=== PATIENT | male | born 1955 | race Caucasian/White ===

== ENCOUNTER 2021-07-04 10:45 | Observation (INO) | payer OTHER ==
--- OUTSIDE RECORDS SUMMARY | 2021-07-04 10:47 | XMS REPORT | Continuity of Care Document ---
:1955 Author Organization [facility] t Address [address] [place] [address] Care Team Providers Name Role Phone DION Attending Clinician Unavailable GARCIA Attending Clinician Unavailable Problems Condition Condition Condition Status Onset Resolution Last Treating Co mments Source Name Details Category Date Date Treatment Clinician Date History of History of Problem Resolve [facility] Heart Heart d ity of disease disease [place] [facility] History of History of Problem Resolve [facility] hypertensi hypertensi d it y of on on [place] [facility] Right Right Problem Active [facility] shoulder shoulder ity of pain pain [place] [facility] Tear of Tear of Problem Active [facility] right right ity of rotator rotator [place] cuff cuff [facility] Allergies, Adverse Reactions, Alerts This patient has no known allergies or adverse reactions. Medications Ordered Filled Start Stop Current Ordering Indication Dosage Frequency Signature Comments Components Source Medication Medication Date Date Medication? Clinician (SIG) Name Name Coreg CR 10 Coreg CR 10 Yes U nivers MG Oral MG Oral ity of Capsule Capsule [place] Extended Extended [facility]ici Release 24 Release 24 ans Hour Hour Amiodarone Amiodarone Yes Uni vers HCl - 200 HCl - 200 ity o f MG Oral MG Oral [place] Tablet Tablet [facility] ans Simvastatin Simvastatin Yes U nivers 20 MG Oral 20 MG Oral ity of Tablet Tablet [place] [facility] Ramipril 10 Ramipril 10 Yes U nivers MG Oral MG Oral ity of Capsule Capsule [place] [facility] Potassium Potassium Yes Unive rs Chloride 10 Chloride 10 i ty of MEQ TBCR MEQ TBCR [place] [facility] Allopurinol Allopurinol Yes U nivers 300 MG Oral 300 MG Oral i ty of Tablet Tablet [place] [facility] Warfarin Warfarin Yes Univers Sodium 10 Sodium 10 ity o f MG Oral MG Oral [place] Tablet Tablet [facility] ans Furosemide Furosemide Yes Uni vers 40 MG Oral 40 MG Oral ity of Tablet Tablet [place] [facility] Vital Signs Vital Name Observation Time Observation Value Comments Source BP Systolic 2019-08-04 11:46:00 135 mm[Hg] [facility] BP Diastolic 2019-08-04 11:46:00 91 mm[Hg] [facility] Height 2019-08-04 11:46:00 70 [in_us] [facility] Weight 2019-08-04 11:46:00 238 [lb_av] [facility] Body Mass Index 2019-08-04 11:46:00 34.15 kg/m2 [facility] Heart Rate 2019-08-04 11:46:00 87 /min [facility] Procedures Procedure Date / Time Performed Performing Clinician Sourc e MR Shoulder wo 2019-08-04 00:00:00 [facility] [place] contrast [id number] History of Shoulder [facility] [place] [facility] History of Heart [facility] Encounters Start End Encounter Admission Attending Care Care Encounter Source Date/Time Date/Time Type Type Clinicians Facility Department ID 2021-04-22 2021-04-22 [facility] [id number] 2021-03-16 2021-03-16 [facility] [id number] [facility] 2021-03-11 2021-03-11 [facility] [id number] [facility] 2021-02-25 2021-02-25 [facility]patient [facility] [id number] [facility] 2021-02-16 2021-02-16 [facility] [id number] [facility] 2021-02-01 2021-02-01 Outpatient [facility] [id number] [facility] 2019-08-04 2019-08-04 Appointmen AMANDA ASHLEY [facility] [id number] [facility] 11:00:00 11:00:00 t; JI VILLEDA - Che gonzalez o DION, [address] [facility] 2017-11-12 2017-11-12 Appointmen AMANDA GARCIA [facility] [id number] [facility] 08:00:00 08:00:00 t; FRANCES GARCIA [facility] [address] [facility] ans Results This patient has no known results.
[2021-07-04] MEDS ORDERED: NA CHLORIDE 0.9% 1,000 ML ONE (11:22)
[2021-07-04 11:40] LABS: Absolute Lymphocytes (CBC) 1.1 K/uL (0.7-4.9); Basophils % 0.7 % (0-1.3); Hematocrit 44.8 % (39.6-49.0); Lymphocytes % 11.2 % (15.3-44.8); MPV 7.7 fL (7.6-11.3); RBC Red Blood Cell Count 5.06 M/uL (4.33-5.43)
[2021-07-04 11:42] LABS: Protime INR 2.98
--- NOTE | 2021-07-04 11:52 | RAD REPORT ---
EXAM DESCRIPTION: RAD - Chest Single View - 07/04/2021 11:46 am CLINICAL HISTORY: ABDOMINAL DISTENTION COMPARISON: Chest Single View dated 08/15/2017; Chest Single View dated 08/29/2016; CHEST PA AND LAT 2 VIEW dated 12/24/2011; CHEST PA AND LAT 2 VIEW dated 11/30/2011 FINDINGS: Lines: None. Lungs: No evidence of edema or pneumonia. Pleural: No significant pleural effusions or pneumothorax. Cardiac: Cardiomegaly. Sternotomy. Bones: No acute fractures. Other: IMPRESSION: No acute cardiopulmonary disease.
[2021-07-04 12:00] LABS: AST/SGOT 19 U/L (15-37); BUN Blood Urea Nitrogen 27 mg/dL (7-18); Bicarbonate 24 mmol/L (21-32); Glucose Level 131 mg/dL (74-106); Potassium 4.1 mmol/L (3.5-5.1); Sodium Level 137 mmol/L (136-145)
[2021-07-04 12:01] LABS: ALT/SGPT 31 U/L (12-78); Albumin 3.8 g/dL (3.4-5.0); Alkaline Phosphatase 58 U/L (45-117); Bilirubin Direct < 0.1 mg/dL (0-0.2); Bilirubin Total 0.4 mg/dL (0.2-1.0); Lipase 96 U/L (73-393); Magnesium 2.2 mg/dL (1.8-2.4); NT PRO-BNP 490 pg/mL (<125); Protein, Total 7.6 g/dL (6.4-8.2); Troponin (Emerg Dept Use Only) < 0.02 ng/mL (0.0-0.045)
[2021-07-04 12:54] LABS: Urine Blood 1+ (Negative); Urine Glucose Negative (Negative); Urine Protein Negative (Negative); Urine Specific Gravity 1.015 (1.005-1.030)
--- NOTE | 2021-07-04 13:51 | RAD REPORT ---
EXAM DESCRIPTION: CT - Abdomen Pelvis W Contrast - 07/04/2021 1:01 pm CLINICAL HISTORY: ABD PAIN COMPARISON: No comparisons TECHNIQUE: Biphasic, helical CT imaging of the abdomen and pelvis was performed following 100 ml non -ionic IV contrast. No oral contrast administered. All CT scans are performed using dose optimization technique as appropriate and may include automated exposure control or mA/KV adjustment according to patient size. FINDINGS: Cardiomegaly is present without pericardial effusion. No pneumothorax or pleural effusion. A 2.6 centimeter sessile soft tissue masses present in the lateral gutter on the left. This appears to be abutting the diaphragmatic pleura on the chest side of the diaphragm. This measures larger than prior imaging. Patient has fibrotic stranding in the lung bases. Moderate-sized hiatal hernia is pre sent similar to comparison. The liver, spleen, and pancreas show no suspicious findings. Several small gallstones are present clu stered into the neck of the gallbladder similar to prior imaging. No acute gallbladder or biliary lai e finding. Patient has innumerable variably sized renal cysts. Both kidneys show lobulation in contour. In the a nterolateral upper pole left kidney there is a 3.6 centimeter cyst that contains a 2.2 centimeter enh ancing or hyperdense focus. This could be a solid mass complex within a cyst or hemorrhagic debris wi thin a cyst. The patient has a history of hemorrhage. A 16 millimeter exophytic hyperdense focus is p resent medial right kidney (image 20) this measures larger than the 2017 study. Another exophytic hyp erdense mass or lobulation projects from the posterior mid right kidney (image 33) 28 mm in dimension . This is slightly larger than the prior study. In the posterior lower pole (image 38) there is a 2.1 centimeter intermediate density mass. Lateral upper pole exophytic mass left kidney (image 27) measu ring 2.1 cm. This is larger than comparison. Also in the lateral upper pole left kidney (image 30) a 2.2 centimeter exophytic masses present. Lateral mid left kidney (image 40) shows a 3.5 cm TR x 3.2 c m AP exophytic mass measuring larger than 2017. Lateral lower pole 2.3 centimeter exophytic mass (alexandra ge 44) also measures larger. No pyelonephritis. No hydronephrosis or obstructing calculi. No bladder abnormalities. No adrenal abn ormalities. No dilated bowel loops or bowel wall thickening. Extensive sigmoid diverticulosis present without div erticulitis. No acute GI process seen. No free air, free fluid or inflammatory stranding. No bulky l ymphadenopathy or omental thickening. Patient has a very small incidental umbilical fat only hernia. In the left rectus abdominis musculature approximately 13 cm lateral to the umbilicus there is a 6 x 4 mm rectus hematoma. The oblique musculature on the left is thickened relative to the right and may contain hemorrhage or edema component as well. Prominent disc and bony degenerative changes are present. No acute findings seen. Arterial tree calci fications are present without acute vascular finding. IMPRESSION: Patient has a 6 x 4 centimeter left rectus hematoma lateral to the umbilicus. Thickening throughout the left lateral oblique musculature is probably additional hematoma and edema. Prominent sigmoid diverticulosis without diverticulitis. No acute GI process seen. Patient has numerous exophytic enhancing masses of both kidneys showing interval growth since 2017. T hese are suspicious for bilateral renal cell malignancies rather than hemorrhagic or complex cysts. P atient has a cyst in the anterior upper right kidney that may have a solid mass component that has de veloped or intra cyst hemorrhage. It is unknown if the patient's renal masses have been subjected to further evaluation since 2017. Alexei ateral renal cell carcinomas certainly are a primary consideration. If any intervention is contemplat ed, follow-up MR imaging would be suggested to confirm the renal masses as solid rather than complex cystic masses. Sessile mass abutting the left diaphragmatic pleura left lateral gutter enlarged from prior imaging p ossibly malignant as well.
--- NOTE | 2021-07-04 14:24 | EDPHYS ---
Physician Documentation [facility] Name: Chaim Michelle Age: 66 yrs Sex: Male : 1955 Arrival Date: 07/04/2021 Time: 10:53 Bed 16 Private MD: ED Physician Bharathi Orta HPI: 07/04 12:23 This 66 yrs old Male presents to ER via Ambulatory with complaints of melody Abdominal Pain. 12:23 The patient presents with abdominal distention in the upper abdomen, in the lower melody abdomen. Onset: The symptoms/episode began/occurred 7 day(s) ago. The symptoms do not radiate. Associated signs and symptoms: Pertinent positives:. The symptoms are described as crampy, steady. Modifying factors: The symptoms are alleviated by remaining still, the symptoms are aggravated by coughing, breathing deeply. Severity of pain: At its worst the pain was moderate in the emergency department the pain is unchanged. The patient has not experienced similar symptoms in the past. Historical: - Allergies: 11:07 NKDA; ww - PMHx: 11:07 Atrial Fib; CHF; Hypertension; AAA; ww - PSHx: 11:07 Stented artery; valve replacement; ww - Immunization history:: Client reports having NOT received the Covid vaccine. - Social history:: Smoking status: Patient/guardian denies using tobacco. - Family history:: not pertinent. ROS: 12:23 Constitutional: Negative for fever, chills, and weight loss, Eyes: Negative for injury, melody pain, redness, and discharge, ENT: Negative for injury, pain, and discharge, Neck: Negative for injury, pain, and swelling, Cardiovascular: Negative for chest pain, palpitations, and edema, Respiratory: Negative for shortness of breath, cough, wheezing, and pleuritic chest pain, Back: Negative for injury and pain, : Negative for injury, bleeding, discharge, and swelling, MS/Extremity: Negative for injury and deformity, Neuro: Negative for headache, weakness, numbness, tingling, and seizure, Psych: Negative for depression, anxiety, suicide ideation, homicidal ideation, and hallucinations, Allergy/Immunology: Negative for hives, rash, and allergies, Endocrine: Negative for neck swelling, polydipsia, polyuria, polyphagia, and marked weight changes, Hematologic/Lymphatic: Negative for swollen nodes, abnormal bleeding, and unusual bruising. 12:23 Abdomen/GI: Positive for abdominal pain, abdominal distension, of the anterior aspect of left lateral abdomen and left lower quadrant. 12:23 Skin: Positive for ecchymosis, swelling, of the left lower quadrant. Exam: 12:23 Constitutional: This is a well developed, well nourished patient who is awake, alert, melody and in no acute distress. Head/Face: Normocephalic, atraumatic. Eyes: Pupils equal round and reactive to light, extra-ocular motions intact. Lids and lashes normal. Conjunctiva and sclera are non-icteric and not injected. Cornea within normal limits. Periorbital areas with no swelling, redness, or edema. ENT: Nares patent. No nasal discharge, no septal abnormalities noted. Tympanic membranes are normal and external auditory canals are clear. Oropharynx with no redness, swelling, or masses, exudates, or evidence of obstruction, uvula midline. Mucous membranes moist. Neck: Trachea midline, no thyromegaly or masses palpated, and no cervical lymphadenopathy. Supple, full range of motion without nuchal rigidity, or vertebral point tenderness. No Meningismus. Chest/axilla: Normal chest wall appearance and motion. Nontender with no deformity. No lesions are appreciated. Cardiovascular: Regular rate and rhythm with a normal S1 and S2. No gallops, murmurs, or rubs. Normal PMI, no JVD. No pulse deficits. Respiratory: Lungs have equal breath sounds bilaterally, clear to auscultation and percussion. No rales, rhonchi or wheezes noted. No increased work of breathing, no retractions or nasal flaring. Back: No spinal tenderness. No costovertebral tenderness. Full range of motion. Male : Normal genitalia with no discharge or lesions. Skin: Warm, dry with normal turgor. Normal color with no rashes, no lesions, and no evidence of cellulitis. MS/ Extremity: Pulses equal, no cyanosis. Neurovascular intact. Full, normal range of motion. Neuro: Awake and alert, GCS 15, oriented to person, place, time, and situation. Cranial nerves II-XII grossly intact. Motor strength 5/5 in all extremities. Sensory grossly intact. Cerebellar exam normal. Normal gait. Psych: Awake, alert, with orientation to person, place and time. Behavior, mood, and affect are within normal limits. 12:23 ECG was reviewed by the Attending Physician. 12:23 Abdomen/GI: Inspection: distension, Bowel sounds: normal, Palpation: moderate abdominal tenderness, in the left lower quadrant, Liver: no appreciated palpable abnormalities, Hernia: not appreciated. Vital Signs: 11:05 BP 119 / 81; Pulse 75; Resp 18; Temp 98.1; Pulse Ox 94% on R/A; Weight 108.86 kg; ww Height 5 ft. 9 in. (175.26 cm); Pain 5/10; 11:46 BP 121 / 93; Pulse 80; Resp 17; ll1 18:50 BP 140 / 93; Pulse 75; Resp 18; Pulse Ox 95% on R/A; ll1 20:38 BP 125 / 90; Pulse 98; Resp 19; Pulse Ox 100% on R/A; kd3 11:05 Body Mass Index 35.44 (108.86 kg, 175.26 cm) ww MDM: 11:07 Patient medically screened. melody 12:28 Differential diagnosis: gastroesophageal reflux disease, Mesenteric ischemia or melody infarction, non-specific abd pain, Ureterolithiasis, urinary tract infection. Data reviewed: vital signs, nurses notes, lab test result(s), EKG, radiologic studies, CT scan, plain films. Data interpreted: project/production manager imaging: rate is 80 beats/min, rhythm is regular, Pulse oximetry: on room air is 94 %. Test interpretation: by ED physician or midlevel provider: ECG, plain radiologic studies. Counseling: I had a detailed discussion with the patient and/or guardian regarding: the historical points, exam findings, and any diagnostic results supporting the discharge/admit diagnosis, lab results, radiology results. 07/04 11:08 Order name: Basic Metabolic Panel; Complete Time: 12:18 melody 07/04 11:08 Order name: CBC with Diff; Complete Time: 12:18 melody 07/04 11:08 Order name: LFT's; Complete Time: 12:18 melody 07/04 11:08 Order name: Magnesium; Complete Time: 12:18 melody 07/04 11:08 Order name: NT PRO-BNP; Complete Time: 12:18 melody 07/04 11:08 Order name: PT-INR; Complete Time: 12:18 melody 07/04 11:08 Order name: Troponin (emerg Dept Use Only); Complete Time: 12:18 [facility] 07/04 11:08 Order name: XRAY Chest (1 view); Complete Time: 12:18 [facility] 07/04 11:08 Order name: Lipase; Complete Time: 12:18 [facility] 07/04 11:08 Order name: Urine Culture [facility] 07/04 12:54 Order name: Urine Dipstick-Ancillary; Complete Time: 13:58 [facility] 07/04 17:37 Order name: COVID-19 (Coronavirus) Document "Date of Onset" if Symptomatic [email or web address] 07/04 18:12 Order name: CORONAVIRUS [facility] 07/04 19:08 Order name: SARS-COV-2 RT PCR [facility] 07/04 11:08 Order name: EKG; Complete Time: 11:09 [facility] 07/04 11:08 Order name: Cardiac monitoring; Complete Time: 11:17 [facility] 07/04 11:08 Order name: EKG - Nurse/Tech; Complete Time: 11:17 [facility] 07/04 11:08 Order name: IV Saline Lock; Complete Time: 11:14 [facility] 07/04 11:08 Order name: Labs collected and sent; Complete Time: 11:13 [facility] 07/04 11:08 Order name: O2 Per Protocol; Complete Time: 11:13 [facility] 07/04 11:08 Order name: O2 Sat Monitoring; Complete Time: 11:13 [facility] 07/04 11:08 Order name: Urine Dipstick-Ancillary (obtain specimen); Complete Time: 14:50 [facility] 07/04 11:08 Order name: CT Abd/Pelvis - IV Contrast Only; Complete Time: 13:58 [facility] EC:23 Rate is 84 beats/min. Rhythm is regular. QRS [place] is Normal. VT interval is normal. QRS melody interval is normal. QT interval is normal. No Q waves. T waves are Normal. No ST changes noted. Clinical impression: NSR w/ Non-specific ST/T Changes and No evidence of ischemia. Interpreted by me. Reviewed by me. Administered Medications: 11:32 Drug: NS 0.9% 1000 ml Route: IV; Rate: 125 ml/hr; Site: left forearm; ll1 18:47 Drug: morphine 2 mg Route: IVP; Site: left antecubital; ll1 18:48 Drug: Zofran (Ondansetron) 4 mg Route: IVP; Site: left antecubital; ll1 Disposition Summary: 07/04/21 14:23 Hospitalization Ordered Hospitalization Status: Observation melody Provider: Satnam De La Cruz cha Location: Telemetry/MedSurg (observation) melody Condition: Fair melody Problem: new melody Symptoms: have improved melody Bed/Room Type: Standard melody Room Assignment: 222(07/04/21 20:08) mw Diagnosis - Nontraumatic hematoma of soft tissue - 6x4 cm rectus hematoma melody - Adverse effect of anticoagulants - Coumadin melody - Other mechanical complication of heart valve prosthesis, initial encounter melody - 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
--- NOTE | 2021-07-04 14:24 | ER ---
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 On Warfarin and has noticed brusing to the abdomen. Denies any recent falls or traumas. Coronavirus screen: Vaccine status: Patient reports being unvaccinated. Client denies travel out of the [place] in the last 14 days. Ebola Screen: Patient negative for fever greater than or equal to 101.5 degrees Fahrenheit, and additional compatible Ebola Virus Disease symptoms Patient denies exposure to infectious person. Patient denies travel to an Ebola-affected area in the 21 days before illness onset. No symptoms or risks identified at this time. Initial Sepsis Screen: Does the patient meet any 2 criteria? No. Patient's initial sepsis screen is negative. Does the patient have a suspected source of infection? No. Patient's initial sepsis screen is negative. Risk Assessment: Do you want to hurt yourself or someone else? Patient reports no desire to harm self or others. Onset of symptoms was July 03, 2021. 11:05 Method Of Arrival: Ambulatory ww 11:05 Acuity: ABBY 3 ww Triage Assessment: 11:07 General: Appears in no apparent distress. Behavior is calm, cooperative, appropriate ww for age. Pain: Complains of pain in anterior aspect of left lateral abdomen, left upper quadrant and left lower quadrant. EENT: No deficits noted. No signs and/or symptoms were reported regarding the EENT system. Neuro: No deficits noted. Level of Consciousness is awake, alert, obeys commands, Oriented to person, place, time, situation, Appropriate for age. Cardiovascular: Capillary refill < 3 seconds. Respiratory: Airway is patent Respiratory effort is even, labored, wears home oxygen. GI: Abdomen is round bruised on umbilical area, suprapubic area, left upper quadrant and left lower quadrant Abdomen is tender to palpation. : No deficits noted. No signs and/or symptoms were reported regarding the genitourinary system. Derm: Skin is intact, Skin is normal, Bruising that is dark purple, yellow, on umbilical area, suprapubic area and left lower quadrant. Musculoskeletal: No deficits noted. No signs and/or symptoms reported regarding the musculoskeletal system. Historical: - Allergies: 11:07 NKDA; ww - PMHx: 11:07 Atrial Fib; CHF; Hypertension; AAA; ww - PSHx: 11:07 Stented artery; valve replacement; ww - Immunization history:: Client reports having NOT received the Covid vaccine. - Social history:: Smoking status: Patient/guardian denies using tobacco. - Family history:: not pertinent. Screenin:48 Abuse screen: Denies threats or abuse. Nutritional screening: No deficits noted. ll1 Tuberculosis screening: No symptoms or risk factors identified. Fall Risk IV access (20 points). Total Perez Fall Scale indicates No Risk (0-24 pts). Assessment: 11:35 Reassessment: No changes from previously documented assessment. Patient and/or family ll1 updated on plan of care and expected duration. Pain level reassessed. Patient is alert, oriented x 3, equal unlabored respirations, skin warm/dry/pink. Neuro: No deficits noted. Cardiovascular: No deficits noted. Respiratory: No deficits noted. GI: Abdomen is round Bowel sounds present X 4 quads. Reports bruising LLQ abdominal area slowly getting bigger for 1 week. No specific trauma or falls. Pain to lower abdomen started yesterday. Denies N/V/D. 12:30 Reassessment: No changes from previously documented assessment. Patient and/or family ll1 updated on plan of care and expected duration. Pain level reassessed. Patient is alert, oriented x 3, equal unlabored respirations, skin warm/dry/pink. 13:30 Reassessment: No changes from previously documented assessment. Patient and/or family ll1 updated on plan of care and expected duration. Pain level reassessed. Patient is alert, oriented x 3, equal unlabored respirations, skin warm/dry/pink. 14:30 Reassessment: No changes from previously documented assessment. Patient and/or family ll1 updated on plan of care and expected duration. Pain level reassessed. Patient is alert, oriented x 3, equal unlabored respirations, skin warm/dry/pink. 15:30 Reassessment: No changes from previously documented assessment. Patient and/or family ll1 updated on plan of care and expected duration. Pain level reassessed. Patient is alert, oriented x 3, equal unlabored respirations, skin warm/dry/pink. 16:30 Reassessment: No changes from previously documented assessment. Patient and/or family ll1 updated on plan of care and expected duration. Pain level reassessed. Patient is alert, oriented x 3, equal unlabored respirations, skin warm/dry/pink. 17:30 Reassessment: No changes from previously documented assessment. Patient and/or family ll1 updated on plan of care and expected duration. Pain level reassessed. Patient is alert, oriented x 3, equal unlabored respirations, skin warm/dry/pink. 18:30 Reassessment: No changes from previously documented assessment. Patient and/or family ll1 updated on plan of care and expected duration. Pain level reassessed. Patient is alert, oriented x 3, equal unlabored respirations, skin warm/dry/pink. 19:40 Reassessment: Patient is alert, oriented x 3, equal unlabored respirations, skin kd3 warm/dry/pink. 20:39 Reassessment: No changes from previously documented assessment. kd3 Vital Signs: 11:05 BP 119 / 81; Pulse 75; Resp 18; Temp 98.1; Pulse Ox 94% on R/A; Weight 108.86 kg; ww Height 5 ft. 9 in. (175.26 cm); Pain 5/10; 11:46 BP 121 / 93; Pulse 80; Resp 17; ll1 18:50 BP 140 / 93; Pulse 75; Resp 18; Pulse Ox 95% on R/A; ll1 20:38 BP 125 / 90; Pulse 98; Resp 19; Pulse Ox 100% on R/A; kd3 11:05 Body Mass Index 35.44 (108.86 kg, 175.26 cm) ED Course: 10:53 Patient arrived in ED. rg4 11:07 Triage completed. ww 11:07 Bharathi Orta MD is Attending Physician. melody 11:07 Arm band placed on right wrist. ww 11:13 Nathan, Lynsay, RN is Primary Nurse. ll1 11:24 EKG done, by ED staff, reviewed by Bharathi Orta MD. mb7 11:33 Inserted saline lock: 22 gauge in left forearm, using aseptic technique. Blood ll1 collected. 11:46 XRAY Chest (1 view) In Process Unspecified. EDMS 11:48 Patient has correct armband on for positive identification. Bed in low position. Call ll1 light in reach. Side rails up X 1. Pulse ox on. NIBP on. 13:01 CT Abd/Pelvis - IV Contrast Only In Process Unspecified. EDMS 14:16 Satnam De La Cruz is Hospitalizing Provider. melody 18:51 No provider procedures requiring assistance completed. ll1 19:27 Primary Nurse role handed off by Sridhar Evans RN mw2 19:36 Lisa Toney, RN is Primary Nurse. kd3 Administered Medications: 11:32 Drug: NS 0.9% 1000 ml Route: IV; Rate: 125 ml/hr; Site: left forearm; ll1 18:47 Drug: morphine 2 mg Route: IVP; Site: left antecubital; ll1 18:48 Drug: Zofran (Ondansetron) 4 mg Route: IVP; Site: left antecubital; ll1 Outcome: 14:23 Decision to Hospitalize by Provider. melody 20:52 Patient left the ED. mw2 Signatures: Dispatcher [employer] EDDE Bharathi Orta MD MD cha Garcia, Rubi rg4 [place] mw2 Sridhar Evans RN RN ll1 Lisa Toney RN RN 3 Tia Rich mb7 Rachelle Ang RN RN ww Corrections: (The following items were deleted from the chart) 11:08 11:07 PMHx: Aneurysm; ww ww
--- NOTE | 2021-07-04 16:11 | P.HP ---
Certification for Inpatient Patient admitted to: Inpatient With expected LOS: >2 Midnights Practitioner: I am a practitioner with admitting privileges, knowledge of patient current condition, hospital course, and medical plan of care. Services: Services provided to patient in accordance with Admission requirements found in Title 42 Section 412.3 of the Code of Federal Regulations Patient History Date of Service: 07/04/21 Reason for admission: Abdominal pain History of Present Illness: 66-year-old gentleman with a history of mechanical valve replacement on Coumadin anticoagulation presented to the emergency department with a complaint of sudden onset abdominal pain and hematoma on the lower anterior abdominal wall. CT abdomen pelvis done in the ED demonstrate rectus sheath hematoma. It also demonstrated multiple kidney cyst and masses which are enlarged compared to previous scans. INR is 2.9. Dr. Madden patient outside event sales specialist was contacted who recommended hospitalization, holding Coumadin and starting Lovenox 8 hours after holding Coumadin. Patient is hospitalized for further management. Allergies No Known Drug Allergies Allergy (Unverified 08/29/16 23:32) Unknown No Known Drug Allergie Allergy (Uncoded 11/08/15 12:32) Unknown Home Medications: Amiodarone HCl [Cordarone*] 200 mg PO DAILY 05/23/16 Furosemide [Lasix*] 40 mg PO DAILY 05/23/16 Omeprazole [Prilosec] 40 mg PO DAILY 05/23/16 Potassium Chloride [K-Tab ER] 10 meq PO DAILY 05/23/16 Ramipril [Altace] 10 mg PO DAILY 05/23/16 Simvastatin [Zocor*] 20 mg PO DAILY 05/23/16 Warfarin Sodium [Coumadin*] 9 mg PO DAILY 05/23/16 - Past Medical/Surgical History Diabetic: No -: HTN -: CHF -: Aortic Aneurysm x2 -: Aortic Valve replacement -: Kidbey Stones -: R shoulder replacement -: R eye retina tear -: L Kideny stent - Family History Father -: Cancer, Blood disorders Notes: throat cx, anemia Sister -: Blood disorders Notes: anemia - Social History Alcohol use: No CD- Drugs: No Caffeine use: No Review of Systems Other: Patient denies any fever or chills or shortness of breath. He denies any diarrhea no nausea or vomiting. Except as documented, all other systems reviewed and negative. Physical Examination - Physical Exam General: Alert, In no apparent distress, Oriented x3, Obese HEENT: Atraumatic, PERRLA, Mucous membr. moist/pink, Sclerae nonicteric Neck: Supple, JVD not distended Respiratory: Clear to auscultation bilaterally, Normal air movement Cardiovascular: No edema, Regular rate/rhythm, Normal S1 S2 Gastrointestinal: Soft and benign, Non-distended, Other (Hematoma-lower portion of anterior abdominal wall.), Tenderness (Anterior abdominal wall) Musculoskeletal: No swelling, No erythema Integumentary: No rashes, No cyanosis Neurological: Normal speech, Normal strength at 5/5 x4 extr, Cranial nerves 3-12 intact Lymphatics: No axilla or inguinal lymphadenopathy - Studies Laboratory Data (last 24 hrs) 07/04/21 11:30: PT 34.6 H, INR 2.98 07/04/21 11:30: WBC 10.10, Hgb 14.7, Hct 44.8, Plt Count 215 07/04/21 11:30: Sodium 137, Potassium 4.1, BUN 27 H, Creatinine 1.34 H, Glucose 131 H, Magnesium 2.2, Total Bilirubin 0.4, AST 19, ALT 31, Alkaline Phosphatase 58, Lipase 96 Assessment and Plan - Problems (Diagnosis) (1) Rectus sheath hematoma Current Visit: Yes Status: Acute (2) HTN (hypertension) Onset Date: 05/24/16 Current Visit: No Status: Acute Qualifiers: Hypertension type: essential hypertension Qualified Code(s): I10 - Essential (primary) hypertension (3) Hx of mechanical aortic valve replacement Current Visit: No Status: Acute (4) Chronic anticoagulation Current Visit: Yes Status: Acute (5) Bilateral renal masses Current Visit: Yes Status: Acute - Plan Admit to the medical floor. Hold Coumadin. Start Lovenox 0.5 mg/kg Q12H 8 hours from now per Dr. Madden's recommendation. Monitor PT/INR daily. May restart Coumadin once INR is around 2. Further evaluation of renal masses as an outpatient. Patient will need his Coumadin reversed and bridged with Lovenox prior to any procedure for tissue biopsy. Reconcile and continue patient's other home medications. - Advance Directives Does patient have a Living Will: No Does patient have a Durable POA for Healthcare: No
[2021-07-04] MEDS ORDERED: MORPHINE 2 MG/ML SYR ONE (18:38)
[2021-07-04] MEDS ORDERED: ONDANSETRON 4 MG/2 ML VIAL ONE (18:38)
[2021-07-04 21:27] VITALS: O2SAT 100
[2021-07-04] MEDS ORDERED: ACETAMINOPHEN 500 MG TAB PO PRN (21:36)
[2021-07-04 23:36] VITALS: BMI 35.4
[2021-07-05 06:13] LABS: Absolute Lymphocytes (CBC) 0.8 K/uL (0.7-4.9); Basophils % 0.5 % (0-1.3); Hematocrit 41.2 % (39.6-49.0); Lymphocytes % 8.5 % (15.3-44.8); MPV 7.8 fL (7.6-11.3); RBC Red Blood Cell Count 4.62 M/uL (4.33-5.43)
--- NOTE | 2021-07-05 06:16 | P.PN ---
Date of Service: 07/05/21 Subjective: No acute events overnight. Patient reports continued left lower abdomen discomfort. Denies any worsening of the pain, denies spread of the area involved. No new symptoms ROS: 10 point ROS as noted above, otherwise negative Physical exam GEN: Alert, oriented, NAD HEENT: Normal conjunctiva, sclera anicteric CV: Regular rate and rhythm, trace b/l pedal edema Pulm: Nonlabored respirations on room air ABD: Soft, ecchymosis inferior to the umbilicus and laterally (left), tender to palpatio in area of ecchymosis Neuro: Normal speech, normal affect Problem List Rectus sheath hematoma Hypertension History of mechanical aortic valve replacement Chronic anticoagulation Bilateral renal masses Coumadin held Started Lovenox 0.5 mg/kg Q12H 8 hours after admission per Dr. Madden's recommendation. Monitor PT/INR daily. restart Coumadin once INR is around 2. possibly tomorrow Further evaluation of renal masses as an outpatient. Patient will need his Coumadin reversed and bridged with Lovenox prior to any procedure for tissue biopsy. Discussed renal masses with patient, states he was aware of them ~2 years ago, saw a surgeon to possibly biopsy, however didn't feel comfortable at the time and somewhat forgot about them / stopped worrying about them restart home beta darlyn, restart lasix tomorrow PRN pain medication patient reported coughing fits last week, and after coughing hard he felt increased pain in the lower left abdomen, shortly after he developed bruising Dispo: Anticipate DC home in 1-2 days Time Spent Managing Pts Care (In Minutes): 35
[2021-07-05 06:18] LABS: Protime INR 2.48
[2021-07-05] MEDS ORDERED: MORPHINE 2 MG/ML SYR IV PRN ×2 (06:33→09:41)
[2021-07-05 06:35] LABS: Magnesium 2.3 mg/dL (1.8-2.4); Phosphorus 3.5 mg/dL (2.5-4.9); Potassium 4.3 mmol/L (3.5-5.1)
--- NOTE | 2021-07-05 07:37 | EKG ---
Test Date: 2021-07-04 Test Time: 11:18:46 Binding Folder Machine: FRANKY MEASUREMENT RESULTS: Intervals: Rate: 84 ID: [id number] QRSD: 168 QT: 464 QTc: 548 [place]: P: 56 ID: [id number] QRS: -51 T: 46 INTERPRETIVE STATEMENTS: Normal sinus rhythm Right bundle branch block Left anterior fascicular block Bifascicular block Possible Inferior infarct, age undetermined Abnormal ECG Compared to ECG 08/29/2016 18:29:46 Left anterior fascicular block now present Bifascicular block now present Myocardial infarct finding now present Left-axis deviation no longer present Electronically Signed On 07-05-21 07:35:04 PATCHING MACHINE OPERATOR by Robert Madden
[2021-07-05] MEDS ORDERED: METOPROLOL TAR 25 MG TAB PO SCH (09:00)
[2021-07-05] MEDS ORDERED: TRAMADOL HCL 50 MG TAB PO PRN (09:34)
--- NOTE | 2021-07-05 12:18 | CON ---
Date of Consultation: 07/05/2021 Reason For Consultation: Rectus sheath hematoma, on Coumadin. History Of Present Illness: Mr. Michelle is 66. He has a history of chronic diastolic congestive heart failure, thoracic aortic aneurysm, status post aortic root and aneurysm repair, aortic valve replace ment, CABG. He is on Coumadin because he has mechanical aortic valve. He comes in with rectus sheat h hematoma and was found also to have some complex cysts in his kidneys bilaterally that needs follow up. No cardiac complaints. Hemoglobin was normal. His creatinine is 1.34. His INR was 2.48. BNP was 490. His EKG showed left anterior hemiblock and a right bundle-branch block which is chronic. H is chest x-ray is negative. He is asymptomatic. Past Medical History: As stated above. Allergies: NONE. Medications: Include Coumadin, he alternates 10 and 11 mg daily. He takes potassium, allopurinol, m etoprolol, Altace, and Lasix. Review of Systems: Negative. Social History: Negative. Family History: Negative. Physical Examination: Vital Signs: Stable. General: Pleasant. HEENT: Negative. Neck: Supple with no bruit. Chest: Clear. Cardiac: Revealed a mechanical valve. Regular rhythm and rate. No murmurs or rubs. Abdomen: He has had a bruise and a large rectus sheath hematoma. Extremities: Revealed no clubbing, cyanosis, or edema. Impression And Plan: Hematoma, on Coumadin and in the presence of rectus sheath hematoma. Hemoglobi n is stable. I will have him resume his Coumadin at 10 mg tomorrow. He can stop the Lovenox. I loy l keep a close eye on his INR and his hematoma and hemoglobin. I would refer him to Dr. Tavares for his kidney for followup in the very near future. Rest of his problems are stable at this point. I w ill see him in the office soon. NB/MODL Voice ID: [id number] Report ID: [id number]
[2021-07-05 12:29] VITALS: BP 149/64; TEMP 98.2
--- NOTE | 2021-07-05 14:11 | P.DS ---
Admission Date: 07/04/21 Discharge Date: 07/05/21 Disposition: ROUTINE DISCHARGE Reason for Admission: Abdominal pain -rectus sheath hematoma Consultations: Cardiology - Dr. Madden Procedures: CXR (07/04): IMPRESSION: No acute cardiopulmonary disease. CT Abd/pelvis (07/04): FINDINGS: Cardiomegaly is present without pericardial effusion. No pneumothorax or pleural effusion. A 2.6 centimeter sessile soft tissue masses present in the lateral gutter on the left. This appears to be abutting the diaphragmatic pleura on the chest side of the diaphragm. This measures larger than prior imaging. Patient has fibrotic stranding in the lung bases. Moderate-sized hiatal hernia is present similar to comparison. The liver, spleen, and pancreas show no suspicious findings. Several small gallstones are present clustered into the neck of the gallbladder similar to prior imaging. No acute gallbladder or biliary tree finding. Patient has innumerable variably sized renal cysts. Both kidneys show lobulation in contour. In the anterolateral upper pole left kidney there is a 3.6 centimeter cyst that contains a 2.2 centimeter enhancing or hyperdense focus. This could be a solid mass complex within a cyst or hemorrhagic debris within a cyst. The patient has a history of hemorrhage. A 16 millimeter exophytic hyperdense focus is present medial right kidney (image 20) this measures larger than the 2017 study. Another exophytic hyperdense mass or lobulation projects from the posterior mid right kidney (image 33) 28 mm in dimension. This is slightly larger than the prior study. In the posterior lower pole (image 38) there is a 2.1 centimeter intermediate density mass. Lateral upper pole exophytic mass left kidney (image 27) measuring 2.1 cm. This is larger than comparison. Also in the lateral upper pole left kidney (image 30) a 2.2 centimeter exophytic masses present. Lateral mid left kidney (image 40) shows a 3.5 cm TR x 3.2 cm AP exophytic mass measuring larger than 2017. Lateral lower pole 2.3 centimeter exophytic mass (image 44) also measures larger. No pyelonephritis. No hydronephrosis or obstructing calculi. No bladder abnormalities. No adrenal abnormalities. No dilated bowel loops or bowel wall thickening. Extensive sigmoid diverticulosis present without diverticulitis. No acute GI process seen. No free air, free fluid or inflammatory stranding. No bulky lymphadenopathy or omental thickening. Patient has a very small incidental umbilical fat only hernia. In the left rectus abdominis musculature approximately 13 cm lateral to the umbilicus there is a 6 x 4 mm rectus hematoma. The oblique musculature on the left is thickened relative to the right and may contain hemorrhage or edema component as well. Prominent disc and bony degenerative changes are present. No acute findings seen. Arterial tree calcifications are present without acute vascular finding. IMPRESSION: Patient has a 6 x 4 centimeter left rectus hematoma lateral to the umbilicus. Thickening throughout the left lateral oblique musculature is probably additional hematoma and edema. Prominent sigmoid diverticulosis without diverticulitis. No acute GI process seen. Patient has numerous exophytic enhancing masses of both kidneys showing interval growth since 2017. These are suspicious for bilateral renal cell malignancies rather than hemorrhagic or complex cysts. Patient has a cyst in the anterior upper right kidney that may have a solid mass component that has developed or intra cyst hemorrhage. It is unknown if the patient's renal masses have been subjected to further evaluation since 2017. Bilateral renal cell carcinomas certainly are a primary consideration. If any intervention is contemplated, follow-up MR imaging would be suggested to confirm the renal masses as solid rather than complex cystic masses. Sessile mass abutting the left diaphragmatic pleura left lateral gutter enlarged from prior imaging possibly malignant as well. Problem List Rectus sheath hematoma Hypertension History of mechanical aortic valve replacement Chronic anticoagulation Bilateral renal masses Brief History of Present Illness: 66-year-old gentleman with a history of mechanical valve replacement on Coumadin anticoagulation presented to the emergency department with a complaint of sudden onset abdominal pain and hematoma on the lower anterior abdominal wall. CT abdomen pelvis done in the ED demonstrate rectus sheath hematoma. It also demonstrated multiple kidney cyst and masses which are enlarged compared to previous scans. INR is 2.9. Dr. Madden patient veterinary virus serum inspector was contacted who recommended hospitalization, holding Coumadin and starting Lovenox 8 hours after holding Coumadin. Patient is hospitalized for further management. Hospital Course: Patient's veterinary virus serum inspector was consulted. Recommended holding the patient's Coumadin, covering with half dose Lovenox and monitored. Patient had no worsening of his symptoms, and INR improved. Patient was cleared by cardiology for discharge home, to be initiated Coumadin at 10 mg daily tomorrow. Patient was in agreement with plan. Suspect this hematoma was due to the multiple coughing episodes patient had last week combined with been on anticoagulation. The incidental CT findings involving his kidneys were discussed with the daksha ent. He reported seeing a surgeon 2 years ago to discuss biopsy, however he did not proceed with it at that time. He is currently planning on following up with Dr. Madden (Cardiology) and Dr. Tavares (Urology) Vital Signs/Physical Exam: Temp Pulse Resp BP Pulse Ox 98.2 F 76 18 149/64 H 93 07/05/21 12:00 07/05/21 12:00 07/05/21 12:00 07/05/21 12:00 07/05/21 12:00 General: Alert, In no apparent distress, Oriented x3 HEENT: Sclerae nonicteric Neck: No LAD Respiratory: Clear to auscultation bilaterally Cardiovascular: No edema, Regular rate/rhythm Gastrointestinal: Tenderness (LLQ, with ecchymosis in the area as well) Neurological: Normal speech, Normal affect Laboratory Data at Discharge: WBC 9.70 K/uL (4.3-10.9) 07/05/21 05:42 Hgb 13.5 g/dL (13.6-17.9) L 07/05/21 05:42 Hct 41.2 % (39.6-49.0) 07/05/21 05:42 Plt Count 180 K/uL (152-406) 07/05/21 05:42 PT 28.8 SECONDS (9.5-12.5) H 07/05/21 05:42 INR 2.48 07/05/21 05:42 Sodium 138 mmol/L (136-145) 07/05/21 05:42 Potassium 4.3 mmol/L (3.5-5.1) 07/05/21 05:42 BUN 23 mg/dL (7-18) H 07/05/21 05:42 Creatinine 1.10 mg/dL (0.55-1.3) 07/05/21 05:42 Glucose 113 mg/dL (74-106) H 07/05/21 05:42 Phosphorus 3.5 mg/dL (2.5-4.9) 07/05/21 05:42 Magnesium 2.3 mg/dL (1.8-2.4) 07/05/21 05:42 Total Bilirubin 0.4 mg/dL (0.2-1.0) 07/04/21 11:30 AST 19 U/L (15-37) 07/04/21 11:30 ALT 31 U/L (12-78) 07/04/21 11:30 Alkaline Phosphatase 58 U/L (45-117) 07/04/21 11:30 Lipase 96 U/L (73-393) 07/04/21 11:30 Home Medications: Furosemide [Lasix*] 40 mg PO DAILY 05/23/16 Potassium Chloride [K-Tab ER] 10 meq PO DAILY 05/23/16 Ramipril [Altace] 10 mg PO DAILY 05/23/16 Warfarin Sodium [Coumadin*] 10 mg PO DAILY 05/23/16 Allopurinol 100 mg PO DAILY 07/04/21 Metoprolol Tartrate [Lopressor*] 25 mg PO BID 07/04/21 traMADol HCL [Ultram*] 50 mg PO Q8H PRN 4 Days #10 tab 07/05/21 New Medications: traMADol HCL [Ultram*] 50 mg PO Q8H PRN 4 Days #10 tab PRN Reason: Pain Scale 5-7 (Moderate) Physician Discharge Instructions: You were found to have a rectus sheath hematoma. You were evaluated by Dr. Madden. Recommended restarting coumadin tomorrow at 10mg daily Ok to restart your other medications. Follow up with Dr. Madden. Recommend repeat INR in ~3 days You will need to further discuss with your PCP regarding the renal masses/po ssible cysts. These have gotten bigger since last checked. Dr. Madden mentioned having you follow up with Dr. Tavares, a urologist in the area. Diet: AHA Activity: Ad eusebia Followup: Robert Madden MD [ACTIVE - CAN ADMIT] - Shana Rodriguez NP [Primary Care Provider] - Jony Tavares [ACTIVE - CAN ADMIT] - Time spent managing pt's care (in minutes): 45
[2021-07-05] MEDS ORDERED: ENOXAPARIN 60 MG/0.6 ML SQ SCH (22:00)
== END 2021-07-05 13:33 | disposition home or self-care (01) ==
LOC: ER 10:45 → ERHOLD 15:55 → INTOOBSV 15:55 → 2ND 20:36
PROVIDERS: ADMIT Internal Medicine; ATTEND Internal Medicine
DX: S30.1XXA Contusion of abdominal wall, initial encounter (principal); I10 Essential (primary) hypertension; N28.89 Other specified disorders of kidney and ureter; Z79.01 Long term (current) use of anticoagulants; Z95.2 Presence of prosthetic heart valve; Z20.822 Contact with and (suspected) exposure to COVID-19
CPT/HCPCS: 93005; 87088; 85025 ×2; 87086; 80048 ×2; 36415; 83735 ×2; 84100; 85610 ×2; 80076; 81003; 84484; 83690; 83880; 74177; 71045; 96375; 96374; 99284; U0003; Q9967; J1650; J2270 ×3; J7030; J2405; G0378 ×3

== ENCOUNTER 2021-11-01 07:15 | Day surgery (SDC) | payer OTHER ==
[2021-10-28 13:28] LABS: Absolute Lymphocytes (CBC) 0.9 K/uL (0.7-4.9); Hematocrit 43.8 % (39.6-49.0); Lymphocytes % 14.9 % (15.3-44.8); MPV 8.6 fL (7.6-11.3); RBC Red Blood Cell Count 4.89 M/uL (4.33-5.43)
[2021-10-28 13:33] LABS: Protime INR 2.49
[2021-10-28 13:43] LABS: Potassium 4.4 mmol/L (3.5-5.1)
[2021-11-01] MEDS ORDERED: Ringers Lactate 1,000 ML IV ONE (07:22)
[2021-11-01] MEDS ORDERED: CEFAZOLIN/SWI 2gm 2 GM/20 ML SYR ONE (07:22)
[2021-11-01 07:54] LABS: Protime INR 1.09
[2021-11-01] MEDS ORDERED: MIDAZOLAM HCL 2 MG/2 ML INJ ONE (08:42)
[2021-11-01] MEDS ORDERED: propofoL 200 MG/20 ML VIAL IV ONE (08:42)
[2021-11-01] MEDS ORDERED: LIDOCAINE 1% MPF 5 ML VIAL ONE (08:42)
[2021-11-01] MEDS ORDERED: FENTANYL CITR 100 MCG/2 ML ONE (08:42)
[2021-11-01] MEDS ORDERED: CODEINE 30MG/APAP 300MG TAB PO PRN (09:01)
[2021-11-01] MEDS ORDERED: dexAMETHasone 10 MG/ML VIAL ONE (09:07)
[2021-11-01] MEDS ORDERED: KETOROLAC 30 MG/ML INJ ONE (09:07)
[2021-11-01] MEDS ORDERED: GLYCOPYRROLATE 0.2 MG/ML SYR ONE (09:11)
[2021-11-01] MEDS ORDERED: ONDANSETRON 4 MG/2 ML VIAL ONE (09:11)
[2021-11-01 10:27] VITALS: BP 114/72; TEMP 97.6; O2SAT 98
[2021-11-01] MEDS ORDERED: CODEINE 30MG/APAP 300MG TAB ONE (11:25)
--- NOTE | 2021-11-01 21:27 | OP ---
Surgeon: ASCENCION KHAN Preoperative Diagnoses: Benign prostatic hypertrophy with lower urinary tract obstruction. Postoperative Diagnoses: Benign prostatic hypertrophy with lower urinary tract obstruction. Principle Procedure: Prostatic urethral lift/Urolift 5 implants placed; 2 on the right and 3 on the left. Indication For Procedure: Mr. Michelle presented to Urology Clinic with obstructive urinary symptoms an d an AUA symptom score of 31/35. He had a 35 g gland and underwent cystoscopic evaluation, revealing anatomy amenable to prostatic urethral lift with lateral lobar hypertrophy predominating and a sligh t elevation of the median bar without intravesical projection. As a result, he was counseled danny mckeon and given the opportunity to review videos and pamphlets provided by the company and elected to proceed with the prostatic urethral lift. Procedure In Detail: The patient presented and was consented in the preoperative holding area, befor e being transferred to the operative suite, where general anesthesia using an LMA was induced. He wa s given Ancef 2 g IV antimicrobial prophylaxis and pneumo boots were provided for DVT prophylaxis. T he case was begun using a 20-Singaporean cystoscope inserted via the urethra into the bladder with ease. The prostatic urethra was surveyed as was the bladder, and there were no mucosal lesions, foreign bod ies, or stones noted throughout. The ureteral orifices were orthotopic in location. The cystoscope bridge was then replaced with the UroLift delivery device. The first treatment was placed on the pat ient's left side, approximately 2 to 2.5 cm distal to the bladder neck. The distal tip of the delive ry device was then angled approximately 20-30 degrees at this position to compress the lateral lobe. The trigger was pulled, thereby deploying a needle containing the implant through the prostate. The needle was then retracted allowing 1 end of the implant to be delivered to the capsular surface of t he prostate. The implant was then tensioned to assure capsular seeding and removal of slack monofila ment. The device was then angled back toward the midline and slowly advanced proximally until the cy stoscopic verification of the monofilament being centered in the delivery, where it was present. The urethral end piece was then affixed to the monofilament, thereby tailoring the size of the implant. Excess filament was then severed. The delivery device was then readvanced into the bladder. The de kimberlyy device was then replaced with a second Urolift delivery device and an additional implant was p laced on the contralateral side in a similar position in the right bladder neck region. This implant was slightly more anterior than the left side resulting in a slight degree of asymmetry. Certainly, procedure was completely repeated, as was described for the first, and then I replaced the cystoscope bridge an d re-surveyed the prostatic urethral channel. Additional implants were required at the apex of the p rostate near the verumontanum, and I determined that 1 additional implant would be beneficial more an teriorly at the left bladder neck. So this was completed at the left apical region at the level of t he verumontanum resulting in good anterior lateral compression, and an additional implant was utilize d at the right apex at the verumontanum and resulting in excellent anterior lateral compression. The n at the bladder neck more anteriorly, a fifth implant was placed approximately 1.5 to 2 cm from the bladder neck more anteriorly resulting in excellent lift of that region and a more symmetric opening with an anterior channel confirmed from the bladder neck through the verumontanum. Again, final cyst oscopy was conducted to inspect the location and state of each implant and to confirm the presence of a continuous anterior channel with the bladder empty. The bladder was then filled with a couple of 100 mL of irrigation fluid and a 20-Singaporean urethral Ewing catheter was placed, given the patient's ne ed for anticoagulation due to a mechanical valve. He was then taken out of the lithotomy position, a wakened from general anesthesia, transferred to a stretcher, and then transferred to [facility] in good condition. Complications: None. Discharge Disposition: He should follow up in the Urology Clinic in about 1 months' time, and he loy l be instructed and allowed to remove the catheter at home tomorrow morning. He will also be instruc narinder to resume his Lovenox depending on whether his urine is in any way significantly bloody. If it i s minimally light pink, he may resume the Lovenox tonight. However, if it is more bloody, I asked hi m to wait and resume it tomorrow morning. Should he develop any clots or sign of clot retention, he should notify us, but he will be discharged home with instructions for how to irrigate the catheter s hould that occur overnight. He will also be discharged with a prescription for ciprofloxacin for 3 d ays and Tylenol No.3 for pain control. WR/MARIAH Voice ID: [id number] Report ID: [id number]
== END 2021-11-01 12:20 | disposition home or self-care (01) ==
LOC: OR 07:15
PROVIDERS: ATTEND Urology
PROC: 3E0K7KZ Introduction of Other Diagnostic Substance into Genitourinary Tract, Via Natural or Artificial Opening (ICD-10-PCS; 2021-11-01)
PROC: 0T7D8DZ Dilation of Urethra with Intraluminal Device, Via Natural or Artificial Opening Endoscopic (ICD-10-PCS; principal; 2021-11-01 08:15)
DX: N40.1 Benign prostatic hyperplasia with lower urinary tract symptoms (principal); I50.9 Heart failure, unspecified; J44.9 Chronic obstructive pulmonary disease, unspecified; I48.91 Unspecified atrial fibrillation; Z95.1 Presence of aortocoronary bypass graft; Z20.822 Contact with and (suspected) exposure to COVID-19
CPT/HCPCS: 52441; 52442 ×4; 51700; 87088; 85025; 87086; 80048; 36415 ×2; 85610 ×2; U0003; J2704; J2250; J3010; J1100; J0690; J7120; J2405

== ENCOUNTER 2021-11-01 22:51 | Emergency (ER) | payer OTHER ==
--- OUTSIDE RECORDS SUMMARY | 2021-11-01 22:54 | XMS REPORT | Continuity of Care Document ---
:1955 Author Organization [facility] t Address [address] [place] [address] Care Team Providers Name Role Phone JASON COOPER Primary Care Physician Unavailable Michael Attending Clinician Unavailable ERIN Attending Clinician Unavailable Kayli Attending Clinician Unavailable DION Attending Clinician Unavailable JOSE Attending Clinician Unavailable Kayli Admitting Clinician Unavailable Payers Payer Name Policy Type Policy Number Effective Date Expiration Date Justin richezio AARP/MEDICARE [id number] 2021 COMPLETE 00:00:00 [facility] [id number] (MEDICARE REPLACEMENT/[place] - PPO) Problems Condition Condition Condition Status Onset Resolution [...] cuff Physici ans Allergies, Adverse Reactions, Alerts Allergy Allergy Status Severity Reaction(s) Onset Inactive Treating Comm ents Source Name Type Date Date Clinician NO KNOWN Allergy Active [facility] S Medications Ordered Filled Start Stop Current Ordering [...] ity o f MG Oral MG Oral [place] Tablet Tablet [facility] Furosemide Furosemide Yes [facility] 40 MG Oral 40 MG Oral ity of Tablet Tablet [place] [facility] Vital Signs Vital Name Observation Time Observation Value Comments Source BP Systolic 2019-08-04 11:46:00 135 mm[Hg] [facility] BP Diastolic 2019-08-04 11:46:00 91 mm[Hg] [facility] Height 2019-08-04 11:46:00 70 [in_us] [facility] Weight 2019-08-04 11:46:00 238 [lb_av] [facility] Body Mass Index 2019-08-04 11:46:00 34.15 kg/m2 [facility] Calculated [facility]icians Heart Rate 2019-08-04 11:46:00 87 /min [facility] Procedures Procedure Date / Time Performed Performing Clinician Sourc e MR Shoulder wo 2019-08-04 00:00:00 [place] [facility] contrast [id number] Physicians History of Shoulder [facility] [place] [facility] History of Heart [facility] Encounters Start End Encounter Admission Attending Care Care Encounter Source Date/Time Date/Time Type Type Clinicians Facility Department ID 2021-11-01 Outpatient [facility] [id number] [facility] 15:11:30 2021-08-10 Outpatient SARITA Cooper [facility] [id number] [facility] 14:35:37 [facility] 2021-08-10 Outpatient SARITA Cooper [facility] [id number] [facility] 14:29:30 Shana [id number] [facility] 2021-08-10 Outpatient Michael, [facility] [id number] [facility] 13:24:19 Shana [id number] [facility] 2021-11-08 2021-11-08 Outpatient ARELI KHAN, [facility] [id number] [facility] 00:00:00 00:00:00 ASCENCION 2021-10-31 2021-10-31 ambulatory [facility] [id number] [facility] 2021-10-13 2021-10-13 ambulatory [facility] [id number] [facility] 2021-10-06 2021-10-06 ambulatory [facility] [id number] [facility] 2021-09-20 2021-09-20 ambulatory [facility] [id number] [facility] 2021-09-07 2021-09-07 ambulatory [facility] [id number] [facility] 2021-09-02 2021-09-02 ambulatory [facility] [id number] [facility] 2021-09-02 2021-09-02 ambulatory [facility] [id number] [facility] 2021-08-29 2021-08-29 Outpatient Yan_W [facility] [id number] [place] 03:00:00 03:00:00 [id number] 2021-08-24 2021-08-24 ambulatory [facility] [id number] [facility] 2021-08-24 2021-08-24 ambulatory [facility] [id number] [facility] 2021-08-15 2021-08-15 ambulatory [facility] [id number] [facility] 2021-08-08 2021-08-08 ambulatory [facility] [id number] [facility] 2021-08-02 2021-08-02 ambulatory [facility] [id number] [facility] 2021-08-02 2021-08-02 ambulatory [facility] [id number] [facility] 2021-08-01 2021-08-01 ambulatory [facility] [id number] [facility] 2021-07-18 2021-07-18 ambulatory [facility] [id number] [facility] 2021-07-14 2021-07-14 ambulatory [facility] [id number] [facility] 2021-07-06 2021-07-06 ambulatory [facility] [id number] [facility] 2021-07-04 2021-07-04 ambulatory [facility] [id number] [facility] 2021-04-22 2021-04-22 Outpatient [facility] [id number] [facility] 2021-03-16 2021-03-16 Outpatient [facility] [id number] [facility] 2021-03-11 2021-03-11 Outpatient [facility] [id number] [facility] 2021-02-25 2021-02-25 Outpatient [facility] [id number] [facility] 2021-02-16 2021-02-16 Outpatient [facility] [id number] [facility] 2021-02-01 2021-02-01 Outpatient [facility] [id number] [facility] 2019-08-04 2019-08-04 [facility] [id number] [facility] 11:00:00 11:00:00 t; JI VILLEDA - [facility] [address] JI VILLEDA Physici ans 2017-11-12 2017-11-12 AMANDA Hoffman [facility] [id number] 08:00:00 08:00:00 t; FRANCES GARCIA [facility] Physici ans Results This patient has no known results.
[2021-11-02] MEDS ORDERED: MORPHINE 2 MG/ML SYR ONE (01:26)
[2021-11-02] MEDS ORDERED: ONDANSETRON 4 MG/2 ML VIAL ONE (01:26)
[2021-11-02 03:23] LABS: Absolute Lymphocytes (CBC) 0.6 K/uL (0.7-4.9); Hematocrit 39.8 % (39.6-49.0); Lymphocytes % 7.7 % (15.3-44.8); RBC Red Blood Cell Count 4.43 M/uL (4.33-5.43)
[2021-11-02 03:24] LABS: Protime INR 1.12
[2021-11-02 03:26] LABS: Albumin 3.8 g/dL (3.4-5.0); Bilirubin Total 0.4 mg/dL (0.2-1.0); Potassium 4.4 mmol/L (3.5-5.1); Protein, Total 6.9 g/dL (6.4-8.2)
[2021-11-02 03:28] LABS: Urine Bacteria <20 /HPF (NONE SEEN); Urine RBC TNTC /HPF (NONE SEEN)
--- NOTE | 2021-11-02 05:05 | ER ---
Nurse's Notes [facility] Name: Chaim Michelle Age: 66 yrs Sex: Male : 1955 Arrival Date: 11/01/2021 Time: 22:55 Bed 14 Private MD: Diagnosis: Hematuria, Post operative Presentation: 11/01 23:24 Chief complaint: Patient states: Urolift performed by Dr. Tavares this morning, reports lp1 blood in urine with Dr. Tavares aware; States now having large clots in rosen catheter, reports severe pain to penis, leaking around catheter tubing. Coronavirus screen: At this time, the client does not indicate any symptoms associated with coronavirus-19. Ebola Screen: No symptoms or risks identified at this time. Initial Sepsis Screen: Does the patient meet any 2 criteria? No. Patient's initial sepsis screen is negative. Does the patient have a suspected source of infection? No. Patient's initial sepsis screen is negative. Risk Assessment: Do you want to hurt yourself or someone else? Patient reports no desire to harm self or others. Onset of symptoms was November 01, 2021. 23:24 Method Of Arrival: Ambulatory lp1 23:24 Acuity: ABBY 3 lp1 Historical: - Allergies: 23:33 NKDA; lp1 - PMHx: 23:33 AAA; Atrial Fib; CHF; Hypertension; lp1 - PSHx: 23:33 Stented artery; Valve replacement; lp1 - Immunization history:: Adult Immunizations up to date, Client reports having NOT received the Covid vaccine. - Social history:: Smoking status: Patient denies any tobacco usage or history of. Screenin/20 04:39 Abuse screen: Denies threats or abuse. Denies injuries from another. Nutritional sm5 screening: No deficits noted. Tuberculosis screening: No symptoms or risk factors identified. Fall Risk None identified. Assessment: 01:30 General: Appears in no apparent distress. Behavior is cooperative. Pain: Complains of sm5 pain in pelvis. Neuro: No deficits noted. Level of Consciousness is awake, alert, obeys commands, Oriented to person, place, time, situation. Cardiovascular: No deficits noted. Capillary refill < 3 seconds Patient's skin is warm and dry. Respiratory: No deficits noted. Airway is patent Trachea midline Respiratory effort is even, unlabored. : Rosen in place Urine is blood tinged, Reports pain in suprapubic area. 02:34 Reassessment: No changes from previously documented assessment. Patient and/or family 5 updated on plan of care and expected duration. Pain level reassessed. 03:30 Reassessment: No changes from previously documented assessment. Patient is alert, 5 oriented x 3, equal unlabored respirations, skin warm/dry/pink. 05:06 Reassessment: No changes from previously documented assessment. 5 Vital Signs: 11/01 23:24 BP 124 / 86; Pulse 70; Resp 18; Temp 98.7(O); Pulse Ox 99% on R/A; Weight 95.25 kg (R); lp1 Height 5 ft. 10 in. (177.80 cm); Pain 0/10; 11/02 04:37 BP 108 / 63; Pulse 50; Resp 16; Pulse Ox 94% on R/A; sm5 05:06 BP 101 / 66; Pulse 52; Resp 18; Pulse Ox 96% on R/A; sm5 11/01 23:24 Body Mass Index 30.13 (95.25 kg, 177.80 cm) lp1 ED Course: 11/01 22:55 Patient arrived in ED. ja2 23:32 Triage completed. lp1 23:32 Arm band placed on right wrist. lp1 23:51 Lissa Murrieta, REGINA is Primary Nurse. 5 11/02 00:06 Pascual Foy MD is Attending Physician. 7 01:35 Inserted saline lock: 20 gauge in left antecubital area, using aseptic technique. Blood 5 collected. 04:25 CT Abd/Pelvis - Without Contrast In Process Unspecified. EDMS 04:35 Urine Culture Sent. sm5 04:35 CBC with Diff Sent. sm5 04:35 CMP Sent. sm5 04:35 Urine Microscopic Only Sent. sm5 04:35 Ptt, Activated Sent. sm5 04:35 Protime (+inr) Sent. sm5 04:40 Patient has correct armband on for positive identification. Bed in low position. Call 5 light in reach. Side rails up X2. 05:04 Jony Tavares MD is Referral Physician. [facility] 05:19 No provider procedures requiring assistance completed. IV discontinued, intact, 5 bleeding controlled, No redness/swelling at site. Pressure dressing applied. Administered Medications: 01:30 Drug: morphine 2 mg Route: IVP; Site: right antecubital; 5 04:35 Follow up: Response: Pain is decreased 5 01:30 Drug: Zofran (Ondansetron) 4 mg Route: IVP; Site: left antecubital; sm5 04:35 Follow up: Response: No adverse reaction 5 05:19 Drug: KeFLEX (cephalexin) 500 mg Route: PO; 5 05:20 Follow up: Response: No adverse reaction [facility] Outcome: 05:05 Discharge ordered by . Can 05:19 Discharged to home ambulatory. 5 05:19 Condition: stable 05:19 Discharge instructions given to patient, Instructed on discharge instructions, follow up and referral plans. medication usage, Demonstrated understanding of instructions, follow-up care, medications, Prescriptions given X 1. 05:20 Patient left the ED. 5 Signatures: Dispatcher [employer] EDMS Cecilia Valdez RN RN lp1 Pascual Foy MD MD 7 Griselda Santiago Sarah, REGINA RN sm5 Corrections: (The following items were deleted from the chart) 11/01 23:33 23:24 BP 124 / 86; Pulse 70bpm; Resp 18bpm; Pulse Ox 99% RA; Temp 98.7F Oral; lp1 lp1
--- NOTE | 2021-11-02 05:05 | EDPHYS ---
Physician Documentation [facility] Name: Chaim Michelle Age: 66 yrs Sex: Male : 1955 Arrival Date: 11/01/2021 Time: 22:55 Bed 14 Private MD: ED Physician Pascual Foy HPI: 11/02 01:15 This 66 yrs old Male presents to ER via Ambulatory with complaints of Post Surgical mh7 Pain. 01:15 The patient presents with a Rosen catheter problem, draining bloody urine. mh7 01:15 Onset: The symptoms/episode began/occurred yesterday. Modifying factors: The symptoms mh7 are alleviated by nothing, the symptoms are aggravated by nothing. Associated signs and symptoms: Pertinent positives: hematuria, Pertinent negatives: abdominal pain, constipation, diarrhea, dysuria, fever, nausea, vomiting. Severity of symptoms: At their worst the symptoms were moderate, yesterday, in the emergency department the symptoms have improved, moderately. States he had a urolift procedure yesterday and had a Rosen catheter placed with blood and clots in the urine since then.. Historical: - Allergies: 11/01 23:33 NKDA; lp1 - PMHx: 23:33 AAA; Atrial Fib; CHF; Hypertension; lp1 - PSHx: 23:33 Stented artery; Valve replacement; lp1 - Immunization history:: Adult Immunizations up to date, Client reports having NOT received the Covid vaccine. - Social history:: Smoking status: Patient denies any tobacco usage or history of. ROS: 11/02 01:15 Constitutional: Negative for fever, chills, and weight loss, Eyes: Negative for injury, mh7 pain, redness, and discharge, ENT: Negative for injury, pain, and discharge, Neck: Negative for injury, pain, and swelling, Cardiovascular: Negative for chest pain, palpitations, and edema, Respiratory: Negative for shortness of breath, cough, wheezing, and pleuritic chest pain, Abdomen/GI: Negative for abdominal pain, nausea, vomiting, diarrhea, and constipation, Back: Negative for injury and pain, MS/Extremity: Negative for injury and deformity, Skin: Negative for injury, rash, and discoloration, Neuro: Negative for headache, weakness, numbness, tingling, and seizure, Psych: Negative for depression, anxiety, suicide ideation, homicidal ideation, and hallucinations, Allergy/Immunology: Negative for hives, rash, and allergies, Endocrine: Negative for neck swelling, polydipsia, polyuria, polyphagia, and marked weight changes, Hematologic/Lymphatic: Negative for swollen nodes, abnormal bleeding, and unusual bruising. Exam: 01:15 Constitutional: This is a well developed, well nourished patient who is awake, alert, mh7 and in no acute distress. Head/Face: Normocephalic, atraumatic. Eyes: Pupils equal round and reactive to light, extra-ocular motions intact. Lids and lashes normal. Conjunctiva and sclera are non-icteric and not injected. Cornea within normal limits. Periorbital areas with no swelling, redness, or edema. ENT: Nares patent. No nasal discharge, no septal abnormalities noted. Tympanic membranes are normal and external auditory canals are clear. Oropharynx with no redness, swelling, or masses, exudates, or evidence of obstruction, uvula midline. Mucous membranes moist. Neck: Trachea midline, no thyromegaly or masses palpated, and no cervical lymphadenopathy. Supple, full range of motion without nuchal rigidity, or vertebral point tenderness. No Meningismus. Chest/axilla: Normal chest wall appearance and motion. Nontender with no deformity. No lesions are appreciated. Cardiovascular: Regular rate and rhythm with a normal S1 and S2. No gallops, murmurs, or rubs. Normal PMI, no JVD. No pulse deficits. Respiratory: Lungs have equal breath sounds bilaterally, clear to auscultation and percussion. No rales, rhonchi or wheezes noted. No increased work of breathing, no retractions or nasal flaring. Abdomen/GI: Soft, non-tender, with normal bowel sounds. No distension or tympany. No guarding or rebound. No evidence of tenderness throughout. Back: No spinal tenderness. No costovertebral tenderness. Full range of motion. Skin: Warm, dry with normal turgor. Normal color with no rashes, no lesions, and no evidence of cellulitis. MS/ Extremity: Pulses equal, no cyanosis. Neurovascular intact. Full, normal range of motion. Neuro: Awake and alert, GCS 15, oriented to person, place, time, and situation. Cranial nerves II-XII grossly intact. Motor strength 5/5 in all extremities. Sensory grossly intact. Cerebellar exam normal. Normal gait. Psych: Awake, alert, with orientation to person, place and time. Behavior, mood, and affect are within normal limits. 01:15 : CVA tenderness, is absent, Male external genitalia: normal, Bladder: Rectal exam: is refused by patient or guardian, a rosen is noted, urine is noted to have bertha blood, dark blood. Vital Signs: 11/01 23:24 BP 124 / 86; Pulse 70; Resp 18; Temp 98.7(O); Pulse Ox 99% on R/A; Weight 95.25 kg (R); lp1 Height 5 ft. 10 in. (177.80 cm); Pain 0/10; 11/02 04:37 BP 108 / 63; Pulse 50; Resp 16; Pulse Ox 94% on R/A; sm5 05:06 BP 101 / 66; Pulse 52; Resp 18; Pulse Ox 96% on R/A; sm5 11/01 23:24 Body Mass Index 30.13 (95.25 kg, 177.80 cm) lp1 MDM: 05:02 Differential diagnosis: UTI, urinary retention, Rosen catheter problem, urethritis, [facility] post operative hematuria. Data reviewed: vital signs, nurses notes, lab test result(s), CBC, electrolytes, urinalysis, radiologic studies, CT scan. Data interpreted: Pulse oximetry: on room air is 96 %. Interpretation: normal. Counseling: I had a detailed discussion with the patient and/or guardian regarding: the historical points, exam findings, and any diagnostic results supporting the discharge/admit diagnosis, lab results, radiology results, the need for outpatient follow up, a urologist, to return to the emergency department if symptoms worsen or persist or if there are any questions or concerns that arise at home. Response to treatment: the patient's symptoms have markedly improved after treatment. 05:05 Patient medically screened. [facility] 11/02 01:13 Order name: CBC with Diff [facility] 11/02 01:13 Order name: CMP [facility] 11/02 01:13 Order name: Urine Microscopic Only [facility] 11/02 01:13 Order name: Protime (+inr) [facility] 11/02 01:13 Order name: Ptt, Activated [facility] 11/02 03:27 Order name: CBC with Automated Diff; Complete Time: 03:45 EDMS 11/02 01:15 Order name: CT Abd/Pelvis - Without Contrast mh7 11/02 03:27 Order name: Protime (+INR); Complete Time: 03:45 EDMS 11/02 03:27 Order name: PTT, Activated Partial Thromb; Complete Time: 03:45 EDMS 11/02 03:27 Order name: Comprehensive Metabolic Panel; Complete Time: 03:45 EDMS 11/02 03:28 Order name: Urine Microscopic Only; Complete Time: 03:45 EDMS 11/02 03:35 Order name: Urine Culture EDMS 11/02 01:13 Order name: IV Saline Lock; Complete Time: 01:20 mh7 11/02 01:13 Order name: Labs collected and sent; Complete Time: 01:35 [facility] Administered Medications: 01:30 Drug: morphine 2 mg Route: IVP; Site: right antecubital; sm5 04:35 Follow up: Response: Pain is decreased 5 01:30 Drug: Zofran (Ondansetron) 4 mg Route: IVP; Site: left antecubital; sm5 04:35 Follow up: Response: No adverse reaction 5 05:19 Drug: KeFLEX (cephalexin) 500 mg Route: PO; sm5 05:20 Follow up: Response: No adverse reaction 5 Disposition Summary: 11/02/21 05:05 Discharge Ordered Location: Home [facility] Problem: new [facility] Symptoms: have improved [facility] Condition: Stable [facility] Diagnosis - Hematuria, Post operative [facility] Followup: [facility] - With: Private Physician - When: 1 - 2 days - Reason: Worsening of condition, Recheck today's complaints, Continuance of care, Re-evaluation by your physician Followup: [facility] - With: Jony Tavares MD - When: 1 - 2 days - Reason: Worsening of condition, Recheck today's complaints, Continuance of care, Re-evaluation by your physician Discharge Instructions: - Discharge Summary Sheet [facility] - Hematuria, Adult [facility] - Indwelling Urinary Catheter Care, Adult, [id number] [facility] Forms: - Medication Reconciliation Form [facility] - Thank You Letter [facility] - Antibiotic Education [facility] - Prescription Opioid Use [facility] Prescriptions: - Cephalexin 500 mg Oral Capsule - take 1 capsule by ORAL route every 12 hours for 7 days; 14 capsule; Refills: 0, 7 Product Selection Permitted Signatures: Dispatcher [employer] Cecilia Gutierrez RN RN lp1 Pascual Foy MD MD mh7 Lissa Murrieta RN RN sm5
[2021-11-02] MEDS ORDERED: CEPHALEXIN 250 MG CAP ONE (05:15)
[2021-11-02 11:19] VITALS: TEMP 98.7
[2021-11-02 11:22] VITALS: BP 101/66; O2SAT 96
--- NOTE | 2021-11-02 11:46 | RAD REPORT ---
EXAM DESCRIPTION: CT - Abdomen Pelvis Wo Contrast - 11/02/2021 6:44 am COMPARISON: None CLINICAL HISTORY: Blood in urine TECHNIQUE: Multiple helical axial images were obtained through the abdomen and pelvis without intrav enous contrast. Sagittal and coronal reformatted images are reviewed as well. All CT scans at this facility use dose modulation, iterative reconstruction, and/or weight-based dosi ng when appropriate to reduce radiation dose to as low as reasonably achievable. Findings: Lung bases: Heart is mildly enlarged. There is a small hiatal hernia. There is a 2.6 cm nodular densi ty in the left lower lobe along the left hemidiaphragm (series 201, image 10). Subpleural cystic jiang ges noted suggestive of fibrotic changes. Liver: There are several subcentimeter hypodensities too small to characterize. Liver appears mildly enlarged. Gallbladder/biliary: Gallbladder appears normal in size. A few small calcified stones in the gallblad christy are present. No evidence of biliary ductal dilatation. Pancreas: Unremarkable. Spleen: Appears mildly enlarged. Adrenals: Unremarkable. Kidneys and ureters: There is a 5 mm stone at the inferior pole of the left kidney. No obstructing ur eteral stone. No hydronephrosis. Multiple cysts in both kidneys are present appearing isodense and hy podense. There is a 3.5 cm lobulated isodense structure projecting from the midpole of the left kidne y (series 201, image 38) which may represent a cyst, however renal parenchymal lesion difficult to ex clude. Bladder: Ewing catheter is present. There is a trace amount of dense material in the dependent bladde r. Pelvic organs: Unremarkable. Bowel: Colonic diverticula are present. No evidence of bowel obstruction. No bowel wall thickening. A ppendix appears unremarkable. Peritoneum: No free air. No significant free fluid. Lymph nodes: Unremarkable. Vasculature: Aortoiliac atherosclerosis is present. Soft tissues: There is a tiny fluid containing umbilical hernia. Bones: Degenerative changes of the lumbar spine are present. There is mild anterior subluxation of L4 relative to L5. IMPRESSION: 1. No evidence for an acute process within the abdomen or pelvis. 2. Small nonobstructing left renal stone. 3. Multiple cysts in both kidneys appearing isodense and hypodense. Possible lobulated cyst versus left renal solid lesion, nonemergent follow-up renal protocol CT or MRI recommended for further evalu ation. 4. Trace amount of dense material in the dependent bladder which may represent blood products or no nspecific debris. 5. Cholelithiasis. 6. Colonic diverticulosis. 7. Nodular density in the left lower lobe measuring up to 2.6 cm. Follow-up dedicated CT of the [facility] recommended for further evaluation. 8. Mild hepatosplenomegaly. Electronically signed by: Joni Thibodeaux MD 11/02/2021 3:13 AM CDT Due to temporary technical issues with the PACS/Fluency reporting system, reports are being signed by the in house radiologist without review as a courtesy to ensure prompt reporting. The interpreting r adiologist is fully responsible for the content of the report.
== END 2021-11-02 05:20 | disposition home or self-care (01) ==
LOC: ER 22:51
DX: R31.9 Hematuria, unspecified (principal); Z98.890 Other specified postprocedural states; I10 Essential (primary) hypertension; I50.9 Heart failure, unspecified
CPT/HCPCS: 87088; 85025; 87086; 36415; 85610; 85730; 81015; 80053; 74176; 99284; J2270; J2405

== ENCOUNTER 2022-02-20 09:50 | Inpatient (IN) | payer OTHER ==
--- OUTSIDE RECORDS SUMMARY | 2022-02-20 09:53 | XMS REPORT | Continuity of Care Document ---
:1955 Author Organization [facility] t Address [address] [place] [place] [address] Care Team Providers Name Role Phone SHANA COOPER Primary Care Physician Unavailable Shana Cooper Attending Clinician Unavailable ESHA LANCE Attending Clinician Unavailable ASCENCION KHAN Attending Clinician Unavailable Rowdy Bennett Attending Clinician Unavailable Kayli Attending Clinician Unavailable RONAL ASHLEY NP Attending Clinician Unavailable FRANCES GARCIA Attending Clinician Unavailable ASCENCION KHAN Admitting Clinician Unavailable Kayli Admitting Clinician Unavailable Payers Payer Name Policy Type Policy Number Effective Date Expiration Date Justin curry AARP/MEDICARE [id number] 2021 COMPLETE 00:00:00 [facility] [id number] (MEDICARE REPLACEMENT/[place] GE - PPO) Problems Condition Condition Condition Status Onset Resolution Last Treating Co mments Source Name Details Category Date Date Treatment Clinician Date History of History of Problem Resolve [facility] disease disease ans History of History of Problem Resolve [facility] hypertensi hypertensi d Ph ysici on on ans Right Right Problem Active [facility] shoulder shoulder Physic i pain pain ans Tear of Tear of Problem Active [facility] right right Physici rotator rotator ans cuff cuff Allergies, Adverse Reactions, Alerts Allergy Allergy Status Severity Reaction(s) Onset Inactive Treating Comm ents Source Name Type Date Date Clinician NO KNOWN Allergy Active [facility] Medications Ordered Filled Start Stop Current Ordering Indication Dosage Frequency Signature Comments Components Source Medication Medication Date Date Medication? Clinician (SIG) Name Name Simvastatin Simvastatin Yes U T 20 MG Oral 20 MG Oral Phy sici Tablet Tablet ans Ramipril 10 Ramipril 10 Yes U T MG Oral MG Oral Physici Capsule Capsule ans Potassium Potassium Yes UT Chloride 10 Chloride 10 P hysici MEQ TBCR MEQ TBCR ans Allopurinol Allopurinol Yes U T 300 MG Oral 300 MG Oral P hysici Tablet Tablet ans Warfarin Warfarin Yes UT Sodium 10 Sodium 10 Physi ci MG Oral MG Oral ans Tablet Tablet Furosemide Furosemide Yes UT 40 MG Oral 40 MG Oral Phy sici Tablet Tablet ans Coreg CR 10 Coreg CR 10 Yes U T MG Oral MG Oral Physici Capsule Capsule ans Extended Extended Release 24 Release 24 Hour Hour Amiodarone Amiodarone Yes UT HCl - 200 HCl - 200 Physi ci MG Oral MG Oral ans Tablet Tablet Vital Signs Vital Name Observation Time Observation Value Comments Source HEIGHT 2021-11-08 09:55:00 177.8 cm WEIGHT 2021-11-08 09:55:00 96.5 kg HEIGHT 2021-11-07 15:35:00 177.8 cm WEIGHT 2021-11-07 15:35:00 94.348 kg HEIGHT 2021-11-08 09:55:00 177.8 cm WEIGHT 2021-11-08 09:55:00 96.5 kg HEIGHT 2021-11-07 15:35:00 177.8 cm WEIGHT 2021-11-07 15:35:00 94.348 kg BP Systolic 2019-08-04 11:46:00 135 mm[Hg] [facility] BP Diastolic 2019-08-04 11:46:00 91 mm[Hg] [facility] Height 2019-08-04 11:46:00 70 [in_us] [facility] Weight 2019-08-04 11:46:00 238 [lb_av] [facility] Body Mass Index 2019-08-04 11:46:00 34.15 kg/m2 [facility] Calculated Heart Rate 2019-08-04 11:46:00 87 /min [facility] Procedures Procedure Date / Time Performed Performing Clinician Kam e MR Shoulder wo contrast 2019-08-04 00:00:00 [facility] [id number] [facility]er [facility] Encounters Start End Encounter Admission Attending Care Care Encounter Source Date/Time Date/Time Type Type Clinicians Facility Department ID 2021-08-10 Outpatient Michael, STLMLC STLMLC [id number] Common 14:35:37 Shana [facility] 2021-08-10 Outpatient Michael, STLMLC STLMLC [id number] Common 14:29:30 Shana [facility] 2021-08-10 Outpatient Michael, STLMLC STLMLC [id number] Common 13:24:19 Shana [id number] [facility] 2022-01-12 2022-01-12 Outpatient CASI, MHBL PUL [id number] MHBL 06:42:00 23:59:00 ESHA 2021-12-02 2021-12-02 ambulatory STLMLC STLMLC [id number] Common 00:00:00 00:00:00 [facility] 2021-11-25 2021-11-25 ambulatory STLMLC STLMLC [id number] Common 00:00:00 00:00:00 [facility] 2021-11-08 2021-11-08 Outpatient VALERIE SAVAGE Surgery [id number] SLE 09:41:00 17:00:00 GRAY 2021-11-08 2021-11-08 Outpatient VALERIE SAVAGE [facility] [id number] SLE 12:05:00 12:05:00 GRAY 2021-11-07 2021-11-07 Outpatient EL SLEAmanda SLE [id number] SLE 12:54:53 12:54:53 2021-10-31 2021-10-31 ambulatory STLMLC STLMLC [id number] Common 00:00:00 00:00:00 [facility] 2021-10-13 2021-10-13 ambulatory STLMLC STLMLC [id number] Common 00:00:00 00:00:00 [facility] 2021-10-06 2021-10-06 ambulatory STLMLC STLMLC [id number] Common 00:00:00 00:00:00 [facility] 2021-09-20 2021-09-20 ambulatory STLMLC STLMLC [id number] Common 00:00:00 00:00:00 [facility] 2021-09-07 2021-09-07 ambulatory STLMLC STLMLC [id number] Common 00:00:00 00:00:00 [facility] 2021-09-02 2021-09-02 ambulatory STLMLC STLMLC [id number] Common 00:00:00 00:00:00 [facility] 2021-09-02 2021-09-02 ambulatory STLMLC STLMLC [id number] Common 00:00:00 00:00:00 [facility] 2021-08-29 2021-08-29 Outpatient Yan_W MMG MMG [id number] [place] 03:00:00 03:00:00 [id number] 2021-08-24 2021-08-24 ambulatory STLMLC STLMLC [id number] Common 00:00:00 00:00:00 [facility] 2021-08-24 2021-08-24 ambulatory STLMLC STLMLC [id number] Common 00:00:00 00:00:00 [facility] 2021-08-15 2021-08-15 ambulatory STLMLC STLMLC [id number] Common 00:00:00 00:00:00 [facility] 2021-08-08 2021-08-08 ambulatory STLMLC STLMLC [id number] Common 00:00:00 00:00:00 [facility] 2021-08-02 2021-08-02 ambulatory STLMLC STLMLC [id number] Common 00:00:00 00:00:00 [facility] 2021-08-02 2021-08-02 ambulatory STLMLC STLMLC [id number] Common 00:00:00 00:00:00 [facility] 2021-08-01 2021-08-01 ambulatory STLMLC STLMLC [id number] Common 00:00:00 00:00:00 [facility] 2021-07-18 2021-07-18 ambulatory STLMLC STLMLC [id number] Common 00:00:00 00:00:00 [facility] 2021-07-14 2021-07-14 ambulatory STLMLC STLMLC [id number] Common 00:00:00 00:00:00 [facility] 2021-07-06 2021-07-06 ambulatory STLMLC STLMLC [id number] Common 00:00:00 00:00:00 [facility] 2021-07-04 2021-07-04 ambulatory STLMLC STLMLC [id number] Common 00:00:00 00:00:00 [facility] 2021-04-22 2021-04-22 Outpatient STLMLC STLMLC [id number] Common 00:00:00 00:00:00 [facility] 2021-03-16 2021-03-16 Outpatient STLMLC STLMLC [id number] Common 00:00:00 00:00:00 [facility] 2021-03-11 2021-03-11 Outpatient STLMLC STLMLC [id number] Common 00:00:00 00:00:00 [facility] 2021-02-25 2021-02-25 Outpatient STLMLC STLMLC [id number] Common 00:00:00 00:00:00 [facility] 2021-02-16 2021-02-16 Outpatient STLMLC STLMLC [id number] Common 00:00:00 00:00:00 [facility] 2021-02-01 2021-02-01 Outpatient STLMLC STLMLC [id number] Common 00:00:00 00:00:00 [facility] 2019-08-04 2019-08-04 Mandy ASHLEY [facility] Orthopedics [id number] [place] 11:00:00 11:00:00 t; JI VILLEDA - [facility], [place] 1 ans JI VILLEDA 2017-11-12 2017-11-12 Appointmen JOSE [facility] [id number] [place] 08:00:00 08:00:00 t; FRANCES GARCIA Phys ici FRANCES ans Results Test Description Test Time Test Comments Results Result Sourc e Comments TISSUE EXAM 2021-11-10 Surgical Pathology Report 15:51:47 Case: [id number] Authorizing Provider: Ascencion Khan MD Collected: 11/08/2021 12:35 PM Ordering Location: [facility] PERIOPERATIVE Received: 11/08/2021 01:53 PM SERVICES Pathologist: Jordyn Smith MD Specimen: Kidney, Left KIDNEY, LEFT, ULTRASOUND-GUIDED BIOPSY: - ONCOCYTIC NEOPLASM, FAVOR ONCOCYTOMA - SEE COMMENT Signing Pathologist Direct Phone Line: [phone] y signed by Jordyn Smith MD on 11/10/2021 at 3:51 PMThe histologic features include an neoplasm with cell containing eosinophilic and granular cytoplasm arranged in nests with round nuclei, conspicuous nucleoli and scattered nuclear pseudoinclusions. Immunohistochemical stains were performed and show the lesion to be strongly positive for CD117 and scattered positivity for CK7. The findings favor an oncocytoma. Other eosinophilic renal tumors such as eosinophilic variant of chromophobe renal cell carcinoma an low grade oncocytic tumor were considered, but the histologic and immunohistochemical feature do not favor these entities. Correlation with clinical and radiologic findings is recommended.75806, 44389, 55541Cjoo renal mass midpoleLeft renal massA. Kidney, Left.Received in formalin labeled with the patient's name, medical record number and "kidney, left" are 2 wagner-yellow variegated soft tissue cores measuring 2.3 cm in length and 2.0 cm in length which are submitted in toto in A1.RONNI Sanders, PA (ASCP)cmPerformedThe interpretation of this case included the use of immunohistochemistry or special stains.Control Slides Examined: In-house known positive controls were evaluated along with the test tissue. These control slides run alongside of the patients sample show appropriate staining. Internal positive and negative controls when available are evaluated Immunohistochemistry technical testing was performed at [facility], Pathology Laboratory where it was developed and its performance characteristics were determined. It has not been cleared or approved by the U.S. Food and Drug Administration. The FDA has determined that such clearance or approval is not necessary. The test is used for clinical purposes. It should not be regarded as investigational or for research. This laboratory is certified under the Clinical Laboratory Improvement Amendments of 1988 (CLIA-88) as qualified to perform high complexity clinical laboratory testing.[facility], Department of Pathology, [address] [place] [address], [facility], [facility], [address] [place] [address], [facility], [facility] of [facility], [address] [place], [place] [id number], U/S, BIOPSY, 2021-11-08 Reason for RENAL (KIDNEY) 13:37:00 Exam:->[facility] 1955 Sex: M FINAL REPORT Ultrasound guided renal biopsy, 11/08/2021 Modality: Ultrasound Clinical History: Left renal mass. Sedation: 1 mg Versed and 50 mcg Fentanyl IV was used for moderate sedation monitored under my direction. The patient's vital signs were monitored throughout the procedure and recorded to the patient's medical record by the nurse. Total intra-service time of sedation was 20 minutes. Battery Repairer: Sophie. Demand Generator Manager: None. Estimated Blood Loss: Less than 1 cc. Specimen: 2 core biopsy specimens, placed in formalin and sent to pathology. Technique: Informed consent was obtained. The risks of pain, bleeding, infection, injury to kidney/adjacent structures, and adverse medication reactions were discussed with the patient. After informed consent, the patient's left kidney kidney was scanned, with the patient prone. The 3.7 cm exophytic left renal mass was selected for biopsy, via a superior to inferior approach from the flank/back. After the skin was prepped and draped in the usual sterile manner, the area was anesthetized with 2% lidocaine. After a small skin incision is made, an 18 gauge Biopince core biopsy needle was advanced into the left renal mass, under direct sonographic observation. 2 passes were made, with 2 core biopsy samples obtained. Postprocedure sonographic evaluation of the area reveals no perinephric hematoma. The patient's vital signs remained stable throughout the procedure. No immediate complications are noted. Patient disposition: The patient was sent to the observation area for vital sign monitoring and bed rest. The patient was discharged from the department in good condition. Impression:Successful and uncomplicated ultrasound guided left kidney mass biopsy with conscious sedation. Signed: Alex Barrios Verified Date/Time: 11/08/2021 13:37:07 Reading Location: [facility] B1 P048 Angio Body Reading Room -COV2/RT-PCR ([facility]) 2021-11-07 21:01:32 Test Item Value Reference Range Interpretation Comme nts SARS-COV2/RT-PCR (test code = [id number]) Negative Negative Negative result for this test determines that SARS-CoV-2 RNA was not present in the specimen above the Limit of Detection (LOD). However, Negative results do not preclude SARS-CoV-2 infection and should not be used as the sole basis for treatment or patient management decisions. Negative results must be combined with clinical observations, patient history, and epidemiological information. A false negative result may occur if a specimen is improperly collected, transported, or handled. A false negative result should be considered if patient's recent exposures or clinical presentation indicate that COVID-19 (SARS-CoV-2) is likely and diagnostic tests for other causes of illness are negative. Re-testing should be considered in cases of suspected false negatives.The limit of detection for this assay is 100 copies/mL.This SARS-CoV-2 test is a real-time RT_PCR test intended for the qualitative detection of nucleic acid from SARS-CoV-2 in a nasopharyngeal swab specimen collected from individuals suspected of COVID-19 by their healthcare provider.This test has not been Food and Drug Administration (FDA) cleared or approved. This is a modified version of an approved Emergency Use Authorization (EUA) and is in the process of review by the FDA. Once authorized by the FDA, the issued EUA will be effective until the declaration that circumstances exist justifying the authorization of the emergency use of in vitro diagnostic tests for detection and/or diagnosis of COVID-19 is terminated under Section 564(b)(2) of the Act or the EUA is revoked under Section 564(g) of the Act.Testing was performed using the Gill SARS-CoV-2 assay.Fact Sheet for Healthcare Providers:https://www.molecular.gill/keith/RT SARS-CoV-2 HCP Fact Sheet 51- 629063.pdfFact Sheet for Healthcare Patients:https://www.[place].gill/keith/RT SARS-CoV-2 Patient Fact Sheet EN 51-743933H9.pdfMRI ABDOMEN [id number] 08:48:52[facility] : 1955 Sex: MCLINICAL INDICATIO N: N28.89, Other specified disorders of kidney and ureter MODALITY: Pumodo 3T MRITECHNIQUE: Parallel imaging is accomplished using T2, diffusion, in-phase, [id number], and breath-holding sequences. IV contrast (Dotarem), 20.0 ml is administered. Dynamic post-contrast fat saturation breath-hold imaging is then performed.IMPRESSION:Very complex renal appearance with simple cysts, hemorrhagic cysts, at least one right and three left cortical solid enhancing nodules consistent with multiple renal cell neoplasms. No indication of extra renal malignancy. Renal veins are patent and no retroperitoneal lymphadenopathy is demonstrated.FINDINGS:COMPARISON: noneLung bases are clear. No pleural fluid is seen.The liver appears homogeneous. Vertical diameter measures 20.2 cm. Several tiny hepatic cysts are demonstrated. No masses or evidence of biliary dilatation. Gallbladder appears unremarkable. Spleenis normal in size and contour. The stomach appears unremarkable.Pancreas is morphologically normal. No mass, pancreatic duct dilatation or peripancreatic edema is visible.Adrenal glands and kidneys aremorphologically normal. There are numerous bilateral renal cysts demonstrated, largest right mid 5.3cm, right inferior 3.7 cm. 2.7 cm hemorrhagic cyst is noted at the right upper posterior kidney.4.3 x 3.0 cm left mid pole solid enhancing mass represents the most suspicious finding. 2.4 x 2.0 cm right mid posterior renal exophytic nodule also enhances with contrast administration. 2.0 x 1.9 cm left mid posterior exophytic nodule also enhances. Finally, 2.2 x 1.7 cm nodule at the left inferior lateral kidney exhibits contrast enhancement. No hydronephrosis. Neither retrocrural nor retroperitoneal lymph nodes are seen. No retroperitoneal mass is present. No vascular abnormalities are noted.Abdominal wall is intact. No evidence of ascites.No evidence of bowel mass, mural thickening or pericolic edema.Osseous structures are not remarkable.
[2022-02-20 11:05] LABS: Protime INR 3.55
[2022-02-20 11:06] LABS: Absolute Lymphocytes (CBC) 0.8 K/uL (0.7-4.9); Hematocrit 33.8 % (39.6-49.0); Lymphocytes % 7.5 % (15.3-44.8); MCV 87.3 fL (80-100); MPV 8.5 fL (7.6-11.3); RBC Red Blood Cell Count 3.87 M/uL (4.33-5.43)
--- NOTE | 2022-02-20 11:33 | RAD REPORT ---
EXAM DESCRIPTION: US - Extrem Venous W Compress Alexei - 02/20/2022 11:14 am CLINICAL HISTORY: Painbilateral lower extremities COMPARISON: None. TECHNIQUE: Real-time sonographic evaluation of the bilateral lower extremity common femoral, superfi cial femoral, popliteal and posterior tibial veins was performed. FINDINGS: Normal compressibility, flow augmentation, phasic flow and spontaneous flow are identified in the left and right lower extremity common femoral, superficial femoral, popliteal and posterior t ibial veins. No intraluminal filling defects seen. A 4 x 3.5 x 1 cm left popliteal fossa cyst is present. No cyst rupture or hemorrhage findings. IMPRESSION: No DVT in either lower extremity. A 4 centimeter left popliteal cyst fossa cyst without rupture or hemorrhage findings.
[2022-02-20] MEDS ORDERED: FENTANYL CITR 100 MCG/2 ML ONE (11:43)
[2022-02-20 11:45] LABS: Albumin 3.7 g/dL (3.4-5.0); Bilirubin Direct 0.1 mg/dL (0-0.2); Bilirubin Total 0.5 mg/dL (0.2-1.0); C-Reactive Protein 57.6 mg/L (<3.00); Protein, Total 6.8 g/dL (6.4-8.2); Troponin High Sensitivity 14.8 pg/mL (<58.9)
[2022-02-20 11:54] LABS: Magnesium 2.2 mg/dL (1.8-2.4); Potassium 4.4 mmol/L (3.5-5.1)
--- NOTE | 2022-02-20 11:58 | RAD REPORT ---
EXAM DESCRIPTION: RAD - Tib Fib Right - 02/20/2022 11:39 am CLINICAL HISTORY: Painafter blunt force trauma, history of anticoagulation therapy COMPARISON: No comparisons FINDINGS: No fracture is identified. There is no dislocation or periosteal reaction noted. Tri amos rtment degenerative changes are present at the knee joint more prominently in the medial compartment. Knee joint effusion is not suspected. Positioning for joint effusion is not optimal on this examinat ion. Prominent vascular calcifications are present. Tibiotalar degenerative joint changes are present . There is an approximately 15 x 6 mm oval density in the soft tissues of the proximal and mid lower le g posterior and medial in location. Given the trauma and anticoagulation therapy, a large soft tissue hematoma is most likely. Correlation is needed with any localized pain or exam findings in this lorna on. Overall soft tissues are congested or edematous. No foreign body in the soft tissues. IMPRESSION: Degenerative changes are present without acute bone or joint finding. Oval-shaped mass in the posteromedial soft tissues of the proximal left lower leg most likely a large hematoma.
[2022-02-20] MEDS ORDERED: NA CHLORIDE 0.9% 250 ML ONE (12:14)
[2022-02-20] MEDS ORDERED: VANCOMYCIN 1 GM/VIAL ONE (12:14)
--- NOTE | 2022-02-20 12:38 | ER ---
Nurse's Notes [facility] Name: Chaim Michelle Age: 66 yrs Sex: Male : 1955 Arrival Date: 02/20/2022 Time: 09:51 Bed 13 Private MD: Tang Mckenzie K Diagnosis: Cellulitis of right lower limb;Right Lower Leg Hematoma Presentation: 02/20 10:23 Chief complaint: Patient states: Pt from [facility] office with "needs admission to [facility] hospitalist" paperwork for right leg injury. On wednesdays this week; pt hit [place]ley on trailer hitch. Pt on warfarin, leg progressively gotten worse with discoloration and swelling up to the thigh. Pt states leg 10/10 painful, unable to bare weight on right leg. Minor skin tear noted to right farley. Coronavirus screen: Vaccine status: Patient reports being unvaccinated. Client denies travel out of the [place] in the last 14 days. Ebola Screen: Patient negative for fever greater than or equal to 101.5 degrees Fahrenheit, and additional compatible Ebola Virus Disease symptoms Patient denies exposure to infectious person. Patient denies travel to an Ebola-affected area in the 21 days before illness onset. Initial Sepsis Screen: Does the patient meet any 2 criteria? Temp <36.0*C (96.8*F)) or > 38.3*C (100.9*F). Does the patient have a suspected source of infection? Yes: Skin breakdown/wound. Risk Assessment: Do you want to hurt yourself or someone else? Patient reports no desire to harm self or others. Onset of symptoms was February 15, 2022. 10:23 Method Of Arrival: Wheelchair [facility] 10:23 Acuity: ABBY 2 [facility] Triage Assessment: 10:23 General: Appears uncomfortable, well groomed, well nourished, Behavior is calm, 5 cooperative, appropriate for age. Pain: Complains of pain in right leg. Historical: - Allergies: 09:59 NKDA; jl7 - Home Meds: 10:20 metoprolol tartrate 25 mg Oral tab [Active]; tramadol 50 mg Oral TbDi [Active]; [facility] ramipril 10 mg Oral cap 1 cap once daily [Active]; Lasix 40 mg Oral tab 1 tab once daily [Active]; Warfarin Oral [Active]; - PMHx: 09:59 AAA; Atrial Fib; CHF; Hypertension; jl7 10:20 Chronic obstructive lung disease; jh5 - PSHx: 09:59 Stented artery; Valve replacement; jl7 - Immunization history:: Client reports having NOT received the Covid vaccine. - Social history:: Smoking status: Patient denies any tobacco usage or history of. Screenin:30 Abuse screen: Denies threats or abuse. Denies injuries from another. Nutritional 6 screening: No deficits noted. Tuberculosis screening: No symptoms or risk factors identified. Fall Risk None identified. Assessment: 12:35 General: Appears in no apparent distress. Behavior is calm, cooperative. Pain: 6 Complains of pain in right leg Pain radiates to right leg Pain currently is 3 out of 10 on a pain scale. Quality of pain is described as sharp, shooting, stinging. 19:10 Reassessment: Patient appears in no apparent distress at this time. Patient and/or 4 family updated on plan of care and expected duration. Pain level reassessed. Patient is alert, oriented x 3, equal unlabored respirations, skin warm/dry/pink. Right leg continues to appear swollen, hematoma noted to the right calf. Bruising from the heel to the groin is noted. Pt reports the pain is a burning sensation. 20:00 Reassessment: Patient appears in no apparent distress at this time. No changes from 4 previously documented assessment. Patient and/or family updated on plan of care and expected duration. Pain level reassessed. Patient is alert, oriented x 3, equal unlabored respirations, skin warm/dry/pink. Vital Signs: 10:23 BP 103 / 74; Pulse 70; Resp 18; Temp 99.2; Pulse Ox 99% ; Weight 88.45 kg; Height 5 ft. jh5 4 in. (162.56 cm); Pain 10/10; 10:30 BP 112 / 77; Pulse 72; Resp 16; Pulse Ox 100% ; Pain 9/10; jh6 12:33 BP 109 / 73; Pulse 65; Resp 17; Pulse Ox 100% ; Pain 6/10; jh6 19:30 BP 113 / 80; Pulse 84; Resp 16; Pulse Ox 100% on R/A; jb4 10:23 Body Mass Index 33.47 (88.45 kg, 162.56 cm) 5 ED Course: 09:51 Patient arrived in ED. am2 09:51 Itz Smallwood MD is Attending Physician. rn 09:52 Tang Mckenzie MD is Private Physician. am2 09:57 Bharathi Nuñez PA is PHCP. cp 10:23 Arm band placed on right wrist. jh5 10:27 Triage completed. jh5 10:29 Michelle Francois, RN is Primary Nurse. jh6 11:05 Patient taken to ultrasound. jh6 11:08 Extrem Venous W Compress Alexei In Process Unspecified. EDMS 11:41 XRAY Tib Fib RIGHT In Process Unspecified. EDMS 12:34 Romina Briscoe MD is Hospitalizing Provider. cp 19:58 No provider procedures requiring assistance completed. Patient admitted, IV remains in jb4 place. Administered Medications: 11:43 Drug: fentaNYL (PF) 25 mcg Route: IVP; Site: left forearm; 6 12:05 Follow up: Response: No change in condition 6 12:10 Drug: fentaNYL (PF) 25 mcg Route: IVP; Site: left forearm; 6 12:33 Follow up: Response: Pain is decreased 6 12:11 Drug: vancoMYCIN 1 grams Route: IVPB; Infused Over: 2 hrs; Site: left forearm; 6 12:59 Drug: Dilaudid (HYDROmorphone) 0.5 mg Route: IVP; Site: left forearm; 6 13:56 Follow up: Response: Pain is unchanged, physician notified [facility] 13:56 Drug: Gabapentin 300 mg Route: PO; [facility] Outcome: 12:38 Decision to Hospitalize by Provider. cp 22:10 Patient left the ED. 4 Signatures: Dispatcher [employer] EDMS Itz Smallwood MD MD rn Page, Corey, PA PA cp Saul Wall RN RN jb4 Nataliia Hernandes RN RN jl7 Keira Diaz am2 Griselda Roche RN RN jh5 Michelle Francois, RN RN jh6 Corrections: (The following items were deleted from the chart) 10:03 09:58 EKG completed in triage. Results shown to MD. christi jl7 10:03 09:58 Arm band placed on right wrist. christi barraza 10:23 09:59 PMHx: Diabetes mellitus; jl7 jh5
--- NOTE | 2022-02-20 12:39 | EDPHYS ---
Physician Documentation [facility] Name: Chaim Michelle Age: 66 yrs Sex: Male : 1955 Arrival Date: 02/20/2022 Time: 09:51 Bed 13 Private MD: Tang Mckenzie K ED Physician Itz Smallwood HPI: 02/20 10:20 This 66 yrs old Male presents to ER via Unassigned with complaints of leg swelling/pain.cp 10:20 The patient presents with an injury, pain, that is acute, swelling, tenderness. cp 10:20 The complaints affect the right lower leg. Context: resulted from direct blow against trailer. Onset: The symptoms/episode began/occurred 5 day(s) ago. Associated signs and symptoms: Pertinent positives: warmth, redness of lower leg, Pertinent negatives numbness. Historical: - Allergies: 09:59 NKDA; jl7 - Home Meds: 10:20 metoprolol tartrate 25 mg Oral tab [Active]; tramadol 50 mg Oral TbDi [Active]; jh5 ramipril 10 mg Oral cap 1 cap once daily [Active]; Lasix 40 mg Oral tab 1 tab once daily [Active]; Warfarin Oral [Active]; - PMHx: 09:59 AAA; Atrial Fib; CHF; Hypertension; jl7 10:20 Chronic obstructive lung disease; jh5 - PSHx: 09:59 Stented artery; Valve replacement; jl7 - Immunization history:: Client reports having NOT received the Covid vaccine. - Social history:: Smoking status: Patient denies any tobacco usage or history of. ROS: 10:25 Constitutional: Negative for body aches, chills, fever, poor PO intake. cp 10:25 Eyes: Negative for injury, pain, redness, and discharge. cp Exam: 10:30 Constitutional: The patient appears in no acute distress, alert, awake, cp non-diaphoretic, non-toxic, well developed, well nourished, in obvious pain, uncomfortable. 10:30 Head/Face: Normocephalic, atraumatic. cp 10:30 Eyes: Periorbital structures: appear normal, Conjunctiva: normal, no exudate, no injection, Sclera: no appreciated abnormality, Lids and lashes: appear normal, bilaterally. 10:30 ENT: External ear(s): are unremarkable, Nose: is normal, Mouth: Lips: moist, Oral mucosa: pink and intact, moist, Posterior pharynx: Airway: no evidence of obstruction, patent. 10:30 Chest/axilla: Inspection: normal, Palpation: is normal, no crepitus, no tenderness. 10:30 Cardiovascular: Rate: normal, Rhythm: regular. 10:30 Respiratory: the patient does not display signs of respiratory distress, Respirations: normal, no use of accessory muscles, no retractions, labored breathing, is not present, Breath sounds: are clear throughout, no decreased breath sounds, no stridor, no wheezing. 10:30 Abdomen/GI: Inspection: abdomen appears normal, Palpation: abdomen is soft and non-tender, in all quadrants. 10:30 Back: pain, is absent, ROM is normal. 10:30 Musculoskeletal/extremity: Extremities: noted in the right leg: swelling, ecchymosis cp noted from medial upper leg to lower leg with medial side large and tender hematoma noted. moderate erythema, mild bloody drainage from superficial wound medial tibia, ROM: limited passive range of motion due to pain, in the right leg, Pulses: noted to be 2+ in the right dorsalis pedis artery. 10:30 Neuro: Orientation: is normal, Mentation: is normal. cp Vital Signs: 10:23 BP 103 / 74; Pulse 70; Resp 18; Temp 99.2; Pulse Ox 99% ; Weight 88.45 kg; Height 5 ft. jh5 4 in. (162.56 cm); Pain 10/10; 10:30 BP 112 / 77; Pulse 72; Resp 16; Pulse Ox 100% ; Pain 9/10; jh6 12:33 BP 109 / 73; Pulse 65; Resp 17; Pulse Ox 100% ; Pain 6/10; jh6 19:30 BP 113 / 80; Pulse 84; Resp 16; Pulse Ox 100% on R/A; jb4 10:23 Body Mass Index 33.47 (88.45 kg, 162.56 cm) jh5 MDM: 09:52 Patient medically screened. rn 12:25 Data reviewed: vital signs, nurses notes, lab test result(s), EKG, radiologic studies, cp plain films, ultrasound. 12:25 Test interpretation: by ED physician or midlevel provider: ECG, plain radiologic cp studies. 12:35 Physician consultation: Romina Briscoe MD was called at 12:35, was contacted at 12:35, cp regarding admission, to the medical/surgical unit. patient's condition. 12:35 Counseling: I had a detailed discussion with the patient and/or guardian regarding: the cp historical points, exam findings, and any diagnostic results supporting the discharge/admit diagnosis, lab results, radiology results, the need for further work-up and treatment in the hospital. 14:45 Physician consultation: Buck Simms MD was called at 14:45, regarding consult, cp patient's condition, left message on voicemail. 02/20 10:35 Order name: Basic Metabolic Panel; Complete Time: 11:56 cp 02/20 11:56 Interpretation: Normal except: NA 132; BUN 26; CRE 1.55; GFR 49; CA 8.2. cp 02/20 10:35 Order name: CBC with Diff; Complete Time: 11:56 cp 02/20 11:14 Interpretation: Normal except: RBC 3.87; HGB 11.9; HCT 33.8; RDW 15.3; DARIAN% 78.2; LYM% cp 7.5; MN% 12.9; NEUT A 8.2. 02/20 10:35 Order name: LFT's; Complete Time: 11:56 cp 02/20 10:35 Order name: Magnesium; Complete Time: 11:56 cp 02/20 10:35 Order name: NT PRO-BNP; Complete Time: 11:56 cp 02/20 10:35 Order name: PT-INR; Complete Time: 11:14 cp 02/20 11:14 Interpretation: Reviewed. cp 02/20 10:35 Order name: Troponin HS; Complete Time: 11:56 cp 02/20 10:35 Order name: ESR; Complete Time: 11:56 cp 02/20 10:35 Order name: CRP; Complete Time: 11:56 cp 02/20 10:35 Order name: Procalcitonin; Complete Time: 12:20 cp 02/20 14:54 Order name: Basic Metabolic Panel EDMS 02/20 14:54 Order name: Basic Metabolic Panel EDMS 02/20 14:54 Order name: CBC with Automated Diff EDMS 02/20 14:54 Order name: CBC with Automated Diff EDMS 02/20 10:35 Order name: EKG; Complete Time: 10:37 cp 02/20 11:04 Order name: XRAY Tib Fib RIGHT; Complete Time: 12:20 cp 02/20 12:20 Interpretation: Report reviewed. cp 02/20 11:08 Order name: Extrem Venous W Compress Alexei; Complete Time: 11:56 EDMS 02/20 14:54 Order name: Lower Extremity W/ Cont EDMS 02/20 14:54 Order name: Lower Extremity W/ Cont EDMS 02/20 14:54 Order name: CONS Physician Consult EDMS 02/20 14:54 Order name: Regular EDMS 02/20 15:31 Order name: SARS RAPID bd 02/20 16:34 Order name: SARS-COV-2 Antigen Rapid EDMS 02/20 10:34 Order name: IV; Complete Time: 11:02 cp 02/20 10:35 Order name: Cardiac monitoring; Complete Time: 11:02 cp 02/20 10:35 Order name: EKG - Nurse/Tech; Complete Time: 11:02 cp 02/20 10:35 Order name: Labs collected and sent; Complete Time: 11:02 cp 02/20 10:35 Order name: O2 Per Protocol; Complete Time: 11:01 cp 02/20 10:35 Order name: O2 Sat Monitoring; Complete Time: 11:01 cp Administered Medications: 11:43 Drug: fentaNYL (PF) 25 mcg Route: IVP; Site: left forearm; 6 12:05 Follow up: Response: No change in condition [facility] 12:10 Drug: fentaNYL (PF) 25 mcg Route: IVP; Site: left forearm; 6 12:33 Follow up: Response: Pain is decreased [facility] 12:11 Drug: vancoMYCIN 1 grams Route: IVPB; Infused Over: 2 hrs; Site: left forearm; 6 12:59 Drug: Dilaudid (HYDROmorphone) 0.5 mg Route: IVP; Site: left forearm; [facility] 13:56 Follow up: Response: Pain is unchanged, physician notified [facility] 13:56 Drug: Gabapentin 300 mg Route: PO; [facility] Disposition: 02/21 21:47 Co-signature as Attending Physician, Itz Smallwood MD. rn Disposition Summary: 02/20/22 12:38 Hospitalization Ordered Hospitalization Status: Inpatient Admission cp Provider: Romina Briscoe cp Condition: Stable cp Problem: new cp Symptoms: have improved cp Bed/Room Type: Standard cp Location: Telemetry/MedSurg (Inpatient)(02/20/22 19:53) cg Room Assignment: [facility](02/20/22 19:53) cg Diagnosis - Cellulitis of right lower limb cp - Right Lower Leg Hematoma cp Forms: - Medication Reconciliation Form cp - SBAR form cp Signatures: Dispatcher [employer] EDMS Itz Smallwood MD MD rn Page, Corey, PA PA cp Jessica Hammond RN RN Nataliia Miguel RN RN jl7 Griselda Roche RN RN jh5 Michelle Francois RN RN jh6 Corrections: (The following items were deleted from the chart) 02/20 10:23 09:59 PMHx: Diabetes mellitus; jl7 jh5 11:07 11:05 Extremity Venous Uni Ltd+US.RAD.BRZ ordered. EDMS EDMS 11:08 10:43 Extremity Venous Uni Ltd+US.RAD.BRZ ordered. EDMS EDMS 18:32 12:38 Telemetry/MedSurg (Inpatient) cp jl7 18:32 12:38 cp jl7 19:53 18:32 [facility] ER HOLD jl7 cg 19:53 18:32 ERHOLD- jl7 cg
[2022-02-20] MEDS ORDERED: HYDROMORPHONE HCL 0.5 MG/0.5 ML INJ ONE (13:04)
[2022-02-20] MEDS ORDERED: GABAPENTIN 300 MG CAP ONE (13:58)
--- NOTE | 2022-02-20 14:48 | P.HP ---
Certification for Inpatient Patient admitted to: Inpatient With expected LOS: >2 Midnights Patient will require the following post-hospital care: None Practitioner: I am a practitioner with admitting privileges, knowledge of patient current condition, hospital course, and medical plan of care. Services: Services provided to patient in accordance with Admission requirements found in Title 42 Section 412.3 of the Code of Federal Regulations Patient History Date of Service: 02/20/22 Reason for admission: Left lower extremity cellulitis History of Present Illness: Patient is a 66-year-old gentleman who came to the hospital with swelling of the right lower extremity. Patient apparently had hit his leg on the back of a truck hitch. It started swelling and has gotten worse over the last 5 days. This happened on Sunday of last week. The swelling has gotten progressively worse so he came into the emergency room this morning. He had actually gone to see his blacksmith hammer operator who advised him to go to the ER immediately. Patient has significant swelling in that right leg. He does have pulses that are intact. Normal sensation. He will be admitted to the hospital with general surgery consultation. Continue on antibiotics for the time being. His INR is supratherapeutic and will give him some FFP's and get him ready for surgery. Allergies No Known Drug Allergies Allergy (Verified 11/01/21 08:01) Unknown Home Medications: Furosemide [Lasix*] 120 mg PO DAILY 05/23/16 Potassium Chloride [K-Tab ER] 10 meq PO DAILY 05/23/16 Ramipril [Altace] 10 mg PO BEDTIME 05/23/16 Warfarin Sodium 13 mg PO BEDTIME 10/28/21 Metoprolol Succinate [Toprol Xl*] 25 mg PO BID 02/20/22 - Past Medical/Surgical History Diabetic: No -: HTN -: CHF -: Aortic Aneurysm x2 -: Aortic Valve replacement -: Kidbey Stones -: R shoulder replacement -: R eye retina tear -: L Kideny stent - Family History Father Medical History: Cancer, Blood disorders Notes: throat cx, anemia Sister Medical History: Blood disorders Notes: anemia - Social History Alcohol use: No CD- Drugs: No Caffeine use: No Review of Systems 10-point ROS is otherwise unremarkable Physical Examination - Vital Signs Temperature: 98 F Blood Pressure: 160/70 Pulse: 80 Respirations: 18 Pulse Ox (%): 95 - Physical Exam General: Alert, In no apparent distress, Oriented x3 HEENT: Atraumatic, PERRLA, Mucous membr. moist/pink, EOMI, Sclerae nonicteric Neck: Supple, 2+ carotid pulse no bruit, No LAD, Without JVD or thyroid abnormality Respiratory: Clear to auscultation bilaterally, Normal air movement Cardiovascular: Regular rate/rhythm, Normal S1 S2, Systolic murmur Gastrointestinal: Normal bowel sounds, Soft and benign, Non-distended, No tenderness Musculoskeletal: No clubbing, No swelling, No tenderness Integumentary: No rashes Neurological: Normal gait, Normal speech, Normal strength at 5/5 x4 extr, Normal tone, Normal affect Lymphatics: No axilla or inguinal lymphadenopathy - Studies Laboratory Data (last 24 hrs) 02/20/22 10:48: PT 40.1 H, INR 3.55 02/20/22 10:48: WBC 10.5, Hgb 11.9 L, Hct 33.8 L, Plt Count 177 02/20/22 10:48: Sodium 132 L, Potassium 4.4, BUN 26 H, Creatinine 1.55 H, Glucose 104, Magnesium 2.2, Total Bilirubin 0.5, AST 16, ALT 16, Alkaline Phosphatase 47 Assessment & Plan - Problems (Diagnosis) (1) Traumatic hematoma of left lower leg with infection Current Visit: Yes Status: Acute (2) Chronic anticoagulation Current Visit: No Status: Acute (3) HTN (hypertension) Onset Date: 05/24/16 Current Visit: No Status: Acute (4) Hx of mechanical aortic valve replacement Current Visit: No Status: Acute (5) Hyperlipidemia Onset Date: 05/24/16 Current Visit: No Status: Acute Qualifiers: - Plan PLAN: 1. Continue with IV antibiotic 2. Continue with local wound care 3. Wound care consultation/surgical consultation 4. Gentle IV hydration 5. Monitor CBC and INR; 6. Strict blood sugar monitoring 7. Pain control 8. Infectious disease consultation 9. GI and DVT prophylaxis Discharge Plan: Home Plan to discharge in: Greater than 2 days - Advance Directives Does patient have a Living Will: No Does patient have a Durable POA for Healthcare: No - Code Status/Comfort Care Code Status Assessed: Yes Code Status: Full Code Critical Care: No Time Spent Managing PTS Care (In Minutes): 45
[2022-02-20] MEDS ORDERED: ACETAMINOPHEN 500 MG TAB PO PRN (14:49)
[2022-02-20] MEDS ORDERED: ONDANSETRON 4 MG/2 ML VIAL IV PRN (14:49)
[2022-02-20] MEDS ORDERED: MORPHINE 4 MG/ML SYR IV PRN (14:59)
[2022-02-20] MEDS ORDERED: VANCOMYCIN 1.5 GM in NA CHLORIDE 0.9% 500 ML IVPB SCH (16:00)
[2022-02-20] MEDS ORDERED: Levofloxacin500mg IV 500 MG/100 ML BAG IV SCH (16:00)
[2022-02-20 16:33] LABS: SARS-CoV-2 Antigen Rapid Res Negative (Negative)
[2022-02-20] MEDS ORDERED: Levofloxacin500mg IV 500 MG/100 ML BAG IV ONE (16:46)
[2022-02-20] MEDS ORDERED: VANCOMYCIN 500 MG in NA CHLORIDE 0.9% 100 ML IVPB SCH (17:00)
[2022-02-20] MEDS ORDERED: MORPHINE 4 MG/ML SYR ONE (17:55)
[2022-02-20] MEDS ORDERED: HYDROMORPHONE HCL 1 MG/ML INJ ONE (19:48)
[2022-02-20] MEDS: HYDROMORPHONE HCL 1 MG/ML INJ IV PRN ×2 (19:53→22:52)
[2022-02-20] MEDS ORDERED: PNEUMOCOCCAL VACCINE 0.5 ML IMVAC ONE (20:00)
[2022-02-21] MEDS: HYDROMORPHONE HCL 1 MG/ML INJ IV PRN ×3 (01:54→22:25)
[2022-02-21 03:17] LABS: Protime INR 3.18
[2022-02-21 03:19] LABS: Absolute Lymphocytes (CBC) 0.9 K/uL (0.7-4.9); Hematocrit 31.5 % (39.6-49.0); MCV 87.3 fL (80-100); MPV 8.5 fL (7.6-11.3)
[2022-02-21] MEDS ORDERED: FENTANYL CITR 100 MCG/2 ML IV ONE (03:25)
[2022-02-21 03:27] LABS: Potassium 4.4 mmol/L (3.5-5.1)
[2022-02-21] MEDS ORDERED: NA CHLORIDE 0.9% 250 ML ONE (05:57)
[2022-02-21] MEDS ORDERED: Levofloxacin 250mg IV 250 MG/50 ML BAG IV SCH (09:00)
--- NOTE | 2022-02-21 09:11 | RAD REPORT ---
EXAM DESCRIPTION: CT - Lower Extremity W/ Cont - 02/21/2022 8:41 am CLINICAL HISTORY: infected hematoma COMPARISON: No comparisons FINDINGS: Large hematoma within the the medial soft tissues of the left lower extremity measuring at least 14.8 by 5.5 x 11.7 cm. This is in the subcutaneous tissues. The hematoma is reportedly acute a nd there is no evidence of significant liquification. No fracture is identified. Peripheral vascular calcifications. Subcutaneous edema is present within the soft tissues. Venous calcifications are not ed. IMPRESSION: Large subcutaneous hematoma which is presumably acute and has not undergone significant liquification. While it may be infected given the clinical history, the hematoma is of indeterminate sterility by CT.
[2022-02-21] MEDS: VANCOMYCIN 1.25 GM in NA CHLORIDE 0.9% 250 ML IVPB SCH (09:56)
[2022-02-21] MEDS ORDERED: Levofloxacin500mg IV 500 MG/100 ML BAG IV ONE (10:00)
--- NOTE | 2022-02-21 11:54 | P.PN ---
Subjective Date of Service: 02/21/22 Patient's lower extremity is more swollen. Increasing in pain as well. Significant lower extremity edema has worsened since yesterday. Pulses are still intact. Patient denies any paresthesias or numbness in the right foot. He does have pain that goes from the foot to the knee. Pain is worse from yesterday. INR is still elevated and he was given FFP's this morning. Repeating INR. Spoke with general surgery and plan is to do surgery in a.m. We will keep him n.p.o. after midnight. Physical Examination - Vital Signs Temperature: 98 F Blood Pressure: 117/68 Pulse: 81 Respirations: 18 Pulse Ox (%): 96 - Studies Laboratory Data (last 24 hrs) 02/20/22 10:48: Sodium 132 L, Potassium 4.4, BUN 26 H, Creatinine 1.55 H, Glucose 104, Magnesium 2.2, Total Bilirubin 0.5, AST 16, ALT 16, Alkaline Phosphatase 47 Assessment & Plan - Problems (Diagnosis) (1) Traumatic hematoma of left lower leg with infection Current Visit: Yes Status: Acute (2) Chronic anticoagulation Current Visit: No Status: Acute (3) HTN (hypertension) Onset Date: 05/24/16 Current Visit: No Status: Acute (4) Hx of mechanical aortic valve replacement Current Visit: No Status: Acute (5) Hyperlipidemia Onset Date: 05/24/16 Current Visit: No Status: Acute Qualifiers: - Plan PLAN: 1. Continue with IV antibiotic 2. Continue with local wound care 3. Wound care consultation/surgical consultation 4. Gentle IV hydration 5. Monitor CBC 6. Strict blood sugar monitoring 7. Pain control 8. GI and DVT prophylaxis - Advance Directives Does patient have a Living Will: No Does patient have a Durable POA for Healthcare: No
[2022-02-21] MEDS ORDERED: Oxycodone HCl/Acetaminophen 1 TAB TAB PO ONE (12:05)
[2022-02-21 12:49] LABS: Protime INR 2.3
--- NOTE | 2022-02-21 14:43 | CON ---
History Of Present Illness: This is a 66-year-old male. I was consulted for cellulitis of right low er extremity. The patient denies any headache, nausea, vomiting, chest pain, abdominal pain, constip ation, or diarrhea. The patient has been having pain in his right leg since he has bumped into side rail. The patient denies any other problems. He had this for few days and was being seen by home he alth nurse and doctor. The patient came to visit his learning designer who saw his leg and was sent to e mergency room for further evaluation and management. The patient is currently on IV antibiotic inclu ding vancomycin and Levaquin. Denies any other problems at this time. Past Medical History: Coronary artery disease, congestive heart failure, hypertension. Social History: Nonsmoker, nondrinker. Family History: Noncontributory. Medications: Vancomycin and Levaquin. See MAR for other medications. Allergies: NO KNOWN DRUG ALLERGIES. Review of Systems: A 10-point review was performed. Physical Examination: General: This is a 66-year-old male, lying in bed, not in any acute cardiopulmonary distress. Vital Signs: Temperature 98, pulse 88, respiration 18, blood pressure 160/70. HEENT: Unremarkable. Neck: Supple. Lungs: Basal crackles. Heart: S1, S2. Regular. Abdomen: Soft, nontender. Bowel sounds present. Extremity: 2+ edema right leg with 4+ edema with large hematoma formation and black discoloration of the top layer just below the right knee on medial aspect of the leg. Laboratory Data: Shows WBC 8.6, hemoglobin 10.8, platelets are 146. Chemistry shows sodium 134, pot assium 4.4, chloride 101, bicarb 28, BUN 23, creatinine 1.09, glucose is 110. Procalcitonin is 0.12. Lower extremity CT scan done shows large subcutaneous hematoma, which is presumably acute and has n ot undergone significant liquification. X-ray of the tib-fib done yesterday shows degenerative gerber es without acute bone or joint finding. Assessment And Plan: Right lower extremity hematoma and cellulitis, currently on IV antibiotic, vanc omycin and Levaquin, status post trauma and hematoma development. The patient with significant histo ry of congestive heart failure with lower extremity swelling. Continue IV antibiotic and wound care. Apply Betadine to the wound site. The patient also needs surgical evaluation and evacuation of the hematoma. Keep legs elevated when possible. Thank you Dr. Briscoe for consult. NF/MARIAH Voice ID: [id number] Report ID: [id number]
[2022-02-21 15:58] VITALS: BMI 33.5
[2022-02-21] MEDS: METOPROLOL XL 25 MG TAB PO SCH (20:08)
[2022-02-22] MEDS: VANCOMYCIN 1.25 GM in NA CHLORIDE 0.9% 250 ML IVPB SCH ×2 (03:21→20:58)
[2022-02-22] MEDS ORDERED: VANCOMYCIN 1.5 GM in NA CHLORIDE 0.9% 500 ML IVPB SCH (04:00)
[2022-02-22 07:15] LABS: Absolute Lymphocytes (CBC) 0.9 K/uL (0.7-4.9); Hematocrit 31.4 % (39.6-49.0); Lymphocytes % 9.1 % (15.3-44.8); MCV 86.8 fL (80-100); MPV 8.2 fL (7.6-11.3); RBC Red Blood Cell Count 3.61 M/uL (4.33-5.43)
[2022-02-22 07:25] LABS: Albumin 3.1 g/dL (3.4-5.0); Bilirubin Total 0.7 mg/dL (0.2-1.0); Magnesium 2.3 mg/dL (1.8-2.4); Potassium 4.5 mmol/L (3.5-5.1); Protein, Total 6.3 g/dL (6.4-8.2)
[2022-02-22] MEDS: METOPROLOL XL 25 MG TAB PO SCH ×2 (09:00→20:58)
[2022-02-22] MEDS ORDERED: Ringers Lactate 1,000 ML IV ONE (09:50)
[2022-02-22] MEDS ORDERED: FENTANYL CITR 100 MCG/2 ML ONE ×2 (09:55→11:55)
[2022-02-22] MEDS ORDERED: MIDAZOLAM HCL 2 MG/2 ML INJ ONE (09:56)
[2022-02-22] MEDS ORDERED: propofoL 200 MG/20 ML VIAL IV ONE (09:56)
[2022-02-22] MEDS ORDERED: LIDOCAINE 1% MPF 5 ML VIAL ONE (09:57)
[2022-02-22] MEDS ORDERED: ONDANSETRON 4 MG/2 ML VIAL ONE (09:57)
[2022-02-22 10:18] LABS: Protime INR 1.72
[2022-02-22] MEDS ORDERED: SODIUM HYPOCHLORITE 0.5% 473 ML ONE (10:37)
--- NOTE | 2022-02-22 12:14 | P.BOP ---
Preoperative diagnosis: S/p trauma contusion right leg with large necrotic wound and hematoma Postoperative diagnosis: same Primary procedure: Excisional debridement subQ and fascia Right leg 35 x 30 x 1.5 cm Estimated blood loss: <20cc Specimen: necrotic tissue ,hematoma, cultures Findings: see dicta Anesthesia: General Complications: None Drain(s): Other (Kerlex roll packing) Transferred to: Recovery Room Condition: Good
--- NOTE | 2022-02-22 16:10 | CON ---
Date of Consultation: 02/21/2022 This patient was seen in the ER. History Of Present Illness: This is the case of a 66-year-old patient, who comes to the ER complaini dee of swelling and discharge coming from a leg that hit with the truck hitch about a week before comi ng in. He is on anticoagulation for an aortic valve replacement with an INR elevated and that leadin g to a lot of more bruises that we were expecting to the point that one area of the skin became black and then started to put discharge out. He came to the ER. He was admitted and surgical service adv ised for a possible debridement. Allergies: NONE. Medications: Include warfarin, metoprolol, Lasix, potassium, Altace. Past Medical Problems: Include congestive heart failure, aortic aneurysm, aortic valve replacement, kidney stones, hypertension. Past Surgical History: Include aortic valve replacement, right eye surgery, right shoulder replaceme nt, and also left kidney stent. Family History: Include blood disorder of unknown origin and cancer he does not remember. Social History: He does not smoke. He does not drink alcohol. Review of Systems: No shortness of breath. No chest pain. He still has sensation in his foot. No dizziness. He says it is just basically an accident. 10 points otherwise unremarkable. Physical Examination: Chest: Clear. Abdomen: Soft and depressible. Extremities: Good capillary refill. On the right leg region, patient has an area of ecchymosis that extends from the knee all the way down to the ankle about 3/4 circumferentially associated with necr otic wound, which I assume is the area of the impact and subcutaneous hematoma since I assume anticoa gulation has to do something with it. On his thigh medially, he also has some ecchymosis, although i s not as severe as the lower leg. Dorsalis pedis pulses still present. No calf tenderness. No Meri ns signs. The patient is moving the extremity. Compartments feel soft. General: Patient is awake, alert. HEENT: Pupils are equal and reactive. Neck: Supple. Laboratory Data: Blood work shows WBC count of 8.6, hemoglobin of 10.8, hematocrit of 31.5, and plat elets of 146. Potassium is 4.4, creatinine is 1.09. INR is still elevated at 3.18. Tib-fib x-rays, no fracture seen per radiologist. Venous Doppler, no DVTs and a 4 cm popliteal cyst. He was advise d to discuss that with his Orthopedics. Assessment: This is a 66-year-old patient status post trauma, contusion, developing a large hematoma . He is on anticoagulation and that hematoma also became infected, extended to the skin, and now we have also necrotic tissue in the skin. So we have to take him to surgery. We are waiting, the [facility] doctors are trying to reverse the anticoagulation under control and do all the debridem ent. We have given him antibiotics, hydration. He understands he may require wound care. I discuss ed this case with the patient's daughter on the phone and the patient at bedside. We had a long conv ersation and all of his questions were answered to his satisfaction. Dr. Briscoe is working on the case . He believes by tomorrow morning, he should have his INR at least acceptable to proceed with debrid ement. He understands the chance of bleeding still. NGOZI/MARIAH Voice ID: [id number] Report ID: [id number]
[2022-02-22] MEDS: HYDROMORPHONE HCL 1 MG/ML INJ IV PRN (20:59)
--- NOTE | 2022-02-23 01:30 | P.PN ---
Date of Service: 02/22/22 Subjective patient's INR is under 1.5. Patient to go to the emergency room today. May need fasciotomy. Physical Examination - Vital Signs reviewed -Physical exam Gen: AAO x 3 and in NAD Cardiovascular: Within normal limits. Lungs: Within normal limits Abdomen: Within normal limits Neuro: Awake, alert, oriented to person place and time Assessment & Plan - Problems (Diagnosis) (1) Traumatic hematoma of left lower leg with infection Current Visit: Yes Status: Acute (2) Chronic anticoagulation Current Visit: No Status: Acute (3) HTN (hypertension) Onset Date: 05/24/16 Current Visit: No Status: Acute (4) Hx of mechanical aortic valve replacement Current Visit: No Status: Acute (5) Hyperlipidemia Onset Date: 05/24/16 Current Visit: No Status: Acute Qualifiers: - Plan Continue with plan of care as mentioned below: 1. Continue with IV antibiotic 2. Continue with local wound care 3. ID consultation/surgical consultation Appreciated; to the OR today. 4. Gentle IV hydration 5. Monitor CBC and INR; s/p FFPs 6. Strict blood sugar monitoring 7. Pain control 8. GI and DVT prophylax
[2022-02-23] MEDS: METOPROLOL XL 25 MG TAB PO SCH ×2 (08:56→21:57)
[2022-02-23] MEDS: Levofloxacin 750mg IV 750 MG/150 ML BAG IV SCH (08:57)
[2022-02-23] MEDS: VANCOMYCIN 1.25 GM in NA CHLORIDE 0.9% 250 ML IVPB SCH ×2 (08:58→21:56)
[2022-02-23] MEDS ORDERED: Levofloxacin 750mg IV 750 MG/150 ML BAG IV SCH (09:00)
[2022-02-24 03:06] VITALS: O2SAT 97
[2022-02-24 08:36] LABS: Potassium 4.3 mmol/L (3.5-5.1)
[2022-02-24 08:37] LABS: Absolute Lymphocytes (CBC) 0.7 K/uL (0.7-4.9); Hematocrit 30.9 % (39.6-49.0); Lymphocytes % 9.7 % (15.3-44.8); MPV 7.8 fL (7.6-11.3); RBC Red Blood Cell Count 3.55 M/uL (4.33-5.43)
[2022-02-24] MEDS: METOPROLOL XL 25 MG TAB PO SCH ×2 (08:58→20:24)
[2022-02-24] MEDS: HYDROMORPHONE HCL 1 MG/ML INJ IV PRN ×3 (08:59→20:24)
[2022-02-24] MEDS: VANCOMYCIN 1.25 GM in NA CHLORIDE 0.9% 250 ML IVPB SCH ×2 (08:59→20:24)
[2022-02-24] MEDS: Levofloxacin 750mg IV 750 MG/150 ML BAG IV SCH (08:59)
--- NOTE | 2022-02-24 16:09 | PN ---
Subjective: The patient is lying in bed. No new acute event. Chart reviewed. Denies any headache, nausea, vomiting, chest pain, abdominal pain, constipation, or diarrhea. Objective: Vital signs: Temperature 98, pulse 94, respirations 18, blood pressure 125/78. Lungs: Clear to auscultation. Heart: S1, S2. Regular. Abdomen: Soft, nontender. Bowel sounds present. Extremities: Right leg with 1+ edema. Laboratory Data: WBC 7.4, hemoglobin 10.8, platelets are 191. Chemistry shows BUN is 15, creatinine 1.8. Wound cultures from the right leg shows no growth to date. Assessment And Plan: Status post hematoma evacuation. The patient is currently on vancomycin and Le vaquin, doing better. Consider switching to oral doxycycline and Levaquin on discharge if no problem s at diarrhea. Also, consider starting the patient on probiotic. Keep leg elevated when possible. We will follow the patient as needed. NF/MODL Voice ID: [id number] Report ID: [id number]
--- NOTE | 2022-02-24 17:10 | P.PN ---
Date of Service: 02/23/22 Subjective Post op Day #1; doing well; no new complaints Physical Examination - Vital Signs reviewed -Physical exam Gen: AAO x 3 and in NAD Cardiovascular: Within normal limits. Lungs: Within normal limits Abdomen: Within normal limits Neuro: Awake, alert, oriented to person place and time Assessment & Plan - Problems (Diagnosis) (1) Traumatic hematoma of left lower leg with infection Current Visit: Yes Status: Acute (2) Chronic anticoagulation Current Visit: No Status: Acute (3) HTN (hypertension) Onset Date: 05/24/16 Current Visit: No Status: Acute (4) Hx of mechanical aortic valve replacement Current Visit: No Status: Acute (5) Hyperlipidemia Onset Date: 05/24/16 Current Visit: No Status: Acute Qualifiers: - Plan Continue with plan of care as mentioned below: 1. Continue with IV antibiotic 2. Continue with local wound care 3. ID consultation/surgical consultation appreciated; POD #1; awaiting placement to [place] [facility] 4. Heplock IV 5. Monitor CBC and INR; s/p FFPs 6. Strict blood sugar monitoring 7. Pain control 8. GI and DVT prophylax
--- NOTE | 2022-02-24 19:51 | PN ---
Date of Progress Note: 02/24/2022 Subjective: The patient is doing great. No complaint. No nausea. No vomiting. No shortness of br eath. No chest pain. Objective: Chest: Clear. Abdomen: Soft and depressible. Extremities: Good capillary refill. Dressings were changed by me and the nurse. The incision looks intact. No more bleeding. The swelling is coming down. No new hematoma seen. The area of the thi gh looks intact. Still all hematomas in that area that we expect that to resolve on its own. No blake dence of purulent discharge. Muscle looks soft with compartments are not tense. Laboratory Data: Blood work shows a hemoglobin of 10.8, hematocrit of 30.9. Plan: From the surgical standpoint, he can be discharged home when safe from a medical standpoint. Rehab is also working on him for safe ambulation. When he goes home, we would like to see him at the [facility] next Sunday or Sunday morning. If he goes to [place], will be Sunday after noon. He was asked to call for appointment at the [facility], preferably no my office [facility] e I am going to be at the [facility]. The phone number is [phone]. In the meantime, we a re going to do with wet-to-dry dressing until it is completely healed. He was advised once again to follow with his [facility]. He need chronic Jobst stockings. NGOZI/MARIAH Voice ID: [id number] Report ID: [id number]
--- NOTE | 2022-02-25 00:51 | OP ---
Date of Procedure: 02/22/2022 Surgeon: Buck Simms MD Preoperative Diagnosis: Status post trauma, contusion to the right leg with large necrotic wound and large hematoma. Postoperative Diagnosis: Status post trauma, contusion to the right leg with large necrotic wound an d large hematoma. Procedure: Excisional debridement down to fascia and subcutaneous tissue of the right leg. The enti re wound is about 35 cm x 30 cm x 1.5 cm. There is a large amount of clots present that displaced th e fat and necrotized the fat. Anesthesia: General plus local. Packing: Kerlix roll. Complications: None. History: This is a case of a 66-year-old patient who had a trauma more than a week ago. He is on Co umadin, developed this gigantic hematoma that extended from his foot all the way down into his thigh. The size of the right leg became almost double the left side, and then also has necrotic skin due t o the pressure from the blood inside, so developed an infected hematoma with contusion, necrotic ulce r. The patient has history of venous stasis disease which makes things worse. He normally uses comp ression, but he has not used them. The benefits, alternatives, and risks of debridement of all the n ecrotic tissue was fully explained which include, but not limited to infection, bleeding, damage to a djacent structures, anesthesia complication, nonhealing wound, VA, and even . He also understan ds this may not relieve the symptoms. He might need more than one surgical interventions. He unders tood, signed a consent. Procedure In Detail: The patient was brought to the operating room, placed in supine position. Anes thesia was done without complication. Right leg was prepped and draped in sterile fashion. We proce eded to start removing the necrotic skin. This allowed access to a large cavity which shows a large hematoma that extended all the way up to the knee and down to the ankle. The entire cavity is about 35 x 30 x 1.5 cm. We used the help of pulse lavage to trying to break all those clots. Some of the fat was already destroyed by the pressure itself. We cleaned all that area. We sent some of necroti c skin also for specimen and culture. Once we had that under control, we obtained hemostasis under l ocal anesthetic, and then proceeded to pack the area with a Kerlix roll and wet to dry. The patient tolerated the procedure well. No bleeding. The patient sent to Recovery in stable condition. NGOZI/MODKatherine Voice ID: [id number] Report ID: [id number]
[2022-02-25] MEDS: METOPROLOL XL 25 MG TAB PO SCH ×2 (08:28→21:33)
[2022-02-25] MEDS: Levofloxacin 750mg IV 750 MG/150 ML BAG IV SCH (08:29)
[2022-02-25] MEDS: HYDROMORPHONE HCL 1 MG/ML INJ IV PRN ×4 (08:37→21:40)
[2022-02-25] MEDS: VANCOMYCIN 1.25 GM in NA CHLORIDE 0.9% 250 ML IVPB SCH ×2 (10:31→21:32)
[2022-02-26] MEDS: HYDROMORPHONE HCL 1 MG/ML INJ IV PRN ×3 (05:14→16:32)
[2022-02-26] MEDS: METOPROLOL XL 25 MG TAB PO SCH ×2 (08:37→20:59)
[2022-02-26] MEDS: Levofloxacin 750mg IV 750 MG/150 ML BAG IV SCH (08:37)
[2022-02-26] MEDS: VANCOMYCIN 1.25 GM in NA CHLORIDE 0.9% 250 ML IVPB SCH ×2 (10:19→21:00)
[2022-02-26] MEDS: ENOXAPARIN 100 MG/ML SYR SQ SCH (20:59)
--- NOTE | 2022-02-26 23:28 | P.PN ---
Date of Service: 02/24/22 Subjective Patient has swelling of the right lower extremity has improved significantly. Continue with dressing changes per General surgery. At this time will continue with antibiotic therapy. Appreciate Infectious Disease consultation as well. Physical Examination - Vital Signs reviewed -Physical exam Gen: AAO x 3 and in NAD Cardiovascular: Within normal limits. Lungs: Within normal limits Abdomen: Within normal limits Neuro: Awake, alert, oriented to person place and time Assessment & Plan - Problems (Diagnosis) (1) Traumatic hematoma of left lower leg with infection Current Visit: Yes Status: Acute (2) Chronic anticoagulation Current Visit: No Status: Acute (3) HTN (hypertension) Onset Date: 05/24/16 Current Visit: No Status: Acute (4) Hx of mechanical aortic valve replacement Current Visit: No Status: Acute (5) Hyperlipidemia Onset Date: 05/24/16 Current Visit: No Status: Acute Qualifiers: - Plan Continue with plan of care as mentioned below: 1. Continue with IV antibiotic 2. Continue with local wound care 3. ID consultation/surgical consultation appreciated; POD #2; awaiting placement to [facility] swing bed 4. Heplock IV 5. Monitor CBC 6. Strict blood sugar monitoring 7. Pain control 8. GI and DVT prophylax
--- NOTE | 2022-02-26 23:31 | P.PN ---
Date of Service: 02/25/22 Subjective Patient's swelling continues to improve. Spoke with Cardiology regarding anticoagulation. Holding off on Coumadin and continue with Lovenox for now. Continue with antibiotic therapy. Awaiting for placement. Physical Examination - Vital Signs reviewed -Physical exam Gen: AAO x 3 and in NAD Cardiovascular: regular rate and rhythm with no murmurs Lungs: clear bilaterally Abdomen: soft; nontender; nondistended; bowel sounds positive Neuro: Awake, alert, oriented to person place and time; No focal deficits Ext: Dressing of right lower extremity intact Assessment & Plan - Problems (Diagnosis) (1) Traumatic hematoma of left lower leg with infection Current Visit: Yes Status: Acute (2) Chronic anticoagulation Current Visit: No Status: Acute (3) HTN (hypertension) Onset Date: 05/24/16 Current Visit: No Status: Acute (4) Hx of mechanical aortic valve replacement Current Visit: No Status: Acute (5) Hyperlipidemia Onset Date: 05/24/16 Current Visit: No Status: Acute Qualifiers: - Plan Continue with plan of care as mentioned below: 1. Continue with IV antibiotic 2. Continue with local wound care 3. ID consultation/surgical consultation appreciated; POD #3; awaiting placement to [place] swing bed 4. Heplock IV 5. Monitor CBC 6. Strict blood sugar monitoring 7. Pain control 8. GI and DVT prophylax
--- NOTE | 2022-02-26 23:32 | P.PN ---
Date of Service: 02/26/22 Subjective Patient's swelling continues to improve. Cardiology recommendaing lovenox for now. Continue with antibiotic therapy. Awaiting for placement. Physical Examination - Vital Signs reviewed -Physical exam Gen: AAO x 3 and in NAD Cardiovascular: regular rate and rhythm with no murmurs Lungs: clear bilaterally Abdomen: soft; nontender; nondistended; bowel sounds positive Neuro: Awake, alert, oriented to person place and time; No focal deficits Ext: Dressing of right lower extremity intact Assessment & Plan - Problems (Diagnosis) (1) Traumatic hematoma of left lower leg with infection Current Visit: Yes Status: Acute (2) Chronic anticoagulation Current Visit: No Status: Acute (3) HTN (hypertension) Onset Date: 05/24/16 Current Visit: No Status: Acute (4) Hx of mechanical aortic valve replacement Current Visit: No Status: Acute (5) Hyperlipidemia Onset Date: 05/24/16 Current Visit: No Status: Acute Qualifiers: - Plan Continue with plan of care as mentioned below: 1. Continue with IV antibiotic 2. Continue with local wound care 3. ID consultation/surgical consultation appreciated; POD #4; awaiting placement to [facility] bed 4. Heplock IV 5. Monitor CBC 6. Strict blood sugar monitoring 7. Pain control 8. Lovenox SQ BID
[2022-02-27] MEDS ORDERED: COLLAGENASE 30 GM OINTMENT TOP SCH (09:00)
[2022-02-27] MEDS: VANCOMYCIN 1.25 GM in NA CHLORIDE 0.9% 250 ML IVPB SCH (09:36)
[2022-02-27] MEDS: HYDROMORPHONE HCL 1 MG/ML INJ IV PRN ×2 (09:36→13:04)
[2022-02-27] MEDS: METOPROLOL XL 25 MG TAB PO SCH (09:37)
[2022-02-27] MEDS: ENOXAPARIN 100 MG/ML SYR SQ SCH (09:37)
[2022-02-27] MEDS: Levofloxacin 750mg IV 750 MG/150 ML BAG IV SCH (09:38)
--- NOTE | 2022-02-27 11:06 | P.DS ---
Admission Date: 02/20/22 Discharge Date: 02/27/22 Disposition: TRANSFER TO RETIREMENT Discharge Condition: GOOD Reason for Admission: Left lower extremity cellulitis Consultations: 1. Infectious Diseases 2. General Surgery 3. Cardiology Procedures: - 02/22/2022 - Excisional Debridement of Subcutaneous Fascia of the Left Leg Hospital Course: DIAGNOSES: # Sepsis secondary to Left Lower Extremity Cellulitis with possible Infected Left Lower Extremity Hematoma # Aortic Valvulopathy s/p Mechanical Aortic Valve Replacement # Hypertension # Hyperlipidemia # Left Popliteal Cyst (4 cm) HOSPITAL COURSE: Mr. Chaim Michelle is a pleasant 66 year old male with a past medical history significant for aortic valvulopathy s/p mechanical aortic valve replacement, hypertension, and hyperlipidemia who was admitted to the [facility] on 02/20/2022 for left lower extremity cellulitis. He was admitted to the Medicine service for further evaluation. A bilateral lower extremity Doppler ultrasound revealed, "no DVT in either lower extremity. A 4 centimeter left popliteal cyst fossa cyst without rupture or hemorrhage findings." A left lower extremity tib/fib x-ray revealed, "Degenerative changes are present without acute bone or joint finding. Oval-shaped mass in the posteromedial soft tissues of the proximal left lower leg most likely a large hematoma." CT of the left lower extremity revealed, "large subcutaneous hematoma which is presumably acute and has not undergone significant liquification. While it may be infected given the clinical history, the hematoma is of indeterminate sterility by CT." General Surgery was consulted and he underwent an excisional debridement of the subcutaneous fascia of the left leg. General Surgery has cleared him for discharge. Dr. Briscoe spoke with Dr. Madden regarding anticoagulation, who recommended that he remain on enoxaparin for his mechanical valve until he follows up in clinic. In regards to antibiotics, Infectious Diseases was consulted, and he was evaluated by Dr. Griffith. He recommended discharge with an additional 14 days of levofloxacin. He continued to have generalized weakness and it was thought that he would benefit from a short course of therapy at a facility. With the assistance of case management, it was arranged for him to be transferred to [facility]. A doc-to-doc was completed with Dr. Hernandes, who generously accepted him for transfer. On 02/27/2022, he was seen on morning rounds and deemed medically stable for discharge. He was discharged with instructions to schedule follow-up appointments with his PCP in 3-5 days, with Cardiology (Dr. Madden) in 5-7 days, and with General Surgery (Dr. Simms) in 1-2 weeks. He was provided prescriptions for levofloxacin. He was given the opportunity to ask questions and reported no further questions. Furthermore, all questions were answered to the best of my ability. Today, I personally spent 35 minutes on his case, of which greater than 50% of the time was spent in patient education, counseling, and coordination of care as described above. Vital Signs/Physical Exam: Temp Pulse Resp BP Pulse Ox 98.1 F 74 18 115/77 97 02/27/22 08:00 02/27/22 09:37 02/27/22 10:06 02/27/22 09:37 02/27/22 10:06 General: Alert, In no apparent distress, Oriented x3 HEENT: Atraumatic, PERRLA, Mucous membr. moist/pink, EOMI, Sclerae nonicteric Neck: Supple, JVD not distended Respiratory: Clear to auscultation bilaterally, Normal air movement Cardiovascular: No edema, Regular rate/rhythm, Normal S1 S2, No gallops, No rubs, No murmurs Capillary refill: <2 Seconds Gastrointestinal: Normal bowel sounds, Soft and benign, Non-distended, No tenderness, No rebound, No guarding Musculoskeletal: No clubbing, Other (Left lower extremity surgical wound is clean, dry, and intact) Neurological: Normal speech, Sensation intact, Cranial nerves 3-12 intact, Normal affect Laboratory Data at Discharge: WBC Cancelled 02/24/22 Unknown Hgb Cancelled 02/24/22 Unknown Hct Cancelled 02/24/22 Unknown Plt Count Cancelled 02/24/22 Unknown PT 19.1 SECONDS (9.5-12.5) H 02/22/22 09:28 INR 1.72 02/22/22 09:28 APTT 43.7 SECONDS (24.3-36.9) H 02/21/22 12:27 Sodium 137 mmol/L (136-145) 02/24/22 08:02 Potassium 4.3 mmol/L (3.5-5.1) 02/24/22 08:02 BUN 15 mg/dL (7-18) 02/24/22 08:02 Creatinine 0.87 mg/dL (0.55-1.3) 02/24/22 08:02 Glucose 108 mg/dL (74-106) H 02/24/22 08:02 Magnesium 2.3 mg/dL (1.8-2.4) 02/22/22 06:34 Total Bilirubin 0.7 mg/dL (0.2-1.0) 02/22/22 06:34 AST 12 U/L (15-37) L 02/22/22 06:34 ALT 13 U/L (12-78) 02/22/22 06:34 Alkaline Phosphatase 44 U/L (45-117) L 02/22/22 06:34 Home Medications: Furosemide [Lasix*] 120 mg PO DAILY 05/23/16 Ramipril [Altace] 10 mg PO BEDTIME 05/23/16 Metoprolol Succinate [Toprol Xl*] 25 mg PO BID 02/20/22 Enoxaparin Sodium [Lovenox 100 MG INJ*] 90 mg SQ Q12HR syr 02/27/22 levoFLOXacin [Levaquin*] 500 mg PO DAILY #14 tab 02/27/22 New Medications: levoFLOXacin [Levaquin*] 500 mg PO DAILY #14 tab Physician Discharge Instructions: You are being transferred to [facility] for continued care 1. Please schedule follow-up with Cardiology (Dr. Madden) in 5-7 days - Please hold warfarin and continue enoxaparin (Lovenox) until you see Dr. Madden 2. Please schedule follow-up with your PCP within 3-5 days of being discharged from [facility] 3. Please schedule follow-up with General Surgery (Dr. Simms) in 1-2 weeks When discharge f/u at wound healing center sunday or sunday. Wet to dry NS dressing changes daily Diet: AHA Activity: Ad eusebia Followup: Tang Mckenzie MD [Primary Care Provider] - 2-3 Days (after discharge of [facility]) Robert Madden MD [ACTIVE - CAN ADMIT] - 1 Week Buck Simms MD [ACTIVE - CAN ADMIT] - 1-2 Weeks Time spent managing pt's care (in minutes): 35
[2022-02-27 11:47] VITALS: BP 114/75; TEMP 97.9
--- NOTE | 2022-02-27 18:42 | PN ---
Date of Progress Note: 02/27/2022 Subjective: The patient is doing well. No complaint. Objective: Chest: Clear. Abdomen: Soft and depressible. Extremities: Excellent recovery. The wounds are starting to granulate. The rest of the skin that w as left which is 80% of that are still intact and healing. The cavities underneath the leg are start ing to close. The patient has a good capillary refill. Peripheral pulses still present. Plan: From the surgical standpoint, we advised the patient to follow up with the [facility]. Continue antibiotics per ID and ambulation. Wet-to-dry dressing or Santyl whatever is available for him daily. NGOZI/MODL Voice ID: [id number] Report ID: [id number]
--- NOTE | 2022-02-27 19:42 | PN ---
Subjective: Patient lying in bed. No new acute event. Chart reviewed. Objective: Vital Signs: Temperature 97, pulse 91, respirations 18, blood pressure 114/75. Lungs: Clear to auscultation. Heart: S1, S2. Regular. Abdomen: Soft, nontender. Bowel sounds present. Extremity: Right leg swelling 1+ wounds noted. Laboratory Data: WBC 7.4, hemoglobin 10.8, platelets 191. Chemistry shows sodium 137, potassium 4.3 , chloride 106, bicarb 26, BUN 15, creatinine 0.8, glucose is 108. Micro data cultures growing no ba cteria. Assessment And Plan: Continue Levaquin for the right leg infection, cellulitis and hematoma, status post hematoma evacuation. Patient is doing well from surgical point of few. We will recommend to co ntinue Santyl and Levaquin oral 500 mg daily for 2 weeks. Keep leg elevated when possible. NF/MODL Voice ID: [id number] Report ID: [id number]
== END 2022-02-27 14:56 | DRG 264 ==
LOC: ER 09:50 → ERHOLD 14:49 → 2ND 20:16
PROVIDERS: ADMIT Hospitalist; ATTEND Hospitalist
PROC: 30233K1 Transfusion of Nonautologous Frozen Plasma into Peripheral Vein, Percutaneous Approach (ICD-10-PCS; 2022-02-21)
PROC: 0JBN0ZZ Excision of Right Lower Leg Subcutaneous Tissue and Fascia, Open Approach (ICD-10-PCS; principal; 2022-02-22 11:15)
DX: I96 Gangrene, not elsewhere classified (principal); A41.9 Sepsis, unspecified organism; L03.115 Cellulitis of right lower limb; D68.8 Other specified coagulation defects; M71.22 Synovial cyst of popliteal space [Baker], left knee; I10 Essential (primary) hypertension; E78.5 Hyperlipidemia, unspecified; S80.11XA Contusion of right lower leg, initial encounter; I11.0 Hypertensive heart disease with heart failure; I50.9 Heart failure, unspecified; Z95.2 Presence of prosthetic heart valve; Z79.01 Long term (current) use of anticoagulants; Z20.822 Contact with and (suspected) exposure to COVID-19
CPT/HCPCS: 36415; 73701; 80048; 80053; 80076; 80202; 82550; 82947; 83735; 83880; 84145; 84484; 85025; 85610; 85652; 85730; 86140; 86850; 86900; 86901; 86927; 87070; 87075; 87205; 87811; 88304; 88305; 93970; 94010; 96374; 96375; 97110; 97112; 97116; 97161; 97530; 99284; J1170; J1650; J2001; J2250; J2405; J2704; J3010; J3370; J3590; J7040; J7050; J7120; P9017; Q9967

== ENCOUNTER 2022-05-10 06:37 | Day surgery (SDC) | payer OTHER ==
[2022-05-10] MEDS ORDERED: Ringers Lactate 1,000 ML IV ONE (06:57)
--- NOTE | 2022-05-10 08:58 | ENDO RPT ---
[address], [address] COLONOSCOPY PROCEDURE REPORT EXAM DATE: 05/10/2022 PATIENT NAME: Chaim Michelle MR #: [id number] BIRTHDATE: 1955 ATTENDING: Buck Simms MD STATUS: outpatient TELESALES ADVISOR: Magi Fernandez RN INDICATIONS: The patient is a 67 yr old Male here for a colonoscopy due to colon cancer screening PROCEDURE PERFORMED: Colonoscopy MEDICATIONS: Per Anesthesia. ESTIMATED BLOOD LOSS: None CONSENT: The patient understands the risks and benefits of the procedure and understands that these risks include, but are not limited to: sedation, allergic reaction, infection, perforation and/or bleeding. Alternative means of evaluation and treatment include, among others: physical exam, x-rays, and/or surgical intervention. The patient elects to proceed with this endoscopic procedure. DESCRIPTION OF PROCEDURE: During intra-op preparation period all mechanical medical equipment was checked for proper function. Hand hygiene and appropriate measures for infection prevention was taken. Procedure, possible complications, alternatives including, but not limited to possibility of bleeding, perforation, tear, infection, sepsis, need for surgery, need for blood transfusion, were explained to the patient. After the risks, benefits and alternatives of the procedure were thoroughly explained, Informed consent was verified, confirmed and timeout was successfully executed by the treatment team. The patient was placed in the left lateral position. A digital rectal exam was performed and revealed external hemorrhoids. After appropriate level of anesthesia, the scope was passed. The EC-[id number] ([id number]) endoscope was introduced through the anus and advanced to the cecum, which was identified by transillumination from the light source, the appendix, and the ileocecal valve. The quality of the prep was good. The instrument was then slowly withdrawn as the colon was fully examined. Scope withdrawal time was . COLON FINDINGS: Diverticula was found throughout the entire examined colon. The opening was medium sized. Internal and external hemorrhoids were found. Retroflexed views revealed no abnormalities. The scope was then completely withdrawn from the patient and the procedure terminated. ADVERSE EVENTS: There were no complications. IMPRESSIONS: 1. Diverticula throughout the entire examined colon 2. Internal and external hemorrhoids RECOMMENDATIONS: follow-up: office 1-2 week(s) RECALL: Return in 3 year(s) for Colonoscopy. Buck Simms MD eSigned: Buck Simms MD 05/10/2022 8:58 AM cc: Tami Rodriguez and Tang Mckenzie M.D. CPT CODES: ICD9 CODES: PATIENT NAME: Chiam Michelle MR#: [id number]
[2022-05-10 14:13] VITALS: BP 105/61; TEMP 98.1; O2SAT 96
== END 2022-05-10 09:30 | disposition home or self-care (01) ==
LOC: OR 06:37
PROVIDERS: ATTEND Surgery
PROC: 0DJD8ZZ Inspection of Lower Intestinal Tract, Via Natural or Artificial Opening Endoscopic (ICD-10-PCS; principal; 2022-05-10 08:15)
DX: Z12.11 Encounter for screening for malignant neoplasm of colon (principal); Z86.010 Personal history of colon polyps; Z85.118 Personal history of other malignant neoplasm of bronchus and lung; K64.4 Residual hemorrhoidal skin tags; K64.8 Other hemorrhoids; K57.30 Diverticulosis of large intestine without perforation or abscess without bleeding
CPT/HCPCS: J7120; G0105

== ENCOUNTER 2022-09-25 14:53 | Inpatient (IN) | payer OTHER ==
--- OUTSIDE RECORDS SUMMARY | 2022-09-25 14:59 | XMS REPORT | Continuity of Care Document ---
:1955 Author Organization [facility] t Address [address]. [place]. [address] [place] [address] Care Team Providers Name Role Phone SHANA COOPER Primary Care Physician Unavailable Shana Cooper Attending Clinician Unavailable ESHA LANCE Attending Clinician Unavailable ASCENCION KHAN Attending Clinician Unavailable Ascencion Khan MD Attending Clinician Virtual, Surgeon Attending Clinician Unavailable Elie Amaya RN Attending Clinician Unavailable Kayli Attending Clinician Unavailable RONAL ASHLEY NP Attending Clinician Unavailable FRANCES GARCIA Attending Clinician Unavailable ASCENCION KHAN Admitting Clinician Unavailable Kayli Admitting Clinician Unavailable Payers Payer Name Policy Type Policy Number Effective Date Expiration Date Justin curry [facility] Medicare 53 [id number] Common 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 ascending ascending thoracic thoracic aorta aorta Chronic Chronic Disease Active 2015-[address] [facility] anticoagul anticoagul 07-26 [facility] k[facility] ation ation 00:00: Medical 00 [place] History of History of Disease Active 2015-[address] [facility] 00 [place] Pulmonary Pulmonary Disease Active 2015-[address] [facility] nodule nodule 07-[facility] 00 [place] Cholelithi Cholelithi Disease Active 2015-[address] asis asis 07-26 [facility] 00:00: Medical 00 [place] Renal Renal Disease Active 2015-[address] [facility] calculus calculus 07-26 [facility] 00 [place] Retroperit Retroperit Disease Active 2015-[address] francis francis 07-25 [facility] bleed bleed 00:00: Medical 00 [place] History of History of Problem [facility]olve [facility] disease disease ans History of History of Problem Resolve [facility] hypertensi hypertensi d Ph ysici on on ans Right Right Problem Active [facility] shoulder shoulder Physic i pain pain ans Tear of Tear of Problem Active [facility] right right Physici rotator rotator ans cuff cuff [id number] Prostate Problem Com [place] [id number] nodule [facility] [id number] Complex Problem Commo n renal cyst [facility] [id number] Bilateral Problem Comm on hearing Spirit loss, - [facility] hearing [facility] loss type Medical Center [id number] Lung mass Problem Com mon [facility] [id number] Pain of Problem Commo n right Spirit lower - [facility] extremity [facility] Hypertensi Hypertensi Problem C ommon on on [facility] Fatty Fatty Problem Common liver liver [facility] Chronic Chronic Problem Common obstructiv obstructiv Sp aung e e - [facility] pulmonary pulmonary [facility] disease [facility] Hyperlipid Hyperlipid Problem C ommon emia emia [facility] Renal mass Bilateral Problem Co mmon renal Spirit masses 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 [id number] Gout, Problem Common unspecifie Spirit d cause, - [facility] unspecifie [facility] chronicity [facility] unspecifie d site [id number] BPH loc w Problem Com mon urin Spirit obs/LUTS [facility] [id number] Fatigue, Problem Commo n unspecifie Spirit d type [facility] [id number] RBBB Problem Common [facility] [id number] History of Problem Co mmon ruptured Spirit arterial - [facility] aneurysm [facility] [id number] Cardiovasc Problem Com mon ular Spirit disease [facility] Atrial Atrial Problem Common fibrillati fibrillati Sp aung on on [facility] Allergies, Adverse Reactions, Alerts Allergy Allergy Status Severity Reaction(s) Onset Inactive Treating Comm ents Source Name Type Date Date Clinician NO KNOWN Allergy Active [facility] Family History Family Member Diagnosis Comments Start Date Stop Date Source Natural brother Cancer [facility] Natural father Throat cancer [facility] Natural sister Breast cancer [facility] Social History Social Habit Start Date Stop Date Quantity Comments Source History of Chews Tobacco [facility] hospital tobacco use [facility] Alcohol intake 2021-11-08 2021-11-08 Ex-drinker [facility] 00:00:00 00:00:00 (finding) [facility] Sex Ass[birth year] At [birth year] [facility] 00:00:00 00:00:00 Medical Center Smoking Status Start Date Stop Date Source Former Smoker 2022-08-01 00:00:00 2022-08-01 00:00:00 Common S pirit [facility] Medications Ordered Filled Start Stop Current Ordering Indication Dosage Frequency Signature Comments Components Source Medication Medication Date Date Medication? Clinician (SIG) Name Name amiodarone Yes 200mg QD Take [address] (PACERONE) 4-26 mg by [facility] 200 MG 17:31: mouth Medical tablet 11 daily. Center furosemide Yes 40mg QD Take [address] (LASIX) 40 4-26 by mouth [facility] MG tablet 17:31: daily. Medica l 11 [place] omeprazole Yes 40mg QD Take [address] (PRILOSEC) 4-26 [facility] 40 MG 17:31: daily. Medical capsule 11 [place] potassium Yes 10meq QD Take [address] chloride 4-26 mEq by [facility] (KLOR-CON) 17:31: mouth Medica l 10 MEQ CR 11 daily. [place] tablet ramipril Yes 10mg QD Take [address] (ALTACE) 10 4-26 by mouth [facility] MG capsule 17:31: daily. Medic al 11 [place] simvastatin Yes 10mg QD Take [address] (ZOCOR) 20 4-26 by mouth [facility] MG tablet 17:31: daily. Medica l 11 [place] metoprolol Yes 25mg Q.5D Take [address] tartrate 4-26 by mouth 2 [facility] (LOPRESSOR) 17:31: (two) Medic al 25 MG 11 times Center tablet daily. enoxaparin Yes Inject [facility] (LOVENOX) 4-26 subcutaneo [facility] 100 mg/mL 17:31: usly. Medical Syrg 11 [place] warfarin Yes 10mg QD Take [address] (COUMADIN, -26 by mouth [facility] JANTOVEN) 17:31: daily 13 Medi sarah 10 MG 11 mg . [place] tablet Flomax 0.4 Flomax 0.4 2020-07- No 1{capsu QD MG MG 02-09 le} 00:00: 00:00 00 :00 Flomax 0.4 Flomax 0.4 2020-07- No 1{capsu QD Flomax 0.4 MG MG 02-09 le} MG 00:00: 00:00 00 :00 Flomax 0.4 Flomax 0.4 2020-07- No 1{capsu QD Flomax 0.4 MG MG 02-09 le} MG 00:00: 00:00 00 :00 Flomax 0.4 Flomax 0.4 2020-07- No 1{capsu QD Flomax 0.4 MG MG 02-09 le} MG 00:00: 00:00 00 :00 Flomax 0.4 Flomax 0.4 2020-2- No 1{capsu QD Flomax 0.4 MG MG 02-09 le} MG 00:00: 00:00 00 :00 Flomax 0.4 Flomax 0.4 2020-2- No 1{capsu QD Flomax 0.4 MG MG 02-09 le} MG 00:00: 00:00 00 :00 Flomax 0.4 Flomax 0.4 2020-2- No 1{capsu QD Flomax 0.4 MG MG 02-09 le} MG 00:00: 00:00 00 :00 Flomax 0.4 Flomax 0.4 2020-2- No 1{capsu QD MG MG 02-09 le} 00:00: 00:00 00 :00 Flomax 0.4 Flomax 0.4 2020-2- No 1{capsu QD Flomax 0.4 MG MG 02-09 le} MG 00:00: 00:00 00 :00 Flomax 0.4 Flomax 0.4 2020-2- No 1{capsu QD Flomax 0.4 MG MG 02-09 le} MG 00:00: 00:00 00 :00 Flomax 0.4 Flomax 0.4 2020-2- No 1{capsu QD Flomax 0.4 MG MG 02-09 le} MG 00:00: 00:00 00 :00 Flomax 0.4 Flomax 0.4 2020-2- No 1{capsu QD Flomax 0.4 MG MG 02-09 le} MG 00:00: 00:00 00 :00 Flomax 0.4 Flomax 0.4 2020-2- No 1{capsu QD Flomax 0.4 MG MG 202-09 le} MG 00:00: 00:00 00 :00 Flomax 0.4 Flomax 0.4 2020-2- No 1{capsu QD Flomax 0.4 MG MG 02-09 le} MG 00:00: 00:00 00 :00 Flomax 0.4 Flomax 0.4 2020-07- No 1{capsu QD Flomax 0.4 MG MG 02-09 le} MG 00:00: 00:00 00 :00 Flomax 0.4 Flomax 0.4 2020-07- No 1{capsu QD Flomax 0.4 MG MG 02-09 le} MG 00:00: 00:00 00 :00 Flomax 0.4 Flomax 0.4 2020-07- No 1{capsu QD Flomax 0.4 MG MG 02-09 le} MG 00:00: 00:00 00 :00 Flomax 0.4 Flomax 0.4 2020-07- No 1{capsu QD Flomax 0.4 MG MG 02-09 le} MG 00:00: 00:00 00 :00 Simvastatin Simvastatin No 1{table QD Simvastati 20 MG 20 MG t_in_th n 20 MG e_eveni ng} Vitamin C Vitamin C No 2{table QD Vitamin C 1000 MG 1000 MG t} 1000 MG Furosemide Furosemide No 1{table QD Furosemide 40 MG 40 MG t} 40 MG Ramipril 10 Ramipril 10 No 1{capsu QD Ramipril MG MG le} 10 MG Vitamin D Vitamin D No 1{capsu QD Vitamin D 50 MCG 50 MCG le} 50 MCG (1999 [facility]) (1999) (1999) Quercetin Quercetin No 2{table QD Quercetin 250 MG 250 MG t} 250 MG Klor-Con 10 Klor-Con 10 No 1{table BID Klor-Con 10 MEQ 10 MEQ t_with_ 10 10 MEQ food} Zinc 50 MG Zinc 50 MG No 1{table QD Zinc 50 MG t} Coumadin 4 Coumadin 4 No 3{table QD Coumadin 4 MG MG t} MG Metoprolol Metoprolol No 1{table BID Metoprolol Succinate Succinate t} Succinate ER 25 MG ER 25 MG ER 25 MG Allopurinol Allopurinol No Allopurino 100 MG 100 MG l 100 MG Omeprazole Omeprazole No 1{capsu QD Omeprazole 40 MG 40 MG le} 40 MG Vitamin B Vitamin B No 2{table QD Vitamin B 12 500 MCG 12 500 MCG t} 12 500 MCG Simvastatin Simvastatin No 1{table QD Simvastati 20 MG 20 MG t_in_th n 20 MG e_eveni ng} Vitamin C Vitamin C No 2{table QD Vitamin C 1000 MG 1000 MG t} 1000 MG Furosemide Furosemide No 1{table QD Furosemide 40 MG 40 MG t} 40 MG Ramipril 10 Ramipril 10 No 1{capsu QD Ramipril MG MG le} 10 MG Vitamin D Vitamin D No 1{capsu QD Vitamin D 50 MCG 50 MCG le} 50 MCG (1999) (1999) (1999) Quercetin Quercetin No 2{table QD Quercetin 250 MG 250 MG t} 250 MG Klor-Con 10 Klor-Con 10 No 1{table BID Klor-Con 10 MEQ 10 MEQ t_with_ 10 10 MEQ food} Zinc 50 MG Zinc 50 MG No 1{table QD Zinc 50 MG t} Coumadin 4 Coumadin 4 No 3{table QD Coumadin 4 MG MG t} MG Metoprolol Metoprolol No 1{table BID Metoprolol Succinate Succinate t} Succinate ER 25 MG ER 25 MG ER 25 MG Allopurinol Allopurinol No Allopurino 100 MG 100 MG l 100 MG Omeprazole Omeprazole No 1{capsu QD Omeprazole 40 MG 40 MG le} 40 MG Vitamin B Vitamin B No 2{table QD Vitamin B 12 500 MCG 12 500 MCG t} 12 500 MCG Simvastatin Simvastatin No 1{table QD Simvastati 20 MG 20 MG t_in_th n 20 MG e_eveni ng} Vitamin C Vitamin C No 2{table QD Vitamin C 1000 MG 1000 MG t} 1000 MG Furosemide Furosemide No 1{table QD Furosemide 40 MG 40 MG t} 40 MG Ramipril 10 Ramipril 10 No 1{capsu QD Ramipril MG MG le} 10 MG Vitamin D Vitamin D No 1{capsu QD Vitamin D 50 MCG 50 MCG le} 50 MCG (1999) (1999) (1999) Quercetin Quercetin No 2{table QD Quercetin 250 MG 250 MG t} 250 MG Klor-Con 10 Klor-Con 10 No 1{table BID Klor-Con 10 MEQ 10 MEQ t_with_ 10 10 MEQ food} Zinc 50 MG Zinc 50 MG No 1{table QD Zinc 50 MG t} Coumadin 4 Coumadin 4 No 3{table QD Coumadin 4 MG MG t} MG Metoprolol Metoprolol No 1{table BID Metoprolol Succinate Succinate t} Succinate ER 25 MG ER 25 MG ER 25 MG Allopurinol Allopurinol No Allopurino 100 MG 100 MG l 100 MG Omeprazole Omeprazole No 1{capsu QD Omeprazole 40 MG 40 MG le} 40 MG Vitamin B Vitamin B No 2{table QD Vitamin B 12 500 MCG 12 500 MCG t} 12 500 MCG Klor-Con 10 Klor-Con 10 No 1{table BID 10 MEQ 10 MEQ t_with_ food} Vitamin B Vitamin B No 2{table QD 12 500 MCG 12 500 MCG t} Zinc 50 MG Zinc 50 MG No 1{table QD t} Allopurinol Allopurinol No 100 MG 100 MG Metoprolol Metoprolol No 1{table BID Succinate Succinate t} ER 25 MG ER 25 MG Ramipril 10 Ramipril 10 No 1{capsu QD MG MG le} Furosemide Furosemide No 1{table QD 40 MG 40 MG t} Quercetin Quercetin No 2{table QD 250 MG 250 MG t} Omeprazole Omeprazole No 1{capsu QD 40 MG 40 MG le} Simvastatin Simvastatin No 1{table QD 20 MG 20 MG t_in_th e_eveni ng} Vitamin C Vitamin C No 2{table QD 1000 MG 1000 MG t} Coumadin 4 Coumadin 4 No 3{table QD MG MG t} Vitamin D Vitamin D No 1{capsu QD 50 MCG 50 MCG le} (1999) (1999) Klor-Con 10 Klor-Con 10 No 1{table BID Klor-Con 10 MEQ 10 MEQ t_with_ 10 10 MEQ food} Vitamin B Vitamin B No 2{table QD Vitamin B 12 500 MCG 12 500 MCG t} 12 500 MCG Zinc 50 MG Zinc 50 MG No 1{table QD Zinc 50 MG t} Allopurinol Allopurinol No Allopurino 100 MG 100 MG l 100 MG Metoprolol Metoprolol No 1{table BID Metoprolol Succinate Succinate t} Succinate ER 25 MG ER 25 MG ER 25 MG Ramipril 10 Ramipril 10 No 1{capsu QD Ramipril MG MG le} 10 MG Furosemide Furosemide No 1{table QD Furosemide 40 MG 40 MG t} 40 MG Quercetin Quercetin No 2{table QD Quercetin 250 MG 250 MG t} 250 MG Omeprazole Omeprazole No 1{capsu QD Omeprazole 40 MG 40 MG le} 40 MG Simvastatin Simvastatin No 1{table QD Simvastati 20 MG 20 MG t_in_th n 20 MG e_eveni ng} Vitamin C Vitamin C No 2{table QD Vitamin C 1000 MG 1000 MG t} 1000 MG Coumadin 4 Coumadin 4 No 3{table QD Coumadin 4 MG MG t} MG Vitamin D Vitamin D No 1{capsu QD Vitamin D 50 MCG 50 MCG le} 50 MCG (1999) (1999) (1999) Vitamin C Vitamin C No 2{table QD Vitamin C 1000 MG 1000 MG t} 1000 MG Simvastatin Simvastatin No 1{table QD Simvastati 20 MG 20 MG t_in_th n 20 MG e_eveni ng} Allopurinol Allopurinol No Allopurino 100 MG 100 MG l 100 MG Klor-Con 10 Klor-Con 10 No 1{table BID Klor-Con 10 MEQ 10 MEQ t_with_ 10 10 MEQ food} Quercetin Quercetin No 2{table QD Quercetin 250 MG 250 MG t} 250 MG Ramipril 10 Ramipril 10 No 1{capsu QD Ramipril MG MG le} 10 MG Vitamin B Vitamin B No 2{table QD Vitamin B 12 500 MCG 12 500 MCG t} 12 500 MCG Vitamin D Vitamin D No 1{capsu QD Vitamin D 50 MCG 50 MCG le} 50 MCG (1999) (1999) (1999) Zinc 50 MG Zinc 50 MG No 1{table QD Zinc 50 MG t} Furosemide Furosemide No 1{table QD Furosemide 40 MG 40 MG t} 40 MG Coumadin 4 Coumadin 4 No 3{table QD Coumadin 4 MG MG t} MG Metoprolol Metoprolol No 1{table BID Metoprolol Succinate Succinate t} Succinate ER 25 MG ER 25 MG ER 25 MG Omeprazole Omeprazole No 1{capsu QD Omeprazole 40 MG 40 MG le} 40 MG Vitamin C Vitamin C No 2{table QD Vitamin C 1000 MG 1000 MG t} 1000 MG Simvastatin Simvastatin No 1{table QD Simvastati 20 MG 20 MG t_in_th n 20 MG e_eveni ng} Allopurinol Allopurinol No Allopurino 100 MG 100 MG l 100 MG Klor-Con 10 Klor-Con 10 No 1{table BID Klor-Con 10 MEQ 10 MEQ t_with_ 10 10 MEQ food} Quercetin Quercetin No 2{table QD Quercetin 250 MG 250 MG t} 250 MG Ramipril 10 Ramipril 10 No 1{capsu QD Ramipril MG MG le} 10 MG Vitamin B Vitamin B No 2{table QD Vitamin B 12 500 MCG 12 500 MCG t} 12 500 MCG Vitamin D Vitamin D No 1{capsu QD Vitamin D 50 MCG 50 MCG le} 50 MCG (1999) (1999) (1999) Zinc 50 MG Zinc 50 MG No 1{table QD Zinc 50 MG t} Furosemide Furosemide No 1{table QD Furosemide 40 MG 40 MG t} 40 MG Coumadin 4 Coumadin 4 No 3{table QD Coumadin 4 MG MG t} MG Metoprolol Metoprolol No 1{table BID Metoprolol Succinate Succinate t} Succinate ER 25 MG ER 25 MG ER 25 MG Omeprazole Omeprazole No 1{capsu QD Omeprazole 40 MG 40 MG le} 40 MG Vitamin C Vitamin C No 2{table QD Vitamin C 1000 MG 1000 MG t} 1000 MG Simvastatin Simvastatin No 1{table QD Simvastati 20 MG 20 MG t_in_ n 20 MG e_eveni ng} Allopurinol Allopurinol No Allopurino 100 MG 100 MG l 100 MG Klor-Con 10 Klor-Con 10 No 1{table BID Klor-Con 10 MEQ 10 MEQ t_with_ 10 10 MEQ food} Quercetin Quercetin No 2{table QD Quercetin 250 MG 250 MG t} 250 MG Ramipril 10 Ramipril 10 No 1{capsu QD Ramipril MG MG le} 10 MG Vitamin B Vitamin B No 2{table QD Vitamin B 12 500 MCG 12 500 MCG t} 12 500 MCG Vitamin D Vitamin D No 1{capsu QD Vitamin D 50 MCG 50 MCG le} 50 MCG (1999) (1999) (1999) Zinc 50 MG Zinc 50 MG No 1{table QD Zinc 50 MG t} Furosemide Furosemide No 1{table QD Furosemide 40 MG 40 MG t} 40 MG Coumadin 4 Coumadin 4 No 3{table QD Coumadin 4 MG MG t} MG Metoprolol Metoprolol No 1{table BID Metoprolol Succinate Succinate t} Succinate ER 25 MG ER 25 MG ER 25 MG Omeprazole Omeprazole No 1{capsu QD Omeprazole 40 MG 40 MG le} 40 MG Vitamin D Vitamin D No 1{capsu QD Vitamin D 50 MCG 50 MCG le} 50 MCG (1999) (1999) (1999) Vitamin C Vitamin C No 2{table QD Vitamin C 1000 MG 1000 MG t} 1000 MG Allopurinol Allopurinol No Allopurino 100 MG 100 MG l 100 MG Quercetin Quercetin No 2{table QD Quercetin 250 MG 250 MG t} 250 MG Klor-Con 10 Klor-Con 10 No 1{table BID Klor-Con 10 MEQ 10 MEQ t_with_ 10 10 MEQ food} Ramipril 10 Ramipril 10 No 1{capsu QD Ramipril MG MG le} 10 MG Zinc 50 MG Zinc 50 MG No 1{table QD Zinc 50 MG t} Coumadin 4 Coumadin 4 No 3{table QD Coumadin 4 MG MG t} MG Omeprazole Omeprazole No 1{capsu QD Omeprazole 40 MG 40 MG le} 40 MG Furosemide Furosemide No 1{table QD Furosemide 40 MG 40 MG t} 40 MG Vitamin B Vitamin B No 2{table QD Vitamin B 12 500 MCG 12 500 MCG t} 12 500 MCG Metoprolol Metoprolol No 1{table BID Metoprolol Succinate Succinate t} Succinate ER 25 MG ER 25 MG ER 25 MG Simvastatin Simvastatin No 1{table QD Simvastati 20 MG 20 MG t_in_th n 20 MG e_eveni ng} Vitamin B Vitamin B No 2{table QD Vitamin B 12 500 MCG 12 500 MCG t} 12 500 MCG Simvastatin Simvastatin No 1{table QD Simvastati 20 MG 20 MG t_in_th n 20 MG e_eveni ng} Furosemide Furosemide No 1{table QD Furosemide 40 MG 40 MG t} 40 MG Klor-Con 10 Klor-Con 10 No 1{table BID Klor-Con 10 MEQ 10 MEQ t_with_ 10 10 MEQ food} Ramipril 10 Ramipril 10 No 1{capsu QD Ramipril MG MG le} 10 MG Metoprolol Metoprolol No 1{table BID Metoprolol Succinate Succinate t} Succinate ER 25 MG ER 25 MG ER 25 MG Coumadin 4 Coumadin 4 No 3{table QD Coumadin 4 MG MG t} MG Vitamin C Vitamin C No 2{table QD Vitamin C 1000 MG 1000 MG t} 1000 MG Allopurinol Allopurinol No Allopurino 100 MG 100 MG l 100 MG Zinc 50 MG Zinc 50 MG No 1{table QD Zinc 50 MG t} Omeprazole Omeprazole No 1{capsu QD Omeprazole 40 MG 40 MG le} 40 MG Quercetin Quercetin No 2{table QD Quercetin 250 MG 250 MG t} 250 MG Vitamin D Vitamin D No 1{capsu QD Vitamin D 50 MCG 50 MCG le} 50 MCG (1999) (1999) (1999) Quercetin Quercetin No 2{table QD 250 MG 250 MG t} Vitamin C Vitamin C No 2{table QD 1000 MG 1000 MG t} Zinc 50 MG Zinc 50 MG No 1{table QD t} Omeprazole Omeprazole No 1{capsu QD 40 MG 40 MG le} Vitamin B Vitamin B No 2{table QD 12 500 MCG 12 500 MCG t} Allopurinol Allopurinol No 100 MG 100 MG Klor-Con 10 Klor-Con 10 No 1{table BID 10 MEQ 10 MEQ t_with_ food} Simvastatin Simvastatin No 1{table QD 20 MG 20 MG t_in_th e_eveni ng} Furosemide Furosemide No 1{table QD 40 MG 40 MG t} Metoprolol Metoprolol No 1{table BID Succinate Succinate t} ER 25 MG ER 25 MG Vitamin D Vitamin D No 1{capsu QD 50 MCG 50 MCG le} (1999) (1999) Ramipril 10 Ramipril 10 No 1{capsu QD MG MG le} Coumadin 4 Coumadin 4 No 3{table QD MG MG t} Quercetin Quercetin No 2{table QD Quercetin 250 MG 250 MG t} 250 MG Vitamin C Vitamin C No 2{table QD Vitamin C 1000 MG 1000 MG t} 1000 MG Zinc 50 MG Zinc 50 MG No 1{table QD Zinc 50 MG t} Omeprazole Omeprazole No 1{capsu QD Omeprazole 40 MG 40 MG le} 40 MG Vitamin B Vitamin B No 2{table QD Vitamin B 12 500 MCG 12 500 MCG t} 12 500 MCG Allopurinol Allopurinol No Allopurino 100 MG 100 MG l 100 MG Klor-Con 10 Klor-Con 10 No 1{table BID Klor-Con 10 MEQ 10 MEQ t_with_ 10 10 MEQ food} Simvastatin Simvastatin No 1{table QD Simvastati 20 MG 20 MG t_in_th n 20 MG e_eveni ng} Furosemide Furosemide No 1{table QD Furosemide 40 MG 40 MG t} 40 MG Metoprolol Metoprolol No 1{table BID Metoprolol Succinate Succinate t} Succinate ER 25 MG ER 25 MG ER 25 MG Vitamin D Vitamin D No 1{capsu QD Vitamin D 50 MCG 50 MCG le} 50 MCG (1999) (1999) (1999) Ramipril 10 Ramipril 10 No 1{capsu QD Ramipril MG MG le} 10 MG Coumadin 4 Coumadin 4 No 3{table QD Coumadin 4 MG MG t} MG Quercetin Quercetin No 2{table QD Quercetin 250 MG 250 MG t} 250 MG Vitamin C Vitamin C No 2{table QD Vitamin C 1000 MG 1000 MG t} 1000 MG Zinc 50 MG Zinc 50 MG No 1{table QD Zinc 50 MG t} Omeprazole Omeprazole No 1{capsu QD Omeprazole 40 MG 40 MG le} 40 MG Vitamin B Vitamin B No 2{table QD Vitamin B 12 500 MCG 12 500 MCG t} 12 500 MCG Allopurinol Allopurinol No Allopurino 100 MG 100 MG l 100 MG Klor-Con 10 Klor-Con 10 No 1{table BID Klor-Con 10 MEQ 10 MEQ t_with_ 10 10 MEQ food} Simvastatin Simvastatin No 1{table QD Simvastati 20 MG 20 MG t_in_th n 20 MG e_eveni ng} Furosemide Furosemide No 1{table QD Furosemide 40 MG 40 MG t} 40 MG Metoprolol Metoprolol No 1{table BID Metoprolol Succinate Succinate t} Succinate ER 25 MG ER 25 MG ER 25 MG Vitamin D Vitamin D No 1{capsu QD Vitamin D 50 MCG 50 MCG le} 50 MCG (1999 UT) (1999 UT) (1999) Ramipril 10 Ramipril 10 No 1{capsu QD Ramipril MG MG le} 10 MG Coumadin 4 Coumadin 4 No 3{table QD Coumadin 4 MG MG t} MG Quercetin Quercetin No 2{table QD Quercetin 250 MG 250 MG t} 250 MG Vitamin C Vitamin C No 2{table QD Vitamin C 1000 MG 1000 MG t} 1000 MG Zinc 50 MG Zinc 50 MG No 1{table QD Zinc 50 MG t} Omeprazole Omeprazole No 1{capsu QD Omeprazole 40 MG 40 MG le} 40 MG Vitamin B Vitamin B No 2{table QD Vitamin B 12 500 MCG 12 500 MCG t} 12 500 MCG Allopurinol Allopurinol No Allopurino 100 MG 100 MG l 100 MG Klor-Con 10 Klor-Con 10 No 1{table BID Klor-Con 10 MEQ 10 MEQ t_with_ 10 10 MEQ food} Coreg CR 10 Coreg CR 10 Yes U T MG Oral MG Oral Physici Capsule Capsule ans Extended Extended Release 24 Release 24 Hour Hour Simvastatin Simvastatin No 1{table QD Simvastati 20 MG 20 MG t_in_th n 20 MG e_eveni ng} Furosemide Furosemide No 1{table QD Furosemide 40 MG 40 MG t} 40 MG Metoprolol Metoprolol No 1{table BID Metoprolol Succinate Succinate t} Succinate ER 25 MG ER 25 MG ER 25 MG Vitamin D Vitamin D No 1{capsu QD Vitamin D 50 MCG 50 MCG le} 50 MCG (1999) (1999) (1999) Ramipril 10 Ramipril 10 No 1{capsu QD Ramipril MG MG le} 10 MG Coumadin 4 Coumadin 4 No 3{table QD Coumadin 4 MG MG t} MG Quercetin Quercetin No 2{table QD Quercetin 250 MG 250 MG t} 250 MG Vitamin C Vitamin C No 2{table QD Vitamin C 1000 MG 1000 MG t} 1000 MG Zinc 50 MG Zinc 50 MG No 1{table QD Zinc 50 MG t} Omeprazole Omeprazole No 1{capsu QD Omeprazole 40 MG 40 MG le} 40 MG Amiodarone Amiodarone Yes UT HCl - 200 HCl - 200 Physi ci MG Oral MG Oral ans Tablet Tablet Vitamin B Vitamin B No 2{table QD Vitamin B 12 500 MCG 12 500 MCG t} 12 500 MCG Allopurinol Allopurinol No Allopurino 100 MG 100 MG l 100 MG Klor-Con 10 Klor-Con 10 No 1{table BID Klor-Con 10 MEQ 10 MEQ t_with_ 10 10 MEQ food} Simvastatin Simvastatin No 1{table QD Simvastati 20 MG 20 MG t_in_th n 20 MG e_eveni ng} Furosemide Furosemide No 1{table QD Furosemide 40 MG 40 MG t} 40 MG Metoprolol Metoprolol No 1{table BID Metoprolol Succinate Succinate t} Succinate ER 25 MG ER 25 MG ER 25 MG Vitamin D Vitamin D No 1{capsu QD Vitamin D 50 MCG 50 MCG le} 50 MCG (1999) (1999) (1999) Ramipril 10 Ramipril 10 No 1{capsu QD Ramipril MG MG le} 10 MG Coumadin 4 Coumadin 4 No 3{table QD Coumadin 4 MG MG t} MG Quercetin Quercetin No 2{table QD Quercetin 250 MG 250 MG t} 250 MG Simvastatin Simvastatin Yes U T 20 MG Oral 20 MG Oral Phy sici Tablet Tablet ans Vitamin C Vitamin C No 2{table QD Vitamin C 1000 MG 1000 MG t} 1000 MG Zinc 50 MG Zinc 50 MG No 1{table QD Zinc 50 MG t} Omeprazole Omeprazole No 1{capsu QD Omeprazole 40 MG 40 MG le} 40 MG Vitamin B Vitamin B No 2{table QD Vitamin B 12 500 MCG 12 500 MCG t} 12 500 MCG Allopurinol Allopurinol No Allopurino 100 MG 100 MG l 100 MG Klor-Con 10 Klor-Con 10 No 1{table BID Klor-Con 10 MEQ 10 MEQ t_with_ 10 10 MEQ food} Simvastatin Simvastatin No 1{table QD Simvastati 20 MG 20 MG t_in_th n 20 MG e_eveni ng} Furosemide Furosemide No 1{table QD Furosemide 40 MG 40 MG t} 40 MG Metoprolol Metoprolol No 1{table BID Metoprolol Succinate Succinate t} Succinate ER 25 MG ER 25 MG ER 25 MG Vitamin D Vitamin D No 1{capsu QD Vitamin D 50 MCG 50 MCG le} 50 MCG (1999) (1999) (1999) Ramipril 10 Ramipril 10 Yes U T MG Oral MG Oral Physici Capsule Capsule ans Ramipril 10 Ramipril 10 No 1{capsu QD Ramipril MG MG le} 10 MG Coumadin 4 Coumadin 4 No 3{table QD Coumadin 4 MG MG t} MG Metoprolol Metoprolol No 1{table BID Metoprolol Succinate Succinate t} Succinate ER 25 MG ER 25 MG ER 25 MG Simvastatin Simvastatin No 1{table QD Simvastati 20 MG 20 MG t_in_th n 20 MG e_eveni ng} Vitamin C Vitamin C No 2{table QD Vitamin C 1000 MG 1000 MG t} 1000 MG Klor-Con 10 Klor-Con 10 No 1{table BID Klor-Con 10 MEQ 10 MEQ t_with_ 10 10 MEQ food} Omeprazole Omeprazole No 1{capsu QD Omeprazole 40 MG 40 MG le} 40 MG Zinc 50 MG Zinc 50 MG No 1{table QD Zinc 50 MG t} Ramipril 10 Ramipril 10 No 1{capsu QD Ramipril MG MG le} 10 MG Quercetin Quercetin No 2{table QD Quercetin 250 MG 250 MG t} 250 MG Potassium Potassium Yes UT Chloride 10 Chloride 10 P hysici MEQ TBCR MEQ TBCR ans Vitamin B Vitamin B No 2{table QD Vitamin B 12 500 MCG 12 500 MCG t} 12 500 MCG Coumadin 4 Coumadin 4 No 3{table QD Coumadin 4 MG MG t} MG Vitamin D Vitamin D No 1{capsu QD Vitamin D 50 MCG 50 MCG le} 50 MCG (1999) (1999) (1999) Furosemide Furosemide No 1{table QD Furosemide 40 MG 40 MG t} 40 MG Allopurinol Allopurinol No Allopurino 100 MG 100 MG l 100 MG Metoprolol Metoprolol No 1{table BID Metoprolol Succinate Succinate t} Succinate ER 25 MG ER 25 MG ER 25 MG Simvastatin Simvastatin No 1{table QD Simvastati 20 MG 20 MG t_in_ n 20 MG e_eveni ng} Vitamin C Vitamin C No 2{table QD Vitamin C 1000 MG 1000 MG t} 1000 MG Klor-Con 10 Klor-Con 10 No 1{table BID Klor-Con 10 MEQ 10 MEQ t_with_ 10 10 MEQ food} Omeprazole Omeprazole No 1{capsu QD Omeprazole 40 MG 40 MG le} 40 MG Allopurinol Allopurinol Yes U T 300 MG Oral 300 MG Oral P hysici Tablet Tablet ans Zinc 50 MG Zinc 50 MG No 1{table QD Zinc 50 MG t} Ramipril 10 Ramipril 10 No 1{capsu QD Ramipril MG MG le} 10 MG Quercetin Quercetin No 2{table QD Quercetin 250 MG 250 MG t} 250 MG Vitamin B Vitamin B No 2{table QD Vitamin B 12 500 MCG 12 500 MCG t} 12 500 MCG Coumadin 4 Coumadin 4 No 3{table QD Coumadin 4 MG MG t} MG Vitamin D Vitamin D No 1{capsu QD Vitamin D 50 MCG 50 MCG le} 50 MCG (1999) (1999) (1999) Furosemide Furosemide No 1{table QD Furosemide 40 MG 40 MG t} 40 MG Allopurinol Allopurinol No Allopurino 100 MG 100 MG l 100 MG Quercetin Quercetin No 2{table QD Quercetin 250 MG 250 MG t} 250 MG Omeprazole Omeprazole No 1{capsu QD Omeprazole 40 MG 40 MG le} 40 MG Warfarin Warfarin Yes UT Sodium 10 Sodium 10 Physi ci MG Oral MG Oral ans Tablet Tablet Ramipril 10 Ramipril 10 No 1{capsu QD Ramipril MG MG le} 10 MG Vitamin D Vitamin D No 1{capsu QD Vitamin D 50 MCG 50 MCG le} 50 MCG (1999) (1999) (1999) Klor-Con 10 Klor-Con 10 No 1{table BID Klor-Con 10 MEQ 10 MEQ t_with_ 10 10 MEQ food} Vitamin B Vitamin B No 2{table QD Vitamin B 12 500 MCG 12 500 MCG t} 12 500 MCG Allopurinol Allopurinol No Allopurino 100 MG 100 MG l 100 MG Simvastatin Simvastatin No 1{table QD Simvastati 20 MG 20 MG t_in_th n 20 MG e_eveni ng} Vitamin C Vitamin C No 2{table QD Vitamin C 1000 MG 1000 MG t} 1000 MG Metoprolol Metoprolol No 1{table BID Metoprolol Succinate Succinate t} Succinate ER 25 MG ER 25 MG ER 25 MG Furosemide Furosemide No 1{table QD Furosemide 40 MG 40 MG t} 40 MG Zinc 50 MG Zinc 50 MG No 1{table QD Zinc 50 MG t} Furosemide Furosemide Yes UT 40 MG Oral 40 MG Oral Phy sici Tablet Tablet ans Coumadin 4 Coumadin 4 No 3{table QD Coumadin 4 MG MG t} MG Vitamin C Vitamin C No 2{table QD Vitamin C 1000 MG 1000 MG t} 1000 MG Vitamin B Vitamin B No 2{table QD Vitamin B 12 500 MCG 12 500 MCG t} 12 500 MCG Quercetin Quercetin No 2{table QD Quercetin 250 MG 250 MG t} 250 MG Allopurinol Allopurinol No Allopurino 100 MG 100 MG l 100 MG Coumadin 4 Coumadin 4 No 3{table QD Coumadin 4 MG MG t} MG Omeprazole Omeprazole No 1{capsu QD Omeprazole 40 MG 40 MG le} 40 MG Vitamin D Vitamin D No 1{capsu QD Vitamin D 50 MCG 50 MCG le} 50 MCG (1999) (1999 UT) (1999) Metoprolol Metoprolol No 1{table BID Metoprolol Succinate Succinate t} Succinate ER 25 MG ER 25 MG ER 25 MG Furosemide Furosemide No 1{table QD Furosemide 40 MG 40 MG t} 40 MG Zinc 50 MG Zinc 50 MG No 1{table QD Zinc 50 MG t} Ramipril 10 Ramipril 10 No 1{capsu QD Ramipril MG MG le} 10 MG Simvastatin Simvastatin No 1{table QD Simvastati 20 MG 20 MG t_in_th n 20 MG e_eveni ng} Klor-Con 10 Klor-Con 10 No 1{table BID Klor-Con 10 MEQ 10 MEQ t_with_ 10 10 MEQ food} Vitamin C Vitamin C No 2{table QD Vitamin C 1000 MG 1000 MG t} 1000 MG Vitamin B Vitamin B No 2{table QD Vitamin B 12 500 MCG 12 500 MCG t} 12 500 MCG Quercetin Quercetin No 2{table QD Quercetin 250 MG 250 MG t} 250 MG Allopurinol Allopurinol No Allopurino 100 MG 100 MG l 100 MG Coumadin 4 Coumadin 4 No 3{table QD Coumadin 4 MG MG t} MG Omeprazole Omeprazole No 1{capsu QD Omeprazole 40 MG 40 MG le} 40 MG Vitamin D Vitamin D No 1{capsu QD Vitamin D 50 MCG 50 MCG le} 50 MCG (1999) (1999) (1999) Metoprolol Metoprolol No 1{table BID Metoprolol Succinate Succinate t} Succinate ER 25 MG ER 25 MG ER 25 MG Furosemide Furosemide No 1{table QD Furosemide 40 MG 40 MG t} 40 MG Zinc 50 MG Zinc 50 MG No 1{table QD Zinc 50 MG t} Ramipril 10 Ramipril 10 No 1{capsu QD Ramipril MG MG le} 10 MG Simvastatin Simvastatin No 1{table QD Simvastati 20 MG 20 MG t_in_ n 20 MG e_eveni ng} Klor-Con 10 Klor-Con 10 No 1{table BID Klor-Con 10 MEQ 10 MEQ t_with_ 10 10 MEQ food} Vitamin D Vitamin D No 1{capsu QD Vitamin D 50 MCG 50 MCG le} 50 MCG (1999) (1999) (1999) Vitamin B Vitamin B No 2{table QD Vitamin B 12 500 MCG 12 500 MCG t} 12 500 MCG Quercetin Quercetin No 2{table QD Quercetin 250 MG 250 MG t} 250 MG Allopurinol Allopurinol No Allopurino 100 MG 100 MG l 100 MG Coumadin 4 Coumadin 4 No 3{table QD Coumadin 4 MG MG t} MG Ramipril 10 Ramipril 10 No 1{capsu QD Ramipril MG MG le} 10 MG Omeprazole Omeprazole No 1{capsu QD Omeprazole 40 MG 40 MG le} 40 MG Metoprolol Metoprolol No 1{table BID Metoprolol Succinate Succinate t} Succinate ER 25 MG ER 25 MG ER 25 MG Klor-Con 10 Klor-Con 10 No 1{table BID Klor-Con 10 MEQ 10 MEQ t_with_ 10 10 MEQ food} Vitamin C Vitamin C No 2{table QD Vitamin C 1000 MG 1000 MG t} 1000 MG Furosemide Furosemide No 1{table QD Furosemide 40 MG 40 MG t} 40 MG Simvastatin Simvastatin No 1{table QD Simvastati 20 MG 20 MG t_in_th n 20 MG e_eveni ng} Zinc 50 MG Zinc 50 MG No 1{table QD Zinc 50 MG t} Vitamin D Vitamin D No 1{capsu QD Vitamin D 50 MCG 50 MCG le} 50 MCG (1999) (1999) (1999) Vitamin B Vitamin B No 2{table QD Vitamin B 12 500 MCG 12 500 MCG t} 12 500 MCG Quercetin Quercetin No 2{table QD Quercetin 250 MG 250 MG t} 250 MG Allopurinol Allopurinol No Allopurino 100 MG 100 MG l 100 MG Coumadin 4 Coumadin 4 No 3{table QD Coumadin 4 MG MG t} MG Ramipril 10 Ramipril 10 No 1{capsu QD Ramipril MG MG le} 10 MG Omeprazole Omeprazole No 1{capsu QD Omeprazole 40 MG 40 MG le} 40 MG Metoprolol Metoprolol No 1{table BID Metoprolol Succinate Succinate t} Succinate ER 25 MG ER 25 MG ER 25 MG Klor-Con 10 Klor-Con 10 No 1{table BID Klor-Con 10 MEQ 10 MEQ t_with_ 10 10 MEQ food} Vitamin C Vitamin C No 2{table QD Vitamin C 1000 MG 1000 MG t} 1000 MG Furosemide Furosemide No 1{table QD Furosemide 40 MG 40 MG t} 40 MG Simvastatin Simvastatin No 1{table QD Simvastati 20 MG 20 MG t_in_th n 20 MG e_eveni ng} Zinc 50 MG Zinc 50 MG No 1{table QD Zinc 50 MG t} Ivermectin Ivermectin No Ivermectin 3 MG 3 MG 3 MG Vitamin D Vitamin D No 1{capsu QD Vitamin D 50 MCG 50 MCG le} 50 MCG (1999) (1999) (1999) Vitamin C Vitamin C No 2{table QD Vitamin C 1000 MG 1000 MG t} 1000 MG Klor-Con 10 Klor-Con 10 No 1{table BID Klor-Con 10 MEQ 10 MEQ t_with_ 10 10 MEQ food} Coumadin 4 Coumadin 4 No 3{table QD Coumadin 4 MG MG t} MG Vitamin B Vitamin B No 2{table QD Vitamin B 12 500 MCG 12 500 MCG t} 12 500 MCG Furosemide Furosemide No 1{table QD Furosemide 40 MG 40 MG t} 40 MG Metoprolol Metoprolol No 1{table BID Metoprolol Succinate Succinate t} Succinate ER 25 MG ER 25 MG ER 25 MG Ramipril 10 Ramipril 10 No 1{capsu QD Ramipril MG MG le} 10 MG Zinc 50 MG Zinc 50 MG No 1{table QD Zinc 50 MG t} Ivermectin Ivermectin No Ivermectin 3 MG 3 MG 3 MG Klor-Con 10 Klor-Con 10 No 1{table BID Klor-Con 10 MEQ 10 MEQ t_with_ 10 10 MEQ food} Furosemide Furosemide No 1{table QD Furosemide 40 MG 40 MG t} 40 MG Zinc 50 MG Zinc 50 MG No 1{table QD Zinc 50 MG t} Vitamin C Vitamin C No 2{table QD Vitamin C 1000 MG 1000 MG t} 1000 MG Coumadin 4 Coumadin 4 No 3{table QD Coumadin 4 MG MG t} MG Ramipril 10 Ramipril 10 No 1{capsu QD Ramipril MG MG le} 10 MG Vitamin B Vitamin B No 2{table QD Vitamin B 12 500 MCG 12 500 MCG t} 12 500 MCG Vitamin D Vitamin D No 1{capsu QD Vitamin D 50 MCG 50 MCG le} 50 MCG (1999) (1999) (1999) Metoprolol Metoprolol No 1{table BID Metoprolol Succinate Succinate t} Succinate ER 25 MG ER 25 MG ER 25 MG Furosemide Furosemide No 1{table QD Furosemide 40 MG 40 MG t} 40 MG Vitamin C Vitamin C No 2{table QD Vitamin C 1000 MG 1000 MG t} 1000 MG Ramipril 10 Ramipril 10 No 1{capsu QD Ramipril MG MG le} 10 MG Zinc 50 MG Zinc 50 MG No 1{table QD Zinc 50 MG t} Ivermectin Ivermectin No Ivermectin 3 MG 3 MG 3 MG Coumadin 4 Coumadin 4 No 3{table QD Coumadin 4 MG MG t} MG Vitamin B Vitamin B No 2{table QD Vitamin B 12 500 MCG 12 500 MCG t} 12 500 MCG Hydrochlori Hydrochlori No Hydrochlor c Acid 10 % c Acid 10 % ic Acid 10 % Vitamin D Vitamin D No 1{capsu QD Vitamin D 50 MCG 50 MCG le} 50 MCG (1999) (1999) (1999) Klor-Con 10 Klor-Con 10 No 1{table BID Klor-Con 10 MEQ 10 MEQ t_with_ 10 10 MEQ food} Metoprolol Metoprolol No 1{table BID Metoprolol Succinate Succinate t} Succinate ER 25 MG ER 25 MG ER 25 MG Sodium Sodium No Sodium Chloride 4 Chloride 4 Chloride 4 MEQ/ML MEQ/ML MEQ/ML Furosemide Furosemide No 1{table QD Furosemide 40 MG 40 MG t} 40 MG Vitamin C Vitamin C No 2{table QD Vitamin C 1000 MG 1000 MG t} 1000 MG Ramipril 10 Ramipril 10 No 1{capsu QD Ramipril MG MG le} 10 MG Zinc 50 MG Zinc 50 MG No 1{table QD Zinc 50 MG t} Ivermectin Ivermectin No Ivermectin 3 MG 3 MG 3 MG Coumadin 4 Coumadin 4 No 3{table QD Coumadin 4 MG MG t} MG Vitamin B Vitamin B No 2{table QD Vitamin B 12 500 MCG 12 500 MCG t} 12 500 MCG Hydrochlori Hydrochlori No Hydrochlor c Acid 10 % c Acid 10 % ic Acid 10 % Vitamin D Vitamin D No 1{capsu QD Vitamin D 50 MCG 50 MCG le} 50 MCG (1999) (1999) (1999) Klor-Con 10 Klor-Con 10 No 1{table BID Klor-Con 10 MEQ 10 MEQ t_with_ 10 10 MEQ food} Metoprolol Metoprolol No 1{table BID Metoprolol Succinate Succinate t} Succinate ER 25 MG ER 25 MG ER 25 MG Sodium Sodium No Sodium Chloride 4 Chloride 4 Chloride 4 MEQ/ML MEQ/ML MEQ/ML Furosemide Furosemide No 1{table QD Furosemide 40 MG 40 MG t} 40 MG Vitamin C Vitamin C No 2{table QD Vitamin C 1000 MG 1000 MG t} 1000 MG Ramipril 10 Ramipril 10 No 1{capsu QD Ramipril MG MG le} 10 MG Zinc 50 MG Zinc 50 MG No 1{table QD Zinc 50 MG t} Ivermectin Ivermectin No Ivermectin 3 MG 3 MG 3 MG Coumadin 4 Coumadin 4 No 3{table QD Coumadin 4 MG MG t} MG Vitamin B Vitamin B No 2{table QD Vitamin B 12 500 MCG 12 500 MCG t} 12 500 MCG Hydrochlori Hydrochlori No Hydrochlor c Acid 10 % c Acid 10 % ic Acid 10 % Vitamin D Vitamin D No 1{capsu QD Vitamin D 50 MCG 50 MCG le} 50 MCG (1999) (1999) (1999) Klor-Con 10 Klor-Con 10 No 1{table BID Klor-Con 10 MEQ 10 MEQ t_with_ 10 10 MEQ food} Metoprolol Metoprolol No 1{table BID Metoprolol Succinate Succinate t} Succinate ER 25 MG ER 25 MG ER 25 MG Sodium Sodium No Sodium Chloride 4 Chloride 4 Chloride 4 MEQ/ML MEQ/ML MEQ/ML Ivermectin Ivermectin No Ivermectin 3 MG 3 MG 3 MG Vitamin D Vitamin D No 1{capsu QD Vitamin D 50 MCG 50 MCG le} 50 MCG (1999) (1999) (1999) Vitamin C Vitamin C No 2{table QD Vitamin C 1000 MG 1000 MG t} 1000 MG Klor-Con 10 Klor-Con 10 No 1{table BID Klor-Con 10 MEQ 10 MEQ t_with_ 10 10 MEQ food} Coumadin 4 Coumadin 4 No 3{table QD Coumadin 4 MG MG t} MG Vitamin B Vitamin B No 2{table QD Vitamin B 12 500 MCG 12 500 MCG t} 12 500 MCG Furosemide Furosemide No 1{table QD Furosemide 40 MG 40 MG t} 40 MG Metoprolol Metoprolol No 1{table BID Metoprolol Succinate Succinate t} Succinate ER 25 MG ER 25 MG ER 25 MG Ramipril 10 Ramipril 10 No 1{capsu QD Ramipril MG MG le} 10 MG Zinc 50 MG Zinc 50 MG No 1{table QD Zinc 50 MG t} Vital Signs Vital Name Observation Time Observation Value Comments Source height 2022-08-02 13:00:00 68 [in_i] [facility] weight 2022-08-02 13:00:00 212.6 [lb_av] Common [facility] temperature 2022-08-02 13:00:00 98.2 [degF] [facility] bmi 2022-08-02 13:00:00 32.32 kg/m2 [facility] oximetry 2022-08-02 13:00:00 96 % [facility] respiratory rate 2022-08-02 13:00:00 16 /min Comm on [facility] blood pressure 2022-08-02 13:00:00 103 mm[Hg] [facility] blood pressure 2022-08-02 13:00:00 77 mm[Hg] [facility] height 2022 11:40:00 68 [in_i] [facility] weight 2022 11:40:00 215.8 [lb_av] [facility] temperature 2022 11:40:00 98.2 [degF] [facility] bmi 2022 11:40:00 32.81 kg/m2 [facility] oximetry 2022 11:40:00 96 % [facility] respiratory rate 2022 11:40:00 18 /min Comm on [facility] blood pressure 2022 11:40:00 95 mm[Hg] [facility] blood pressure 2022 11:40:00 68 mm[Hg] [facility] height 2021-11-25 09:00:00 68 [in_i] [facility] weight 2021-11-25 09:00:00 213 [lb_av] [facility] temperature 2021-11-25 09:00:00 97.6 [degF] [facility] bmi 2021-11-25 09:00:00 32.38 kg/m2 [facility] oximetry 2021-11-25 09:00:00 99 % [facility] respiratory rate 2021-11-25 09:00:00 16 /min Comm on [facility] blood pressure 2021-11-25 09:00:00 138 mm[Hg] [facility] blood pressure 2021-11-25 09:00:00 85 mm[Hg] [facility] HEIGHT 2021-11-08 09:55:00 177.8 cm WEIGHT 2021-11-08 09:55:00 96.5 kg HEIGHT 2021-11-07 15:35:00 177.8 cm WEIGHT 2021-11-07 15:35:00 94.348 kg HEIGHT 2021-11-08 09:55:00 177.8 cm WEIGHT 2021-11-08 09:55:00 96.5 kg HEIGHT 2021-11-07 15:35:00 177.8 cm WEIGHT 2021-11-07 15:35:00 94.348 kg HEIGHT 2021-11-08 09:55:00 177.8 cm WEIGHT 2021-11-08 09:55:00 96.5 kg HEIGHT 2021-11-07 15:35:00 177.8 cm WEIGHT 2021-11-07 15:35:00 94.348 kg height 2021-08-24 09:15:00 68 [in_i] [facility] weight 2021-08-24 09:15:00 217 [lb_av] [facility] temperature 2021-08-24 09:15:00 97.3 [degF] [facility] bmi 2021-08-24 09:15:00 32.99 kg/m2 [facility] oximetry 2021-08-24 09:15:00 96 % [facility] respiratory rate 2021-08-24 09:15:00 16 /min [facility] blood pressure 2021-08-24 09:15:00 110 mm[Hg] Common [facility] - systolic [facility] blood pressure 2021-08-24 09:15:00 72 mm[Hg] [facility] height 2021-08-02 08:40:00 68 [in_i] Common [facility] weight 2021-08-02 08:40:00 228 [lb_av] [facility] temperature 2021-08-02 08:40:00 98.1 [degF] [facility] bmi 2021-08-02 08:40:00 34.66 kg/m2 Common [facility] oximetry 2021-08-02 08:40:00 99 % [facility] respiratory rate 2021-08-02 08:40:00 16 /min [facility] on [facility] blood pressure 2021-08-02 08:40:00 102 mm[Hg] [facility] blood pressure 2021-08-02 08:40:00 63 mm[Hg] [facility] height 2021-08-02 08:40:00 68 [in_i] Common [facility] weight 2021-08-02 08:40:00 228 [lb_av] [facility] temperature 2021-08-02 08:40:00 98.1 [degF] [facility] bmi 2021-08-02 08:40:00 34.66 kg/m2 [facility] oximetry 2021-08-02 08:40:00 99 % Common [facility] blood pressure 2021-08-02 08:40:00 102 mm[Hg] Common [facility] - systolic [facility] blood pressure 2021-08-02 08:40:00 63 mm[Hg] [facility] height 2021-07-14 08:00:00 68 [in_i] [facility] weight 2021-07-14 08:00:00 240 [lb_av] Common [facility] temperature 2021-07-14 08:00:00 98.6 [degF] Common [facility] bmi 2021-07-14 08:00:00 36.49 kg/m2 [facility] oximetry 2021-07-14 08:00:00 94 % [facility] respiratory rate 2021-07-14 08:00:00 16 /min Comm on [facility] blood pressure 2021-07-14 08:00:00 120 mm[Hg] Common [facility] - systolic [facility] blood pressure 2021-07-14 08:00:00 74 mm[Hg] Common [facility] - diastolic [facility] height 2021-04-22 10:20:00 68 [in_i] [facility] weight 2021-04-22 10:20:00 250 [lb_av] [facility] temperature 2021-04-22 10:20:00 98.3 [degF] [facility] bmi 2021-04-22 10:20:00 38.01 kg/m2 [facility] oximetry 2021-04-22 10:20:00 95 % [facility] respiratory rate 2021-04-22 10:20:00 16 /min Comm on [facility] blood pressure 2021-04-22 10:20:00 114 mm[Hg] Common [facility] - systolic [facility] blood pressure 2021-04-22 10:20:00 66 mm[Hg] [facility] - diastolic [facility] Systolic blood 2021-11-08 16:00:00 120 mm[Hg] [facility] Diastolic blood 2021-11-08 16:00:00 63 mm[Hg] [facility] Heart rate 2021-11-08 16:00:00 62 /min [facility] Body temperature 2021-11-08 16:00:00 36.39 Nimisha [facility] Respiratory rate 2021-11-08 16:00:00 18 /min [facility] Oxygen saturation in 2021-11-08 16:00:00 95 /min [facility] Arterial blood by Medical Ce nter Pulse oximetry Body height 2021-11-08 09:55:00 177.8 cm [facility] Body weight 2021-11-08 09:55:00 96.5 kg [facility] BMI 2021-11-08 09:55:00 30.53 kg/m2 [facility] BP Systolic 2019-08-04 11:46:00 135 mm[Hg] [facility] Diastolic 2019-08-04 11:46:00 91 mm[Hg] [facility] Height 2019-08-04 11:46:00 70 [in_us] [facility] Weight 2019-08-04 11:46:00 238 [lb_av] [facility] Index 2019-08-04 11:46:00 34.15 kg/m2 [facility] Calculated Heart Rate 2019-08-04 11:46:00 87 /min IN [facility] Procedures Procedure Date / Time Performed Performing Clinician [facility] e PROCEDURE, IN 2021-11-08 20:00:00 Gonsalo, Surgeon [facility] NON-OPERATING ROOM Center SETTING TISSUE EXAM 2021-11-08 12:35:00 Ascencion Khan [facility] US RENAL BIOPSY 2021-11-08 12:29:00 Chaitanya [facility] SARS-COV2/RT-PCR 2021-11-07 13:10:00 Chaitanya [facility]) Center MR Shoulder wo 2019-08-04 00:00:00 IN Physician s contrast [id number] History of Shoulder IN Physician s Surgery History of Heart IN Physicians surgery Plan of Care Planned Activity Planned Date Details Comments Source Future Scheduled 2022-07-[address] [facility] 00:00:00 WELLNESS (YEAR 2 or Medical Center FIRST YEAR if no IPPE) [code = MEDICARE ANNUAL WELLNESS (YEAR 2 or FIRST YEAR if no IPPE)] Future Scheduled 2022-07-[address] [facility] Test 00:00:00 (12+) [code = Medical Center DEPRESSION SCREENING (12+)] Future Scheduled 2022-07-16 FALLS RISK SCREENING [facility] Test 00:00:00 [code = FALLS RISK Medical C enter SCREENING] Future Scheduled 2022-03-16 INFLUENZA VACCINE (#1) [facility] 00:00:00 [code = INFLUENZA Medical Ce nter VACCINE (#1)] Future Scheduled [address] [facility] Test 00:00:00 aneurysm screening Medical C enter (procedure) [code = 339540718] Future Scheduled 2021 PNEUMOCOCCAL 65+ YRS ([address] [facility] Test 00:00:00 - PCV) [code = Medical Cente r PNEUMOCOCCAL 65+ YRS (1 - PCV)] Future Scheduled 2006 SHINGLES VACCINES ([address] [facility] 00:00:00 2) [code = SHINGLES Medical Center VACCINES (1 of 2)] Future Scheduled 1975 DTAP/TDAP/TD VACCINES [facility] 00:00:00 (1 - Tdap) [code = Medical C enter DTAP/TDAP/TD VACCINES (1 - Tdap)] Future Scheduled 1974 HEPATITIS C SCREENING [facility] 00:00:00 [code = HEPATITIS C Medical Center SCREENING] Future Scheduled [address] [facility] Test 00:00:00 Counseling and Medical Cente r Screening (12+) [code = Tobacco Cessation Counseling and Screening (12+)] Future Scheduled 1956 COVID-19 VACCINE (#1) [facility] 00:00:00 [code = COVID-[address] VACCINE (#1)] Future Scheduled 1956 CT Colonography (combo) [facility] Test 00:00:00 [code = CT Colonography [facility] (combo)] Future Scheduled 1956 Screening for malignant [facility] Test 00:00:00 neoplasm of colon Medical Ce nter (procedure) [code = 082701847] Future Scheduled 1956 Screening for malignant [facility] Test 00:00:00 neoplasm of colon Medical Ce nter (procedure) [code = 373712567] Future Scheduled 1956 Screening for malignant [facility] Test 00:00:00 neoplasm of colon Medical Ce nter (procedure) [code = 708659106] Future Scheduled 1956 Screening for malignant [facility] Test 00:00:00 neoplasm of colon Medical Ce nter (procedure) [code = 611084519] Future Scheduled 1956 Sigmoidoscopy [code = [facility] 00:[facility]00 Sigmoidoscopy] Medical Cente r Encounters Start End Encounter Admission Attending Care Care Encounter Source Date/Time Date/Time Type Type Clinicians Facility Department ID 2022-07-31 Outpatient Caroline, STLMLC STLMLC [id number] Common 08:09:00 Shana [id number] [facility] 2022-06-22 Outpatient Caroline, STLMLC STLMLC [id number] Common 07:16:00 Shana [id number] [facility] 2021-08-10 Outpatient Caroline, STLMLC STLMLC [id number] Common 14:35:37 Shana [id number] [facility] 2021-08-10 Outpatient Caroline, STLMLC STLMLC [id number] Common 14:29:30 Shana [id number] [facility] 2021-08-10 Outpatient Caroline, STLMLC STLMLC [id number] Common 13:24:19 Shana [id number] [facility] 2022-08-08 2022-08-08 (TEL) STLMLC STLMLC [id number] Co mmon 00:00:00 00:00:00 [facility] 2022-08-07 2022-08-07 (TEL) STLMLC STLMLC [id number] Co mmon 00:00:00 00:00:00 [facility] 2022-08-02 2022-08-02 SUB ANNUAL STLMLC STLMLC [id number] Common 00:00:00 00:00:00 MCR [facility] VISIT [facility] 2022-06-29 2022-06-29 (TEL) STLMLC STLMLC [id number] Co mmon 00:00:00 00:00:00 [facility] 2022 2022 OFFICE STLMLC STLMLC [id number] Co mmon 00:00:00 00:00:00 VISIT [facility] ESTAB PT - [facility] LEVEL 4 [facility] 2022-03-01 2022-03-01 (TEL) STLMLC STLMLC [id number] Co mmon 00:00:00 00:00:00 [facility] 2022-02-20 2022-02-20 (TEL) STLMLC STLMLC [id number] Co mmon 00:00:00 00:00:00 [facility] 2022-01-12 2022-01-12 Outpatient RHYS LANCE PUL [id number] [facility]BL 06:42:00 23:59:00 ESHA 2021-12-02 2021-12-02 [id number] Co mmon 00:00:00 00:00:00 [facility] 2021-11-25 2021-11-25 [id number]:00 00:00:00 [facility] LEVEL 5 [facility] 2021-11-08 2021-11-08 Outpatient AIDA SAVAGE Surgery [id number] [facility] 09:41:00 17:00:00 [place] 2021-11-08 2021-11-08 [facility] [id number] 09:41:00 17:00:00 Encounter [facility] 2021-11-08 2021-11-08 Surgery [facility], [facility] [id number] 12:00:00 13:00:00 Surgeon [facility] 2021-11-08 2021-11-08 Outpatient ARELI KHAN [facility] [id number] [facility] 12:05:00 12:05:00 [place] 2021-11-08 2021-11-08 Travel [facility] [id number] [facility] 00:[facility] 00:00:00 [facility] 2021-11-07 2021-11-07 Office Chaitanya [facility] [id number] [facility] 13:15:00 13:30:00 Visit Elie Amaya [facility] 2021-11-07 2021-11-07 Outpatient ARELI SLEAmanda [facility] [id number] [facility] 12:54:53 12:54:53 2021-11-07 2021-11-07 Travel [facility] [id number] [facility] 00:[facility]:00 00:00:00 [facility] 2021-10-31 2021-10-31 (TEL) STLMLC STLMLC [id number] Co mmon 00:00:00 00:00:00 [facility] 2021-10-28 2021-10-28 Outside Khan, [facility] [id number] 00:00:00 00:00:00 Orders [facility] 2021-10-13 2021-10-13 (TEL) STLMLC STLMLC [id number] Co mmon 00:00:00 00:00:00 [facility] 2021-10-06 2021-10-06 OL DIG E/M STLMLC STLMLC [id number] Common 00:00:00 00:00:00 SVC 21+ [facility] 2021-09-20 2021-09-20 (TEL) STLMLC STLMLC [id number] Co mmon 00:00:00 00:00:00 [facility] 2021-09-07 2021-09-07 (TEL) STLMLC STLMLC [id number] Co mmon 00:00:00 00:00:00 [facility] 2021-09-02 2021-09-02 (TEL) STLMLC STLMLC [id number] Co mmon 00:00:00 00:00:00 [facility] 2021-09-02 2021-09-02 (TEL) STLMLC STLMLC [id number] Co mmon 00:00:00 00:00:00 [facility] 2021-08-29 2021-08-29 Outpatient Yan_W MMG MMG [id number] [place] 03:00:00 03:00:00 [facility] 2021-08-24 2021-08-24 OFFICE STLMLC STLMLC [id number] Co mmon 00:00:00 00:00:00 VISIT [facility] 4 [facility] 2021-08-24 2021-08-24 (TEL) STLMLC STLMLC [id number] Co mmon 00:00:00 00:00:00 [facility] 2021-08-15 2021-08-15 (TEL) STLMLC STLMLC [id number] Co mmon 00:00:00 00:00:00 [facility] 2021-08-08 2021-08-08 (TEL) STLMLC STLMLC [id number] Co mmon 00:00:00 00:00:00 [facility] 2021-08-02 2021-08-02 OFFICE STLMLC STLMLC [id number] Co mmon 00:00:00 00:00:00 VISIT [facility] PT - CHI LEVEL 4 [facility] 2021-08-02 2021-08-02 SUB ANNUAL STLMLC STLMLC [id number] Common 00:00:00 00:00:00 MCR [facility] VISIT [facility] 2021-08-01 2021-08-01 (TEL) STLMLC STLMLC [id number] Co mmon 00:00:00 00:00:00 [facility] 2021-07-18 2021-07-18 (TEL) STLMLC STLMLC [id number] Co mmon 00:00:00 00:00:00 [facility] 2021-07-14 2021-07-14 OFFICE STLMLC STLMLC [id number] Co mmon 00:00:00 00:00:00 VISIT NEW [facility] PT LEVEL [address] [place] [address] 2021-07-06 2021-07-06 (TEL) STLMLC STLMLC [id number] Co mmon 00:00:00 00:00:00 [facility] 2021-07-04 2021-07-04 (TEL) STLMLC STLMLC [id number] Co mmon 00:00:00 00:00:00 [facility] 2021-04-22 2021-04-22 OFFICE STLMLC STLMLC [id number] Co mmon 00:00:00 00:00:00 VISIT [facility] PT - CHI LEVEL 4 [facility] 2021-03-16 2021-03-16 Outpatient STLMLC STLMLC [id number] Common 00:00:00 00:00:00 [facility] 2021-03-11 2021-03-11 Outpatient STLMLC STLMLC [id number] Common 00:00:00 00:00:00 [facility] 2021-02-25 2021-02-25 Outpatient STLMLC STLMLC [id number] Common 00:00:00 00:00:00 [facility] 2021-02-16 2021-02-16 Outpatient STLMLC STLMLC [id number] Common 00:00:00 00:00:00 [facility] 2021-02-01 2021-02-01 Outpatient STLMLC STLMLC [id number] Common 00:00:00 00:00:00 [facility] 2019-08-04 2019-08-04 [facility] [id number] [place] 11:00:00 11:00:00 t; JI VILLEDA [facility], [place] 1 ans JI VILLEDA 2017-11-12 2017-11-12 AppointAMANDA Colon [facility] [id number] [place] 08:00:00 08:00:00 t; FRANCES GARCIA Phys ici FRANCES ans Results Test Description Test Time Test Comments Results Result Comments Source Tissue Exam 2021-11-10 15:51:47 Test Item Value Reference Range Interpretation Comme nts Case Report (test code = 104) Surgical Pathology Report Case: [id number] Authorizing Provider: Ascencion Khan MD Collected: 11/08/2021 12:35 PM Ordering Location: [facility] Received: 11/08/2021 01:53 PM SERVICES Pathologist: Jordyn Smith MD Specimen: Kidney, Left DIAGNOSIS (test code = 3220) x1kpwNNmXYBqm0enANGuyVNhFeBeEtIqIcRyLz pc dWMxIHtccnRmMVxlcGljOTYwMlxhbnNpXHNwbHRw B8UxnhdqWHcxLD7zSS1oxBbpsRRolFXgCMWfOsIl o5vod241jCLri1xjMXKQjnfbuQn0sDgfI78iu0Y3 MwxzH50trCSxLBC5MUZuGLDzhILiXMBeDFV5LKXp dCCvV3bdIJIwQE8slojuKMwkWFhaKMIxgJS7VXGn eYBxZ4QqSUZoALpwEDZhgxx1CaFcXy8uyMBedPlk TQuxXSUgSBWeXEqvNQJiXkViZ3fEWkFOOGFFPQIJ XRZZKCGVIBTDEB4QTLcKUEHPIYXHYP6QB7f0VZKi yiUyUYONSpVWR8iFMNDkSwCWECmHE16wCVLIGb0P ZR1SS86NKJBPRQRcaSQjBSLqCPZMOSQYY44IHR3N DSJibu63IPG3IsCwo3M3YFP8HEOfLKCex9anJVEq jENcGtUbYlEpBnBpByhgmTKiKQCoJiIdy0iii269 yOAac5hvFYXmQeK5uLVdVZHnkGYjL225EIOhDNfw u4rjf0JuYXFdyEWjx8K5TTKCsbspvCo7tJewD36t z7G1TixaR4vlUNFzXSCeO3HfSL8wFSPpYqj6OZB5 AEJ9IZOvXGKkM3XsDZ9oWSJfjSOiSUq0x9gjnJap DCYrYWI4e2krXSmwibAtEP1ckk3upBr3w5qqudSk ORSrTNJztYDIOJKqY3GqhJatPw5ozHa0bUxsXdhy KFZ1Hzp7ON6hmv94cba9uOibTSSkrgisYwX6MUbz VANifusmOZq2YWdkMDLcgZO0GQGtzRGnF1UxQXLl RW1sjxw2MVR3QYgyJTFkClQ5CYDsjFUzYKMbiMkn ARvuz787FLN2KxCmAJ2zH9Bwg7I7eY5enIXhNBPp eTCpXiQfZYWnki1otOReWKzxq4WcTEN8wjY9sEVg fHEiKLHfAnP8XCogEO8rdi37NZPgWAT2rf9inPCq pHoxicDseEKtRWwsD2DgCHPzw127TCJoC9YsCTDz e0G4hkOlAhMhNYJwsKP4ubI6ZGYcJC8ivqyaw9bd UHbfIKacQJSjbjF8frW5ASSjtGTnD1GvhP5jWKVd GD0kavcqf2lpMKN5GTexBIZePQC9HwRdGTCer7Cd txu8NpMvb1DvmTChZJpaG60ki446TZJfxfBeZ2bi zURpdwvdyNGdzkjgXUximlE9SHNsAIrnkeshEKPz WPipP8ugIfUhHAXphYwrEVthm8OkGJRnGKFpUcFm mCNnYHUhNnd8FKHtxVHbHQGsKjFvC1oadgpwHqRO MPGls1wvL3ntiDEXfFUlZ6EpNHargcHbQIzpDHlj LeDbFHp8YW05JjJdYKMqwl17 COMMENT (test code = 3359) [file] hP0awlSwID9yuBUvnA== CPT Code(s) (test code = 3357) d9katLHbNIAugVE1JlMoHCUcg4mdt3YniDHw cGFy UVmjrYUnwyRznp70lYE5aZ81ND3oLARsEpL8IRBn ekG6Maz4UZMvEZIyqJKoG766w0yet9gmbaFvqMH0 sSlnYYYqryocMhJ7QKppFHClausbXIr6XXzrVFIe hXN9PSBorJCaP3NbWFKjXO7ihjz0WKM1CKxnGBXd JdM9XSYibNBrMHThnDijABumh653QXI6QzQnYSQd znVpjZezrT2bGzPtNWJ1DCPgUOrhSOaqTWToLJq4 MzQxXHBhcn0= CLINICAL HISTORY (test code = 3356) f8rjxFVjQGQcyVR2YvJxGFUgn7lwj8R sdHBncGFy DFhcgWFmjgImux69aUA7tL17DB0xTIAjGfA9GCXg nnY4Crx6DIItAQBvvRAgU943c9bmd1njziBtuFM6 lSltGTNmwkebPrG6NNtxJPTmezalSGh5NEgvLQJu qIY8TWRkxYDzM3NbWWEpTJ6kvxg8YKO5JDazYLTr MtC9NTJrbPWeNEPciRpvVPzhb652FII8QuRlDCAp owVrzCqkyR3xMjFtSJXHBLI0NFCpxkAgHD7bt6Mj jZifxQ1bBRghRQJ9 SPECIMEN SOURCE (test code = 3377) x2elcGUfXEWreDB5NrPzLAYkm1uom6Hy dHBncGFy EYhcdYUvkvZwya76kZV3rW23VA8mQPZoZlD6KFFs asY4Mdy4TTDcWFLweLNpX776d2stl3saohSbrSM4 zQvfYMLtigibLvR4FUrtZZUeecmdSBd3PKgyQWVa xSS4XSMorMVhS3BtWAMyLD6rofv3PIY1FDzkKPCe SmO7FFMydVJxLSExhUsoBJzvg553ETD7KkGeFPTk puUjxUfmaL5aPuYrWTQJXXN6BDZuygZlFR2pq7Ic cGFyfQ== GROSS DESCRIPTION (test code = f5qapZIiIGTfmGRDXQIfO0jtcdCrVQOybMMd [facility] [id number]) haneJOmcQF2hGU3yuNpsqMPjwQBcPD7DENYtYcFz QXJdwUEsuyKcPmFjCWInnLBnqYW3ASEvDM0hkbef QVelUCxnKXEuujL2FKZycARfC6AxIEUrEI2vyjxc QSZ9SDvkrS0fydXWZfeuIh0ltYCbgGovMkXbAiHw BWFuMNVhCOWmjZdhBXVsGNr3nF5RDejtH62tk8Z6 Mgj6AAQtWWOsI6FbDG1oJCZlgBAqC61CGkicSNR3 IUZMXynwJADgWK0Hx7mkOMBmeZHsMWW9NJlqpWJe NNDyPFBhKHb5KWZdMTebiOPxMN2caYysFvwpmUtp c9PbtUXtMRdiCVBeVZKoVNhlBZBhQW1VSuVeALMo XVTdPDUvAPk9XXk9MM5HJvKgQIOrFIYaBaN8OgZz RAt5JAczQU5KFVK7TMIrLYShECR4HUNvCaQsNMJv DzSsBELvCZCcPRkkWJbclYVjDN2cyJyrhSApfdUA LiBLaWRuZXksIExlZnQuXHBhciANClxlcGljTmVz dERvYzEgDQpcbHRycGFyXGxpbjBccmluMCANClxs hGGwhYfxUkKhBzFkIYIPVNEfiELpHYRpitGxi1Pu YWxpbiBsYWJlbGVkIHdpdGggdGhlIHBhdGllbnRc C1D3chOeIY8uBAOzZHErV7JoSISpS09zZWKcgG7n HJGtDQ3sDMKzxKCrEOfaXJwsKgQwrLtjRuFjXJt4 SfUvbqCyNyY7KT6cwFLabJ51KWGsscwiG2J1OOJk o63qcDK4kWWptVPvJ21eKEZluAZey1UwpB8cGKPp ObLhkBMbwdKvXO9baMzmXG9fWXRhLGGvxECtxyAt YQ7zrPsnh3pzL6xaFFUnSLI7Qy8ffGNdAXErpaX0 t8OzSYqjYWMeZiqmSXQcFYmhxYDaXC6SW7opoLEr YGEYagR2ungvMZdTNMJRFTGfCDCYKBqhjDvxIENf BUzmzIOvEB1JBHPwHVzhbsHsBN0HGXKoSZneETAn jQNWZUB8QO5gEBicvSEfxldzEEKhA2BjN9IzpeAb oOJaOHCsbwQue3fmLHN2PGVbuZSneZTjWeXjMmpn ZRL5WPngw8foECS7TLVadJUycDVdBSwxZfAsEide BDJtF6AgH6DuejL3OGc2 MICROSCOPIC DESCRIPTION (test code = s2aaqNIaCTOktQI3EpJlAHEof5cfv3 BsdHBncGFy 3371) BIapqFGbcmGmaf81sKE5eI83NL1jMZSoJzK9KXSp mcS3Exf7GWHpXZQqjPRaY204p9srk3jeywQhtOX8 nXzvJOPjfikmAmT8MWbySOXevindUNl1QVfxVWFn tIQ1JYMleOQvN3JuAZOnLM4vugl1ZLN8HDmpMUPr BjH3ZFSdzYRgNGAykCmbGJava243GDD3RpVqNIJh omWstHgoxU5cTvJeMYFHUVOxy3YkYTDbkXApyX== SPECIAL STUDIES (test code = 3376) a5nypNOcYCSpq4jvBQOopQLvEzZwPzHw ZnRuYmpc mHVcHGxilwZaWLdxi0BrM7AoBuKjILdsiaXbHDCj RgkackveNIYvIDT0emVuHOPsEEwrWFFdRZyjPu9k sIItkBxaVdLkHIUup9stznWZmrhbgKt6u8ypBCHu FgC9aQEaMLnhK7xedzUtgTNhP3FqeQYrbOy7n9pq RmMbYgO2yTVhOQhwN3tzueJzdLJbAZZaOGd0iQ00 CXGyrE6ivBRmQHicooVtSkB4QAbuPWZoJiL5MYEp hZKvXRKzE3snLJMiUEikCOIkQPvqhTTeZUY9mNxb b7R3bZWknSWocDzxUkAvQfZjLeSXb6UyDQf3sSdd F7IcOHEeDzE4ySOwBSXiILeoXYKuWMBvwxV3dFse khUim57vtZCmCQTqAFZnXbCusGgoOUVcSQWSh0Tr eTvcUUI8jTw9lErnZfxrEEN0Qdv4LY1oqa10joc9 uFngWGAbntwxBfM7ADslLBMabnzqWPs3IFiyXQZn rWO0GFTofGIuP6ZzQKEsXB0qikt0YSP2LAbjNHEa AnQ7HRMgrLOwCJBhsXtfNKmoy241KJH7HbPvQA8f J0Nsw1S4hS3ncGAhCUJsxGDaJdIcPUCqgp6roWMb WTfuc6YyQSF4jjB2qRIaeFFzEGFwZE13Rctiq1Tw Zbsjk3NiV40auRT7EDrqh9oxCW9vFwE5cyXhUOad r5pwyM5yIuZ0SJurRT1kJE5sRRXxrJ8xykwdECEc ZzMadbsnYCDplTnjdmZrIl8eqAoqVNO6ZGuzU5jm dK1fRiC4LLewU8jxzN7gTXy0JRgrlCZ2KYNidX0z YN7sqezjt1iyOMgxFGwwPTEqmzZ5fzT0GDOnqKBt K5JbnM7tUDEqZO4ejyhot9klWRN7GYtzWTQkUDA0 ZpTkSDRpf6Bfxtn9VvApp4MphHGzHVukM46cp404 AYXfulLdY9whwPNumsugwSCfaazuMUrlvrI5AGGk XHBsYWluXGYxXGZzMjJcbGFuZzEwMzNcaGljaFxm MMovRkZqPAMiUFjuH8drRjQlQ1YwOQHvTaIsVKwj QMeeyYHseKRctDS4pD7bAD5sQGTeoENjL8CoYCTe wrFgqHYgZAX4zVYupQYuBF3fXTfkoSOvm9dpc7Tu H1hihHrjzWX2II7sMMWfJQVqFOudm0PvaQ5nNagz sCAeqbzvQQlakhIfOAmkdfaxRMNaOJvxJ3xqQjZo OTXtcHsqZIcpv8XoGPMdQPPdNvtzixSdWMx3tfCk BFAbjjraTLOjxDmmfA4lVwIkRaZsEiqoBL3eWZYs J5uzjEEzLSGuCOYsY7orJuPtvG6qfZwqCCapRxJm UjUtOaLHm571gk3cUVDnkGPlerUHwJMylE7lDLtx XZjmFGfuhYTzKQxlu1kfIHJts1e0zUPfLCDxdgBc w4tgDLmhbnJrEIQgbCFnhNDcXMIow95dJHsssKss zNfmWZQuz6GpeHwhy3WvIgNjGDvel3BbT51bcDJx dVXfhPfjISSubbKbUOYdf45mx0jcJADbLfH6aPVk rKI9dJZwnNKnv8AfdEnjTNIso1prNOCuzc5rgysl iNIuf4UlkK6gzoktIJvohYPddcRbALJiz3m2aWZv PDGvPVQeVAppmBh7QRXqm462ig7vgyE1lHAwUWG3 YWlsYWJsZSBhcmUgZXZhbHVhdGVkXHBsYWluXGYx XGZzMjJcbGFuZzEwMzNcaGljaFxmMVxkYmNoXGYx LVnwH1ifUkSoT3CqKTJnTcJjuTCrQ3fvuWXlOTDi YWluXGYxXGZzMjJcbGFuZzEwMzNcaGljaFxmMVxk UyFcQRDbEAxeC9uhRoUfT8DeHCIiDzYyUYearFSz aanoMTmdvbVsSSmzsveyMZMyHKvvW7oiPjFrVRGi vNrpVMzwx8ArWBNpRRAeQcmtfgKvDBo8csFwDWSl uysgsUHbhbckVPwmxjGeXOtarwnqJGZsWSdqR2wm [file] VkokROS2mU== Gross assessment was performed at (test [facility] enter, code = 2777) Department of Pathology, [address] [place] [address], Technical component was performed at [facility] er, (test code = 2778) Department of Pathology, [address] [place] [id number], Professional component was performed at [facility] enter, (test code = 2779) Department of Pathology, [address] [place] [address], [id number] 15:51:47Surgical Pathology Report Case: [id number] Authorizing Provider: Ascencion Khan MD Collected: 11/08/2021 12:35 PM Ordering Location: [facility] Received: 11/08/2021 01:53 PM SERVICES Pathologist: Jordyn Smith MD Specimen: Kidney, Left KIDNEY, LEFT, ULTRASOUND-GUIDED BIOPSY: - ONCOCYTICNEOPLASM, FAVOR ONCOCYTOMA - SEE COMMENT Signing Pathologist Direct Phone Line: [phone] signed by Jordyn Smith MD on 11/10/2021 [...] Correlation with clinical and radiologic findings is recomme nded.[id number], [id number], 80540Wtyi renal mass midpoleLeft renal massA. Kidney, Left.Received in formalin labeled with the patient's name, medical record number and "kidney, left" are 2 wagner-yellow variegated soft tissue cores measuring 2.3 cm in length and 2.0 cm in length which are submitted in toto in A1.RONNI Sanders, BHAVESH ([facility])cmPerformedThe interpretation of this case included the use of immunohistochemistry or special stains.Control Slides Examined: In-house known positive controls were evaluatedalong with the test tissue. These control slides run alongside of the patients sample show appropriate staining. Internal positive and negative controls when available are evaluated Immunohistochemistry technical testing was performed at [facility], Pathology Laboratory where it was developed and its performance characteristics were determined. It has not been cleared or approved by the U.S. Food and Drug Administration. The FDA has determined that such clearance or approval isnot necessary. The test is used for clinical purposes. It should not be regarded as investigational or for research. This laboratory is certified under the Clinical Laboratory Improvement Amendments uz2599 (CLIA-88) as qualified to perform high complexity clinical laboratory testing.[facility], Department of Pathology, [address] [place] [address], [facility], Department of [facility]ology, [address] [place], [place] [id number], [facility], Department of Pathology, [address] [place], [place] [id number], S/S, BIOPSY, RENAL (KIDNEY)2021-11-08 13:37:00Reason for Exam:- >renal massWEST [facility]Name: F[facility] MICHELLE : 1955 Sex: MFINALREPORT Ultrasound guided renal biopsy, 11/08/2021 Modality: Ultrasound Clinical History: Left renal mass. Sedation: 1 mg Versed and 50 mcg Fentanyl IV was used for moderate sedationmonitored under my direction. The patient's vital signs were monitored throughout the procedure and recorded to the patient's medical record by the nurse. Total intra-service time of sedation was 20 min utes. Garment Liner: Sophie. Corporate Administrator: None. Estimated Blood Loss: Less than 1 cc. Specimen: 2 core biopsy specimens, placed in formalin and sent to pathology. Technique: Informed consent was obtained. The risks of pain, bleeding, infection, injury to kidney/adjacent structures, and adverse medicat ion reactions were discussed with the patient. After [...] complications are noted. Patient disposition: The patient wassent to the observation area for vital sign monitoring and bed rest. The patient was discharged fromthe department in good condition. Impression:Successful and uncomplicated ultrasound guided left kidney mass biopsy with conscious sedation. Signed: Alex Barrios Verified Date/Time: 11/08/2021 13:37:07 Reading Location: [facility] P[address] [facility] Body Reading Room -COV2/RT-PCR ([facility])2021-11-07 21:01:32 Test Item Value Reference Range Interpretation Comments SARS-COV2/RT-PCR (test code = Negative Negative [id number]) Negative result for this test determines that [...] 564(g) of the Act.Testing was performed using [employer] SARS-CoV-2 assay.Fact Sheet for Healthcare Providers:https://[email or web address].jenkins/keith/RT SARS-CoV-2 HCP Fact Sheet 51- 054006.pdfFact Sheet for Healthcare Patients:https://[email or web address].jenkins/keith/RT SARS-CoV-2 Patient Fact Sheet EN 51-038011Q8.pdf
[2022-09-25] MEDS ORDERED: CODEINE 30MG/APAP 300MG TAB ONE (16:09)
[2022-09-25] MEDS ORDERED: Meropenem 1000 MG/VIAL IV ONE (16:10)
[2022-09-25] MEDS ORDERED: NA CHLORIDE 0.9% 100 ML ONE (16:10)
[2022-09-25 16:24] LABS: Absolute Lymphocytes (CBC) 1.4 K/uL (0.7-4.9); Hematocrit 39.2 % (39.6-49.0); Lymphocytes % 15.1 % (15.3-44.8); MCV 82.7 fL (80-100); MPV 8.4 fL (7.6-11.3); RBC Red Blood Cell Count 4.74 M/uL (4.33-5.43)
[2022-09-25 16:41] LABS: Potassium 3.4 mmol/L (3.5-5.1)
--- NOTE | 2022-09-25 17:00 | RAD REPORT ---
EXAM DESCRIPTION: RADChest Single View09/25/2022 4:02 pm CLINICAL HISTORY: CONGESTION COMPARISON: Chest Pa And Lat (2 Views) dated 04/18/2022; Chest Single View dated 07/04/2021; Chest Si ngle View dated 08/15/2017; Chest Single View dated 08/29/2016 TECHNIQUE: Portable AP view of the chest. FINDINGS: Patchy left basilar airspace opacities, appear to be new or progressive since the prior ex am. No pneumothorax or effusion. Stable cardiomegaly. Sequelae of prior median sternotomy and aortic valve replacement. Right shoulder anchors in place. IMPRESSION: Patchy left basilar airspace opacities, could reflect atelectasis or early pneumonia.
[2022-09-25 17:09] LABS: Protime INR 3.5
[2022-09-25] MEDS ORDERED: FUROSEMIDE 40 MG/4 ML VIAL ONE (17:20)
[2022-09-25] MEDS ORDERED: ACETAMINOPHEN 325 MG TABLET PO PRN (17:30)
[2022-09-25] MEDS ORDERED: POTASSIUM CL SA 10 MEQ TAB PO ONE (17:33)
[2022-09-25] MEDS ORDERED: ALBUTEROL 2.5 MG/3 ML NEB SOL NEB PRN (17:37)
[2022-09-25] MEDS ORDERED: ONDANSETRON 4 MG/2 ML VIAL IV PRN (17:37)
[2022-09-25] MEDS ORDERED: HYDRALAZINE HCL 20 MG/ML VIAL IV PRN (17:42)
--- NOTE | 2022-09-25 17:43 | P.HP ---
Certification for Inpatient Patient admitted to: Inpatient With expected LOS: >2 Midnights Patient will require the following post-hospital care: None Practitioner: I am a practitioner with admitting privileges, knowledge of patient current condition, hospital course, and medical plan of care. Services: Services provided to patient in accordance with Admission requirements found in Title 42 Section 412.3 of the Code of Federal Regulations Patient History Date of Service: 09/25/22 Reason for admission: SOB and generalized edema History of Present Illness: Patient is a 67-year-old male with a past medical history significant for A-fib, hypertension, CHF, COPD, COPD, aortic valve replacement, AAA who presents with complaint of generalized edema and shortness of breath. Patient reported that he had broken ribs on the left side 2 weeks ago and patient was seen at an ER facility. Patient reported that his blood pressure was low and at time of dis charge patient was taken off his list of medications including Lasix by the ER doctor. On getting home patient started experiencing worsening shortness of breath and generalized edema. Patient reported associated signs and symptoms of orthopnea. Patient denies any other signs or symptoms. Symptoms are aggravated or relieved by nothing. Patient followed up with an outpatient signal worker and patient was referred to come to the hospital for further management. Allergies No Known Drug Allergies Allergy (Verified 05/10/22 08:14) Unknown Home Medications: Furosemide [Lasix*] 120 mg PO DAILY 05/23/16 Ramipril [Altace] 10 mg PO BEDTIME 05/23/16 Metoprolol Succinate [Toprol Xl*] 25 mg PO BID 02/20/22 Potassium Chloride 10 meq PO BEDTIME 03/15/22 Warfarin Sodium [Coumadin] 13 mg PO BEDTIME 03/15/22 Enoxaparin Sodium [Lovenox 80 MG INJ] 80 mg SQ BID 04/18/22 - Past Medical/Surgical History Diabetic: No -: HTN -: CHF -: Aortic Aneurysm x2 -: Hx kidney stones -: Cataracts -: Osteoarthritis -: A fib -: Lymphedema -: R shoulder replacement -: R eye retina tear -: L kidney stent -: Aortic valve replacement - Family History Father -: Cancer, Blood disorders Notes: throat cx, anemia Sister -: Blood disorders Notes: anemia - Social History Smoking Status: Former smoker Alcohol use: No CD- Drugs: No Caffeine use: No Place of Residence: Home Review of Systems General: Unremarkable Eyes: Unremarkable ENT: Unremarkable Respiratory: Shortness of Breath Cardiovascular: Orthopnea Gastrointestinal: Unremarkable Genitourinary: Unremarkable Musculoskeletal: Other (Generalized edema ) Integumentary: Unremarkable Neurological: Unremarkable Lymphatics: Unremarkable Physical Examination - Physical Exam General: Alert, In no apparent distress, Oriented x3, Cooperative HEENT: Atraumatic, PERRLA, Mucous membr. moist/pink, EOMI, Sclerae nonicteric Neck: Supple, 2+ carotid pulse no bruit, No LAD, Without JVD or thyroid abnormality Respiratory: Diminished Cardiovascular: Irregular heart rate/rhythm Capillary refill: <2 Seconds Gastrointestinal: Normal bowel sounds, No tenderness, Distended Musculoskeletal: Swelling Integumentary: No rashes, No breakdown, No significant lesion Neurological: Normal speech, Normal tone, Normal affect Lymphatics: No axilla or inguinal lymphadenopathy - Studies Laboratory Data (last 24 hrs) 09/25/22 16:43: PT 38.5 H, INR 3.50 09/25/22 15:55: WBC 9.20, Hgb 12.8 L, Hct 39.2 L, Plt Count 175 09/25/22 15:55: Sodium 135 L, Potassium 3.4 L, BUN 45 H, Creatinine 1.58 H, Glucose 124 H Assessment and Plan - Plan --Acute on chronic diastolic CHF exacerbation. Airplane Tester consulted. Patient placed on Lasix. Echocardiogram pending to assess cardiac structures and functions. Daily weight and strict I\O. We will await further recommendation from signal worker. --Pneumonia. Noted on imaging. Patient placed on antibiotics and albuterol as needed. --Atrial fibrillation. Continue warfarin. --History of aortic valve replacement. Continue warfarin. --Hypertension. Stable. Continue home medications -- Acute on chronic COPD exacerbation. Continue current treatment regimen. --History of AAA. We will keep blood pressure controlled. Continue aspirin. --Anemia of chronic disease. H&H stable. We will continue to monitor hemoglobin and transfuse if less than 7.0. --Hypokalemia. Replete as needed. --CKD 3A. Stable. We will continue to monitor renal functions. -- DVT prophylaxis with Warfarin Discharge Plan: Home - Advance Directives Does patient have a Living Will: Yes Does patient have a Durable POA for Healthcare: No - Code Status/Comfort Care Code Status Assessed: Yes Physician Review: Patient Assessed, Agree with Above Assessment and Plan Critical Care: No
[2022-09-25 18:26] LABS: Magnesium 2.5 mg/dL (1.6-2.4); Phosphorus 3.7 mg/dL (2.5-4.9)
[2022-09-25] MEDS: WARFARIN SODIUM 4 MG TAB PO SCH (18:50)
[2022-09-25] MEDS: CEFTRIAXONE 1,000 MG in NA CHLORIDE 0.9% 50 ML IVPB SCH (19:00)
[2022-09-25] MEDS: AZITHROMYCIN IV 500 MG in NA CHLORIDE 0.9% 250 ML IVPB SCH (20:00)
[2022-09-25] MEDS: HYDROCODONE/APAP 5/325 MG TAB PO PRN (23:04)
[2022-09-25 23:10] VITALS: BMI 29.4
[2022-09-26 05:01] LABS: Absolute Lymphocytes (CBC) 0.9 K/uL (0.7-4.9); Hematocrit 37.8 % (39.6-49.0); Lymphocytes % 12.6 % (15.3-44.8); MCV 82.1 fL (80-100); MPV 8.2 fL (7.6-11.3)
[2022-09-26 05:10] LABS: Potassium 3.1 mmol/L (3.5-5.1)
[2022-09-26] MEDS ORDERED: POTASSIUM CL SA 10 MEQ TAB PO ONE (06:30)
[2022-09-26] MEDS: HYDROCODONE/APAP 5/325 MG TAB PO PRN (06:38)
[2022-09-26] MEDS: ASPIRIN 81 MG CHEWABLE TABLET PO SCH (09:00)
[2022-09-26] MEDS: FUROSEMIDE 40 MG/4 ML VIAL IV SCH ×3 (09:00→18:10)
[2022-09-26] MEDS: CEFTRIAXONE 1,000 MG in NA CHLORIDE 0.9% 50 ML IVPB SCH (09:00)
[2022-09-26] MEDS: AZITHROMYCIN IV 500 MG in NA CHLORIDE 0.9% 250 ML IVPB SCH (09:00)
[2022-09-26 09:41] LABS: Specific Gravity 1.014 (1.005-1.030); Urine Bacteria None Seen /HPF (<20); Urine Bilirubin NEGATIVE (Negative); Urine Blood Trace (Negative); Urine Clarity Clear (Clear); Urine Color Light-Yellow (Yellow); Urine Glucose NEGATIVE (Negative); Urine Protein TRACE (Negative); Urine RBC <5 /HPF (None Seen); Urine Urobilinogen Normal (Normal); Urine pH 6.5 (5.0-7.0)
--- NOTE | 2022-09-26 10:00 | RAD REPORT ---
EXAM DESCRIPTION: CT - Thorax Wo Con CLINICAL HISTORY: Chest pain infiltrate on CXR? COMPARISON: Thorax Wo Con dated 12/05/2021; Chest Single View dated 09/25/2022 FINDINGS: Mild diffuse COPD with linear atelectasis in both lung bases posteriorly. No pleural thick ening or pleural effusion. No pneumothorax. No axillary, mediastinal or hilar adenopathy. Significant cardiomegaly noted. No concerning bony finding. Rounded opacity in the left base laterally is unchanged since prior study . This is closely related to the diaphragm. Bilateral renal cysts. All CT scans are performed using dose optimization technique as appropriate and may include automated exposure control or mA/KV adjustment according to patient size. IMPRESSION: COPD is present with mild atelectasis in both lung bases.Significant cardiomegaly.
--- NOTE | 2022-09-26 12:41 | EKG ---
Test Date: 2022-09-25 Test Time: 15:44:49 Transportation Technician: RUTH MEASUREMENT RESULTS: Intervals: Rate: 90 [place]: 172 QRSD: 178 QT: 480 QTc: 587 [place]: P: 48 [place]: 172 QRS: -39 T: 106 INTERPRETIVE STATEMENTS: Sinus rhythm with premature atrial complexes with aberrant conduction Left axis deviation Right bundle branch block T wave abnormality, consider lateral ischemia Abnormal ECG Compared to ECG 04/18/2022 15:45:05 Atrial premature complex(es) now present Aberrant conduction of supraventricular beat(s) now present T-wave abnormality now present Possible ischemia now present Myocardial infarct finding no longer present Electronically Signed On 09-26-22 12:39:01 CDT by Luis Alberto Quintanilla
[2022-09-26 13:34] LABS: Potassium 3.7 mmol/L (3.5-5.1)
[2022-09-26] MEDS: HYDROCODONE/APAP 10/325 TAB PO PRN ×2 (15:08→20:24)
[2022-09-26] MEDS: WARFARIN SODIUM 4 MG TAB PO SCH (16:32)
--- NOTE | 2022-09-26 17:47 | P.PN ---
Subjective Date of Service: 09/26/22 Chief Complaint: SOB and generalized edema No acute events overnight. He reports good urine output with IV furosemide. He denies any chest pain or shortness of breath. He reports significant lower extremity edema as well as orthopnea. Review of Systems 10-point ROS is otherwise unremarkable Cardiovascular: Orthopnea, Edema Physical Examination - Vital Signs Temperature: 97.3 F Blood Pressure: 109/77 Pulse: 76 Respirations: 18 Pulse Ox (%): 96 - Physical Exam General: Alert, In no apparent distress, Oriented x3 HEENT: Atraumatic, EOMI, Sclerae nonicteric Neck: JVD distended Respiratory: Diminished, Crackles/rales (bibasilar) Cardiovascular: Regular rate/rhythm, Other (mechanical heart valve click), Edema (3-4+ BLE pitting edema) Gastrointestinal: Normal bowel sounds, Soft and benign, Non-distended, No tenderness, No rebound, No guarding Musculoskeletal: No clubbing Integumentary: No rashes Neurological: Normal speech, Normal affect - Studies Laboratory Data (last 24 hrs) 09/25/22 15:55: Phosphorus 3.7, Magnesium 2.5 H 09/25/22 15:55: Triglycerides 86, Cholesterol 114, HDL Cholesterol 26 L, Cholesterol/HDL Ratio 4.38 Assessment And Plan - Plan # Acute on Chronic Decompensated Diastolic Congestive Heart Failure with Preserved Ejection Fraction - Consult Cardiology - recommendations appreciated - He was referred to the Emergency Department by Dr. Quintanilla - Ordered transthoracic echocardiogram - Last echocardiogram (2015) = "normal left ventricular ejection fraction. left ventricular hypertrophy. mechanical aortic valve prosthesis with no significant aortic stenosis, no aortic regurgitation. mild mitral and tricuspid regurgitation." - NT-Pro BNP = 5286 - Diuresis with IV furosemide - Continue home metolazone, metoprolol - Hold ramipril given KIMANI - Daily weights - Strict I/O - Cardiac diet, 1.5 L fluid restriction, 2 g Na restriction # KDIGO Stage I Acute Kidney Injury - suspect Cardiorenal Syndrome - Consulted Nephrology - recommendations appreciated - Creatinine = 1.58 -> 1.41 -> 1.46 (creatinine ~0.8 in February 2022) - Urinalysis = 1+ blood, <5 RBCs, 1+ glucose - IV diuretics as mentioned above - Monitor creatinine and urine output - If worsening, obtain renal ultrasound - Renally dose medications # Suspect Left Basilar Atelectasis - Chest x-ray = "patchy left basilar airspace opacities, could reflect atelectasis or early pneumonia" - He has no clinical signs to suggest pneumonia, ordered CT chest to further evaluate - CT chest = "COPD is present with mild atelectasis in both lung bases.Significant cardiomegaly." - Discontinued antibiotics at this time # Chronic Atrial Fibrillation # Aortic Valvulopathy s/p Mechanical Aortic Valve Replacement on Warfarin # History of Aortic Aneurysm # Hypertension - Continue home metoprolol, warfarin - Goal INR: 2.5-3.5 - Monitor INR levels Adam Villafana M.D.
[2022-09-26] MEDS: METOPROLOL XL 25 MG TAB PO SCH (20:24)
--- NOTE | 2022-09-26 20:28 | CON ---
Date of Consultation: 09/26/2022 Reason For Consultation: Congestive heart failure exacerbation. History Of Present Illness: This 67-year-old male with history of atrial fibrillation, hypertension, COPD, CHF, status post aortic valve replacement, and AAA presented with significant lower extremity edema, shortness of breath even to talk along with significant orthopnea. I saw him in the office mu ltiple times and tried outpatient diuretics, used torsemide, but did not work, so I decided to admit the patient. Past Medical History: As outlined above in HPI. Medications: Refer to reconciliation sheet for detailed list. Allergies: NO KNOWN DRUG ALLERGIES. Family History: No premature coronary artery disease or cancer. Social History: Does not smoke or drink. Does not use any drugs. Review of Systems: All systems reviewed and they were negative except as mentioned in HPI. Physical Examination: Vital Signs: Reviewed. Head And Neck: Pupils are equal and reactive to light. Intact eye movements. No cervical lymphaden opathy. No JVD. Lungs: Positive crackles in both bases. No accessory muscle use or muscle retraction. Heart: Irregular. No extra sounds. Abdomen: Soft, nontender. Bowel sounds positive. No organomegaly. No masses or hernia. No rigidi ty or rebound. Extremities: No clubbing or cyanosis. 4+ pitting edema. Neurologic: Alert, awake, and oriented x3. No acute focal deficits appreciated. Lymph Nodes: No cervical or axillary lymphadenopathy. Investigations: Labs were reviewed. Assessment/recommendation: 1.Ffpaw-bg-urhnhse congestive heart failure exacerbation, on Lasix 40 mg twice a day. No significan t improvement yet. Blood pressure has been running on the low side, so Lasix was held. We will re-d ose Lasix and recommend to use metolazone 2.5 mg daily for effective diuresis and consult Nephrology. 2.Chronic kidney failure, in part due to cardiorenal syndrome. Consult Nephrology for further recom mendations. 3.Atrial fibrillation, rate controlled on Coumadin. Continue current management. SR/MODL Voice ID: [id number] Report ID: [id number]
[2022-09-26] MEDS: AMILORIDE HCL 5 MG TABLET PO SCH (23:00)
[2022-09-27] MEDS: HYDROCODONE/APAP 10/325 TAB PO PRN ×3 (02:34→18:08)
[2022-09-27] MEDS: FUROSEMIDE 40 MG/4 ML VIAL IV SCH ×3 (02:35→17:58)
[2022-09-27 03:25] LABS: Magnesium 2.5 mg/dL (1.6-2.4); Potassium 3.6 mmol/L (3.5-5.1)
[2022-09-27 03:30] LABS: Protime INR 2.65
[2022-09-27] MEDS: ASPIRIN 81 MG CHEWABLE TABLET PO SCH (08:28)
[2022-09-27] MEDS: AMILORIDE HCL 5 MG TABLET PO SCH ×2 (08:30→20:49)
[2022-09-27] MEDS: METOLAZONE 5 MG TABLET PO SCH (08:30)
[2022-09-27] MEDS ORDERED: POTASSIUM CL SA 10 MEQ TAB PO ONE (09:00)
--- NOTE | 2022-09-27 09:34 | P.CNS ---
Date of Consult: 09/27/22 Reason for Consult: KIMANI Requesting Physician: Adam Villafana Chief Complaint: SOB and generalized edema History of Present Illness: Patient is a 67-year-old male with a past medical history significant for A-fib, hypertension, CHF, COPD, COPD, aortic valve replacement, AAA who presents with complaint of generalized edema and shortness of breath. Patient reported that he had broken ribs on the left side 2 weeks ago and patient was seen at an ER facility. Patient reported that his blood pressure was low and at time of discharge patient was taken off his list of medications including Lasix by the ER doctor. On getting home patient started experiencing worsening shortness of breath and generalized edema. Patient reported associated signs and symptoms of orthopnea. Patient denies any other signs or symptoms. Symptoms are aggravated or relieved by nothing. Patient followed up with an outpatient communications tower technician and patient was referred to come to the hospital for further management. No NSAIDs. Reports complete emptying of the urinary bladder but with dribbling since his urolift procedure. Allergies No Known Drug Allergies Allergy (Verified 05/10/22 08:14) Unknown Home medications list reviewed: Yes Home Medications: Furosemide [Lasix*] 120 mg PO DAILY 05/23/16 Ramipril [Altace] 5 mg PO BEDTIME 05/23/16 Potassium Chloride 10 meq PO BEDTIME 03/15/22 Warfarin Sodium [Coumadin] 13 mg PO BEDTIME 03/15/22 Metoprolol Succinate 1 tab PO BEDTIME 09/26/22 metOLazone [Metolazone] 1 tab PO DAILY 09/26/22 - Past Medical/Surgical History Diabetic: No -: HTN -: CHF -: Aortic Aneurysm x2 -: Mechanical Aortic Valve -: Hx kidney stones -: Hx KIMANI (Dr. Mata) -: Afib -: Lymphedema -: Cataracts -: Osteoarthritis -: R shoulder replacement -: R eye retina tear -: L kidney stent -: Aortic valve replacement - Family History Father Medical History: Cancer, Blood disorders Notes: throat cx, anemia Sister Medical History: Blood disorders Notes: anemia - Social History Smoking Status: Never smoker Alcohol use: No CD- Drugs: No Caffeine use: Yes Place of Residence: Home Review of Systems 10-point ROS is otherwise unremarkable Respiratory: SOB with Excertion Cardiovascular: Edema Physical Examination Temp Pulse Resp BP Pulse Ox 97.4 F 99 H 16 123/87 99 09/27/22 08:00 09/27/22 08:30 09/27/22 08:00 09/27/22 08:30 09/27/22 08:00 General: Oriented x3, Cooperative HEENT: Atraumatic Neck: Supple Respiratory: Diminished Cardiovascular: Regular rate/rhythm, Edema Gastrointestinal: Soft and benign, Non-distended Musculoskeletal: No clubbing, No contractures, Other (Finger deformity) Integumentary: No rashes, No cyanosis Neurological: Normal speech Blood work reviewed in the chart Imagings Data: EXAM DESCRIPTION: CT - Thorax Wo Con CLINICAL HISTORY: Chest pain infiltrate on CXR? COMPARISON: Thorax Wo Con dated 12/05/2021; Chest Single View dated 09/25/2022 FINDINGS: Mild diffuse COPD with linear atelectasis in both lung bases posteriorly. No pleural thickening or pleural effusion. No pneumothorax. No axillary, mediastinal or hilar adenopathy. Significant cardiomegaly noted. No concerning bony finding. Rounded opacity in the left base laterally is unchanged since prior study. This is closely related to the diaphragm. Bilateral renal cysts. All CT scans are performed using dose optimization technique as appropriate and may include automated exposure control or mA/KV adjustment according to patient size. IMPRESSION: COPD is present with mild atelectasis in both lung bases.Significant cardiomegaly. EXAM DESCRIPTION: RADChest Single View09/25/2022 4:02 pm CLINICAL HISTORY: CONGESTION COMPARISON: Chest Pa And Lat (2 Views) dated 04/18/2022; Chest Single View dated 07/04/2021; Chest Single View dated 08/15/2017; Chest Single View dated 08/29/2016 TECHNIQUE: Portable AP view of the chest. FINDINGS: Patchy left basilar airspace opacities, appear to be new or progressive since the prior exam. No pneumothorax or effusion. Stable cardiomegaly. Sequelae of prior median sternotomy and aortic valve replacement. Right shoulder anchors in place. IMPRESSION: Patchy left basilar airspace opacities, could reflect atelectasis or early pneumonia. EXAM DESCRIPTION: CT - Abdomen Pelvis Wo Contrast - 11/02/2021 6:44 am COMPARISON: None CLINICAL HISTORY: Blood in urine TECHNIQUE: Multiple helical axial images were obtained through the abdomen and pelvis without intravenous contrast. Sagittal and coronal reformatted images are reviewed as well. All CT scans at this facility use dose modulation, iterative reconstruction, and/or weight-based dosing when appropriate to reduce radiation dose to as low as reasonably achievable. Findings: Lung bases: Heart is mildly enlarged. There is a small hiatal hernia. There is a 2.6 cm nodular density in the left lower lobe along the left hemidiaphragm (series 201, image 10). Subpleural cystic changes noted suggestive of fibrotic changes. Liver: There are several subcentimeter hypodensities too small to characterize. Liver appears mildly enlarged. Gallbladder/biliary: Gallbladder appears normal in size. A few small calcified stones in the gallbladder are present. No evidence of biliary ductal dilatation. Pancreas: Unremarkable. Spleen: Appears mildly enlarged. Adrenals: Unremarkable. Kidneys and ureters: There is a 5 mm stone at the inferior pole of the left ki dney. No obstructing ureteral stone. No hydronephrosis. Multiple cysts in both kidneys are present appearing isodense and hypodense. There is a 3.5 cm lobulated isodense structure projecting from the midpole of the left kidney (series 201, image 38) which may represent a cyst, however renal parenchymal lesion difficult to exclude. Bladder: Ewing catheter is present. There is a trace amount of dense material in the dependent bladder. Pelvic organs: Unremarkable. Bowel: Colonic diverticula are present. No evidence of bowel obstruction. No bowel wall thickening. Appendix appears unremarkable. Peritoneum: No free air. No significant free fluid. Lymph nodes: Unremarkable. Vasculature: Aortoiliac atherosclerosis is present. Soft tissues: There is a tiny fluid containing umbilical hernia. Bones: Degenerative changes of the lumbar spine are present. There is mild anterior subluxation of L4 relative to L5. IMPRESSION: 1. No evidence for an acute process within the abdomen or pelvis. 2. Small nonobstructing left renal stone. 3. Multiple cysts in both kidneys appearing isodense and hypodense. Possible lobulated cyst versus left renal solid lesion, nonemergent follow-up renal protocol CT or MRI recommended for further evaluation. 4. Trace amount of dense material in the dependent bladder which may represent blood products or nonspecific debris. 5. Cholelithiasis. 6. Colonic diverticulosis. 7. Nodular density in the left lower lobe measuring up to 2.6 cm. Follow-up dedicated CT of the chest recommended for further evaluation. 8. Mild hepatosplenomegaly. Conclusions/Impression: Stage III KIMANI may be CRS CKD II Hx BL renal cysts -No NSAIDs -Renal US ordered -Continue diuresis Hyponatremia in the setting of metolazone -Monitor level Hypokalemia due to diuresis -Replete potassium -Start Amiloride Hx Nephrolithiasis -Renal US ordered HTN with CKD/ CHF -Continue Metoprolol Diastolic CHF, A/C Hx Mechanical Aortic Valve -Continue diuresis Hyperglycemia -Check A1C Microcytic Anemia -Check iron status Case reviewed with Dr. Villafana Thank you kindly for the consultation
[2022-09-27] MEDS: DOCUSATE NA 100 MG CAP PO SCH ×2 (15:08→20:49)
--- NOTE | 2022-09-27 17:48 | P.PN ---
Subjective Date of Service: 09/27/22 Chief Complaint: SOB and generalized edema No acute events overnight. He reports good urine output with IV furosemide. He denies any chest pain or shortness of breath. He reports mild improvement in his orthopnea and lower extremity edema. He states that his left axillary ribs are uncomfortable due to a fall several weeks ago. His net I/O is -1.1 L since admission. Review of Systems 10-point ROS is otherwise unremarkable Cardiovascular: Orthopnea, Edema Musculoskeletal: Other (left axillary rib pain) Physical Examination - Vital Signs Temperature: 97.6 F Blood Pressure: 145/75 Pulse: 84 Respirations: 14 Pulse Ox (%): 97 Assessment And Plan - Plan - Physical Exam General: Alert, In no apparent distress, Oriented x3 HEENT: Atraumatic, EOMI, Sclerae nonicteric Neck: JVD distended Respiratory: Diminished, Crackles/rales (bibasilar) Cardiovascular: Regular rate/rhythm, Other (mechanical heart valve click), Edema (3+ BLE pitting edema) Gastrointestinal: Normal bowel sounds, Soft and benign, Non-distended, No tenderness Musculoskeletal: No clubbing Integumentary: No rashes Neurological: Normal speech, Normal affect # Acute on Chronic Decompensated Diastolic Congestive Heart Failure with Preserved Ejection Fraction - Consult Cardiology - recommendations appreciated - He was referred to the Emergency Department by Dr. Quintanilla - Ordered transthoracic echocardiogram - Last echocardiogram (2015) = "normal left ventricular ejection fraction. left ventricular hypertrophy. mechanical aortic valve prosthesis with no significant aortic stenosis, no aortic regurgitation. mild mitral and tricuspid regurgitation." - NT-Pro BNP = 5286 - Diuresis with IV furosemide - Continue home metolazone, metoprolol - Hold ramipril given KIMANI - Daily weights - Strict I/O - net -1.1 L since admission - Cardiac diet, 1.5 L fluid restriction, 2 g Na restriction # KDIGO Stage I Acute Kidney Injury - suspect Cardiorenal Syndrome - Consulted Nephrology and spoke with Dr. Mata - recommendations appreciated - Creatinine = 1.58 -> 1.41 -> 1.46 -> 1.65 (creatinine ~0.8 in February 2022) - Urinalysis = 1+ blood, <5 RBCs, 1+ glucose - IV diuretics as mentioned above - Monitor creatinine and urine output - If worsening, obtain renal ultrasound - Renally dose medications # Left Axillary Pain secondary to a Fall - He reports falling on his left ribcage several weeks ago - Ordered rib x-rays - Continue home hydrocodone-acetaminophen # Suspect Left Basilar Atelectasis - Chest x-ray = "patchy left basilar airspace opacities, could reflect atelectasis or early pneumonia" - He has no clinical signs to suggest pneumonia, ordered CT chest to further evaluate - CT chest = "COPD is present with mild atelectasis in both lung bases.Significant cardiomegaly." - Discontinued antibiotics at this time # Chronic Atrial Fibrillation # Aortic Valvulopathy s/p Mechanical Aortic Valve Replacement on Warfarin # History of Aortic Aneurysm # Hypertension - Continue home metoprolol, warfarin - Goal INR: 2.5-3.5 - Monitor INR levels Adam Villafana M.D.
[2022-09-27] MEDS: WARFARIN SODIUM 4 MG TAB PO SCH (17:58)
--- NOTE | 2022-09-27 18:55 | RAD REPORT ---
EXAM DESCRIPTION: RAD - Ribs Left - 09/27/2022 6:49 pm CLINICAL HISTORY: rib pain Left-sided chest pain COMPARISON: Chest Single View dated 09/25/2022 FINDINGS: Mildly displaced posterior left fifth and sixth rib fractures. Oblique fracture also prese nt lateral left seventh and eighth rib ribs. No pneumothorax seen.
--- NOTE | 2022-09-27 19:49 | PN ---
Date of Progress Note: 09/27/2022 Subjective: Seen by bedside, clinically doing better. Review of Systems: Also shortness of breath and orthopnea and lower extremity edema. No nausea, vomiting, or diarrhea. All other systems reviewed and they were negative. Physical Examination: Vital Signs: Reviewed. Head And Neck: Pupils are equal and reactive to light. Intact eye movements. Positive JVD elevatio n. Neck is supple. Thyroid is not enlarged. Lungs: Crackles in both bases. No accessory muscle use or muscle retraction. Heart: Irregular. No extra sounds. Abdomen: Soft, nontender. Bowel sounds positive. No organomegaly. No masses or hernia. No rigidi ty or rebound. Extremities: No clubbing or cyanosis. Intact pulses. Skin: No rash. Neurologic: Alert, awake. No acute focal deficits appreciated. Investigation: Labs reviewed. Assessment/recommendation: 1.Wyyth-ch-hvurocg congestive heart failure exacerbation. Continue Lasix with metolazone. Monitor BUN, creatinine, and electrolytes. 2.Chronic kidney failure. Nephrology is on board. This is likely cardiorenal and the patient might require dialysis down the road. 3.Atrial fibrillation, rate is controlled and on Coumadin. To follow up INR periodically. SR/MODL Voice ID: [id number] Report ID: [id number]
[2022-09-27] MEDS: METOPROLOL XL 25 MG TAB PO SCH (20:51)
[2022-09-28 01:13] LABS: UR CREAT < 18.0 mg/dL (20-370); UR PROTEIN < 5.0 mg/dL (<11.9); Urine Protein/Creatinine Ratio ND ratio (<0.15)
[2022-09-28 01:23] LABS: Specific Gravity 1.008 (1.005-1.030); Urine Bacteria None Seen /HPF (<20); Urine Bilirubin NEGATIVE (Negative); Urine Blood Negative (Negative); Urine Clarity Clear (Clear); Urine Color Colorless (Yellow); Urine Glucose NEGATIVE (Negative); Urine Mucus Slight /HPF (None Seen); Urine Protein NEGATIVE (Negative); Urine RBC <5 /HPF (None Seen); Urine Urobilinogen Normal (Normal); Urine pH 6.5 (5.0-7.0)
[2022-09-28] MEDS: FUROSEMIDE 40 MG/4 ML VIAL IV SCH ×2 (01:33→10:00)
[2022-09-28] MEDS: HYDROCODONE/APAP 10/325 TAB PO PRN ×3 (02:10→21:33)
[2022-09-28 04:17] LABS: Magnesium 2.7 mg/dL (1.6-2.4); Potassium 3.8 mmol/L (3.5-5.1); Uric Acid 14.7 mg/dL (3.5-7.2)
[2022-09-28 04:25] LABS: Protime INR 2.2
[2022-09-28] MEDS ORDERED: POTASSIUM CL SA 10 MEQ TAB PO ONE ×2 (09:00→10:24)
[2022-09-28] MEDS: DOCUSATE NA 100 MG CAP PO SCH ×2 (09:26→21:34)
[2022-09-28] MEDS: METOLAZONE 5 MG TABLET PO SCH (09:26)
[2022-09-28] MEDS: ASPIRIN 81 MG CHEWABLE TABLET PO SCH (09:26)
[2022-09-28] MEDS: AMILORIDE HCL 5 MG TABLET PO SCH ×2 (09:27→21:43)
--- NOTE | 2022-09-28 10:47 | P.PN ---
Subjective Date of Service: 09/28/22 Chief Complaint: SOB and generalized edema No acute events overnight. He reports significant improvement in his shortness of breath, orthopnea, and edema. He denies any chest pain or palpitations. His net I/O is -3.1 L since admission. Review of Systems 10-point ROS is otherwise unremarkable Cardiovascular: Orthopnea, Edema Physical Examination - Vital Signs Temperature: 97.4 F Blood Pressure: 108/64 Pulse: 82 Respirations: 16 Pulse Ox (%): 99 Assessment And Plan - Plan - Physical Exam General: Alert, In no apparent distress, Oriented x3 HEENT: Atraumatic, EOMI, Sclerae nonicteric Neck: JVD not distended Respiratory: Diminished, Crackles/rales (faint bibasilar) Cardiovascular: Regular rate/rhythm, Other (mechanical heart valve click), Edema (1-2+ BLE pitting edema) Gastrointestinal: Normal bowel sounds, Soft, Non-distended, No tenderness Musculoskeletal: No clubbing Integumentary: No rashes Neurological: Normal speech, Normal affect # Acute on Chronic Decompensated Diastolic Congestive Heart Failure with Preserved Ejection Fraction - Consult Cardiology and he was evaluated by Dr. Quintanilla - recommendations appreciated - Ordered transthoracic echocardiogram - Last echocardiogram (2015) = "normal left ventricular ejection fraction. left ventricular hypertrophy. mechanical aortic valve prosthesis with no significant aortic stenosis, no aortic regurgitation. mild mitral and tricuspid regurgitation." - NT-Pro BNP = 5286 - Diuresis with IV furosemide - Continue home metolazone, metoprolol - Hold ramipril given KIMANI - Daily weights - Strict I/O - net -3.1 L since admission - Cardiac diet, 1.5 L fluid restriction, 2 g Na restriction # KDIGO Stage I Acute Kidney Injury - suspect Cardiorenal Syndrome +/- Component of Over-Diuresis - Consulted Nephrology and spoke with Dr. Mata - recommendations appreciated - Appreciate recommendations regarding diuresis - Creatinine = 1.58 -> 1.41 -> 1.46 -> 1.65 -> 1.81 (creatinine ~0.8 in February 2022) - Urinalysis = 1+ blood, <5 RBCs, 1+ glucose - IV diuretics as mentioned above - Monitor creatinine and urine output - If worsening, obtain renal ultrasound - Renally dose medications # Traumatic Ground-Level Fall complicated by Left 5th-8th Rib Fractures - He reports falling on his left ribcage several weeks ago - Ordered rib x-rays = "mildly displaced posterior left fifth and sixth rib fractures. Oblique fracture also present lateral left seventh and eighth rib ribs. No pneumothorax seen." - PRN hydrocodone-acetaminophen # Suspect Left Basilar Atelectasis - Chest x-ray = "patchy left basilar airspace opacities, could reflect atelectasis or early pneumonia" - He has no clinical signs to suggest pneumonia, ordered CT chest to further evaluate - CT chest = "COPD is present with mild atelectasis in both lung bases.Significant cardiomegaly." - Discontinued antibiotics at this time # Chronic Atrial Fibrillation # Aortic Valvulopathy s/p Mechanical Aortic Valve Replacement on Warfarin # History of Aortic Aneurysm # Hypertension - Continue home metoprolol, warfarin - Reports that he takes 13 mg warfarin at home - but also takes it with "leafy greens and grapefruit juice" - Given that his diet is more controlled here, will start with 7 mg and adjust as needed - Goal INR: 2.5-3.5 - Monitor INR levels Adam Villafana M.D.
[2022-09-28] MEDS: SOD FERRIC GLUC COMPLX/SUCROSE 125 MG in NA CHLORIDE 0.9% 100 ML IV SCH (11:31)
--- NOTE | 2022-09-28 14:12 | PN ---
Date of Progress Note: 09/28/2022 Subjective: Seen by bedside. Doing clinically better. Review of Systems: No chest pain. Has shortness of breath on minimal exertion with orthopnea and lower extremity edema, but with significant improvement comparing to admission. Positive for shortness of breath on exerti on, orthopnea, lower extremity edema. No nausea, vomiting, diarrhea. All other systems reviewed and they were negative. Physical Examination: Vital Signs: Reviewed. Head and Neck: Pupils are equal, reactive to light. Intact eye movements. No JVD. No cervical lym phadenopathy. Neck is supple. Thyroid is not enlarged. Lungs: Clear to auscultation bilaterally. No rhonchi, wheezing, or crackles. No accessory muscle u se. Heart: Regular rate and rhythm. No extra sounds. Abdomen: Soft, nontender. Bowel sounds positive. No organomegaly. No masses or hernia. No rigidi ty or rebound. Extremities: No edema, clubbing, or cyanosis. Intact pulses. Skin: No rash. Neurologic: Alert, awake, oriented x3. No acute focal deficits appreciated. Lymph Nodes: No cervical or axillary lymphadenopathy. Investigations: Labs were reviewed. BUN is 52, creatinine 1.82. INR is 2.2. Assessment And Recommendations: 1.Acute on chronic congestive heart failure exacerbation. Improvement is noticeable. Continue curr ent regimen; however, I decreased the metolazone to 2.5 mg daily. 2.Acute on chronic renal failure due to cardiorenal syndrome. Nephrology is on board. This is expe cted to worsen slightly to get him to dry weight. 3.Atrial fibrillation, on Coumadin. INR is therapeutic and heart rate is controlled. SR/MODL Voice ID: [id number] Report ID: [id number]
[2022-09-28] MEDS: FUROSEMIDE 40 MG TABLET PO SCH (17:45)
[2022-09-28] MEDS: WARFARIN SODIUM 3 MG TAB PO SCH (17:46)
[2022-09-28] MEDS: WARFARIN SODIUM 4 MG TAB PO SCH (17:46)
--- NOTE | 2022-09-28 19:03 | RAD REPORT ---
EXAM DESCRIPTION: US - Renal Ultrasound-Complete - 09/28/2022 4:03 pm CLINICAL HISTORY: KIMANI. BL renal cysts. Hx Nephrolithiasis. COMPARISON: Abdomen Pelvis Wo Contrast dated 11/02/2021; Thorax Wo Con dated 09/26/2022; Ct Skull/Th igh dated 02/16/2022 TECHNIQUE: Sonographic grayscale and color flow images of the kidneys and bladder were obtained. FINDINGS: The right kidney measures 12.6 centimeter in length. No hydronephrosis or echogenic calculi. Exophyti c lobulated low pole hypoechoic 4.3 x 3.7 x 3.3 centimeter lesion with some posterior acoustic enhanc ement, could represent a complex cyst. Other lobulated and thinly septated cysts of the superior and midpole, the largest measuring 5.2 x 4.8 x 4.2 centimeter without suspicious features. The left kidney measures measures 12.1 centimeter in length. No hydronephrosis or echogenic calculi. Lobulated renal contour, with an exophytic mid to lower pole isoechoic mass measuring 3.8 x 3.4 x 3.3 centimeter, demonstrating internal vascularity. A similar contour abnormality is seen on the compari son PET-CT. Small left renal cortical anechoic cysts are present, the largest at the mid to lower rosalee e measuring 2.4 centimeter. Overall, renal cortex is diffusely echogenic bilaterally, suggesting medical renal disease. The urinary bladder is incompletely distended without gross abnormality seen. IMPRESSION: No hydronephrosis or echogenic calculi. Cortical echogenicity bilaterally suggesting med ical renal disease. Lobulated left renal contour. Exophytic mid to lower pole isoechoic 3.8 centimeter mass, could relate to contour lobulation or a malignant lesion such as a renal cell carcinoma. Similar contour abnormal ity was seen on prior PET-CT dated 02/16/2022, suggesting that this may relate to contour lobulation. If additional imaging characterization to be sought, a contrast enhanced MRI with renal mass protoco l could provide improved assessment. Bilateral benign-appearing renal cysts as above.
--- NOTE | 2022-09-28 20:09 | P.PN ---
Date of Service: 09/28/22 Vital Signs Temp Pulse Resp BP Pulse Ox 97.6 F 92 H 16 112/73 97 09/28/22 12:00 09/28/22 17:45 09/28/22 17:12 09/28/22 17:45 09/28/22 17:12 Medications Acetaminophen (Acetaminophen 325 Mg Tablet) 650 mg PO Q6H PRN PRN Reason: TEMP > 100.4' F Hydrocodone Bitart/Acetaminophen (Hydrocodone/Apap 10/325 Tab) 1 tab PO Q4H PRN PRN Reason: Pain scale 8-10 (Severe) Last Admin: 09/28/22 17:12 Dose: 1 tab Albuterol Sulfate (Albuterol 2.5 Mg/3 Ml Neb Steph) 2.5 mg NEB [id number] PRN PRN Reason: SHORTNESS OF BREATH Amiloride HCl (Amiloride Hcl 5 Mg Tablet) 10 mg PO BID [facility] Last Admin: 09/28/22 09:27 Dose: 10 mg Aspirin (Aspirin 81 Mg Chewable Tablet) 81 mg PO DAILY [facility] Last Admin: 09/28/22 09:26 Dose: Not Given Docusate Sodium (Docusate Na 100 Mg Cap) 100 mg PO BID [facility] Last Admin: 09/28/22 09:26 Dose: 100 mg Furosemide (Furosemide 40 Mg Tablet) 80 mg PO BIDL [facility] Last Admin: 09/28/22 17:45 Dose: 80 mg Hydralazine HCl (Hydralazine Hcl 20 Mg/Ml Vial) 10 mg IV Q6HP PRN PRN Reason: FOR SBP>160 OR DBP>100 MMHG Ferric Sodium Gluconate Complex 125 mg/ Sodium Chloride 110 mls @ 100 mls/hr IV DAILY [facility] Stop: 10/05/22 10:05 Last Admin: 09/28/22 11:31 Dose: 110 mls Metolazone (Metolazone 5 Mg Tablet) 5 mg PO DAILY [facility] Last Admin: 09/28/22 09:26 Dose: 5 mg Metoprolol Succinate (Metoprolol Xl 25 Mg Tab) 25 mg PO BEDTIME [facility] Last Admin: 09/27/22 20:51 Dose: Not Given Ondansetron HCl (Ondansetron 4 Mg/2 Ml Vial) 4 mg IV Q6HP PRN PRN Reason: NAUSEA / VOMITING Sodium Chloride (Flush Normal Saline 10 Ml) 10 ml IV BID [facility] Last Admin: 09/28/22 09:28 Dose: 10 ml Warfarin Sodium (Warfarin Sodium 3 Mg Tab) 3 mg PO DAILY 5 PM [facility] Last Admin: 09/28/22 17:46 Dose: 3 mg Warfarin Sodium (Warfarin Sodium 4 Mg Tab) 4 mg PO DAILY 5 PM [facility] Last Admin: 09/28/22 17:46 Dose: 4 mg Assessment/ Plan: Nephrology No dyspnea No chest pain No acute events overnight Vitals, medications, blood work and imaging reviewed in the chart. General: Oriented x3, Cooperative HEENT: Atraumatic Neck: Supple Respiratory: Diminished Cardiovascular: Regular rate/rhythm, No Edema Gastrointestinal: Soft and benign, Non-distended Musculoskeletal: No clubbing, No contractures, Other (Finger deformity) Integumentary: No rashes, No cyanosis, Venous stasis dermatitis Neurological: Normal speech Blood work reviewed in the chart Imagings Data: EXAM DESCRIPTION: CT - Thorax Wo Con CLINICAL HISTORY: Chest pain infiltrate on CXR? COMPARISON: Thorax Wo Con dated 12/05/2021; Chest Single View dated 09/25/2022 FINDINGS: Mild diffuse COPD with linear atelectasis in both lung bases posteriorly. No pleural thickening or pleural effusion. No pneumothorax. No axillary, mediastinal or hilar adenopathy. Significant cardiomegaly noted. No concerning bony finding. Rounded opacity in the left base laterally is unchanged since prior study. This is closely related to the diaphragm. Bilateral renal cysts. All CT scans are performed using dose optimization technique as appropriate and may include automated exposure control or mA/KV adjustment according to patient size. IMPRESSION: COPD is present with mild atelectasis in both lung bases.Significant cardiomegaly. EXAM DESCRIPTION: RADChest Single View09/25/2022 4:02 pm CLINICAL HISTORY: CONGESTION COMPARISON: Chest Pa And Lat (2 Views) dated 04/18/2022; Chest Single View dated 07/04/2021; Chest Single View dated 08/15/2017; Chest Single View dated 08/29/2016 TECHNIQUE: Portable AP view of the chest. FINDINGS: Patchy left basilar airspace opacities, appear to be new or progressive since the prior exam. No pneumothorax or effusion. Stable cardiomegaly. Sequelae of prior median sternotomy and aortic valve replacement. Right shoulder anchors in place. IMPRESSION: Patchy left basilar airspace opacities, could reflect atelectasis or early pneumonia. EXAM DESCRIPTION: CT - Abdomen Pelvis Wo Contrast - 11/02/2021 6:44 am COMPARISON: None CLINICAL HISTORY: Blood in urine TECHNIQUE: Multiple helical axial images were obtained through the abdomen and pelvis without intravenous contrast. Sagittal and coronal reformatted images are reviewed as well. All CT scans at this facility use dose modulation, iterative reconstruction, and/or weight-based dosing when appropriate to reduce radiation dose to as low as reasonably achievable. Findings: Lung bases: Heart is mildly enlarged. There is a small hiatal hernia. There is a 2.6 cm nodular density in the left lower lobe along the left hemidiaphragm (series 201, image 10). Subpleural cystic changes noted suggestive of fibrotic changes. Liver: There are several subcentimeter hypodensities too small to characterize. Liver appears mildly enlarged. Gallbladder/biliary: Gallbladder appears normal in size. A few small calcified stones in the gallbladder are present. No evidence of biliary ductal dilatation. Pancreas: Unremarkable. Spleen: Appears mildly enlarged. Adrenals: Unremarkable. Kidneys and ureters: There is a 5 mm stone at the inferior pole of the left kidney. No obstructing ureteral stone. No hydronephrosis. Multiple cysts in both kidneys are present appearing isodense and hypodense. There is a 3.5 cm lobulated isodense structure projecting from the midpole of the left kidney (series 201, image 38) which may represent a cyst, however renal parenchymal lesion difficult to exclude. Bladder: Ewing catheter is present. There is a trace amount of dense material in the dependent bladder. Pelvic organs: Unremarkable. Bowel: Colonic diverticula are present. No evidence of bowel obstruction. No bowel wall thickening. Appendix appears unremarkable. Peritoneum: No free air. No significant free fluid. Lymph nodes: Unremarkable. Vasculature: Aortoiliac atherosclerosis is present. Soft tissues: There is a tiny fluid containing umbilical hernia. Bones: Degenerative changes of the lumbar spine are present. There is mild anterior subluxation of L4 relative to L5. IMPRESSION: 1. No evidence for an acute process within the abdomen or pelvis. 2. Small nonobstructing left renal stone. 3. Multiple cysts in both kidneys appearing isodense and hypodense. Possible lobulated cyst versus left renal solid lesion, nonemergent follow-up renal protocol CT or MRI recommended for further evaluation. 4. Trace amount of dense material in the dependent bladder which may represent blood products or nonspecific debris. 5. Cholelithiasis. 6. Colonic diverticulosis. 7. Nodular density in the left lower lobe measuring up to 2.6 cm. Follow-up dedicated CT of the chest recommended for further evaluation. 8. Mild hepatosplenomegaly. [facility] EXAM DESCRIPTION: US - Renal Ultrasound-Complete - 09/28/2022 4:03 pm CLINICAL HISTORY: KIMANI. BL renal cysts. Hx Nephrolithiasis. COMPARISON: Abdomen Pelvis Wo Contrast dated 11/02/2021; Thorax Wo Con dated 09/26/2022; Ct Skull/Thigh dated 02/16/2022 TECHNIQUE: Sonographic grayscale and color flow images of the kidneys and bladder were obtained. FINDINGS: The right kidney measures 12.6 centimeter in length. No hydronephrosis or echogenic calculi. Exophytic lobulated low pole hypoechoic 4.3 x 3.7 x 3.3 centimeter lesion with some posterior acoustic enhancement, could represent a complex cyst. Other lobulated and thinly septated cysts of the superior and midpole, the largest measuring 5.2 x 4.8 x 4.2 centimeter without suspicious features. The left kidney measures measures 12.1 centimeter in length. No hydronephrosis or echogenic calculi. Lobulated renal contour, with an exophytic mid to lower pole isoechoic mass measuring 3.8 x 3.4 x 3.3 centimeter, demonstrating internal vascularity. A similar contour abnormality is seen on the comparison PET-CT. Small left renal cortical anechoic cysts are present, the largest at the mid to lower pole measuring 2.4 centimeter. Overall, renal cortex is diffusely echogenic bilaterally, suggesting medical renal disease. The urinary bladder is incompletely distended without gross abnormality seen. IMPRESSION: No hydronephrosis or echogenic calculi. Cortical echogenicity bilaterally suggesting medical renal disease. Lobulated left renal contour. Exophytic mid to lower pole isoechoic 3.8 centimeter mass, could relate to contour lobulation or a malignant lesion such as a renal cell carcinoma. Similar contour abnormality was seen on prior PET-CT dated 02/16/2022, suggesting that this may relate to contour lobulation. If additional imaging characterization to be sought, a contrast enhanced MRI with renal mass protocol could provide improved assessment. Bilateral benign-appearing renal cysts as above. Conclusions/Impression: Stage III KIMANI may be CRS complicated by aggressive diuresis CKD II Hx BL renal cysts -No NSAIDs -Renal US reviewed -Diuresis reduced Hyponatremia in the setting of metolazone -Monitor level Hypokalemia due to diuresis -Replete potassium -Continue Amiloride Hx Nephrolithiasis -Renal US reviewed HTN with CKD/ CHF -Continue Metoprolol Diastolic CHF, A/C Hx Mechanical Aortic Valve -Change to oral furosemide -Metolazone decreased PreDM A1C 6.2 Hyperglycemia -No sugar diet Microcytic Anemia Iron Deficiency 11% -Start IV iron Case reviewed with Dr. Villafana
[2022-09-28] MEDS: METOPROLOL XL 25 MG TAB PO SCH (21:43)
[2022-09-29] MEDS: HYDROCODONE/APAP 10/325 TAB PO PRN ×4 (03:40→21:49)
[2022-09-29 04:22] LABS: Protime INR 2.03
[2022-09-29 04:40] LABS: Magnesium 2.6 mg/dL (1.6-2.4)
[2022-09-29 04:50] LABS: Potassium 3.8 mEq/L (3.5-5.1)
[2022-09-29] MEDS ORDERED: NA CHLORIDE 0.9% 100 ML ONE (09:22)
[2022-09-29] MEDS: DOCUSATE NA 100 MG CAP PO SCH ×2 (10:34→21:49)
[2022-09-29] MEDS: FUROSEMIDE 40 MG TABLET PO SCH ×2 (10:35→16:46)
[2022-09-29] MEDS: ASPIRIN 81 MG CHEWABLE TABLET PO SCH (10:35)
[2022-09-29] MEDS: SOD FERRIC GLUC COMPLX/SUCROSE 125 MG in NA CHLORIDE 0.9% 100 ML IV SCH (10:38)
--- NOTE | 2022-09-29 11:13 | P.PN ---
Nephrology Reports LE persists but improving, stable dyspnea, not on O2, renal u/s results discussed in detail Vitals, medications, blood work and imaging reviewed in the chart. General: Oriented x3, Cooperative HEENT: Atraumatic, sclera anicteric Neck: Supple Respiratory: Diminished at bases Cardiovascular: Non tachy, cardiac valve click, pitting edema present Gastrointestinal: Obese, mild distention, NT Integumentary: Venous stasis dermatitis Neurological: Normal speech, awake, alert Blood work reviewed in the chart Imagings Data: EXAM DESCRIPTION: CT - Thorax Wo Con CLINICAL HISTORY: Chest pain infiltrate on CXR? COMPARISON: Thorax Wo Con dated 12/05/2021; Chest Single View dated 09/25/2022 FINDINGS: Mild diffuse COPD with linear atelectasis in both lung bases posteriorly. No pleural thickening or pleural effusion. No pneumothorax. No axillary, mediastinal or hilar adenopathy. Significant cardiomegaly noted. No concerning bony finding. Rounded opacity in the left base laterally is unchanged since prior study. This is closely related to the diaphragm. Bilateral renal cysts. All CT scans are performed using dose optimization technique as appropriate and may include automated exposure control or mA/KV adjustment according to patient size. IMPRESSION: COPD is present with mild atelectasis in both lung bases.Significant cardiomegaly. EXAM DESCRIPTION: RADChest Single View09/25/2022 4:02 pm CLINICAL HISTORY: CONGESTION COMPARISON: Chest Pa And Lat (2 Views) dated 04/18/2022; Chest Single View dated 07/04/2021; Chest Single View dated 08/15/2017; Chest Single View dated 08/29/2016 TECHNIQUE: Portable AP view of the chest. FINDINGS: Patchy left basilar airspace opacities, appear to be new or progressive since the prior exam. No pneumothorax or effusion. Stable cardiomegaly. Sequelae of prior median sternotomy and aortic valve replacement. Right shoulder anchors in place. IMPRESSION: Patchy left basilar airspace opacities, could reflect atelectasis or early pneumonia. EXAM DESCRIPTION: CT - Abdomen Pelvis Wo Contrast - 11/02/2021 6:44 am COMPARISON: None CLINICAL HISTORY: Blood in urine TECHNIQUE: Multiple helical axial images were obtained through the abdomen and pelvis without intravenous contrast. Sagittal and coronal reformatted images are reviewed as well. All CT scans at this facility use dose modulation, iterative reconstruction, and/or weight-based dosing when appropriate to reduce radiation dose to as low as reasonably achievable. Findings: Lung bases: Heart is mildly enlarged. There is a small hiatal hernia. There is a 2.6 cm nodular density in the left lower lobe along the left hemidiaphragm (series 201, image 10). Subpleural cystic changes noted suggestive of fibrotic changes. Liver: There are several subcentimeter hypodensities too small to characterize. Liver appears mildly enlarged. Gallbladder/biliary: Gallbladder appears normal in size. A few small calcified stones in the gallbladder are present. No evidence of biliary ductal dilatation. Pancreas: Unremarkable. Spleen: Appears mildly enlarged. Adrenals: Unremarkable. Kidneys and ureters: There is a 5 mm stone at the inferior pole of the left kidney. No obstructing ureteral stone. No hydronephrosis. Multiple cysts in both kidneys are present appearing isodense and hypodense. There is a 3.5 cm lobulated isodense structure projecting from the midpole of the left kidney (series 201, image 38) which may represent a cyst, however renal parenchymal lesion difficult to exclude. Bladder: Ewing catheter is present. There is a trace amount of dense material in the dependent bladder. Pelvic organs: Unremarkable. Bowel: Colonic diverticula are present. No evidence of bowel obstruction. No bowel wall thickening. Appendix appears unremarkable. Peritoneum: No free air. No significant free fluid. Lymph nodes: Unremarkable. Vasculature: Aortoiliac atherosclerosis is present. Soft tissues: There is a tiny fluid containing umbilical hernia. Bones: Degenerative changes of the lumbar spine are present. There is mild anterior subluxation of L4 relative to L5. IMPRESSION: 1. No evidence for an acute process within the abdomen or pelvis. 2. Small nonobstructing left renal stone. 3. Multiple cysts in both kidneys appearing isodense and hypodense. Possible lobulated cyst versus left renal solid lesion, nonemergent follow-up renal protocol CT or MRI recommended for further evaluation. 4. Trace amount of dense material in the dependent bladder which may represent blood products or nonspecific debris. 5. Cholelithiasis. 6. Colonic diverticulosis. 7. Nodular density in the left lower lobe measuring up to 2.6 cm. Follow-up dedicated CT of the chest recommended for further evaluation. 8. [facility]galy. [facility] EXAM DESCRIPTION: US - Renal Ultrasound-Complete - 09/28/2022 4:03 pm CLINICAL HISTORY: KIMANI. BL renal cysts. Hx Nephrolithiasis. COMPARISON: Abdomen Pelvis Wo Contrast dated 11/02/2021; Thorax Wo Con dated 09/26/2022; Ct Skull/Thigh dated 02/16/2022 TECHNIQUE: Sonographic grayscale and color flow images of the kidneys and bladder were obtained. FINDINGS: The right kidney measures 12.6 centimeter in length. No hydronephrosis or echogenic calculi. Exophytic lobulated low pole hypoechoic 4.3 x 3.7 x 3.3 centimeter lesion with some posterior acoustic enhancement, could represent a complex cyst. Other lobulated and thinly septated cysts of the superior and midpole, the largest measuring 5.2 x 4.8 x 4.2 centimeter without suspicious features. The left kidney measures measures 12.1 centimeter in length. No hydronephrosis or echogenic calculi. Lobulated renal contour, with an exophytic mid to lower pole isoechoic mass measuring 3.8 x 3.4 x 3.3 centimeter, demonstrating internal vascularity. A similar contour abnormality is seen on the comparison PET-CT. Small left renal cortical anechoic cysts are present, the largest at the mid to lower pole measuring 2.4 centimeter. Overall, renal cortex is diffusely echogenic bilaterally, suggesting medical renal disease. The urinary bladder is incompletely distended without gross abnormality seen. IMPRESSION: No hydronephrosis or echogenic calculi. Cortical echogenicity bilaterally suggesting medical renal disease. Lobulated left renal contour. Exophytic mid to lower pole isoechoic 3.8 centimeter mass, could relate to contour lobulation or a malignant lesion such as a renal cell carcinoma. Similar contour abnormality was seen on prior PET-CT dated 02/16/2022, suggesting that this may relate to contour lobulation. If additional imaging characterization to be sought, a contrast enhanced MRI with renal mass protocol could provide improved assessment. Bilateral benign-appearing renal cysts as above. Conclusions/Impression: KIMANI on underlying CKD NOS -Renal imaging shows echogenic kidneys, Cr level stable, monitor closely on diuretics as he is on a aggressive regimen Hyponatremia in the setting of thiazide diuretic use, chronic diuretic use, other -Monitor levels closely Hypokalemia -resolved, pt is on a K sparing agent with Amiloride Abnormal diagnostic imaging of kidneys b/l, acquired renal cysts Exophytic isoechoic mass noted on Lt kidney likely a lobular contour of the kidney based on description by Radiologist after c/w PET-CT last year and pt recalls prior w/u and assessment with Urology including locally with Dr. Tavares and with prior biopsy. No further imaging needed at this time, will request records from urology as OP to f/u Diastolic CHF, A/C Hx Mechanical Aortic Valve -Cont diuresis, monitor closely Durga Roman MD, ALEX
[2022-09-29] MEDS: AMILORIDE HCL 5 MG TABLET PO SCH ×2 (11:19→21:00)
[2022-09-29] MEDS: METOLAZONE 2.5 MG TABLET PO SCH (11:20)
--- NOTE | 2022-09-29 13:31 | PN ---
Date of Progress Note: 09/29/2022 Subjective: Seen by bedside. Doing very well. No significant shortness of breath. Lower extremity edema has resolved. The patient is feeling much better. Review of Systems: No chest pain or shortness of breath, orthopnea, cough. No nausea, vomiting, diarrhea. All other sy stems reviewed and they are negative. Physical Examination: Vital Signs: Reviewed. Head and Neck: Pupils are equal, reactive to light. Intact eye movements. No JVD. No cervical lym phadenopathy. Neck: Supple. Thyroid is not enlarged. Lungs: Clear to auscultation bilaterally. No rhonchi, wheezing, or crackles. No accessory muscle u se. Heart: Irregular. No extra sounds. Abdomen: Soft, nontender. Bowel sounds positive. No organomegaly. No masses or hernia. No rigidi ty or rebound. Extremities: No edema, clubbing, cyanosis. Intact pulses. Skin: No rash. Neurologic: Alert, awake. No acute focal deficits appreciated. Investigations: BUN is 55, creatinine 1.58, and hemoglobin is 12.3. Assessment/recommendation: 1.Acute on chronic congestive heart failure exacerbation improved nicely. He appears to be at [facility] today, and he is on oral medication. The patient can be released to follow up as an outpatient i n 2-3 weeks. 2.Atrial fibrillation, rate is controlled and anticoagulated with Coumadin. INR is therapeutic. Co ntinue current management. Cardiology will sign off, and the patient can be seen as an outpatient in 1-2 weeks post discharge. SR/MODL Voice ID: [id number] Report ID: [id number]
[2022-09-29] MEDS: WARFARIN SODIUM 4 MG TAB PO SCH (16:45)
[2022-09-29] MEDS: WARFARIN SODIUM 3 MG TAB PO SCH (16:45)
--- NOTE | 2022-09-29 16:55 | P.PN ---
Subjective Date of Service: 09/29/22 Chief Complaint: SOB and generalized edema No acute events overnight. He reports significant improvement in his shortness of breath, orthopnea, and edema. He denies any chest pain or palpitations. His net I/O is -3.8 L since admission. Review of Systems 10-point ROS is otherwise unremarkable Respiratory: Shortness of Breath Cardiovascular: Edema Physical Examination - Vital Signs Temperature: 97.3 F Blood Pressure: 106/73 Pulse: 90 Respirations: 17 Pulse Ox (%): 97 Assessment And Plan - Plan - Physical Exam General: Alert, In no apparent distress, Oriented x3 HEENT: Atraumatic, EOMI, Sclerae nonicteric Neck: JVD not distended Respiratory: Diminished, Crackles/rales (faint bibasilar) Cardiovascular: Regular rate/rhythm, Other (mechanical heart valve click), Edema (1+ BLE pitting edema) Gastrointestinal: Normal bowel sounds, Soft, Non-distended, No tenderness Musculoskeletal: No clubbing Integumentary: No rashes Neurological: Normal speech, Normal affect # Acute on Chronic Decompensated Diastolic Congestive Heart Failure with Preserved Ejection Fraction - Consult Cardiology and he was evaluated by Dr. Quintanilla - recommendations appreciated - Ordered transthoracic echocardiogram - Last echocardiogram (2015) = "normal left ventricular ejection fraction. left ventricular hypertrophy. mechanical aortic valve prosthesis with no signi ficant aortic stenosis, no aortic regurgitation. mild mitral and tricuspid regurgitation." - NT-Pro BNP = 5286 - Diuresis with IV furosemide - Continue home metolazone, metoprolol - Hold ramipril given KIMANI - Daily weights - Strict I/O - net -3.8 L since admission - He would likely benefit from an additional day of diuresis - Cardiac diet, 1.5 L fluid restriction, 2 g Na restriction # KDIGO Stage I Acute Kidney Injury - suspect Cardiorenal Syndrome +/- Component of Over-Diuresis - Consulted Nephrology and spoke with Dr. Roman - recommendations appreciated - Appreciate recommendations regarding diuresis - Creatinine = 1.58 -> 1.41 -> 1.46 -> 1.65 -> 1.81 -> 1.57 (creatinine ~0.8 in February 2022) - Urinalysis = 1+ blood, <5 RBCs, 1+ glucose - IV diuretics as mentioned above - Monitor creatinine and urine output - If worsening, obtain renal ultrasound - Renally dose medications # Left Renal Mass (3.8 cm) - concern for Contour Lobulation vs Renal Cell Carcinoma - Renal ultrasound = "no hydronephrosis or echogenic calculi. Cortical echogenicity bilaterally suggesting medical renal disease. Lobulated left renal contour. Exophytic mid to lower pole isoechoic 3.8 centimeter mass, could relate to contour lobulation or a malignant lesion such as a renal cell carcinoma. Similar contour abnormality was seen on prior PET-CT dated 02/16/2022, suggesting that this may relate to contour lobulation. If additional imaging characterization to be sought, a contrast enhanced MRI with renal mass protocol could provide improved assessment. Bilateral benign-appearing renal cysts as above." - He was counseled extensively on this and states that he has had negative biopsy results with Dr. Tavares (Urology) # Traumatic Ground-Level Fall complicated by Left 5th-8th Rib Fractures - He reports falling on his left ribcage several weeks ago - Ordered rib x-rays = "mildly displaced posterior left fifth and sixth rib fractures. Oblique fracture also present lateral left seventh and eighth rib ribs. No pneumothorax seen." - PRN hydrocodone-acetaminophen # Suspect Left Basilar Atelectasis - Chest x-ray = "patchy left basilar airspace opacities, could reflect atelectasis or early pneumonia" - He has no clinical signs to suggest pneumonia, ordered CT chest to further evaluate - CT chest = "COPD is present with mild atelectasis in both lung bases. Significant cardiomegaly." - Discontinued antibiotics at this time # Chronic Atrial Fibrillation # Aortic Valvulopathy s/p Mechanical Aortic Valve Replacement on Warfarin # History of Aortic Aneurysm # Hypertension - Continue home metoprolol, warfarin - Reports that he takes 13 mg warfarin at home - but also takes it with "leafy greens and grapefruit juice" - Given that his diet is more controlled here, will start with 7 mg and adjust as needed - Goal INR: 2.5-3.5 - Monitor INR levels Adam Villafana M.D.
[2022-09-29] MEDS: METOPROLOL XL 25 MG TAB PO SCH (21:00)
[2022-09-30] MEDS: HYDROCODONE/APAP 10/325 TAB PO PRN ×3 (05:24→18:07)
[2022-09-30 06:36] LABS: Magnesium 2.6 mg/dL (1.6-2.4); Potassium 3.8 mEq/L (3.5-5.1)
[2022-09-30] MEDS ORDERED: POTASSIUM CL SA 10 MEQ TAB PO ONE (09:00)
[2022-09-30] MEDS: AMILORIDE HCL 5 MG TABLET PO SCH (09:00)
[2022-09-30] MEDS: METOLAZONE 2.5 MG TABLET PO SCH (09:00)
[2022-09-30] MEDS: FUROSEMIDE 40 MG TABLET PO SCH (09:00)
[2022-09-30] MEDS: DOCUSATE NA 100 MG CAP PO SCH ×2 (09:39→21:18)
[2022-09-30] MEDS: ASPIRIN 81 MG CHEWABLE TABLET PO SCH (09:39)
[2022-09-30] MEDS: SOD FERRIC GLUC COMPLX/SUCROSE 125 MG in NA CHLORIDE 0.9% 100 ML IV SCH (09:40)
[2022-09-30] MEDS: MIDODRINE HCL 5 MG TABLET PO SCH ×2 (12:38→21:16)
--- NOTE | 2022-09-30 12:58 | P.PN ---
Nephrology Pt reports feeling much better, dyspnea and LE edema improved but recorded BP have been low although pt largely asymptomatic Vitals, medications, blood work and imaging reviewed in the chart. General: Oriented x3, Cooperative HEENT: Atraumatic, sclera anicteric, off NC Neck: Supple Respiratory: b/l air entry, no rhonchi Cardiovascular: Non tachy, cardiac valve click, pitting edema improved Gastrointestinal: Obese, mild distention, NT Integumentary: Venous stasis dermatitis Neurological: Normal speech, awake, alert Blood work reviewed in the chart Imagings Data: EXAM DESCRIPTION: CT - Thorax Wo Con CLINICAL HISTORY: Chest pain infiltrate on CXR? COMPARISON: Thorax Wo Con dated 12/05/2021; Chest Single View dated 09/25/2022 FINDINGS: Mild diffuse COPD with linear atelectasis in both lung bases posteriorly. No pleural thickening or pleural effusion. No pneumothorax. No axillary, mediastinal or hilar adenopathy. Significant cardiomegaly noted. No concerning bony finding. Rounded opacity in the left base laterally is unchanged since prior study. This is closely related to the diaphragm. Bilateral renal cysts. All CT scans are performed using dose optimization technique as appropriate and may include automated exposure control or mA/KV adjustment according to patient size. IMPRESSION: COPD is present with mild atelectasis in both lung bases.Significant cardiomegaly. EXAM DESCRIPTION: RADChest Single View09/25/2022 4:02 pm CLINICAL HISTORY: CONGESTION COMPARISON: Chest Pa And Lat (2 Views) dated 04/18/2022; Chest Single View dated 07/04/2021; Chest Single View dated 08/15/2017; Chest Single View dated 08/29/2016 TECHNIQUE: Portable AP view of the chest. FINDINGS: Patchy left basilar airspace opacities, appear to be new or progressive since the prior exam. No pneumothorax or effusion. Stable cardiomegaly. Sequelae of prior median sternotomy and aortic valve replacement. Right shoulder anchors in place. IMPRESSION: Patchy left basilar airspace opacities, could reflect atelectasis or early pneumonia. EXAM DESCRIPTION: CT - Abdomen Pelvis Wo Contrast - 11/02/2021 6:44 am COMPARISON: None CLINICAL HISTORY: Blood in urine TECHNIQUE: Multiple helical axial images were obtained through the abdomen and pelvis without intravenous contrast. Sagittal and coronal reformatted images are reviewed as well. All CT scans at this facility use dose modulation, iterative reconstruction, and/or weight-based dosing when appropriate to reduce radiation dose to as low as reasonably achievable. Findings: Lung bases: Heart is mildly enlarged. There is a small hiatal hernia. There is a 2.6 cm nodular density in the left lower lobe along the left hemidiaphragm (series 201, image 10). Subpleural cystic changes noted suggestive of fibrotic changes. Liver: There are several subcentimeter hypodensities too small to characterize. Liver appears mildly enlarged. Gallbladder/biliary: Gallbladder appears normal in size. A few small calcified stones in the gallbladder are present. No evidence of biliary ductal dilatation. Pancreas: Unremarkable. Spleen: Appears mildly enlarged. Adrenals: Unremarkable. Kidneys and ureters: There is a 5 mm stone at the inferior pole of the left kidney. No obstructing ureteral stone. No hydronephrosis. Multiple cysts in both kidneys are present appearing isodense and hypodense. There is a 3.5 cm lobulated isodense structure projecting from the midpole of the left kidney (series 201, image 38) which may represent a cyst, however renal parenchymal lesion difficult to exclude. Bladder: Ewing catheter is present. There is a trace amount of dense material in the dependent bladder. Pelvic organs: Unremarkable. Bowel: Colonic diverticula are present. No evidence of bowel obstruction. No bowel wall thickening. Appendix appears unremarkable. Peritoneum: No free air. No significant free fluid. Lymph nodes: Unremarkable. Vasculature: Aortoiliac atherosclerosis is present. Soft tissues: There is a tiny fluid containing umbilical hernia. Bones: Degenerative changes of the lumbar spine are present. There is mild anterior subluxation of L4 relative to L5. IMPRESSION: 1. No evidence for an acute process within the abdomen or pelvis. 2. Small nonobstructing left renal stone. 3. Multiple cysts in both kidneys appearing isodense and hypodense. Possible lobulated cyst versus left renal solid lesion, nonemergent follow-up renal protocol CT or MRI recommended for further evaluation. 4. Trace amount of dense material in the dependent bladder which may represent blood products or nonspecific debris. 5. Cholelithiasis. 6. Colonic diverticulosis. 7. Nodular density in the left lower lobe measuring up to 2.6 cm. Follow-up dedicated CT of the chest recommended for further evaluation. 8. Mild hepatosplenomegaly. [facility] EXAM DESCRIPTION: US - Renal Ultrasound-Complete - 09/28/2022 4:03 pm CLINICAL HISTORY: KIMANI. BL renal cysts. Hx Nephrolithiasis. COMPARISON: Abdomen Pelvis Wo Contrast dated 11/02/2021; Thorax Wo Con dated 09/26/2022; Ct Skull/Thigh dated 02/16/2022 TECHNIQUE: Sonographic grayscale and color flow images of the kidneys and bladder were obtained. FINDINGS: The right kidney measures 12.6 centimeter in length. No hydronephrosis or echogenic calculi. Exophytic lobulated low pole hypoechoic 4.3 x 3.7 x 3.3 centimeter lesion with some posterior acoustic enhancement, could represent a complex cyst. Other lobulated and thinly septated cysts of the superior and midpole, the largest measuring 5.2 x 4.8 x 4.2 centimeter without suspicious features. The left kidney measures measures 12.1 centimeter in length. No hydronephrosis or echogenic calculi. Lobulated renal contour, with an exophytic mid to lower pole isoechoic mass measuring 3.8 x 3.4 x 3.3 centimeter, demonstrating internal vascularity. A similar contour abnormality is seen on the comparison PET-CT. Small left renal cortical anechoic cysts are present, the largest at the mid to lower pole measuring 2.4 centimeter. Overall, renal cortex is diffusely echogenic bilaterally, suggesting medical renal disease. The urinary bladder is incompletely distended without gross abnormality seen. IMPRESSION: No hydronephrosis or echogenic calculi. Cortical echogenicity bilaterally suggesting medical renal disease. Lobulated left renal contour. Exophytic mid to lower pole isoechoic 3.8 centimeter mass, could relate to contour lobulation or a malignant lesion such as a renal cell carcinoma. Similar contour abnormality was seen on prior PET-CT dated 02/16/2022, suggesting that this may relate to contour lobulation. If additional imaging characterization to be sought, a contrast enhanced MRI with renal mass protocol could provide improved assessment. Bilateral benign-appearing renal cysts as above. Conclusions/Impression: Stage I KIMANI on underlying CKD NOS -Renal imaging showed echogenic kidneys, Cr levels with mild fluctuation but no consistent upward trend, monitor closely on diuretics as he is on a aggressive regimen and BP now low. Will back off meds some. Hyponatremia in the setting of thiazide diuretic use, chronic diuretic use, other -Will d/c Metolazone currently, volume overload has improved Hypokalemia -resolved, pt is on a K sparing agent with Amiloride but will lower dose. No ACEi at this time due to lower BP Abnormal diagnostic imaging of kidneys b/l, acquired renal cysts Exophytic isoechoic mass noted on Lt kidney likely a lobular contour of the kidney based on description by Radiologist after c/w PET-CT last year and pt recalls prior w/u and assessment with Urology including locally with Dr. Tavares and with prior biopsy. No further imaging needed at this time, will request records from urology as OP to f/u Diastolic CHF, A/C Hx Mechanical Aortic Valve -Diuresed well, fluid status improved Hypotension, other -AM meds approp held, will back off doses of Amiloride and Lasix, holding parameter in place, both re-timed to tmrw, will dose Albumin 25% x 1 and add low dose midodrine at least temp Durga Roman MD, ALEX
[2022-09-30] MEDS ORDERED: ALBUMIN HUMAN 25% 100 ML IV ONE (13:00)
--- NOTE | 2022-09-30 17:13 | P.PN ---
Subjective Date of Service: 09/30/22 Chief Complaint: SOB and generalized edema No acute events overnight. He reports near resolution of his symptoms. He states that his shortness of breath, orthopnea, and edema are significantly improved. He denies any chest pain or palpitations. His net I/O is -4.6 L since admission. Although he clinically appears to be improving, his blood pressure was 87/65 and his creatinine is up-trending. Will monitor in the hospital for an additional day and re-assess tomorrow. Review of Systems 10-point ROS is otherwise unremarkable Cardiovascular: Edema Physical Examination - Vital Signs Temperature: 97.6 F Blood Pressure: 134/90 Pulse: 87 Respirations: 16 Pulse Ox (%): 95 Assessment And Plan - Plan - Physical Exam General: Alert, In no apparent distress, Oriented x3 HEENT: Atraumatic, EOMI, Sclerae nonicteric Neck: JVD not distended Respiratory: Diminished, Clear to ausculation bilaterally without wheezes, rhonchi, or rales Cardiovascular: Regular rate/rhythm, Other (mechanical heart valve click), Edema (1+ BLE pitting edema) Gastrointestinal: Normal bowel sounds, Soft, Non-distended, No tenderness Musculoskeletal: No clubbing Integumentary: No rashes Neurological: Normal speech, Normal affect # Acute on Chronic Decompensated Diastolic Congestive Heart Failure with Preserved Ejection Fraction - Consult Cardiology and he was evaluated by Dr. Quintanilla - recommendations appreciated - Ordered transthoracic echocardiogram - Last echocardiogram (2015) = "normal left ventricular ejection fraction. left ventricular hypertrophy. mechanical aortic valve prosthesis with no significant aortic stenosis, no aortic regurgitation. mild mitral and tricuspid regurgitation." - NT-Pro BNP = 5286 - Diuresis with per Cardiology and Nephrology - Hold ramipril given KIMANI - Daily weights - Strict I/O - net -4.6 L since admission - Cardiac diet, 1.5 L fluid restriction, 2 g Na restriction # KDIGO Stage I Acute Kidney Injury - suspect Cardiorenal Syndrome +/- Component of Over-Diuresis - Consulted Nephrology and spoke with Dr. Roman - recommendations appreciated - Appreciate recommendations regarding diuresis - Creatinine = 1.58 -> 1.41 -> 1.46 -> 1.65 -> 1.81 -> 1.57 -> 1.75 (creatinine ~0.8 in February 2022) - Urinalysis = 1+ blood, <5 RBCs, 1+ glucose - Diuretics as mentioned above - Monitor creatinine and urine output - Renally dose medications # Left Renal Mass (3.8 cm) - concern for Contour Lobulation vs Renal Cell Carcinoma - Renal ultrasound = "no hydronephrosis or echogenic calculi. Cortical echogeni [place] bilaterally suggesting medical renal disease. Lobulated left renal contour. Exophytic mid to lower pole isoechoic 3.8 centimeter mass, could relate to contour lobulation or a malignant lesion such as a renal cell carcinoma. Similar contour abnormality was seen on prior PET-CT dated 02/16/2022, suggesting that this may relate to contour lobulation. If additional imaging characterization to be sought, a contrast enhanced MRI with renal mass protocol could provide improved assessment. Bilateral benign-appearing renal cysts as above." - He was counseled extensively on this and states that he has had negative biopsy results with Dr. Tavares (Urology) # Traumatic Ground-Level Fall complicated by Left 5th-8th Rib Fractures - He reports falling on his left ribcage several weeks ago - Ordered rib x-rays = "mildly displaced posterior left fifth and sixth rib fractures. Oblique fracture also present lateral left seventh and eighth rib ribs. No pneumothorax seen." - PRN hydrocodone-acetaminophen # Suspect Left Basilar Atelectasis - Chest x-ray = "patchy left basilar airspace opacities, could reflect atelectasis or early pneumonia" - He has no clinical signs to suggest pneumonia, ordered CT chest to further evaluate - CT chest = "COPD is present with mild atelectasis in both lung bases. Significant cardiomegaly." - Discontinued antibiotics at this time # Chronic Atrial Fibrillation # Aortic Valvulopathy s/p Mechanical Aortic Valve Replacement on Warfarin # History of Aortic Aneurysm # Hypertension - Continue home metoprolol, warfarin - Reports that he takes 13 mg warfarin at home - but also takes it with "leafy greens and grapefruit juice" - Given that his diet is more controlled here, will start with 7 mg and adjust as needed - Goal INR: 2.5-3.5 - Monitor INR levels Adam Villafana M.D.
[2022-09-30 17:44] LABS: Protime INR 1.85
[2022-09-30] MEDS: WARFARIN SODIUM 3 MG TAB PO SCH ×2 (18:00→18:05)
[2022-09-30] MEDS: WARFARIN SODIUM 4 MG TAB PO SCH (18:07)
[2022-09-30] MEDS: METOPROLOL XL 25 MG TAB PO SCH (21:17)
[2022-10-01] MEDS: HYDROCODONE/APAP 10/325 TAB PO PRN ×2 (01:39→09:37)
[2022-10-01 04:58] LABS: Protime INR 1.76
[2022-10-01 05:04] LABS: Potassium 4.6 mEq/L (3.5-5.1)
[2022-10-01] MEDS ORDERED: WARFARIN SODIUM 5 MG TAB PO ONE (07:45)
[2022-10-01] MEDS ORDERED: AMILORIDE HCL 5 MG TABLET PO SCH (09:00)
[2022-10-01] MEDS ORDERED: FUROSEMIDE 40 MG TABLET PO SCH (09:00)
[2022-10-01] MEDS: MIDODRINE HCL 5 MG TABLET PO SCH (09:35)
[2022-10-01] MEDS: SOD FERRIC GLUC COMPLX/SUCROSE 125 MG in NA CHLORIDE 0.9% 100 ML IV SCH (09:35)
[2022-10-01] MEDS: ASPIRIN 81 MG CHEWABLE TABLET PO SCH (09:39)
[2022-10-01] MEDS: DOCUSATE NA 100 MG CAP PO SCH (09:39)
--- NOTE | 2022-10-01 12:54 | P.DS ---
Admission Date: 09/25/22 Discharge Date: 10/01/22 Disposition: ROUTINE DISCHARGE Discharge Condition: GOOD Reason for Admission: SOB and generalized edema Consultations: 1. Cardiology 2. Nephrology Hospital Course: DIAGNOSES: # Acute on Chronic Decompensated Diastolic Congestive Heart Failure with Preserved Ejection Fraction # KDIGO Stage I Acute Kidney Injury - suspect Cardiorenal Syndrome +/- Component of Over-Diuresis # Left Renal Mass (3.8 cm) - concern for Contour Lobulation vs Renal Cell Carcinoma # Traumatic Mechanical Ground-Level Fall complicated by Left 5th-8th Rib Fr actures # Suspect Left Basilar Atelectasis # Chronic Atrial Fibrillation # Aortic Valvulopathy s/p Mechanical Aortic Valve Replacement on Warfarin # History of Aortic Aneurysm # Hypertension HOSPITAL COURSE: Mr. Chaim Michelle is a pleasant 67-year-old male with a past medical history significant for chronic diastolic congestive heart failure, chronic atrial fibrillation, aortic valvulopathy s/p mechanical aortic valve replacement on warfarin, and hypertension who was admitted to the [facility] on 09/25/2022 for shortness of breath and generalized edema. He was admitted to the Medicine service. Upon further evaluation, he was found to have acute on chronic decompensated diastolic congestive heart failure. His NT-Pro BNP was 5286. Initial chest x-ray revealed, "patchy left basilar airspace opacities, could reflect atelectasis or early pneumonia," so he was started on antibiotics. However, due to lack of clinical signs of infection, a CT chest was obtained and revealed, "COPD is present with mild atelectasis in both lung bases.Significant cardiomegaly." Given these reports and lack of clinical signs for pneumonia, antibiotics were discontinued. Cardiology was consulted for his decompensated heart failure and he was evaluated by Dr. Quintanilla. He was started on IV diuretics, with significant improvement in his symptoms. Nephrology was c onsulted due to his acute kidney injury and he was evaluated by Drs. Mata and Abel. His medications were adjusted and there was significant improvement in his clinical status and modest improvement in his creatinine levels. This morning, he felt significantly better and requested to be discharged home. I reviewed his diuretic regimen with Dr. Roman, who recommended furosemide 40 mg BID, amiloride 5 mg daily, and midodrine 2.5 mg BID. From his standpoint, he has been cleared for discharge. Incidentally, on renal ultrasound, it showed, "no hydronephrosis or echogenic calculi. Cortical echogenicity bilaterally suggesting medical renal disease. Lobulated left renal contour. Exophytic mid to lower pole isoechoic 3.8 centimeter mass, could relate to contour lobulation or a malignant lesion such as a renal cell carcinoma. Similar contour abnormality was seen on prior PET-CT dated 02/16/2022, suggesting that this may relate to contour lobulation. If additional imaging characterization to be sought, a contrast enhanced MRI with renal mass protocol could provide improved assessment. Bilateral benign-appearing renal cysts as above." He was counseled extensively on these findings and my concern for malignancy was expressed to him. He stated that he has been seeing Urology and has had a biopsy with Dr. Tavares. He was advised to follow-up with Urology for further evaluation. He verbalized understanding and agreed to make this appointment. On 10/01/2022, he was seen on morning rounds and deemed medically stable for discharge. He was discharged with instructions to schedule follow-up appointments with his PCP (JI Rodriguez), with Cardiology (Dr. Quintanilla), with Nephrology (Dr. Roman), and with Urology (Dr. Tavares). He was provided prescriptions for amiloride, furosemide, and midodrine. He was given the opportunity to ask questions and reported no further questions. Furthermore, all questions were answered to the best of my ability. A copy of this discharge summary will be sent to the above providers to facilitate continuity of care. Today, I personally spent 35 minutes on his case, of which greater than 50% of the time was spent in patient education, counseling, and coordination of care as described above. - Physical Exam General: Alert, In no apparent distress, Oriented x3 HEENT: Atraumatic, Sclerae nonicteric Neck: JVD not distended Respiratory: Diminished, Clear to ausculation bilaterally without wheezes, rhonchi, or rales Cardiovascular: Regular rate/rhythm, Other (mechanical heart valve click), Edema (trace-1+ BLE pitting edema) Gastrointestinal: Normal bowel sounds, Soft, Non-distended, No tenderness Musculoskeletal: No clubbing Integumentary: No rashes Neurological: Normal speech, Normal affect Vital Signs/Physical Exam: Temp Pulse Resp BP Pulse Ox 97.9 F 89 20 113/78 100 10/01/22 08:00 10/01/22 12:40 10/01/22 10:37 10/01/22 12:40 10/01/22 10:37 Laboratory Data at Discharge: WBC 7.50 K/uL (4.3-10.9) 09/26/22 04:17 Hgb 12.3 g/dL (13.6-17.9) L 09/26/22 04:17 Hct 37.8 % (39.6-49.0) L 09/26/22 04:17 Plt Count 158 K/uL (152-406) 09/26/22 04:17 PT 19.4 SECONDS (9.5-12.5) H 10/01/22 03:57 INR 1.76 10/01/22 03:57 Sodium 130 mEq/L (136-145) L 10/01/22 03:57 Potassium 4.6 mEq/L (3.5-5.1) D 10/01/22 03:57 BUN 58 mg/dL (7-18) H 10/01/22 03:57 Creatinine 1.63 mg/dL (0.70-1.30) H 10/01/22 03:57 Glucose 137 mg/dL (74-106) H 10/01/22 03:57 Uric Acid 14.7 mg/dL (3.5-7.2) H 09/28/22 03:44 Phosphorus 3.7 mg/dL (2.5-4.9) 09/25/22 15:55 Magnesium 2.6 mg/dL (1.6-2.4) H 09/30/22 05:50 Triglycerides 86 mg/dL (<150) 09/25/22 15:55 Cholesterol 114 mg/dL (<200) 09/25/22 15:55 HDL Cholesterol 26 mg/dL (40-60) L 09/25/22 15:55 Cholesterol/HDL Ratio 4.38 09/25/22 15:55 Home Medications: RX: Warfarin Sodium [Coumadin*] 13 mg PO BEDTIME 03/15/22 RX: Metoprolol Succinate 1 tab PO BEDTIME 09/26/22 RX: Amiloride HCl 5 mg PO DAILY #30 tab 10/01/22 RX: Furosemide [Lasix*] 40 mg PO BID #60 tab 10/01/22 RX: Midodrine HCl [Proamatine*] 2.5 mg PO BID #30 tab 10/01/22 New Medications: RX: Amiloride HCl 5 mg PO DAILY #30 tab RX: Furosemide [Lasix*] 40 mg PO BID #60 tab RX: Midodrine HCl [Proamatine*] 2.5 mg PO BID #30 tab Physician Discharge Instructions: 1. Please call and schedule a follow-up appointment with your PCP (JI Rodriguez) in 3-5 days - Please follow-up your fractured ribs with your PCP and avoid lifting heavy objects 2. Please call and schedule a follow-up appointment with Nephrology (Dr. Roman) on 10/06/2022 - He would like for you to have your bloodwork checked prior to this appointment - Please take your blood pressure and weight every day and write it down. Please bring this information to this appointment 3. Please call and schedule a follow-up appointment with Cardiology (Dr. Quintanilla) in 3-5 days 4. Please call and schedule a follow-up appointment with Urology (Dr. Tavares) in 5-7 days - As we discussed, there is an irregularity on your kidney ultrasound, which is concerning for possible cancer. Please discuss this with Urology Medication changes: 1. Please take furosemide (Lasix) 40 mg two times per day 2. Please take amiloride 5 mg once per day 3. Please take midodrine 2.5 mg two times per day 4. Please stop taking ramipril and metolazone You have been given a 1 month prescription for these medications. Please follow- up with your PCP for medication refills/adjustments Diet: Renal Activity: Ad eusebia Followup: Shana Rodriguez NP [Primary Care Provider] - Luis Alberto Quintanilla MD [ACTIVE - CAN ADMIT] - Jony Tavares [ACTIVE - CAN ADMIT] - Durga Roman [ACTIVE - CAN ADMIT] - Time spent managing pt's care (in minutes): 35
[2022-10-01 13:52] VITALS: BP 112/78; TEMP 97.6
[2022-10-01 15:02] VITALS: O2SAT 98
[2022-10-01] MEDS ORDERED: WARFARIN SODIUM 5 MG TAB PO SCH (17:00)
[2022-10-01] MEDS ORDERED: WARFARIN SODIUM 3 MG TAB PO SCH (17:00)
== END 2022-10-01 15:00 | disposition home or self-care (01) | DRG 291 ==
LOC: ER 14:53 → ERHOLD 17:27 → 2ND 18:28
PROVIDERS: ADMIT Internal Medicine; ATTEND Internal Medicine
DX: I13.0 Hypertensive heart and chronic kidney disease with heart failure and stage 1 through stage 4 chronic kidney disease, or unspecified chronic kidney disease (principal); I50.33 Acute on chronic diastolic (congestive) heart failure; S22.42XA Multiple fractures of ribs, left side, initial encounter for closed fracture; J44.1 Chronic obstructive pulmonary disease with (acute) exacerbation; N17.9 Acute kidney failure, unspecified; I48.20 Chronic atrial fibrillation, unspecified; E87.1 Hypo-osmolality and hyponatremia; N18.31 Chronic kidney disease, stage 3a; D63.1 Anemia in chronic kidney disease; E87.6 Hypokalemia; D50.9 Iron deficiency anemia, unspecified; M19.90 Unspecified osteoarthritis, unspecified site; I08.1 Rheumatic disorders of both mitral and tricuspid valves; M79.622 Pain in left upper arm; N28.89 Other specified disorders of kidney and ureter; T50.2X5A Adverse effect of carbonic-anhydrase inhibitors, benzothiadiazides and other diuretics, initial encounter; R73.9 Hyperglycemia, unspecified; Z95.2 Presence of prosthetic heart valve; Z79.01 Long term (current) use of anticoagulants; Z79.899 Other long term (current) drug therapy; Z96.611 Presence of right artificial shoulder joint; Z87.891 Personal history of nicotine dependence; Z20.822 Contact with and (suspected) exposure to COVID-19; W18.30XA Fall on same level, unspecified, initial encounter; Y93.9 Activity, unspecified; Y92.9 Unspecified place or not applicable; Y99.9 Unspecified external cause status
CPT/HCPCS: 36415; 71045; 71250; 76770; 80048; 80061; 81001; 82570; 83036; 83540; 83735; 83880; 83930; 83935; 84100; 84145; 84156; 84466; 84484; 84550; 85025; 85610; 93005; 94010; 96374; 99285; J1940; J2185; J2916; P9047; U0003

== ENCOUNTER 2022-12-19 10:38 | Emergency (ER) | payer OTHER ==
--- OUTSIDE RECORDS SUMMARY | 2022-12-19 10:44 | XMS REPORT | Continuity of Care Document ---
:1955 Author Organization [facility] t Address [address] [facility] Jean[place]Claude. [address] [place] [address] Care Team Providers Name Role Phone SHANA COOPER Primary Care Physician Unavailable Shana Cooper Attending Clinician Unavailable RADHA LAZO Attending Clinician Unavailable RADHA SIBLEY Attending Clinician Unavailable JERAMY DAVE Attending Clinician Unavailable CHRETIEN_F Attending Clinician Unavailable SHANA JENKINS Attending Clinician Unavailable Shana Cooper NP Attending Clinician ESHA LANCE Attending Clinician Unavailable Ascencion Khan MD Attending Clinician ASCENCION KHAN Attending Clinician Unavailable Virtual, Surgeon Attending Clinician Unavailable Elie Amaya RN Attending Clinician Unavailable Kayli Attending Clinician Unavailable RONAL ASHLEY NP Attending Clinician Unavailable FRANCES GARCIA Attending Clinician Unavailable CHRETIEN_F Admitting Clinician Unavailable CESAR TODD Admitting Clinician Unavailable ELSA BRADLEY Admitting Clinician Unavailable ASCENCION KHAN Admitting Clinician Unavailable Demario_W Admitting Clinician Unavailable Payers Payer Name Policy Type Policy Number Effective Date Expiration Date Justin curry [facility] TIARAMED [id number] 2022 00:00:00 [facility] - MEDICARE [id number] COMPLETE (MEDICARE REPLACEMENT HMO) AARP Medicare 53 [id number] Common [facility] [id number] (MEDICARE REPLACEMENT/ADVAN TAGE - PPO) Problems Condition Condition Condition Status Onset Resolution Last Treating Co mments Source Name Details Category Date Date Treatment Clinician Date Dehydratio Dehydratio Problem Active [facility] n n 5-31 [facility] Abdominal Abdominal Problem Active [facility] bloating Bloating 5-03 Commun i 00:00: ty [facility] Dizziness Dizziness Problem Active [facility] 4-25 [facility]i 00:00: ty [facility] Lightheade Lightheade Problem Active S [facility] dness dness 4-25 Communi 00:00: ty 00 [facility] Hyperchole Hyperchole Problem Active [facility] sterolemia sterolemia 4-24 Co mmuni 00:00: ty 00 [facility] Essential Essential Problem Active [facility] hypertensi Hypertensi 4-24 Co mmuni on on 00:00: ty 00 [facility] Coronary Coronary Problem Active [facility] arterioscl Arterioscl 4-24 Co mmuni erosis erosis 00:00: ty 00 [facility] Mitral Mitral Problem Active [place] valve Valve 4-24 Communi regurgitat Regurgitat 00:00: ty ion ion 00 [facility] Cardiomyop Cardiomyop Problem Active [facility] athy athy 4-24 Communi 00:00: ty 00 [facility] Renal mass Renal Mass Problem Active [facility] 4-20 [facility]i 00:00: ty 00 [facility] Chronic Chronic Problem Active [place] kidney Kidney 4-20 Communi disease Disease 00:00: ty stage 3B Stage 3B 00 Hospit [facility] Clin[facility] Abdominal Abdominal Problem Active [facility] pain Pain 4-19 Communi 00:00: ty 00 [facility] Chronic Chronic Problem Active [place] atrial Atrial 4-19 Communi fibrillati Fibrillati 00:00: ty on on [facility] Atrial Atrial Problem Active [place] fibrillati Fibrillati 4-19 Co mmuni on on 00:00: ty 00 [facility] Congestive Congestive Problem Active [facility] heart Heart 4-19 Communi failure Failure 00:00: ty 00 [facility] Chronic Chronic Problem Active [place] obstructiv Obstructiv 4-19 Co mmuni e lung e Lung 00:00: ty disease Disease 00 [facility] Chronic Chronic Disease Recurre 2015-[address] [facility] anticoagul anticoagul nce 07-26 [facility] k[facility] ation ation 00:00: Medical 00 [place] History of History of Disease Recurre 2015-[address] [facility] smoking smoking cte 07-26 [facility] 00:00: Medical [place] Pulmonary Pulmonary Disease Recurre 2015-[address] nodule nodule cte 07-26 [facility] 00:00: Medical 00 [place] Cholelithi Cholelithi Disease Recurre 2015-[address] asis asis cte 07-26 [facility] 00:00: Medical 00 [place] Status Status Disease Active 2015-[address] [facility] post post 07-26 [facility] aortic aortic 00:00: Medical valve valve 00 [place] replacemen replacemen t t H/O repair H/O repair Disease Active 2015-[address] 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 aneurysm [facility] [id number] Cardiovasc Problem Com mon ular Spirit disease - [facility] History of History of Problem Resolve [facility] Heart Heart d Physici disease disease ans History of History of Problem Resolve UT hypertensi hypertensi d Ph ysici on on ans Right Right Problem Active [facility] shoulder shoulder Physic i pain pain ans Tear of Tear of Problem Active [facility] right right Physici rotator rotator ans cuff cuff [id number] [place] [address] nodule [facility] [id number] Complex Problem Commo n renal cyst [facility] [id number] Bilateral Problem Comm on hearing Spirit loss, - [facility] hearing [facility] loss [facility] [id number] Lung mass Problem Com mon [facility] [id number] Pain of Problem Commo n right Spirit lower [facility] extremity [facility] Hypertensi Hypertensi Problem C ommon on on [facility] Fatty Fatty Problem Common liver liver [facility] Hyperlipid Hyperlipid Problem C ommon emia emia [facility] Gates's Problem Com mon esophagus esophagus Spir [facility] [id number] Gout, Problem Common unspecifie [facility] d cause, - [facility] unspecifie [facility] chronicity Medica l , [place] unspecifie d site [id number] BPH loc w Problem Com mon urin Spirit obs/LUTS [facility] [id number] Fatigue, Problem Commo n unspecifie Spirit d type [facility] [id number] RBBB Problem Common [facility] Allergies, Adverse Reactions, Alerts Allergy Allergy Status Severity Reaction(s) Onset Inactive Treating Comm ents Source Name Type Date Date Clinician NO KNOWN Allergy Active [facility] Family History Family Member Diagnosis Comments Start Date Stop Date Source Natural brother Cancer [facility] Natural father Throat cancer [facility] Natural sister Breast cancer [facility] Social History Social Habit Start Date Stop Date Quantity Comments Source History of tobacco Cigarette Smoker [facility] use Exposure to 2022-10-30 2022-11-09 Not sure [facility] SARS-CoV-2 (event) 00:00:00 10:54:00 Tobacco use and 2022-10-26 2022-10-26 Former smokeless [facility] exposure 00:00:00 00:00:00 tobacco user Alcohol intake 2021-11-08 2021-11-08 Ex-drinker [facility] 00:00:00 00:00:00 (finding) [facility] Center Cigarettes smoked 2021-11-07 2021-11-07 EILEEN [place] current (pack per 00:00:00 00:00:00 Medical Center day) - Reported Cigarette 2021-11-07 2021-11-07 EILEEN [place] pack-years 00:00:00 00:00:00 [facility] Sex Ass[birth year] At [birth year] EILEEN [facility] 00:00:00 00:00:00 [facility] Smoking Status Start Date Stop Date Source Former Smoker [facility] Medications Ordered Filled Start Stop Current Ordering Indication Dosage Frequency Signature Comments Components Source Medication Medication Date Date Medication? Clinician (SIG) Name Name metolazone metolazone No 1 metolazone [place] 5 mg tablet 5 mg tablet 5-03 5 mg C ommuni Take 1 Take 1 00:00: tablet ty tablet tablet 00 Take 1 Hospita every 72 every 72 tablet l hours by hours by every 72 Cli nics oral route. oral route. hours by oral route. metolazone metolazone No 1 metolazone [place] 5 mg tablet 5 mg tablet 5-03 5 mg C ommuni Take 1 Take 1 00:00: tablet ty tablet tablet 00 Take 1 Hospita every 72 every 72 tablet l hours by hours by every 72 Cli nics oral route. oral route. hours by oral route. metoprolol 2023- Yes [id number] 12.5mg QD Take 0.5 UT succinate 4-14 -14 tablets Health XL 00:00: 04:59 (12.5 mg (Toprol-XL) 00 :00 total) by 25 MG 24 hr mouth 1 tablet (one) time each day. Do not crush or chew. metoprolol 2023- Yes [id number] 12.5mg QD Take 0.5 UT succinate 4-14 04-14 tablets Health XL 00:00: 04:59 (12.5 mg (Toprol-XL) 00 :00 total) by 25 MG 24 hr mouth 1 tablet (one) time each day. Do not crush or chew. ferrous Yes 325mg QD Take 325 UT sulfate 325 4-13 mg by Health (65 Fe) MG 14:53: mouth 1 tablet 44 (one) time each day with breakfast. amiodarone 2022-0 Yes UT (Pacerone) 4-13 Health 200 MG 14:53: tablet 44 simvastatin 2022-0 Yes UT (Zocor) 20 4-13 Health MG tablet 14:53: 44 ferrous 2022-0 Yes 325mg QD Take 325 UT sulfate 325 4-13 mg by Health (65 Fe) MG 14:53: mouth 1 tablet 44 (one) time each day with breakfast. amiodarone 2022-0 Yes UT (Pacerone) 4-13 Health 200 MG 14:53: tablet 44 simvastatin 2022-0 Yes UT (Zocor) 20 4-13 Health MG tablet 14:53: 44 ferrous 2022-0 Yes 325mg QD Take 325 UT sulfate 325 4-13 mg by Health (65 Fe) MG 14:53: mouth 1 tablet 44 (one) time each day with breakfast. amiodarone 0 Yes UT (Pacerone) 4-13 Health 200 MG 14:53: tablet 44 simvastatin 2022-0 Yes UT (Zocor) 20 4-13 Health MG tablet 14:53: 44 ferrous 2022-0 Yes 325mg QD Take 325 [facility] sulfate 325 4-13 mg by Health (65 Fe) MG 14:53: mouth 1 tablet 44 (one) time each day with breakfast. amiodarone 0 Yes UT (Pacerone) 4-13 Health 200 MG 14:53: tablet 44 simvastatin 2022-0 Yes UT (Zocor) 20 4-13 Health MG tablet 14:53: 44 ferrous 2022-0 Yes 325mg QD Take 325 UT sulfate 325 4-13 mg by Health (65 Fe) MG 14:53: mouth 1 tablet 44 (one) time each day with breakfast. amiodarone 0 Yes UT (Pacerone) 4-13 Health 200 MG 14:53: tablet 44 simvastatin 2022-0 Yes UT (Zocor) 20 4-13 Health MG tablet 14:53: 44 atorvastati 2022-0 Yes 40mg QD Take 40 mg UT n (Lipitor) 4-13 by mouth 1 He alth 40 MG 14:51: (one) time tablet 26 each day. furosemide 2022-0 Yes UT (Lasix) 40 4-13 Health MG tablet 14:51: 26 atorvastati 2022-0 Yes 40mg QD Take 40 mg UT n (Lipitor) 4-13 by mouth 1 He alth 40 MG 14:51: (one) time tablet 26 each day. furosemide 3-0 Yes UT (Lasix) 40 4-13 Health MG tablet 14:51: 26 atorvastati 3-0 Yes 40mg QD Take 40 mg UT n (Lipitor) 4-13 by mouth 1 He alth 40 MG 14:51: (one) time tablet 26 each day. furosemide 2022-0 Yes UT (Lasix) 40 4-13 Health MG tablet 14:51: 26 atorvastati 2022-0 Yes 40mg QD Take 40 mg UT n (Lipitor) 4-13 by mouth 1 He alth 40 MG 14:51: (one) time tablet 26 each day. furosemide 2022-0 Yes UT (Lasix) 40 4-13 Health MG tablet 14:51: 26 atorvastati 2022-0 Yes 40mg QD Take 40 mg UT n (Lipitor) 4-13 by mouth 1 He alth 40 MG 14:51: (one) time tablet 26 each day. furosemide 2022-0 Yes UT (Lasix) 40 4-13 Health MG tablet 14:51: 26 ramipril 3-0 Yes UT (Altace) 10 4-12 Health MG capsule 15:26: 16 ramipril 2023-0 Yes UT (Altace) 10 4-12 Health MG capsule 15:26: 16 ramipril 2023-0 Yes UT (Altace) 10 4-12 Health MG capsule 15:26: 16 ramipril 3-0 Yes UT (Altace) 10 4-12 Health MG capsule 15:26: 16 ramipril 2023-0 Yes UT (Altace) 10 4-12 Health MG capsule 15:26: 16 bumetanide 3-0 Yes UT (Bumex) 2 3-28 Health MG tablet 00:00: 00 carvedilol 2023-0 Yes UT (Coreg) 3-28 Health 3.125 MG 00:00: tablet 00 Jardiance 3-0 Yes UT 10 MG 3-28 Health 00:00: 00 minocycline 3-0 Yes UT 100 MG 3-28 Health capsule 00:00: 00 bumetanide 2023-0 Yes UT (Bumex) 2 3-28 Health MG tablet 00:00: 00 carvedilol 3-0 Yes UT (Coreg) 3- Health 3.125 MG 00:00: tablet 00 Jardiance 2022-0 Yes UT 10 MG 3- Health 00:00: 00 minocycline 3-0 Yes UT 100 MG 3- Health capsule 00:00: 00 bumetanide 3-0 Yes UT (Bumex) 2 3-28 Health MG tablet 00:00: 00 carvedilol 3-0 Yes UT (Coreg) 3 Health 3.125 MG 00:00: tablet 00 Jardiance 2022-0 Yes UT 10 MG 3- Health 00:00: 00 minocycline 3-0 Yes UT 100 MG 3- Health capsule 00:00: 00 bumetanide 3-0 Yes UT (Bumex) 2 3-28 Health MG tablet 00:00: 00 carvedilol 3-0 Yes UT (Coreg) 3- Health 3.125 MG 00:00: tablet 00 Jardiance 2022-0 Yes UT 10 MG 3- Health 00:00: 00 minocycline 3-0 Yes UT 100 MG 3- Health capsule 00:00: 00 bumetanide 3-0 Yes UT (Bumex) 2 3-28 Health MG tablet 00:00: 00 carvedilol 3-0 Yes UT (Coreg) 3- Health 3.125 MG 00:00: tablet 00 Jardiance 2022-0 Yes UT 10 MG 3- Health 00:00: 00 minocycline 3-0 Yes UT 100 MG 3- Health capsule 00:00: 00 metOLazone 2023-0 Yes UT (Zaroxolyn) 3-25 Health 5 MG tablet 00:00: 00 metOLazone 2023-0 Yes UT (Zaroxolyn) 3-25 Health 5 MG tablet 00:00: 00 metOLazone 3-0 Yes UT (Zaroxolyn) 3-25 Health 5 MG tablet 00:00: 00 metOLazone 2023-0 Yes UT (Zaroxolyn) 3-25 Health 5 MG tablet 00:00: 00 metOLazone 2023-0 Yes UT (Zaroxolyn) 3-25 Health 5 MG tablet 00:00: 00 aMILoride 2023-0 Yes UT (Midamor) 5 3-19 Health MG tablet 00:00: 00 aMILoride 2023-0 Yes UT (Midamor) 5 3-19 Health MG tablet 00:00: 00 aMILoride 2023-0 Yes UT (Midamor) 5 3-19 Health MG tablet 00:00: 00 aMILoride 2023-0 Yes UT (Midamor) 5 3-19 Health MG tablet 00:00: 00 aMILoride 2023-0 Yes UT (Midamor) 5 3-19 Health MG tablet 00:00: 00 metoprolol 2023-0 Yes UT succinate 2-28 Health XL 00:00: (Toprol-XL) 00 25 MG 24 hr tablet metoprolol 3-0 Yes UT succinate 2-28 Health XL 00:00: (Toprol-XL) 00 25 MG 24 hr tablet metoprolol 3-0 Yes UT succinate 2-28 Health XL 00:00: (Toprol-XL) 00 25 MG 24 hr tablet metoprolol 3-0 Yes UT succinate 2-28 Health XL 00:00: (Toprol-XL) 00 25 MG 24 hr tablet metoprolol 3-0 Yes UT succinate 2-28 Health XL 00:00: (Toprol-XL) 00 25 MG 24 hr tablet omeprazole 3-0 Yes UT (PriLOSEC) 2-[address] 00:00: capsule 00 omeprazole 2023-0 Yes UT (PriLOSEC) 2-[address] 00:00: capsule 00 omeprazole 2023-0 Yes UT (PriLOSEC) 2-[address] 00:00: capsule 00 omeprazole 2023-0 Yes UT (PriLOSEC) 2-[address] 00:00: capsule 00 omeprazole 2023-0 Yes UT (PriLOSEC) 2-[address] 00:00: capsule 00 potassium 3-0 Yes UT chloride CR 2-11 Health (Klor-Con 00:00: M10) 10 MEQ 00 ER tablet potassium 3-0 Yes UT chloride CR 2-11 Health (Klor-Con 00:00: M10) 10 MEQ 00 ER tablet potassium 3-0 Yes UT chloride CR 2-11 Health (Klor-Con 00:00: M10) 10 MEQ 00 ER tablet potassium 2023-0 Yes UT chloride CR 2-11 Health (Klor-Con 00:00: M10) 10 MEQ 00 ER tablet potassium 2022-0 Yes UT chloride CR 2-11 Health (Klor-Con 00:00: M10) 10 MEQ 00 ER tablet allopurinol 2022-0 Yes UT (Zyloprim) 1-17 Health 100 MG 00:00: tablet 00 Trelegy 2022-0 Yes UT Ellipta 1-17 Health 100-62.5-25 00:00: MCG/ACT 00 aerosol powder allopurinol 2022-0 Yes UT (Zyloprim) 1-17 Health 100 MG 00:00: tablet 00 Trelegy 2022-0 Yes UT Ellipta 1-17 Health 100-62.5-25 00:00: MCG/ACT 00 aerosol powder allopurinol 2022-0 Yes UT (Zyloprim) 1-17 Health 100 MG 00:00: tablet 00 Trelegy 2022-0 Yes UT Ellipta 1-17 Health 100-62.5-25 00:00: MCG/ACT 00 aerosol powder allopurinol 2022-0 Yes UT (Zyloprim) 1-17 Health 100 MG 00:00: tablet 00 Trelegy 2022-0 Yes UT Ellipta 1-17 Health 100-62.5-25 00:00: MCG/ACT 00 aerosol powder allopurinol 2022-0 Yes UT (Zyloprim) 1-17 Health 100 MG 00:00: tablet 00 Trelegy 2022-0 Yes UT Ellipta 1-17 Health 100-62.5-25 00:00: MCG/ACT 00 aerosol powder warfarin 2021-0 Yes 3mg Take 3 mg UT (Coumadin) 9-17 by mouth. Heal th 2 MG tablet 00:00: 00 warfarin 2-0 Yes 3mg Take 3 mg UT (Coumadin) 9-17 by mouth. Heal th 2 MG tablet 00:00: 00 warfarin 2-0 Yes 3mg Take 3 mg UT (Coumadin) 9-17 by mouth. Heal th 2 MG tablet 00:00: 00 warfarin 2-0 Yes 3mg Take 3 mg UT (Coumadin) 9-17 by mouth. Heal th 2 MG tablet 00:00: 00 warfarin 2-0 Yes 3mg Take 3 mg UT (Coumadin) 9-17 by mouth. Heal th 2 MG tablet 00:00: 00 levoFLOXaci 2-0 Yes 750mg QD Take 750 U T n 9-14 mg by Health (Levaquin) 00:00: mouth 1 750 MG 00 (one) time tablet each day. levoFLOXaci 2022-0 Yes 750mg QD Take 750 U T n 9-14 mg by Health (Levaquin) 00:00: mouth 1 750 MG 00 (one) time tablet each day. levoFLOXaci 2022-0 Yes 750mg QD Take 750 U T n 9-14 mg by Health (Levaquin) 00:00: mouth 1 750 MG 00 (one) time tablet each day. levoFLOXaci 2022-0 Yes 750mg QD Take 750 U T n 9-14 mg by Health (Levaquin) 00:00: mouth 1 750 MG 00 (one) time tablet each day. levoFLOXaci 2022-0 Yes 750mg QD Take 750 U T n 9-14 mg by Health (Levaquin) 00:00: mouth 1 750 MG 00 (one) time tablet each day. traMADol 2021-0 Yes UT (Ultram) 50 8-05 Health MG tablet 00:00: 00 traMADol 2021-0 Yes UT (Ultram) 50 8-05 Health MG tablet 00:00: 00 traMADol 2021-0 Yes UT (Ultram) 50 8-05 Health MG tablet 00:00: 00 traMADol 2021-0 Yes UT (Ultram) 50 8-05 Health MG tablet 00:00: 00 traMADol 2-0 Yes UT (Ultram) 50 8-05 Health MG tablet 00:00: 00 amiodarone 2021-0 Yes 200mg QD Take [address] (PACERONE) 4-26 mg by [facility] 200 MG 17:31: mouth Medical tablet 11 daily. [place] furosemide 2021-0 Yes 40mg QD Take [address] (LASIX) 40 4-26 by mouth [facility] MG tablet 17:31: daily. Medica l 11 [place] omeprazole 2021-0 Yes 40mg QD Take [address] (PRILOSEC) 4-26 by mouth [facility] 40 MG 17:31: daily. Medical capsule 11 [place] potassium 0 Yes 10meq QD Take [address] chloride 4-26 mEq by [facility] (KLOR-CON) 17:31: mouth Medica l 10 MEQ CR 11 daily. [place] tablet ramipril Yes 10mg QD Take [address] (ALTACE) 10 4-26 by mouth [facility] MG capsule 17:31: daily. Medic al 11 [place] simvastatin Yes 10mg QD Take [address] (ZOCOR) 20 4-26 by mouth [facility] MG tablet 17:31: daily. Medica l 11 [place] metoprolol Yes 25mg Q.5D Take [address] tartrate 4-26 by mouth 2 [facility] (LOPRESSOR) 17:31: (two) Medic al 25 MG 11 times Center tablet daily. enoxaparin Yes Inject [facility] (LOVENOX) 4-26 subcutaneo Luke [facility] 100 mg/mL 17:31: usly. Medical Syrg 11 [place] warfarin Yes 10mg QD Take [address] (COUMADIN, 4-26 by mouth [facility] JANTOVEN) 17:31: daily 13 Medi sarah 10 MG 11 mg . [place] tablet amiodarone Yes 200mg QD Take [address] (PACERONE) 4-26 mg by [facility] 200 MG 17:31: mouth Medical tablet 11 daily. [place] furosemide Yes 40mg QD Take [address] (LASIX) 40 4-26 by mouth [facility] MG tablet 17:31: daily. Medica [address] omeprazole Yes 40mg QD Take [address] (PRILOSEC) 4-26 by mouth [facility] 40 MG 17:31: daily. Medical capsule 11 [place] potassium Yes 10meq QD Take [address] chloride 4-26 mEq by [facility] (KLOR-CON) 17:31: mouth Medica l 10 MEQ CR 11 daily. [place] tablet ramipril Yes 10mg QD Take [address] (ALTACE) 10 4-26 by mouth Luke [facility] MG capsule 17:31: daily. Medic al 11 [place] simvastatin Yes 10mg QD Take [address] (ZOCOR) 20 4-26 by mouth [facility] MG tablet 17:31: daily. Medica l 11 [place] metoprolol Yes 25mg Q.5D Take [address] tartrate 4-26 by mouth 2 [facility] (LOPRESSOR) 17:31: (two) Medic al 25 MG 11 times Center tablet daily. enoxaparin Yes Inject [facility] (LOVENOX) 4-26 subcutaneo [facility] 100 mg/mL 17:31: usly. Medical Syrg 11 [place] warfarin Yes 10mg QD Take [address] (COUMADIN, 4-26 by mouth [facility] JANTOVEN) 17:31: daily 13 Medi sarah 10 MG 11 mg . Center tablet amiodarone Yes 200mg QD Take [address] (PACERONE) 4-26 mg by [facility] 200 MG 17:31: mouth Medical tablet 11 daily. [place] furosemide Yes 40mg QD Take [address] (LASIX) 40 4-26 by mouth [facility] MG tablet 17:31: daily. Medica l 11 [place] omeprazole Yes 40mg QD Take [address] (PRILOSEC) 4-26 by mouth [facility] 40 MG 17:31: daily. Medical capsule 11 [place] potassium Yes 10meq QD Take [address] chloride 4-26 mEq by [facility] (KLOR-CON) 17:31: mouth Medica l 10 MEQ CR 11 daily. [place] tablet ramipril Yes 10mg QD Take [address] (ALTACE) 10 4-26 by mouth [facility] MG capsule 17:31: daily. Medic al 11 [place] simvastatin Yes 10mg QD Take [address] (ZOCOR) 20 4-26 by mouth [facility] MG tablet 17:31: daily. Medica l 11 [place] metoprolol Yes 25mg Q.5D Take [address] tartrate 4-26 by mouth 2 [facility] (LOPRESSOR) 17:31: (two) Medic al 25 MG 11 times Center tablet daily. enoxaparin Yes Inject [facility] (LOVENOX) 4-26 subcutaneo [facility] 100 mg/mL 17:31: usly. Medical Syrg 11 [place] warfarin Yes 10mg QD Take [address] (COUMADIN, 4-26 by mouth [facility] JANTOVEN) 17:31: daily 13 Medi sarah 10 MG 11 mg . Center tablet acetaminoph 2021-0 Yes [facility] en-codeine 4-19 Health (Tylenol 00:00: #3) 300-30 00 MG tablet acetaminoph 2021-0 Yes UT en-codeine 4-19 Health (Tylenol 00:00: #3) 300-30 00 MG tablet acetaminoph 2021-0 Yes [facility] en-codeine 4-19 Health (Tylenol 00:00: #3) 300-30 00 MG tablet acetaminoph 2-0 Yes UT en-codeine 4-19 Health (Tylenol 00:00: #3) 300-30 00 MG tablet acetaminoph 2-0 Yes UT en-codeine 4-19 Health (Tylenol 00:00: #3) 300-30 00 MG tablet Flomax 0.4 Flomax 0.4 2020-07- No 1{capsu QD MG MG -11 02- le} 00:00: 00:00 00 :00 Flomax 0.4 Flomax 0.4 2020-07- No 1{capsu QD Flomax 0.4 MG MG 2-11 02- le} MG 00:00: 00:00 00 :00 Flomax 0.4 Flomax 0.4 2020-07- No 1{capsu QD Flomax 0.4 MG MG -11 02- le} MG 00:00: 00:00 00 :00 Flomax 0.4 Flomax 0.4 2020-07- No 1{capsu QD Flomax 0.4 MG MG 2-11 02- le} MG 00:00: 00:00 00 :00 Flomax 0.4 Flomax 0.4 2020-07- No 1{capsu QD Flomax 0.4 MG MG 2-30 - le} MG 00:00: 00:00 00 :00 Flomax 0.4 Flomax 0.4 2020-07- No 1{capsu QD Flomax 0.4 MG MG 2-11 02- le} MG 00:00: 00:00 00 :00 Flomax 0.4 Flomax 0.4 2020-07- No 1{capsu QD Flomax 0.4 MG MG 2-11 02- le} MG 00:00: 00:00 00 :00 Flomax 0.4 Flomax 0.4 2020-2- No 1{capsu QD MG MG -11 02- le} 00:00: 00:00 00 :00 Flomax 0.4 Flomax 0.4 2020-2- No 1{capsu QD Flomax 0.4 MG MG 2-30 - le} MG 00:00: 00:00 00 :00 Flomax 0.4 Flomax 0.4 2020-2- No 1{capsu QD Flomax 0.4 MG MG 2-11 02- le} MG 00:00: 00:00 00 :00 Flomax 0.4 Flomax 0.4 2020-2- No 1{capsu QD Flomax 0.4 MG MG 2-11 02- le} MG 00:00: 00:00 00 :00 Flomax 0.4 Flomax 0.4 2020-2- No 1{capsu QD Flomax 0.4 MG MG 2-11 02- le} MG 00:00: 00:00 00 :00 Flomax 0.4 Flomax 0.4 2020-2- No 1{capsu QD Flomax 0.4 MG MG 2-11 02- le} MG 00:00: 00:00 00 :00 Flomax 0.4 Flomax 0.4 2020-2- No 1{capsu QD Flomax 0.4 MG MG 2-11 02- le} MG 00:00: 00:00 00 :00 Flomax 0.4 Flomax 0.4 2020-2- No 1{capsu QD Flomax 0.4 MG MG 2-11 02- le} MG 00:00: 00:00 00 :00 Flomax 0.4 Flomax 0.4 2020-2- No 1{capsu QD Flomax 0.4 MG MG 2-30 - le} MG 00:00: 00:00 00 :00 Flomax 0.4 Flomax 0.4 2020-2- No 1{capsu QD Flomax 0.4 MG MG 2-30 - le} MG 00:00: 00:00 00 :00 Flomax 0.4 Flomax 0.4 2020-2021- No 1{capsu QD Flomax 0.4 MG MG 02-09 le} MG 00:00: 00:00 00 :00 ferrous ferrous No ferrous [place] sulfate sulfate sulfate Commun i ty Hospita l Clinics furosemide furosemide No 1 QID furosemide [place] 40 mg 40 mg 40 mg Communi tablet Take tablet Take tablet ty 1 tablet 4 1 tablet 4 Take 1 H ospita times a day times a day tablet 4 l by oral by oral times a Clinic s route. route. day by oral route. Jardiance Jardiance No 1 Q1D Jardiance [place] 10 mg 10 mg 10 mg Communi tablet Take tablet Take tablet ty 1 tablet 1 tablet Take 1 Hospi ta every day every day tablet l by oral by oral every day Clin ics route. route. by oral route. metolazone metolazone No 1 metolazone [place] 5 mg tablet 5 mg tablet 5 mg C ommuni Take 1 Take 1 tablet ty tablet tablet Take 1 Hospita every 72 every 72 tablet l hours by hours by every 72 Cli nics oral route. oral route. hours by oral route. metoprolol metoprolol No .5 Q1D metoprolol [place] succinate succinate succinate Communi ER 25 mg ER 25 mg ER 25 mg ty tablet,exte tablet,exte tablet,ext Hospita nded nded ended l release 24 release 24 release 24 Clinics hr Take 0.5 hr Take 0.5 hr Take tablets tablets 0.5 every day every day tablets by oral by oral every day route. route. by oral route. Coreg CR 10 Coreg CR 10 Yes U T MG Oral MG Oral Physici Capsule Capsule ans Extended Extended Release 24 Release 24 Hour Hour omeprazole omeprazole No 1capsul Q1D omeprazole [place] 40 mg 40 mg e(s) 40 mg Communi capsule,del capsule,del capsule,de ty ayed ayed layed Hospita release release release l Take 1 Take 1 Take 1 Clinics capsule capsule capsule every day every day every day by oral by oral by oral route. route. route. Amiodarone Amiodarone Yes [facility] HCl - 200 HCl - 200 Physi ci MG Oral MG Oral ans Tablet Tablet Simvastatin Simvastatin Yes U T 20 MG Oral 20 MG Oral Phy sici Tablet Tablet ans Trelegy Trelegy No 1puff(s Q1D Trelegy Swe bridgette Ellipta 100 Ellipta 100 ) Ellipta Communi mcg-62.5 mcg-62.5 100 ty mcg-25 mcg mcg-25 mcg mcg-62.5 Hospita powder for powder for mcg-25 mcg l inhalation inhalation powder for Clinics Inhale 1 Inhale 1 inhalation puff every puff every Inhale 1 day by day by puff every inhalation inhalation day by route. route. inhalation route. warfarin 13 warfarin 13 No warfarin [place] mg daily mg daily 13 mg Commun i daily ty Hospita l Clinics ferrous ferrous No ferrous [place] sulfate sulfate sulfate Commun i ty [facility]ospita l Clinics furosemide furosemide No 1 QID furosemide [place] 40 mg 40 mg 40 mg Communi tablet Take tablet Take tablet ty 1 tablet 4 1 tablet 4 Take 1 H ospita times a day times a day tablet 4 l by oral by oral times a Clinic s route. route. day by oral route. Jardiance Jardiance No 1 Q1D Jardiance [place] 10 mg 10 mg 10 mg Communi tablet Take tablet Take tablet ty 1 tablet 1 tablet Take 1 Hospi ta every day every day tablet l by oral by oral every day Clin ics route. route. by oral route. metolazone metolazone No 1 metolazone [place] 5 mg tablet 5 mg tablet 5 mg C ommuni Take 1 Take 1 tablet ty tablet tablet Take 1 Hospita every 72 every 72 tablet l hours by hours by every 72 Cli nics oral route. oral route. hours by oral route. metoprolol metoprolol No .5 Q1D metoprolol [place] succinate succinate succinate Communi ER 25 mg ER 25 mg ER 25 mg ty tablet,exte tablet,exte tablet,ext Hospita nded nded ended l release 24 release 24 release 24 Clinics hr Take 0.5 hr Take 0.5 hr Take tablets tablets 0.5 every day every day tablets by oral by oral every day route. route. by oral route. omeprazole omeprazole No 1capsul Q1D omeprazole [place] 40 mg 40 mg e(s) 40 mg Communi capsule,del capsule,del capsule,de ty ayed ayed layed Hospita release release release l Take 1 Take 1 Take 1 Clinics capsule capsule capsule every day every day every day by oral by oral by oral route. route. route. Trelegy Trelegy No 1puff(s Q1D Trelegy Swe bridgette Ellipta 100 Ellipta 100 ) Ellipta Communi mcg-62.5 mcg-62.5 100 ty mcg-25 mcg mcg-25 mcg mcg-62.5 Hospita powder for powder for mcg-25 mcg l inhalation inhalation powder for Clinics Inhale 1 Inhale 1 inhalation puff every puff every Inhale 1 day by day by puff every inhalation inhalation day by route. route. inhalation route. warfarin 13 warfarin 13 No warfarin [place] mg daily mg daily 13 mg Commun i daily ty Hospita l Clinics furosemide furosemide No 1 QID furosemide [place] 40 mg 40 mg 40 mg Communi tablet Take tablet Take tablet ty 1 tablet 4 1 tablet 4 Take 1 H ospita times a day times a day tablet 4 l by oral by oral times a Clinic s route. route. day by oral route. Ramipril 10 Ramipril 10 Yes U T MG Oral MG Oral Physici Capsule Capsule ans simethicone simethicone No 1 TID simethicon [place] 125 mg 125 mg e 125 mg Communi chewable chewable chewable ty tablet Take tablet Take tablet Hospita 1 tablet 3 1 tablet 3 Take 1 l times a day times a day tablet 3 Clinics by oral by oral times a route as route as day by needed. needed. oral route as needed. Potassium Potassium Yes [facility] Chloride 10 Chloride 10 P hysici MEQ TBCR MEQ TBCR ans Allopurinol Allopurinol Yes U T 300 MG Oral 300 MG Oral P hysici Tablet Tablet ans Warfarin Warfarin Yes [facility] Sodium 10 Sodium 10 Physi ci MG Oral MG Oral ans Tablet Tablet Furosemide Furosemide Yes [facility] 40 MG Oral 40 MG Oral Phy sici Tablet Tablet ans Simvastatin Simvastatin No 1{table QD Simvastati 20 [...] 50 MCG (1999 [facility]) (1999 [facility]) (1999) Quercetin Quercetin No 2{table QD Quercetin [...] le} 50 MCG (1999) (1999 [facility]) (1999) Quercetin Quercetin No 2{table QD Quercetin [...] No 1{table QD 20 MG 20 MG t_in_ e_eveni ng} Furosemide Furosemide No 1{table QD [...] 40 MG 40 MG le} 40 MG Ramipril 10 Ramipril 10 No [...] MG ER 25 MG ER 25 MG warfarin 13 warfarin 13 No warfarin [place] mg daily mg daily 13 mg Commun i daily [facility] Klor-Con 10 Klor-Con 10 No 1{table BID [...] QD Coumadin 4 MG MG t} MG furosemide furosemide No 1 QID furosemide [place] 40 mg 40 mg 40 mg Communi tablet Take tablet Take tablet ty 1 tablet 4 1 tablet 4 Take 1 H ospita times a day times a day tablet 4 l by oral by oral times a Clinic s route. route. day by oral route. Ramipril 10 Ramipril 10 No 1{capsu QD [...] MCG le} 50 MCG (1999) (1999) (1999) simethicone simethicone No 1 TID simethicon [place] 125 mg 125 mg e 125 mg Communi chewable chewable chewable ty tablet Take tablet Take tablet Hospita 1 tablet 3 1 tablet 3 Take 1 l times a day times a day tablet 3 Clinics by oral by oral times a route as route as day by needed. needed. oral route as needed. Vitamin C Vitamin C No 2{table QD [...] 10 MEQ t_with_ 10 10 MEQ food} warfarin 13 warfarin 13 No warfarin [place] mg daily mg daily 13 mg Commun i daily ty Hospita l Clinics Furosemide Furosemide No 1{table QD Furosemide 40 [...] 1000 MG 1000 MG t} 1000 MG ferrous ferrous No ferrous [place] sulfate sulfate [facility] 10 Ramipril 10 No 1{capsu QD [...] 50 MCG (1999 [facility]) (1999 [facility]) (1999) Klor-Con 10 Klor-Con 10 No 1{table BID Klor-Con 10 MEQ 10 MEQ t_with_ 10 10 MEQ food} Metoprolol Metoprolol No 1{table BID Metoprolol Succinate Succinate t} Succinate ER 25 MG ER 25 MG ER 25 MG Sodium Sodium No Sodium Chloride 4 Chloride 4 Chloride 4 MEQ/ML MEQ/ML MEQ/ML furosemide furosemide No 1 QID furosemide [place] 40 mg 40 mg 40 mg Communi tablet Take tablet Take tablet ty 1 tablet 4 1 tablet 4 Take 1 H ospita times a day times a day tablet 4 l by oral by oral times a Clinic s route. route. day by oral route. Furosemide Furosemide No 1{table QD Furosemide 40 [...] 10 MEQ t_with_ 10 10 MEQ food} Jardiance Jardiance No 1 Q1D Jardiance [place] 10 mg 10 mg 10 mg Communi tablet Take tablet Take tablet ty 1 tablet 1 tablet Take 1 Hospi ta every day every day tablet l by oral by oral every day Clin ics route. route. by oral route. Metoprolol Metoprolol No 1{table BID Metoprolol Succinate [...] 12 500 MCG t} 12 500 MCG metolazone metolazone No 1 metolazone [place] 5 mg tablet 5 mg tablet 5 mg C ommuni Take 1 Take 1 tablet ty tablet tablet Take 1 Hospita every 72 every 72 tablet l hours by hours by every 72 Cli nics oral route. oral route. hours by oral route. Furosemide Furosemide No 1{table QD Furosemide 40 MG 40 MG t} 40 MG Metoprolol Metoprolol No 1{table BID Metoprolol Succinate Succinate t} Succinate ER 25 MG ER 25 MG ER 25 MG Ramipril 10 Ramipril 10 No 1{capsu QD Ramipril MG MG le} 10 MG Zinc 50 MG Zinc 50 MG No 1{table QD Zinc 50 MG t} metoprolol metoprolol No .5 Q1D metoprolol [place] succinate succinate succinate Communi ER 25 mg ER 25 mg ER 25 mg ty tablet,exte tablet,exte tablet,ext Hospita nded nded ended l release 24 release 24 release 24 Clinics hr Take 0.5 hr Take 0.5 hr Take tablets tablets 0.5 every day every day tablets by oral by oral every day route. route. by oral route. omeprazole omeprazole No 1capsul Q1D omeprazole [place] 40 mg 40 mg e(s) 40 mg Communi capsule,del capsule,del capsule,de ty ayed ayed layed Hospita release release release l Take 1 Take 1 Take 1 Clinics capsule capsule capsule every day every day every day by oral by oral by oral route. route. route. Trelegy Trelegy No 1puff(s Q1D Trelegy Swe bridgette Ellipta 100 Ellipta 100 ) Ellipta Communi mcg-62.5 mcg-62.5 100 ty mcg-25 mcg mcg-25 mcg mcg-62.5 Hospita powder for powder for mcg-25 mcg l inhalation inhalation powder for Clinics Inhale 1 Inhale 1 inhalation puff every puff every Inhale 1 day by day by puff every inhalation inhalation day by route. route. inhalation route. warfarin 13 warfarin 13 No warfarin [place] mg daily mg daily 13 mg Commun i daily [facility] Vital Signs Vital Name Observation Time Observation Value Comments Source BP Diastolic 2022-12-13 00:00:00 87 mm[Hg] [facility] Height 2022-12-13 00:00:00 70 [in_i] [facility] BMI (Body Mass 2022-12-13 00:00:00 28.1 kg/m2 [facility]) [facility] BP Systolic 2022-12-13 00:00:00 118 mm[Hg] [facility] Body Weight 2022-12-13 00:00:00 3132.8 [oz_av] [facility] s BP Diastolic 2022-11-15 00:00:00 85 mm[Hg] [facility] s Height 2022-11-15 00:00:00 70 [in_i] [facility] s BMI (Body Mass 2022-11-15 00:00:00 29 kg/m2 [facility]) [facility] s BP Systolic 2022-11-15 00:00:00 112 mm[Hg] [facility] Body Weight 2022-11-15 00:00:00 3238.4 [oz_av] [facility] s BP Diastolic 2022-11-02 00:00:00 73 mm[Hg] [facility] Height 2022-11-02 00:00:00 70 [in_i] [facility] BMI (Body Mass 2022-11-02 00:00:00 29.6 kg/m2 [facility]) [facility] s BP Systolic 2022-11-02 00:00:00 106 mm[Hg] [facility] Body Weight 2022-11-02 00:00:00 3296 [oz_av] [facility] s BP Diastolic 2022-11-01 00:00:00 62 mm[Hg] [facility] Height 2022-11-01 00:00:00 70 [in_i] [facility] s BMI (Body Mass 2022-11-01 00:00:00 29.3 kg/m2 [facility] s BP Systolic 2022-11-01 00:00:00 99 mm[Hg] [facility] Body Weight 2022-11-01 00:00:00 3270.4 [oz_av] [facility] s Systolic blood 2022-10-26 19:54:00 126 mm[Hg] [facility] Di[facility] blood 2022-10-26 19:54:00 86 mm[Hg] [facility] Heart rate 2022-10-26 19:54:00 99 [facility] height 2022-10-26 19:54:00 177[facility]8 [facility] weight 2022-10-26 19:54:00 91.173 [facility] BMI 2022-10-26 19:54:00 28[facility]84 [facility]-02 13:00:00 68 [in_i] [facility] weight 2022-08-02 13:00:00 212.6 [lb_av] [facility] temperature 2022-08-02 13:00:00 98.2 [degF] [facility] bmi 2022-08-02 13:00:00 32.32 kg/m2 [facility] oximetry 2022-08-02 13:00:00 96 % [facility] respiratory rate 2022-08-02 13:00:00 16 /min [facility] blood pressure 2022-08-02 13:00:00 103 mm[Hg] [facility] - systolic [facility] blood pressure 2022-08-02 13:00:00 77 mm[Hg] [facility] - diastolic [facility] height 2022 11:40:00 68 [in_i] Common [facility] weight 2022 11:40:00 215.8 [lb_av] Common [facility] temperature 2022 11:40:00 98.2 [degF] Common [facility] bmi 2022 11:40:00 32.81 kg/m2 [facility] oximetry 2022 11:40:00 96 % [facility] respiratory rate 2022 11:40:00 18 /min Comm on [facility] blood pressure 2022 11:40:00 95 mm[Hg] Common [facility] - systolic [facility] blood pressure 2022 11:40:00 68 mm[Hg] Common [facility] - diastolic [facility] height 2021-11-25 09:00:00 68 [in_i] [facility] weight 2021-11-25 09:00:00 213 [lb_av] [facility] temperature 2021-11-25 09:00:00 97.6 [degF] Common [facility] bmi 2021-11-25 09:00:00 32.38 kg/m2 [facility] oximetry 2021-11-25 09:00:00 99 % [facility] respiratory rate 2021-11-25 09:00:00 16 /min Comm on [facility] blood pressure 2021-11-25 09:00:00 138 mm[Hg] Common [facility] - systolic [facility] blood pressure 2021-11-25 09:00:00 85 mm[Hg] [facility] diastolic [facility] HEIGHT 2021-11-08 09:55:00 177.8 cm WEIGHT 2021-11-08 09:55:00 96.5 kg HEIGHT 2021-11-07 15:35:00 177.8 cm WEIGHT 2021-11-07 15:35:00 94.348 kg HEIGHT 2021-11-08 09:55:00 177.8 cm WEIGHT 2021-11-08 09:55:00 96.5 kg HEIGHT 2021-11-07 15:35:00 177.8 cm WEIGHT 2021-11-07 15:35:00 94.348 kg height 2021-08-24 09:15:00 68 [in_i] [facility] weight 2021-08-24 09:15:00 217 [lb_av] [facility] temperature 2021-08-24 09:15:00 97.3 [degF] Common [facility] bmi 2021-08-24 09:15:00 32.99 kg/m2 [facility] oximetry 2021-08-24 09:15:00 96 % [facility] respiratory rate 2021-08-24 09:15:00 16 /min Comm on [facility] blood pressure 2021-08-24 09:15:00 110 mm[Hg] Common [facility] - systolic [facility] blood pressure 2021-08-24 09:15:00 72 mm[Hg] [facility] height 2021-08-02 08:40:00 68 [in_i] [facility] weight 2021-08-02 08:40:00 228 [lb_av] [facility] temperature 2021-08-02 08:40:00 98.1 [degF] [facility] bmi 2021-08-02 08:40:00 34.66 kg/m2 [facility] oximetry 2021-08-02 08:40:00 99 % [facility] respiratory rate 2021-08-02 08:40:00 16 /min Comm on [facility] blood pressure 2021-08-02 08:40:00 102 mm[Hg] Common [facility] - systolic [facility] blood pressure 2021-08-02 08:40:00 63 mm[Hg] [facility] diastolic [facility] height 2021-08-02 08:40:00 68 [in_i] Common [facility] weight 2021-08-02 08:40:00 228 [lb_av] [facility] - [facility] temperature 2021-08-02 08:40:00 98.1 [degF] Common [facility] bmi 2021-08-02 08:40:00 34.66 kg/m2 [facility] - [facility] oximetry 2021-08-02 08:40:00 99 % [facility] blood pressure 2021-08-02 08:40:00 102 mm[Hg] [facility] systolic [facility] blood pressure 2021-08-02 08:40:00 63 mm[Hg] [facility] diastolic [facility] height 2021-07-14 08:00:00 68 [in_i] Common [facility] weight 2021-07-14 08:00:00 240 [lb_av] Common [facility] temperature 2021-07-14 08:00:00 98.6 [degF] [facility] bmi 2021-07-14 08:00:00 36.49 kg/m2 [facility] oximetry 2021-07-14 08:00:00 94 % [facility] S [facility] respiratory rate 2021-07-14 08:00:00 16 /min [facility] blood pressure 2021-07-14 08:00:00 120 mm[Hg] [facility] systolic [facility] blood pressure 2021-07-14 08:00:00 74 mm[Hg] [facility] - diastolic [facility] height 2021-04-22 10:20:00 68 [in_i] Common [facility] weight 2021-04-22 10:20:00 250 [lb_av] [facility] temperature 2021-04-22 10:20:00 98.3 [degF] Common [facility] bmi 2021-04-22 10:20:00 38.01 kg/m2 [facility] oximetry 2021-04-22 10:20:00 95 % Common [facility] respiratory rate 2021-04-22 10:20:00 16 /min Comm on [facility] blood pressure 2021-04-22 10:20:00 114 mm[Hg] Common [facility] - systolic [facility] blood pressure 2021-04-22 10:20:00 66 mm[Hg] Common [facility] - diastolic [facility] Systolic blood 2021-11-08 16:00:00 120 mm[Hg] [facility] Diastolic blood 2021-11-08 16:00:00 63 mm[Hg] [facility] Heart rate 2021-11-08 16:00:00 62 /min [facility] Body temperature 2021-11-08 16:00:00 36.39 Nimisha [facility] Respiratory rate 2021-11-08 16:00:00 18 /min [facility] Oxygen saturation in 2021-11-08 16:00:00 95 /min [facility] Arterial blood by Medical Ce nter Pulse oximetry Body height 2021-11-08 09:55:00 177.8 cm [facility] Body weight 2021-11-08 09:55:00 96.5 kg [facility] BMI 2021-11-08 09:55:00 30.53 kg/m2 [facility] BP Systolic 2019-08-04 11:46:00 135 mm[Hg] [facility] BP Diastolic 2019-08-04 11:46:00 91 mm[Hg] [facility] Height 2019-08-04 11:46:00 70 [in_us] [facility] Weight 2019-08-04 11:46:00 238 [lb_av] [facility] Body Mass Index 2019-08-04 11:46:00 34.15 kg/m2 [facility] Calculated Heart Rate 2019-08-04 11:46:00 87 /min [facility] Procedures Procedure Date / Time Performing Clinician Source Performed US, abdomen, complete 2022-11-01 00:00:00 [facility] ECG 12-LEAD 2022-10-26 23:55[facility]22[facility]-26 [facility] 2022-10-14 00:00:00 [facility] Defibrillation [facility] Cardiac Pacemaker 2022-10-14 00:00:00 [facility] munity Procedure [facility] PROCEDURE, IN 2021-11-08 20:00:00 Surgeon Gonsalo [facility]-OPERATING ROOM Center SETTING TISSUE EXAM 2021-11-08 12:35:00 Chaitanya [facility] US RENAL BIOPSY 2021-11-08 12:29:00 [facility] SARS-COV2/RT-PCR ([facility] & 2021-11-07 13:10:00 [facility] REF LABS) Center MR Shoulder wo contrast 2019-08-04 00:00:00 [facility] [id number] History of Shoulder [facility] Surgery History of Heart surgery [facility] Heart Valve [facility] Reconstruction [facility] Plan of Care Planned Activity Planned Date Details Comments Source Future Scheduled Test 2023-03-16 INFLUENZA VACCINE [facility] 00:00:00 (Season Ended) [code = [facility] INFLUENZA VACCINE (Season Ended)] Diagnostic Test 2022-11-15 phosphorus, serum or [facility] Pending 00:00:00 plasma [code = Hospital Clin ics phosphorus, serum or plasma] Diagnostic Test 2022-11-15 magnesium, serum or [facility] Pending 00:00:00 plasma [code = Hospital Clin ics magnesium, serum or plasma] Diagnostic Test 2022-11-15 CMP, serum or plasma [facility] Pending 00:00:00 [code = CMP, serum or Hospit [facility] plasma] Future Scheduled Test 2022-11-08 Tobacco Cessation [facility] 00:00:00 Counseling and Medical Cente r Screening (12+) [code = Tobacco Cessation Counseling and Screening (12+)] Future Scheduled Test 2022-07-[address] [facility] 00:00:00 WELLNESS (YEAR 2 or Medical Center FIRST YEAR if no IPPE) [code = MEDICARE ANNUAL WELLNESS (YEAR 2 or FIRST YEAR if no IPPE)] Future Scheduled Test 2022-07-[address] [facility] 00:00:00 WELLNESS (YEAR 2 or Medical Center FIRST YEAR if no IPPE) [code = MEDICARE ANNUAL WELLNESS (YEAR 2 or FIRST YEAR if no IPPE)] Future Scheduled Test 2022-07-[address] [facility] 00:00:00 WELLNESS (YEAR 2 or Medical Center FIRST YEAR if no IPPE) [code = MEDICARE ANNUAL WELLNESS (YEAR 2 or FIRST YEAR if no IPPE)] Future Scheduled Test 2022-07-[address] [facility] 00:00:00 (12+) [code = Medical Center DEPRESSION SCREENING (12+)] Future Scheduled Test 2022-07-16 FALLS RISK SCREENING [facility] 00:00:00 [code = FALLS RISK Medical C enter SCREENING] Future Scheduled Test 2022-07-[address] [facility] 00:00:00 (12+) [code = Medical Center DEPRESSION SCREENING (12+)] Future Scheduled Test 2022-07-16 FALLS RISK SCREENING [facility] 00:00:00 [code = FALLS RISK Medical C enter SCREENING] Future Scheduled Test 2022-07-[address] [facility] 00:00:00 (12+) [code = Medical Center DEPRESSION SCREENING (12+)] Future Scheduled Test 2022-07-16 FALLS RISK SCREENING [facility] 00:00:00 [code = FALLS RISK Medical C enter SCREENING] Future Scheduled Test 2022-03-16 INFLUENZA VACCINE (#1) [facility] 00:00:00 [code = INFLUENZA Medical Ce nter VACCINE (#1)] Future Scheduled Test 2022-03-16 INFLUENZA VACCINE (#1) [facility] 00:00:00 [code = INFLUENZA Medical Ce nter VACCINE (#1)] Future Scheduled Test [address] [facility] 00:[facility]:00 aneurysm screening Medical C enter (procedure) [code = 282348145] Future Scheduled Test 2021 PNEUMOCOCCAL 65+ Y[facility] 00:00:00 (1 - PCV) [code = Medical Ce nter PNEUMOCOCCAL 65+ YRS (1 - PCV)] Future Scheduled Test [address] [facility] 00:00:00 aneurysm screening Medical C enter (procedure) [code = 767663656] Future Scheduled Test 2021 PNEUMOCOCCAL 65+ YRS [facility] 00:00:00 (1 - PCV) [code = Medical Ce nter PNEUMOCOCCAL 65+ YRS (1 - PCV)] Future Scheduled Test 2006 SHINGLES VACCINES ([address] [facility] 00:00:00 of 2) [code = SHINGLES Medic al Center VACCINES (1 of 2)] Future Scheduled Test 2006 SHINGLES VACCINES ([address] [facility] 00:00:00 of 2) [code = SHINGLES Medic al Center VACCINES (1 of 2)] Future Scheduled Test 2006 SHINGLES VACCINES ([address] [facility] 00:00:00 of 2) [code = SHINGLES Medic al Center VACCINES (1 of 2)] Future Scheduled Test 1975 DTAP/TDAP/TD VACCINES [facility] 00:00:00 (1 - Tdap) [code = Medical C enter DTAP/TDAP/TD VACCINES (1 - Tdap)] Future Scheduled Test 1975 DTAP/TDAP/TD VACCINES [facility] 00:00:00 (1 - Tdap) [code = Medical C enter DTAP/TDAP/TD VACCINES (1 - Tdap)] Future Scheduled Test 1975 DTAP/TDAP/TD VACCINES [facility] 00:00:00 (1 - Tdap) [code = Medical C enter DTAP/TDAP/TD VACCINES (1 - Tdap)] Future Scheduled Test 1974 HEPATITIS C SCREENING [facility] 00:00:00 [code = HEPATITIS C Medical Center SCREENING] Future Scheduled Test 1974 HEPATITIS C SCREENING [facility] 00:00:00 [code = HEPATITIS C Medical Center SCREENING] Future Scheduled Test 1974 HEPATITIS C SCREENING [facility] 00:00:00 [code = HEPATITIS C Medical Center SCREENING] Future Scheduled Test [address]ess[address] [facility] 00:00:00 Counseling and Medical Cente r Screening (12+) [code = Tobacco Cessation Counseling and Screening (12+)] Future Scheduled Test [address] [facility] 00:00:00 Counseling and Medical Cente r Screening (12+) [code = Tobacco Cessation Counseling and Screening (12+)] Future Scheduled Test 1962 PNEUMOCOCCAL 65+ YRS [facility] 00:00:00 (1 - PCV) [code = Medical Ce nter PNEUMOCOCCAL 65+ YRS (1 - PCV)] Future Scheduled Test 1956 COVID-19 VACCINE (#1) [facility] 00:00:00 [code = COVID-[address] VACCINE (#1)] Future Scheduled Test 1956 COVID-19 VACCINE (#1) [facility] 00:00:00 [code = COVID-[address] VACCINE (#1)] Future Scheduled Test 1956 COVID-19 VACCINE (#1) [facility] 00:00:00 [code = COVID-[address] VACCINE (#1)] Future Scheduled Test [address] [facility] 00:00:00 (combo) [code = CT Medical C enter Colonography (combo)] Future Scheduled Test [facility] malignant neoplasm of Medica l Center colon (procedure) [code = 160165041] Future Scheduled Test [facility] malignant neoplasm of Medica l Center colon (procedure) [code = [id number]] Future Scheduled Test [facility] malignant neoplasm of Medica l Center colon (procedure) [code = [id number]] Future Scheduled Test [facility] malignant neoplasm of Medica l Center colon (procedure) [code = 555015277] Future Scheduled Test 1956 Sigmoidoscopy [code = [facility] 00:00:00 Sigmoidoscopy] Medical Melissae r Future Scheduled Test [address] [facility] 00:00:00 (combo) [code = CT Medical C enter Colonography (combo)] Future Scheduled Test 1956 [facility] colon (procedure) [code = 742502504] Future Scheduled Test 1956 [facility] (procedure) [code = 941968274] Future Scheduled Test 1956 [facility] colon (procedure) [code = 402237570] Future Scheduled Test 1956 [facility] colon (procedure) [code = 889514699] Future Scheduled Test 1956 Sigmoidoscopy [code = [facility] 00:00:00 Sigmoidoscopy] Medical Melissae r Future Scheduled Test [address] [facility] 00:00:00 (combo) [code = CT Medical C enter Colonography (combo)] Future Scheduled Test 1956 [facility] colon (procedure) [code = 954214613] Future Scheduled Test 1956 [facility] colon (procedure) [code = 631642337] Future Scheduled Test 1956 [facility] (procedure) [code = 395874316] Future Scheduled Test 1956 [facility] colon (procedure) [code = 645483163] Future Scheduled Test 1956 Sigmoidoscopy [code = [facility] 00:00:00 Sigmoidoscopy] Medical Dusty Michaud [facility] Encounters Start End Encounter Admission Attending Care Care Encounter Source Date/Time Date/Time Type Type Clinicians Facility Department ID 2022-12-08 Outpatient [facility] [id number] [place] 10:56:46 [id number] [facility] 2022-11-06 Outpatient [facility] [id number] [place] 10:04:40 [id number] [facility] 2022-10-26 Outpatient [facility] [id number] [place] 14:39:55 [id number] [facility] 2022-10-25 Outpatient [facility] [id number] [place] 16:29:56 [id number] [facility] 2022-10-24 Outpatient [facility] [id number] [place] 15:12:35 [id number] [facility] 2022-10-17 Outpatient [facility] [id number] [place] 13:59:30 [id number] [facility] 2022-10-16 Outpatient [facility] [id number] [place] 15:05:05 [id number] [facility] 2022-10-11 Outpatient [facility] [id number] [place] 10:25:23 [id number] [facility] 2022-10-09 Outpatient [facility] [id number] [place] 13:11:58 [id number] [facility] 2022-10-06 Outpatient [facility] [id number] [place] 13:31:13 [id number] [facility] 2022-10-05 Outpatient [facility] [id number] [place] 08:25:28 [id number] [facility] 2022-07-[address] [facility], STLMLC STLMLC [id number] Common 08:09:00 Shana 7[address]01 [facility] 2022-06-[address] [facility], STLMLC STLMLC [id number] Common 07:16:00 Shana 12588 [facility] 2021-08-[address] [facility], STLMLC STLMLC [id number] Common 14:35:37 Shana 31989 [facility] 2021-08-[address] [facility], STLMLC STLMLC [id number] Common 14:29:30 Shana 28215 [facility] 2021-08-[address] 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 2022-11-15 2022-11-15 Lyn[place] [facility] [place] 00:00:[facility]:00[facility] [facility] - ty C: [address], [address], [place] [address] , Ph. 2022-11-14 2022-11-14 Outpatient TENZIN [facility] [id number] [place] 10:00:00 10:00:00 [facility] 2022-11-10 2022-11-10 Telephonic AMANDA Sibley 6400 [id number] [place] 10:30:00 11:55:11 Encounter Radha MATTA [id number] [facility] [id number] 1 2022-11-07 2022-11-07 Outpatient CHRETIEN_F [facility] [address] [place] 00:00:00 00:00:00 0531 [facility] 2022-11-07 2022-11-07 Outpatient CHRETIEN_F [facility] 13[address] [place] 00:00:00 00:00:00 0426 [facility] 2022-11-07 2022-11-07 Outpatient CHRETIEN_F [facility] 1313 [place] 00:00:00 00:00:00 0503 [facility] 2022-11-02 2022-11-02 Outpatient CHRETIEN_F [facility] 1313 [place] 00:00:00 00:00:00 0420 [facility] 2022-11-02 2022-11-02 Lyndsey [facility] [place] 20 [place] 00:00:00 00:00:00 Ch[facility]ien[facility] mmuni 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 2022-11-01 2022-11-01 Outpatient CHRETIEN_F [facility] 1313 [place] 00:00:00 00:00:00 0419 [facility] 2022-11-01 2022-11-01 Lyndsey [facility] [place] 19 [place] 00:00:00 00:00:00 Ch[facility]ien[facility] mmuni P[employer]P HOUSE SUPERVISOR-MUSIC ENGINEER-B Hospital - ty C: [address] [facility], [address], [place] [address] , Ph. 2022-10-31 2022-10-31 Outpatient CHRETIEN_F [facility] 13[address] [place] 00:00:00 00:00:00 0418 [facility] 2022-10-26 2022-10-26 Office AMANDA Sibley 6400 [id number] [place] 15:15:00 15:50:58 Visit Radha MATTA [id number] [facility] [id number] 1 2022-10-16 2022-10-20 Inpatient U ALICE, [facility] 7501 [facility] 13:08:00 16:41:00 WHAT CHEER 2022-10-19 2022-10-[address] [facility] [id number] [facility] [address] 00:00:00 00:00:00 [facility] 2022-10-05 2022-10-10 Inpatient E ALICE, [facility] [id number] [facility] 10:31:00 12:45:00 SHANA 2022-08-08 2022-08-08 (TEL) [facility] [id number] Co mmon 00:00:00 00:00:00 [facility] 2022-08-07 2022-08-07 (TEL) STLMLC STLMLC [id number] Co mmon 00:00:00 00:00:00 [facility] 2022-08-02 2022-08-02 SUB ANNUAL STLMLC STLMLC [id number] Common 00:00:00 00:00:00 MCR [facility] - [facility] VISIT [facility] 2022-06-29 2022-06-29 (TEL) STLMLC STLMLC [id number] Co mmon 00:00:00 00:00:00 [facility] 2022 2022 OFFICE STLMLC STLMLC [id number] Co mmon 00:00:00 00:00:00 VISIT [facility] PT - CHI LEVEL 4 [facility] 2022-03-01 2022-03-01 (TEL) STLMLC STLMLC [id number] Co mmon 00:00:00 00:00:00 [facility] 2022-02-20 2022-02-20 (TEL) STLMLC STLMLC [id number] Co mmon 00:00:00 00:00:00 [facility] 2022-01-12 2022-01-12 Outpatient RHYS LANCE PUL 7501 RHYS 06:42:00 23:59:00 ESHA 2021-12-02 2021-12-02 (TEL) STLMLC STLMLC [id number] Co mmon 00:00:00 00:00:00 [facility] 2021-11-25 2021-11-25 OFFICE STLMLC STLMLC [id number] Co mmon 00:00:00 00:00:00 VISIT [facility] PT - CHI LEVEL 5 [facility] 2021-11-08 2021-11-08 Hospital RENÉE Savage [id number] 09:41:00 17:00:00 Encounter [facility] 2021-11-08 2021-11-08 Outpatient ARELI KHAN [facility] Surgery [id number] [facility] 09:41:00 17:00:00 CLARENCE 2021-11-08 2021-11-08 Surgery Gonsalo, [facility] [id number] 12:00:00 13:00:00 Surgeon [facility] 2021-11-08 2021-11-08 Outpatient VALERIE SAVAGE [facility] [id number] SLE 12:05:00 12:05:00 [facility] 2021-11-08 2021-11-08 Travel [facility] [id number] [facility] 00:[facility]00 00:00:00 [facility] 2021-11-07 2021-11-[address] [facility] [id number] [facility] 13:15:00 13:30:00 Visit MoniqueElie [facility] 2021-11-07 2021-11-07 Outpatient ARELI [facility] [id number] SLE 12:54:53 12:54:53 2021-11-07 2021-11-07 Travel [facility] [id number] [facility] 00:00[facility]00 00:00:00 [facility] 2021-10-31 2021-10-31 (TEL) STLMLC STLMLC [id number] Co mmon 00:00:00 00:00:00 [facility] 2021-10-28 2021-10-[address] [facility] [id number] 00:00:00 00:00:00 Orders [facility] 2021-10-13 2021-10-13 (TEL) STLMLC STLMLC [id number] Co mmon 00:00:00 00:00:00 [facility] 2021-10-06 2021-10-06 OL DIG E/M STLMLC STLMLC [id number] Common 00:00:00 00:00:00 SVC 21+ [facility] 2021-09-20 2021-09-20 (TEL) STLMLC STLMLC [id number] Co mmon 00:00:00 00:00:00 [facility] 2021-09-07 2021-09-07 (TEL) STLMLC STLMLC [id number] Co mmon 00:00:00 00:00:00 [facility] 2021-09-02 2021-09-02 (TEL) STLMLC STLMLC [id number] Co mmon 00:00:00 00:00:00 [facility] 2021-09-02 2021-09-02 (TEL) STLMLC STLMLC [id number] Co mmon 00:00:00 00:00:00 [facility] 2021-08-29 2021-08-29 Outpatient Yan_W MMG MMG [id number] [place] 03:00:00 03:00:00 [facility] 2021-08-24 2021-08-24 OFFICE STLMLC STLMLC [id number] Co mmon 00:00:00 00:00:00 VISIT [facility] PT - CHI LEVEL 4 [facility] 2021-08-24 2021-08-24 (TEL) STLMLC STLMLC [id number] Co mmon 00:00:00 00:00:00 [facility] 2021-08-15 2021-08-15 (TEL) STLMLC STLMLC [id number] Co mmon 00:00:00 00:00:00 [facility] 2021-08-08 2021-08-08 (TEL) STLMLC STLMLC [id number] Co mmon 00:00:00 00:00:00 [facility] 2021-08-02 2021-08-02 OFFICE STLMLC STLMLC [id number] Co mmon 00:00:00 00:00:00 VISIT [facility] PT - CHI LEVEL 4 [facility] 2021-08-02 2021-08-02 SUB ANNUAL STLMLC STLMLC [id number] Common 00:00:00 00:00:00 MCR [facility] - [facility] VISIT [facility] 2021-08-01 2021-08-01 (TEL) STLMLC STLMLC [id number] Co mmon 00:00:00 00:00:00 [facility] 2021-07-18 2021-07-18 (TEL) STLMLC STLMLC [id number] Co mmon 00:00:00 00:00:00 [facility] 2021-07-14 2021-07-14 OFFICE STLMLC STLMLC [id number] Co mmon 00:00:00 00:00:00 VISIT [facility] PT LEVEL 4 [facility] 2021-07-06 2021-07-06 (TEL) STLMLC STLMLC [id number] Co mmon 00:00:00 00:00:00 [facility] 2021-07-04 2021-07-04 (TEL) STLMLC STLMLC [id number] Co mmon 00:00:00 00:00:00 [facility] 2021-04-22 2021-04-22 OFFICE STLMLC STLMLC [id number] Co mmon 00:00:00 00:00:00 VISIT [facility] LEVEL 4 [facility] 2021-03-16 2021-03-16 Outpatient STLMLC STLMLC [id number] Common 00:00:00 00:00:00 [facility] 2021-03-11 2021-03-11 Outpatient STLMLC STLMLC [id number] Common 00:00:00 00:00:00 [facility] 2021-02-25 2021-02-25 Outpatient STLMLC STLMLC [id number] Common 00:00:00 00:00:00 [facility] 2021-02-16 2021-02-16 Outpatient STLMLC STLMLC [id number] Common 00:00:00 00:00:00 [facility] 2021-02-01 2021-02-01 Outpatient STLMLC STLMLC [id number] Common 00:00:00 00:00:00 [facility] 2019-08-04 2019-08-04 AMANDA [facility] [id number] [place] 11:00:00 11:00:00 t; JI VILLEDA [facility] Jennifer Feliz 1 ans JI VILLEDA 2017-11-12 2017-11-12 AMANDA Hoffman [id number] [place] 08:00:00 08:00:00 t; FRANCES GARCIA Phys [facility] FRANCES ans Results Test Description Test Time Test Comments Results Result Comments Source Tissue Exam 2021-11-10 15:51:47 Test Item Value Reference Range Interpretation Comme nts Case Report (test code = 104) Surgical Pathology Report Case: [id number] Authorizing Provider: Ascencion Khan MD Collected: 11/08/2021 12:35 PM Ordering Location: [facility] PERIOPERATIVE Received: 11/08/2021 01:53 PM SERVICES Pathologist: Jordyn Smith MD Specimen: Kidney, Left DIAGNOSIS (test code = 3220) [id number]VbSdIbOgXeIq pc dWMxIHtccnRmMVxlcGljOTYwMlxhbnNpXHNwbHRw N0WcuohkAMtvBA4tVT7ipWengIFyqIWrDXZvKjGe y3ntd055fEMqv5tkXMNKurijoJt1wWjmR79xz5M5 AfkxZ52tsVUlKYH5XNOgXUKjjRDpXBKkXLK4WEBb eANpY3cfLCUsUW4lbysfLWxjOAwnCZFudGN9UFIa cXSzJ1WoVKRuMRmaAMNaqsf2XoKhBl5mqRLhqCjs CGesKFLqQCFiBOcnNPKgKyHnO0qXGhRGMSPYNALP PHUTHXANJNLBUI5PHPgDZVYTUWXEXA8SA2d9ZMZm hoVzUQWMOdMPI6vYWFCvFyXPSHhVA73hRWTVKn5A TQ9VP35SRRARYNNadQPcYTMjARMUEAXQN39MFI3L ZKYkry59VHO6SeXoz6Y6ADN6OHAdZGQhz6zwRPCb vWNoAsOaRhBrFuBpIxbxmNUjFWBcTtAja5lpr092 yQBds0mvPNRbOgO0wNDzFKLnzQKoA981KJWhVPsu z5jbb3DvSOQznDVpw9B4HOPIaiynlHq3kYuaG82o l5H9YxxhR9wlFBZcPVXvC0PkOS6mISCtMvg1JLA7 WPR5JFIpGAXsI9XlLZ9rENLklJAfORj1n8lhmRyp NWXiBLK6t5mqYUzjknPoCX4bfz9duGt9u8yuxqIj DALyAJOqeCGEERUqZ6IgkLlvQl1fwGu0zBvsEygk SDG1Faf0VD3cll20xnq7eFyaHXEzupouFmD2PPrm XHQuegalOXf6ZRpoYOTndDB3DHPkjXTiU5NqIRJz AT6jrip3YVI0XDgmSSGmIkF7AGQtlQHaIPDqcGuw WIlmo871AIU1VhAdHD5pE4Fwc3Q3jU9zcDTtFKGr aMKkVoBeOORrvm7vlPLtVCvzk5KtPUK4muI6eSSy bMNeUNJsQlP8RTlbQI9oro56KHMlZMJ3ah6nxSVd rDytcaHvdDSgIVcrF1KdAFKpe056FMQdO4SoHUAn z3R6lzNfCuKsAHKvwMS8cwQ8TGDrXJ2isidii8dw REemKEbuTNItgcY7ryR5RYYutJBdH5HdeZ9cCCLn IT2ezvcqq1ufKJO2PYesWZKwLPF7SpTyHRHtd3Gj uix1OvJdo2UpmQDqACacH53ob340BBJodeCsA1tk mJGkzwvuwPNcplzkSZresuS1HHDlUKamrxwxMIAm YIcsW6tjHdPtOLWusTpkANhux0QcFEKvLNPvNdSg oONaQSJvSez1PAOwoHWoRJRqCwHlI9dqpaykJqBF CCNsj7fhV4qcmWORsOUaT5GnCGdbjlIqSQxdKBct RbPiOCl8EO79OzYpOYFpbp49 COMMENT (test code = 3359) [file] cZ5qehNlJP1vwDXocS== CPT Code(s) (test code = 6773) g2ixeGEzTSSleJU1UnZrKHLsm1yrh3OvrQXl cGFy KBussOFcayQxca06yGP5wO73PP2vOAFcLzY5AKYv wcJ5Nwo7SGRzVTPvdDNmG059x6cqg2chwoYxpNV0 mCtbDYCyeszyVdV3HNzzORByehkjYTd3VFfyHCJv qDV7PBJznUHgW4JsMCOaLQ4zgcb1SFT6YJnfYWSg IdW6IKMyiIWxRZTelXcnYGwps741EXO1XxEoCULe oaAqtUaxbA6uSpVpGIT6TNPaPTrhAWxtRWUkOPa3 MzQxXHBhcn0= CLINICAL HISTORY (test code = 4756) h3vsrFYmSHSvaCR7QaLiUCYme7rwd2H sdHBncGFy TSietJGpkmBktf58mPR7vV05ZR8zVBRgZqQ2PUBu nhL6Njl3DXJeGDCzpGEtB651t9iok7ejreKzlKY4 bBnjDGKcrguzGbD3FDmmNGFatutpQTk0WXaxSOXb aKF7CSFqeIIxY2AmLRFgSM5dign4FNT9ITfcPXMj IaK6ETSfsEJuTDNnlTreMGfjf761RYH8AwLhIKSz jnDndPdbbB6wRoIiDJGGTAI6QWYplpJaFP5vh5Yb fNbjpY4pIQwkGRD0 SPECIMEN SOURCE (test code = 3377) n4zhvFLtZPHhaRI5LmQyYNAdu5ynl7Ya dHBncGFy HMszgHLxtwIrzb02yJN7vU49PP1jEPIuLqH7WWWh bbH9Byz4AKJnYMAaxETzW387j4blk3sulyPgvON5 vVcdMRKnlkqnKyG1WIojAGRijgjwLTk9OLsvSPDt jPF1RZUxqRLgH6AcXMFpEL1dxkg7RQD5AStrWYMg LiH0MCJwuIQiRPCbwYozPPbgo880DBL2ZkZrWJSd pjEaaVciwH9oBqQtJPMHNUK6FKPxkjFiKA1eq8Ag cGFyfQ== GROSS DESCRIPTION (test code = o6pldPPhBOMusIEGMBUjP1jsmbHvZKSjyFFe [facility] [id number]) ahrdLNbaFL2uEI4swPvluHRquUVxWL4WPCQiJnQw ZDVvrUOtyhXqThZsNSHqhZLhzGL2RPQiDI1cghmm PPnnFKnpMVJhxsA5TRFmoMUkB4BrVHXqFT3ynpxa JEO9MJxkxS8dwnFOCofyUj0fbMHxlTgvKnNyZwOh ZRMoOAYlCNIuxBsjIOKmFUh1fZ6SJsanA99yt5H8 Cpw8LKRqZDEtU5EoMO9fASKigDFfA23KXxguAID7 VQTPFytlOBOkPH2Ce0biNKDjqRDhPYR7FIheeBTe WOEjZPJvPEp1ZHGtLUgdmZXfTF7hfXziMcvyuPqo c2OlsCFzVAliMLWoTAScSMcoJXUmTZ7AQcOtKRLl QBHbCLCiLGa0BJr8WW4AScQdFWAaYRWqQfT9NyPu LNf0SZtpGL5UYTA4XMUnWBRmLGM1MDYxIsTxVENn TuFuOHUzBBAzXPhkCHcpfSYkID2pgEcasWYsklFB LiBLaWRuZXksIExlZnQuXHBhciANClxlcGljTmVz dERvYzEgDQpcbHRycGFyXGxpbjBccmluMCANClxs jPBprBbpOpIuArJwOSXAQUIpiPMjAAUuovJnt8Hw YWxpbiBsYWJlbGVkIHdpdGggdGhlIHBhdGllbnRc R5I9hxEjKR0qYQHzFLBdW0RuBQEvJ48tYMFunU1q ZDBaDA0rILTaoLTgNIteFHgrHnUbtTlwOsQvGXh3 JrShqwOfQwR8CC8myVQxwN50FPWllygyJ6N3TZPg q41xlYB8aNYdiKItJ11pMLJapSMrf1WggD2jHMIs HsVmkEDdcfOpCF4dvAigCA7hBHFuIXOpxEOdhiOu TV0kgZtlr2hrZ4fkUWKhKNK2Th8gzFPfBTEeeqK7 k4SmCWtjAXCpNbmpTIHpLFwdpELbRT1PO8abyVTx ZOFJftM1xnhbFWrKCPOPMLOdAWMOEQdmiIqmPZXc SOvqgBCgFR9QAGUkIYujlqUdHN8OQAGpCMteUMZa sNVUVYJ0PV8wUDzbkHQsapreJDDpT3SxR2XxucWw vBOsGYKosqQoe4mdYQA1QGLxyEGryUHjLyCzWgmd IMX9SFtuq7gdKAD0VIYtyKKgoZWoDEmtYkMyKezx LUTmI0CaB7IjhdK6ZZi7 MICROSCOPIC DESCRIPTION (test code = g3atxBGyHOUdbEU1AmBoCBQtb5qdi3 BsdHBncGFy 3371) BMsafCJudbBdms03eNK7dQ70BW1vMNHhQnK9HQLy ezB7Cpg6AEAfHRBsyTQpN076c8ock4oyjlWeiPI2 hHczRMUccqpqLvD6KLamMDKozspoGEu4MYroRIXj fSZ2SJUftNRxY3GhQTVaZK6pxdv7LOE4LIblTLUu IxA4HZZzxKEbDXIwrTsyWHwek188NWN7ZnKqIPCm wmZqfSrfnL2cOpRcAXKGBOZxj0EbRGMvpWArrU== SPECIAL STUDIES (test code = 3376) v9blnSUqZDQpa6qgREEebMKfCyJjYySt ZnRuYmpc lOQxPUxddiLoNHnwk0TvF3YdFjAnWHxotuBmUQBr MwgeeeeyCQSmTSV0hgKhAJOoRKhsBONqJGloNr4x lHGqfAgrHnUhJYNfh1ldxpHEhlbflZp4r2jzVSTu LjW4hWJpEObvC4vkauAklRGeQ7ZemRZdvOj0v3vr ToZqUuK4zTLfLLisR5glncAfeRMnHEXdHMu0wW70 NDHrpU3ypEOsSJmrhpRqCqI3BIxoHAOhHmX3POTz lUVtMFNuQ1rnJMDeDYqiESNeHAavkWCwMTX6iNoi n1F4dDGfwOWwqNizBnFzPzMfYrSJl1TbMZc0vDai Q4DjRDFeKaZ0sHIrTYQuWRifYDDzPWLzheG3yLog ojCcw84drRQlHFHnZNAbKdVqvLrcPMLlOMLLn6Jv jQtbOGN7aPo3fGxkSmcwYWT2Jkl2HD4kdc42zxj1 tEnoWXPemtbpIzT3LMmyZYJgnbhvZDf9MFcqRTLy jBB1UAWzuLIkN7LsYPCjDB2trrz9JFC1OZpvEZLw UfM9FAZtsRSlYFDchFocZKyrh532USS7HhKgQP5c V9Unw8L8wY8ypNLgMYFhlNKuGxHlRKMcgm7xpHEp QUfih7HeUIZ4wnG3tJBiuJXfVXXxUL92Uyazs9Nx Ddysu3WbR10vgMJ8MQnfk2loLC0uVfH1lcUdQYig h0ukkY3iAcR2FPnzHR1jLG5xAFJaoD2wixlaGFHj YxJmrfzwWFQyiGghivMeQa5alGjwKWF6CNtfR3bn hD6hLcL0TEccX9tyeL7uEJt9ZLrqeZF8EBHniN5s RD8qljuyh6eeEReqOYiwCUQclyX6cbI3HLZgiXNi E6PzjQ8bLSXaMY3ghwipb2xmPGG7RUhhCESxRQR3 KzAaFIHre3Mqnyz5XlYyh3EpjKQgIOmqB65he953 MMGmmjZbS7eflREmacfeuPAcduonNRjgilC1OYTj XHBsYWluXGYxXGZzMjJcbGFuZzEwMzNcaGljaFxm CEufRcDuYMNgWFrfD7ifWxJyG0KoUVHmVgReOFzb XCormJFrhBGglCA4kB6wUK2rEYZssDGoI0XlDGDp etRnyIZpDNV0hZHjpLGtMW4zNTozsTUhc9qjo4Vv P6ccwAyemGL2OK6jPAUaNBMtMWvdu7IjwP4xDtko xCXkxuqwSQurauRnVPlbrqswRBTgCJtlP3xjKjOw BMJztNpwHOftr7MeDGInTCUxEdmngyDxGYi2ktPf HJFgatndXPMnsOqtjU1tYgTvHfVzVippWB2uQQCz A5fdoUDeQAJiWOEoO1yzMxGdaI3vlGfkIBlbXgIk ZbRfQgJXt720xw4eDNYfyIXxlcRBuYXkvK5yCBxx BFrnDUyimJTkLXysz3xbOPEct1m8oEEvBWUelbYm f0usXUahhkLeLHMixJVhwZPyWQRab49mOFbziOsn dYukHMKzz1LlyWjmz6DcSrMgGVdji8NzG58gxVWy pXSaoFutQGXdcrJzLKDfw91ju6weKFKgWgE3fDBh kJU9nCRtrNCmg8BeyKhlLKQdm3qzUGMech6zypel nXImy0ChcL9axgnpQLbloGLjycVzNCPjb4j1xOSw PBGnOXJzEKnseDw2XECht691zv2exvH3oKIfOLH3 YWlsYWJsZSBhcmUgZXZhbHVhdGVkXHBsYWluXGYx XGZzMjJcbGFuZzEwMzNcaGljaFxmMVxkYmNoXGYx NPuuY5kaTwKcC4MrJUTqWrQhzEBoC0kfjGJuZKFj YWluXGYxXGZzMjJcbGFuZzEwMzNcaGljaFxmMVxk WeFbLWEpVOvgD8dwWaNcB8ZmPZPnIdEoYCalxEHi lpfnCPphmrBwTWfiovkhFFHcXMgmE2qnIxCyMTXp vXevFMbgs0InXRQuYSEwRmtecvJzJUf7gcNiKIVv wgumaKOgzjhbOYhdkoLbLDbjhofdRQNzNLfqU2dq [file] [id number]== Gross assessment was performed at (test [facility] enter, code = 2777) Department of Pathology, [address] [place] [id number], Technical component was performed at [facility] er, (test code = 2778) Department of Pathology, [address] [place] [id number], Professional component was performed at [facility] enter, (test code = 2779) Department of Pathology, [address] [place] [address], [facility] [id number] 15:51:47 Test Item Value Reference Range Interpretation Comments Case Report (test code Surgical Pathology = 104) Report Case: [id number] Authorizing Provider: Ascencion Khan MD Collected: 11/08/2021 12:35 PM Ordering Location: [facility] PERIOPERATIVE Received: 11/08/2021 01:53 PM SERVICES Pathologist: Jordyn Smith MD Specimen: Kidney, Left DIAGNOSIS (test code = [id number] 3220) uZzEwMzNcZnRuYmpcdWMxIH tccnRmMVxlcGljOTYwMlxhb eGxSKMtvKQdT7MuqqcmKWig KO5jXZ1vtXevnIBhoOOgOZS xPiJkz4vfj934iQRne8tbRN JBufpqeSe8xKjcA40rb7E5O bdbB78sqEBbNZX8BASaZGFq rEWgNDErKEH4HFOaiZAdP0c qDHEeYN5xwrrjVQjyUYsvFY RkpNM9WBVluFGhU6WeDPLhF PjgZZOfghu8CfUjJw2noXMe eTcyMFxwYXJkXHBsYWluXGZ kHjSbC0gPMgERCPGBUWINDR JEZZBXINMHGA9PDFvCJHIRA DSUFE1ZY9o0DOZqyqTbNION JcPJG8dVPKVxQoCEOEmCR35 lYVWZNq0SDD5WJ42QDPHJLP DyaKIvNOEkICYJXITIV22ZE J5EXRLpsf53ORA9ZcJxr7N4 BHA0POBtVPClo9agMAUlsBK uZzEwMzNcZnRuYmpcdWMxXG JzBlQjl2gdy619rXRju9hyB QAlNcM4zVKpJZFsrLElK073 JGFdPZxsu2gqc3CrFJSemZC eo4R8LWVZamqhmEl3vSfgC4 3st8N9AvmtH4lqUOYbWZDhV 6VlRF4oWDSkAoh8AVD1FIJ5 VKOcYLViW7YgMY1gUEWefPV eVPs2e6kczAsfCCDrFYF3z8 doFEasukRaWR7abf8zkGb2l 1xjczEgRGVmYXVsdCBQYXJh R7IyyFbmXk0tcCm1xFehJhr nPHA1Vtt5JC6rie91enf8hU rhWJYifbeySnF1XPlfFKMcp wqsCVk1ZLutPYWmxQW4SBWm mQUvB5GhYNPcRV3xwrq5SXW 9BDmcYYSvRrP6JSElwKIoBM EoyRjnYKvoy367QWK4UmSmR Y2aB6Aol4I6lG6gzBStYYRq uKKaYbQxGKTpvc4vkAZqZZz uc2VdYTM5fcK1tHNxqHUhTS EsLaZ4OLznGY7ire41CFIbV HE9di9tyCLbpIxyeuIzuUEo JUeoY6MtMLUes017XHKyA5X ySADsh9V1npLnExUlAOGotR I4jgX1UTVvPH6aqliqt8mxW PzsIKfiHCGlolV4etO5JIDw nHNvI4MatZ5gOXDlPE2cltc wx8cjMDX6ZIgyQJTzWZH2Sd SePIUcv2Jhloq9KnNha9Rkx YShOOitO11wr132AKZytdIv G9jsjBIhanyefIMgdcbbYBr tzcY3AHLoTClnxyegPLBaML geG2ugNbCqEUAkdOmnNCmue 2NoXGYxXGZzMjJcdGFiXHRh Uwl2HESnoHRlCJJyMkApZ1j cfjsbXgJEMCAsq1krF5muxM BFkAKaC8GfSZqqnaMcSWvtQ KrpFuUsRCb9IO36RaUtNDPa cn19 COMMENT (test code = g2ypjYKsZRJavJT2QiGiFUD 3359) vl9zcn4ZjgKXblFHrIForfJ EzhgJqkr05mWW3uT44WE5sT CRkDsM8KSIbszD9Mme2FTDv JUQpkDHwU677x5jbl8bmhlB mqAH6xFhoFHHuzydaGtU1UX hqYATautzpAOl6YRvaGHZnv CJ0QMYlnFCwK4DoFGWoOC7p gxl5VRP0TBfdNOOhUwO0VFJ poPJqPWMzjUlwQGflk947PL J3XoAnIFRdtnGijUjztY3hU kLdIHWSdMOfeLinoB8io8zp MiJdSVW2qODhrxHdvzXsaRX iZSUwUA6iv2XzWPJtXSzflW cfK8WhoPAsa606GIwnmM6jJ VYiw8xzu6DvbCdrDkAubkXu P1YracMzUGJyP3y0h6EgDWK dNJSlhoVjO0GsPUtcAD4de0 DeZRsrxWabhs89vvOvorBlu NNbEJZyo07egSwzxA25ipJf uEGcWA5rkFIasdGrq9TobHN pwaYiZT91K4veZSPgiKZycF BdeU1juNLynC4qoh4hGS4ns H8riCgdfI7zyVIrkBWmhKVs aAKsfsGym4HuHKMgTPVjj9R lBIMyWU5qHKNkh2vriJilWS dfc7byfzH1waUgLYRypLSfv omlbHFbk0XosMk7MBFpj8Js U4AxRRbjBL6lPOWxDJM7UYB xTPMpi6XltJk9fIT5DATscf BDSzcuICBUaGUgZmluZGluZ 1ZkVhO0x2SdMO1qx45ot2R8 kB9oBX6tEM00fCXaTENze4c fz0WrpQhaZaDyMJ0kmNN0pK 1xvuAay0DghOGxpyVkj7Cng l6qtJbwyCQqgmLmgWTclWVj ZnConKCswJ3exD6mUGVnLQ3 wuNJsCTknQZAljbYmtp7fBW FjalWhb7cwI7FtDUSma82kj 5H5rIycTLA0pV8uGOakldBa H44ld2kvTWIrPPlmKwY0GZM gSSKmuDJ5x6niP4hcNLCxYR HkrK31ad7snNR2j3BlTL1nZ 6QyHWVgYQH3gbOqSS5qtl10 HWRcke4pLNYtQRDgDMZqlBm 4bJKoRpTaZ71mbnUpRGErl8 8hl1g1xLMlzRlszRBerUPeb aXlxtDozU4ek6qgLkAzkA4t gC4owfNazoQnTCEmaR4qecL fMM1jxUCmgZ== CPT Code(s) (test code y5vnuRArVCWgnXM1YaBhHXQ = 3357) uy6jvo9AwqPXzgHOjYNkngK BrarIsmc90kZF4wK98ZR9lZ KBnMoK8ASYaaaH0Kqd8YGKt KBNacELhD012r4akd6dpnlP faBI5cGahTFWzjcjgAoW2VP seUUHrznuzNKd8PGygIPYiz VK8TSFvyRXaL1HaVWZqVL8f tsd7QVO6MPvwAHYfTxF4RXC qxROoTPNkvHhtTJrfd207MF C6HcDfKIDenaBrvBjpoU3xW rNwDED7ETMbSPcuVHhuGZCd URd0OnWtCNUgjx4= CLINICAL HISTORY (test i8mdiMMkLBUgnKW3NhAtTBK code = 3356) ew1hkl4FdaLHlfSFyRYtyuN NeihIdca00gJY0hL43NF4sR KMoUoG1YLSnibM2Kjq9QTBk ONOerYAoE222z4rex2swhcO mdXU4oMxlKPUyhdsiWpQ0HD ivCTBdtbrpXEs2KGrfIWUls AZ6HQNaqBWyL1XuKZCqAM7d xrr5UQB8IZcjWHWtUsX5EUJ tnVCxUFBuyNwfSJnwn405NU D3IqFkZIBsnuOfvIfpwK2jM mMmDHSJTJP7CFQrjlXcRG7j z6GeyGutzF3fTWedGAD3 SPECIMEN SOURCE (test e6xduOJuYIMtiRW8KoTtYGA code = 3377) xa1xcc1SzlDOlaGGhSZvtfG DxjhGlth83pZO8sG57ZT4fJ QYfByI0HBOtxfX6Qfh0ZPAq AOCzmIDtW640k9sop7wyzuF mlFX8cLalHTUbgdqzKcD3GP niZMCetatuGSu7YIhoOEJph UR4YQQzhYZmK6NtAWFrLU0b lqb0SZU9DYieVRDmQpB5GMZ ciEHuXWMblZxtVDwyn739RV A9VxErPWOwwjEahCzcdX1fL nOxXBQJPGA2QGOmdqVnKY1m p0RtsSOjlP== GROSS DESCRIPTION f9mttKQeWDDxvPUQDLIiM2s (test code = acbTtAIMwqPJvJ0SvvomyIP [id number]) kiZX1sPC2mjWkgnCYarQPuD W7QXOHuWqDnVDFpoOKysgJf BkPhAJLyzDZksLG3BHUrAE1 ryzogFNtqLXjiGQIfcwW9BQ WluIBmB5XhINCiHV3bicljM CR4NHrzxO0qvhEEGjsaKw5a dHRibHtcZjFcZmNoYXJzZXQ tPBHxyYwfFPPdWFm1kI4IEo xvV15rx7S2Xes0JTHnNKXdU 3SkIR3sCBBvdCOvN10FEkgd BNL2HOWADdetVDWyQN3Iu0a gVWKusDGuCQB6VKqwkPBgOH QvCLGwCYp0RIWoWIfibNIzB G0kgSliEikqeJvmh5PxpVBd XGlkIDUxMDAyIFxcZGIgIE9 UXwMlOWReMLAeGNPsEFb5KX l8MM5UMiGoZJObRBPlYmA1J lNaSCc5ADcvNO3YNHV0CVIb GHCxGGH0YGIdWiWyNPCmCbU cXGYgQXJpYWwgXFxmbCBcXG 5jfVxwbGFpbiBBLiBLaWRuZ XksIExlZnQuXHBhciANClxl cGljTmVzdERvYzEgDQpcbHR ycGFyXGxpbjBccmluMCANCl xsdHJjaFxjZjFcZnMyMCBSZ KIakDVmUHEdgfXbh5NgNHml biBsYWJlbGVkIHdpdGggdGh aARSjfYkqorJrU4I6ckRyCY 2xQLOoOYPpG3DmJCBrD63wF XAltD1eZOGqVQ1oCFRykJOl ZXksIGxlZnRcdTgyMjAgXCc 1CwSgexAqGpF0KA4xtDNhdO 20PACngygbB9F2TZYdn83cb AH8wYMqrCAwL07mOUYbvDEs g5WrkT1yZRYqStYawKOsvvD gJL3yyKytOI0aZEBkBJKfzV NzfgMyZL1mkClnt9jeA2gcX EPkFWI3Rc5utVNgHBGzvnY6 n4NjHXlvOSHfYsikOKAkLUo ddQFrPW2FE9xsqNBtVBCGxo K5zzzwXCjIQXCHVZEhKTCHN SallJagHGLpKFvpgNNaHT3M YQRfFIdtnkGrFD7WTZFnFPy rENIfiXJQWVD4NS6dJOhcyP LoguvpWTMiH5JbT0EhalWnj APhAFTaicFyi3fqOKD6LAId iPMleNGrItHiUoxeHDH1HBp ik7wqUKE3HJLfxPKgfLYaPX iaYbTjSzhyVRPtY1MlO5Tcx pO8CHi7 MICROSCOPIC n7tllWXkDKRgtFF6UaBtRJW DESCRIPTION (test code qn7myk9VbdYJogYAzMEvcaE = 3371) MvywDbay45xNQ3aV82ZA6aA UChYuB5VAHihgF2Iup2YFWt NKXekTBwQ937w0abq3rrplY gfBN5sJfeDLBfopsaWaE2MS gaKCUqaerfJLq2EDrvMHXke WM4FJClaPAfC6ToHWUfSR0q gug4LSF3UKrmIREwNdI6ZSL otJAdYFAkuStrVVtcy170TF J3NsXfIPPajyCghPdfoC6tX qSlBKWGIRNsi6AyUGXhoINn fQ== SPECIAL STUDIES (test s6gpbVBwAPLqz6xqRDHtkXP code = 3376) uZzEwMzNcZnRuYmpcdWMxIH akjjWcLHyis2UlH9BwUnQeV FxhbnNpXGRlZmxhbmcxMDMz KTI1rwRdPWGbLOllDDEwAIm vDo8ryNAzrKpmCfIlHLWdu7 yaijYKfttmqTu3w8miGXYjE qV3lYTwTGyxP8uvhaFcwYVu N2MqpUZqxZb5m9ioBwLwObM 0wQVdREeoX0bmslBblDWqJR FcZLz2nI11DRIwxL3beENaR YmhakLzPyS7OUstATGcTuN9 SPNisBShQRXjR9moIDGvWWi gQNZoCNqkwUBdUZI0xIzvh7 G9wTBhqCGtyEibXdCsRsFdS dFLb1ArHWg2cFgfA9MiNGQv CsT8bJFcGRBeBBwsUONqXMW lhzX8fXnyhuHox98liNIgTR YwXGZzMjBcbGkwXHJpMCBDb 0UzcFyrRTU3fJm0lFpzVyae SMQ6Gso1YY0qod55wfh6uCc eFYZdfnuiIeG1UGbsNYCmpt nhVOx5NMemEVXopKT5YDCoj YTmF3ZuYBTbQL3uink2AEX8 NJzjFNFyMcP2FODebZFyIHU qiVqzRSqpy291FRW9PuZpRQ 4fP5Qpm1P9fY3plZUvZCYfu YQrBgNxOWMokm2rcTAnLCel i7QiJTR4dlP3bCPzyXHaVRI jSL78Vnwii9QmFuuij7NsN5 8azXM6IDqlr9ysXL1uAtG7j bVwVBoqr5tdlJ4vMyL9WDem VO5qHZ4bVQMbxU0ihuoiYPR nYnJkcmhlYWRccGdicmRyZm 7zeJzfSQW3HDnqX1cwcM6qG rM7EVufR7berZ0gLSb2DThv hTF3JBWrnG4eLK7lrruby6o fDKosTJywNELbqwK3yfU9SM FlxBGgF2EavZ8xVREqFV4sz usxb7foPMK5VUatRMXeSXF5 FvOdTRMpr0Egkqd3IoSoo9M kmBOcQToxX97za813VUXfyd OzN7doxTKownaohJAgumfuT LqmglJ2TIBzLMGiDWccZGQw XGZzMjJcbGFuZzEwMzNcaGl jaFxmMVxkYmNoXGYxXGxvY2 kcOaYfG0IzGYRnKuWgFBvaL GcdzWSpqEOlpSO5hO6bMJ1p GLLpkZAgG5FjFUKyvhIbcNC dDVM6dKYzjOMuUM7hXPrmtL Ctf8bgk1XdV3poxQrdyQW2F U4sBQOqLNXwWDdoc9YanY4g LlxwbGFpblxmMVxmczIyXGx tmgyeDKBaELuvG0yvIuJhVO RsjZpxKJpqc8VbCHTbUMGhW xzfnyWmIHr5tgKuMEPcuoud VEUigRhdrR4iAtXlLwVkUcx dOC2wRZYeS8qppUSrEUEgYX VlP4taVsKwuI7kqMtjVIxcD nEgXrUqZeENk244yz0qHUOb bMYinhUZwNApvO4aLSleUCg uFLtcrLAdRUsrt2ugOXEua7 j5eMThCGIgbnRxu2nsDKbuj rUaHZTflBYfkJEeJVOdi16p ZXofuFqgvMwcIACks6OkwRm sg5HbSbSeVVhju2WoU68gfN JvbCBzbGlkZXMgcnVuIGFsb 74ai8sjJMFqLtS1lAWikLG2 cECvlMEpg6FrbAgwNQLlz2m gJZMmis7brxzizSJpr5RveV 5pbmcuIEludGVybmFsIHBvc 3r6tRIvHNMyTAUsSAxoqCr1 SIMae637am4jjxC3lWOcLGO 2YWlsYWJsZSBhcmUgZXZhbH VhdGVkXHBsYWluXGYxXGZzM jJcbGFuZzEwMzNcaGljaFxm VThjWrSkGNWnGLrlD7xbQaT tE4DdEVScLzVblBLaB1fupP FyXHBsYWluXGYxXGZzMjJcb GFuZzEwMzNcaGljaFxmMVxk LiYcEBPwQPspT9xwYjYyV7N yXGZzMjIgIFxwbGFpblxmMV xmczIyXGxhbmcxMDMzXGhpY 7udNtGhOLVboOmcKOjhq6Ic HWZvHXIrNxhzmzTpXMp1beS oXHBhclxwbGFpblxmMVxmcz NoXHvqhugqREEfHQsbU3tvP yHkTVQktFulUJaxc1VtVXZd EBUoWossqcRpYAfqbFIkv8r xn0KkN0rcpDoewLO1YKPpA8 aguYAcbNN6GZZ2tK7xZCdws vQcYXIfh5QmXSUaQPGzIpB1 rU9aIDY6JjIKcBqbPCOxRPa uXGYxXGZzMjJcbGFuZzEwMz NcaGljaFxmMVxkYmNoXGYxX WosE8amWbKdT5FsIFTgLaMy rBoyCIugVZg0QrwmjMSwbsw mMVxmczIyXGxhbmcxMDMzXG txB6wjEoWvBBPmyNdgULpxr 2NoXGYxXGNmMlxmczIyIHMg KZRmbWUlqVVZJS59JBRuBDN jrDsfsX3plNTPCQQgoiU0b8 O9HSdjVSQfWLf5WPedatWwW LMqrS0jHDKiVB2rGPd8nuEg BRXqu9ZtJO8dIIJzhUGkOCC 7PVLrw3VmF5Ylf1KhFDTaXL Nayd1mzmYyRtUGaSYgJOYrw b70OELaRD7rI1wpPYHbDPRp qiXulRMlo0HdRHAzpBY6tZZ tVG4RQiLQn44iVSNfNAWUxj IvNQLkuFpysMW3eyN2rI5sT iBUaGUgRkRBIGhhcyBkZXRl or2pspAlKSWkKAQwf6GstWB pmDDbfrOeA2Uuj8OfSNUidg 75BVcldCPwtx07YU0qZ2Hkm 1WikK4lAVlgWMPrq1KhaGFf tWMgVWPvl8MwV0yaroydOCt vnZVwkG9xJSDlEVz0WXLif0 QrQWMbd9AjTxOouzWxXEWhH RQwALFmrQ04SQD1zYwliPjr grVnLT8qJTPgriMyNJCtMOZ vcF3vBEsktbXuVVFevbU7e6 W7DFhtLMRwxrHsKinkDMY2v wYzxmP6hLFzM7pnopalHXuw VRLtq7IskL6reSWSoJGdt6O sqUWwlZNAjSVwFY6radRrRN 5mEMP2OHujTSOTCIJpWFxaB CNiWFW0TNnaBivxRWI9qbRq OPBas4XzOSgqC4wfC88byWp olMa0iNZjwZwfoTVxsAFuCC ApvnJ8h3Y5BHAso9SjfijbS HBsYWluXGYyXGZzMjJcbGFu ZzEwMzNcaGljaFxmMlxkYmN nXEWpQYcfG3weRjUnUcRiFs ltFTY1iJ== Gross assessment was [facility] performed at ([facility], code = 2777) Department of Pathology, [address] [place] [id number], Technical component [facility] was performed at ([facility], code = 2778) Department of Pathology, [address] [place] [address] 80162, Professional component [facility] was performed at ([facility], code = 2779) Department of Pathology, [address] [place] [address], [facility] [id number] 15:51:47Surgical Pathology Report Case: [id number] Authorizing Provider: Ascencion Khan MD Collected: 11/08/2021 12:35 PM Ordering Location: [facility] PERIOPERATIVE Received: 11/08/2021 01:53 PM SERVICES Pathologist: Jordyn Smith MD Specimen: Kidney, Left KIDNEY, LEFT, ULTRASOUND-GUIDED BIOPSY: - ONCOCYTIC NEOPLASM, FAVOR ONCOCYTOMA - SEE COMMENT Signing Pathologist Direct Phone Line: [phone] signed by Jordyn Smith MD on 11/10/2021 at 3:51 PMThe histologic features include an neoplasm with cell containing eosinophilic and granular cytoplasm arranged in nests with round nuclei, conspicuous nucleoli and scattered nuclear pseudoinclusions. Immunohistochemical stains were performedand show the lesion to be strongly positive for CD117 and scattered positivity for CK7. The findings favor an oncocytoma. Other eosinophilic renal tumors such as eosinophilic variant of chromophobe renal cell carcinoma an low grade oncocytic tumor were considered, but the histologic and immunohistochemical feature do not favor these entities. Correlation with clinical and radiologic findings is recomm ended.[id number], [id number], [id number] renal mass midpoleLeft renal massA. Kidney, Left.Received in formalin labeled with the patient's name, medical record number and "kidney, left" are 2 wagner-yellow variegatedsoft tissue cores measuring 2.3 cm in length and 2.0 cm in length which are submitted in toto in A1.RONNI Sanders PA (ASCP)cmPerformedThe interpretation of this case included the use of immunohistochemistry or special stains.Control Slides Examined: In-house known positive controls were evaluated along with the test tissue. These control slides run alongside of the patients sample show appropriate staining. Internal positive and negative controls when available are evaluated Immunohistochemistry technical testing was performed at [facility], Pathology Laboratory where itwas developed and its performance characteristics were determined. It has not been cleared or approved by the U.S. Food and Drug Administration. The FDA has determined that such clearance or approval is not necessary. The test is used for clinical purposes. It should not be regarded as investigationalor for research. This laboratory is certified under the Clinical Laboratory Improvement Amendments of 1988 (CLIA-88) as qualified to perform high complexity clinical laboratory testing.[facility], Department of Pathology, [address] [place], [place] [id number], [facility], Department of Pathology, [address] [place] [address], [facility], Department of [facility], [address] [place] [address] 10081, G/S, BIOPSY, RENAL (KIDNEY)2021-11-08 13:37:00Reason for Exam:- >renal massEILEEN RANCHO [facility]: F[facility] MICHELLE : 1955 Sex: MFINALREPORT [...] time of sedation was 20 min utes. 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 Gatekeeper: None. Estimated Blood Loss: Less than 1 cc. Specimen: 2 core biopsy specimens, placed in formalin and sent to pathology. Technique: Informed consent was obtained. The risks of pain, bleeding, infection, injury to kidney/adjacent structures, and adverse medicati on reactions were discussed with the patient. After informed consent, the patient's left kidney kidney was scanned, with the patient prone. The 3.7 cm exophytic left renal mass was selected for biopsy,via a superior to inferior approach from the [...] hematoma. The patient's vital signs remained stable t hroughout the procedure. No immediate complications are noted. Patient disposition: The patient was sent to the observation area for vital sign monitoring and bed rest. The patient was discharged from the department in good condition. Impression:Successful and uncomplicated ultrasound guided left kidney mass biopsy with conscious sedation. Signed: Alex Barrios MDReport Verified Date/Time: 11/08/2021 13:37:07 Reading Location: [facility] P048 Angio Body Reading Room -COV2/RT-PCR ([facility])2021-11-07 21:01:32 Test Item Value Reference Range Interpretation Comments SARS-COV2/RT-PCR (test code = Negative Negative [id number]) Negative result for this test determines that [...] 564(g) of the Act.Testing was performed using [employer] SARS-CoV-2 assay.Fact Sheet for Healthcare Providers:https://www.[employer].jenkins/keith/RT SARS-CoV-2 HCP Fact Sheet 51- 149005.pdfFact Sheet for Healthcare Patients:https://www.[employer].jenkins/keith/RT SARS-CoV-2 Patient Fact Sheet EN 51-494648F4.pdf
[2022-12-19] MEDS ORDERED: NA CHLORIDE 0.9% 1,000 ML ONE (13:19)
[2022-12-19 13:22] LABS: Absolute Lymphocytes (CBC) 1.1 K/uL (0.7-4.9); Hematocrit 42.4 % (39.6-49.0); Lymphocytes % 13.3 % (15.3-44.8); MCV 87.1 fL (80-100); MPV 10.1 fL (7.6-11.3); RBC Red Blood Cell Count 4.87 M/uL (4.33-5.43)
[2022-12-19 13:23] LABS: Protime INR 3.85
[2022-12-19 13:42] LABS: Albumin 3.4 g/dL (3.4-5.0); Bilirubin Direct 0.8 mg/dL (0-0.2); Bilirubin Indirect, Calculated 0.8 mg/dL (0.2-0.8); Bilirubin Total 1.6 mg/dL (0.2-1.0); Magnesium 2.6 mg/dL (1.6-2.4); Potassium 3.6 mEq/L (3.5-5.1); Protein, Total 6.4 g/dL (6.4-8.2); Troponin High Sensitivity 56.9 pg/mL (<58.9)
--- NOTE | 2022-12-19 14:15 | RAD REPORT ---
EXAM DESCRIPTION: CT - Chest Abdomen Pelvis W Cont - 12/19/2022 1:57 pm CLINICAL HISTORY: Chest and abdomen pain. Abdominal distention;Chest pain COMPARISON: Thorax Wo Con dated 12/05/2021; Thorax Wo Con dated 09/26/2022; Abdomen Exam Complete date d 11/25/2022; Renal Ultrasound-Complete dated 09/28/2022 TECHNIQUE: Approximately 100 mL nonionic IV contrast was administered to the patient. All CT scans are performed using dose optimization technique as appropriate and may include automated exposure control or mA/KV adjustment according to patient size. FINDINGS: There is a aneurysmal dilatation of the aortic root is seen with moderate mural thrombus. The root of the aorta is dilated to 6 cm. There is evidence of previous aortic valve repair.The heart size is moderately enlarged. Pacer device is present. There is a dissection noted of the aortic arch . The dissection extends into the left proximal subclavian artery. There is no significant flow alter ation seen however caused by this.There is prominent edema with atelectasis in both lung bases.No bul ky lymphadenopathy in the chest. Small hiatal hernia. Diffuse fatty liver is seen with several vague low-density lesions which are incompletely characteriz ed on CT noncontrast assessment. The spleen is normal size. The pancreas is unremarkable. Several gal lstones are present gallbladder. There is evidence of multiple benign cysts involving both kidneys. H owever there is a solid mass likely present in the left kidney measuring 39 x 31 mm most compatible w ith renal cell carcinoma. There is evidence of mild narrowing origin celiac axis. Moderate soft plaque is seen ostium of the valenzuela perior mesenteric artery. The mid and distal superior mesenteric artery shows a small dissection flap which is not flow limiting. Extensive sigmoid diverticulosis coli is present without diverticulitis. Mild free fluid is seen in t he pelvis. No bowel obstruction, free air or evidence of abscess. No pathologic lymphadenopathy in th e abdomen or pelvis. Mild lower lumbar degenerative spondylosis. IMPRESSION: 4 cm solid left renal mass likely renal cell carcinoma. 6 cm aneurysm of the root of the aorta. Dissection flap within the aortic arch and left subclavian ar chito is noted without flow limitation. Cholelithiasis.
--- NOTE | 2022-12-19 16:16 | ER ---
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 Moderate SOB noted during triage. 10:41 Acuity: ABBY 2 aa5 10:41 Risk Assessment: Do you want to hurt yourself or someone else? Patient reports no [facility] desire to harm self or others. Onset of symptoms was 2022. 10:41 Coronavirus screen: vomiting. Ebola Screen: Patient denies travel to an Ebola-affected [facility] area in the 21 days before illness onset. Initial Sepsis Screen: Does the patient meet any 2 criteria? RR > 20 per min. HR > 90 bpm. Yes Does the patient have a suspected source of infection? No. Patient's initial sepsis screen is negative. 10:41 Method Of Arrival: Wheelchair aa Triage Assessment: 11:00 General: Appears in no apparent distress. Behavior is calm, cooperative, appropriate bp for age. Pain: Complains of pain in abdomen. EENT: No deficits noted. Neuro: No deficits noted. Cardiovascular: Rhythm is Respiratory: No deficits noted. GI: Abdomen is distended. : No signs and/or symptoms were reported regarding the genitourinary system. Derm: No deficits noted. Musculoskeletal: No deficits noted. Historical: - Allergies: 10:53 NKDA; aa5 - PMHx: 10:53 AAA; Atrial Fib; CHF; Chronic obstructive lung disease; Hypertension; GALLSTONES; COPD; aa5 - PSHx: 10:53 Stented artery; Valve replacement; pacemaker/defibrillator; aa5 - Immunization history:: Adult Immunizations unknown. - Social history:: Smoking status: Patient denies any tobacco usage or history of. - Family history:: not pertinent. Screenin:00 [facility] ED Fall Risk Assessment (Adult) History of falling in the last 3 months, bp including since admission No falls in past 3 months (0 pts). Abuse screen: Denies threats or abuse. Denies injuries from another. Nutritional screening: No deficits noted. Tuberculosis screening: No symptoms or risk factors identified. Assessment: 11:00 General: SEE TRIAGE NOTE. bp 13:30 Reassessment: PT TO CT. bp 14:01 Reassessment: PT RETURNED FROM CT. bp 16:00 Reassessment: ADMIT INITIATED. bp 19:25 Reassessment: ASSUMED CARE OF PT. PT SITTING IN CHAIR. STATES HE FEELS BETTER SITTING jj7 UP IN THE CHAIR IT HELPS WITH HIS BREATHING. VS STABLE. PT WILL BE TRANSFERRED. 21:42 Reassessment: Patient is alert/active/playful, equal unlabored respirations, skin jj7 warm/dry/pink. Vital Signs: 10:41 BP 110 / 83; Pulse 98; Resp 34 S; Temp 98(TE); Pulse Ox 99% on R/A; Weight 89.81 kg aa5 (R); Height 5 ft. 10 in. (R); 12:00 BP 99 / 87; Pulse 85; Resp 18; Pulse Ox 95% ; bp 14:02 BP 102 / 90; Pulse 82; Resp 15; Pulse Ox 95% ; bp 16:00 BP 116 / 78; Pulse 81; Resp 24; Pulse Ox 98% ; bp 18:00 BP 117 / 74; Pulse 84; Resp 24; Pulse Ox 98% ; bp 19:25 BP 114 / 80; Pulse 87; Resp 17; Pulse Ox 97% ; jj7 20:00 BP 107 / 87; Pulse 93; Resp 17; Pulse Ox 98% ; jj7 21:00 BP 100 / 88; Pulse 79; Resp 20; Pulse Ox 95% ; jj7 22:20 BP 93 / 80; Pulse 70; Resp 17; Pulse Ox 95% ; jj7 23:20 BP 101 / 82; Pulse 75; Resp 17; Pulse Ox 93% ; jj7 10:41 Body Mass Index 28.41 (89.81 kg, 177.8 cm) aa5 ED Course: 10:39 Patient arrived in ED. am2 10:41 Arm band placed on Patient placed in an exam room, on a stretcher. aa5 10:42 Bharathi Orta MD is Attending Physician. melody 10:53 Surjit Martin, RN is Primary Nurse. bp 10:55 Triage completed. aa5 11:00 Patient has correct armband on for positive identification. Bed in low position. Call bp light in reach. Side rails up X2. 13:00 Inserted saline lock: 22 gauge in right forearm, using aseptic technique. Blood bp collected. 13:59 CT Chest, Abdomen, Pelvis - W/Contrast In Process Unspecified. EDMS 16:06 Adam Villafana MD is Hospitalizing Provider. melody 19:30 Initial transfer done by Dr Orta. 1 20:13 Physician and Hospital bed approval by OPAL Anderson and Dr Sylvester Schuster. 1 20:40 [facility] [place] 1st attempt denied. They had no trucks. 1 20:42 EMS [facility] ambulance approved. 1 23:04 No provider procedures requiring assistance completed. Patient transferred, IV remains jj7 in place. Administered Medications: 18:08 Discontinued: NS 0.9% IV 1000 ml IV at 75 ml/hr continuous melody 12:55 Drug: NS 0.9% IV 1000 ml Route: IV; Rate: 75 ml/hr; Site: right forearm; bp 18:12 Follow up: IV Status: Order to discontinue infusion bp 13:41 Not Given (Patient Refused): MethylPrednisoLONE IVP 125 mg IVP once bp 13:41 Not Given (Patient Refused): Levalbuterol Inhalation 2.5 mg Inhalation once bp 13:41 Not Given (Patient Refused): Ipratropium Inhalation Aerosol 0.5 mg Inhalation once bp 13:42 Not Given (Patient Refused): Famotidine IVP 20 mg IVP once; dilute with 10 mL 0.9% bp NaCl; give over 2 minutes 18:11 Drug: Furosemide IVP 40 mg Route: IVP; Site: right forearm; bp 23:19 Follow up: Response: No adverse reaction jj7 19:37 Drug: Metoprolol PO 50 mg Route: PO; jj7 23:20 Follow up: Response: No adverse reaction jj7 23:19 Not Given (Hemodynamic Parameters): Metoprolol IVP 2.5 mg IVP once; Hold for SBP <100 jj7 or HR <60. Medication: 23:05 VIS not applicable for this client. jj7 Outcome: 16:16 Decision to Hospitalize by Provider. melody 18:59 ER care complete, transfer ordered by . meoldy 23:02 Transferred to [facility], Transfer form completed. X-rays sent w/ patient. [email or web address] 23:02 Transferred by ground EMS [facility]. Note: REPORT GIVEN TO RINA TAPIA 23:02 Condition: good 23:23 Patient left the ED. jj7 Signatures: Dispatcher [employer] EDMS Bharathi Orta MD MD cha Calderon, Audri, RN RN aa5 Keira Diaz am2 Surjit Martin RN RN René Diez RN RN jj7 [place] [id number] Corrections: (The following items were deleted from the chart) 23:22 21:00 BP 100 / 88; Pulse 79bpm; Resp 20bpm; Pulse Ox 95%; jj7 jj7 07 00:27 06/06 20:13 Physician and Hospital bed approval by Leah Cabral, [place] [id number]
--- NOTE | 2022-12-19 16:16 | EDPHYS ---
Physician Documentation [facility] Name: Chaim Michelle Age: 67 yrs Sex: Male : 1955 Arrival Date: 12/19/2022 Time: 10:38 Bed 17 Private MD: ED Physician Bharathi Orta HPI: 12/19 15:55 This 67 yrs old Male presents to ER via Wheelchair with complaints of melody Abdominal Distention, Breathing Difficulty. 15:55 The patient has shortness of breath with light activity. Onset: The symptoms/episode melody began/occurred 3 day(s) ago. 15:55 Duration: The symptoms are continuous, and are steadily getting worse. The patient's melody shortness of breath is aggravated by exertion, light activity, is alleviated by rest, application of supplemental oxygen. The patient presents with abdominal distention in the upper abdomen, in the lower abdomen. Onset: The symptoms/episode began/occurred 3 day(s) ago. Associated signs and symptoms: Pertinent positives: non-productive cough. Severity of symptoms: At their worst the symptoms were mild in the emergency department the symptoms are unchanged. The symptoms do not radiate. Associated signs and symptoms: Pertinent positives: difficulty swallowing. The symptoms are described as steady, vague, bloated. Historical: - Allergies: 10:53 NKDA; aa5 - PMHx: 10:53 AAA; Atrial Fib; CHF; Chronic obstructive lung disease; Hypertension; GALLSTONES; COPD; aa5 - PSHx: 10:53 Stented artery; Valve replacement; pacemaker/defibrillator; aa5 - Immunization history:: Adult Immunizations unknown. - Social history:: Smoking status: Patient denies any tobacco usage or history of. - Family history:: not pertinent. ROS: 15:55 Constitutional: Negative for fever, chills, and weight loss, Eyes: Negative for injury, melody pain, redness, and discharge, ENT: Negative for injury, pain, and discharge, Neck: Negative for injury, pain, and swelling, Cardiovascular: Negative for chest pain, palpitations, and edema, Respiratory: Negative for shortness of breath, cough, wheezing, and pleuritic chest pain, Back: Negative for injury and pain, : Negative for injury, bleeding, discharge, and swelling, Skin: Negative for injury, rash, and discoloration, Neuro: Negative for headache, weakness, numbness, tingling, and seizure, Psych: Negative for depression, anxiety, suicide ideation, homicidal ideation, and hallucinations, Allergy/Immunology: Negative for hives, rash, and allergies, Endocrine: Negative for neck swelling, polydipsia, polyuria, polyphagia, and marked weight changes, Hematologic/Lymphatic: Negative for swollen nodes, abnormal bleeding, and unusual bruising. 15:55 Respiratory: Positive for shortness of breath. 15:55 Abdomen/GI: Positive for abdominal pain, nausea, abdominal distension. Exam: 15:55 Constitutional: This is a well developed, well nourished patient who is awake, alert, melody and in no acute distress. Head/Face: Normocephalic, atraumatic. Eyes: Pupils equal round and reactive to light, extra-ocular motions intact. Lids and lashes normal. Conjunctiva and sclera are non-icteric and not injected. Cornea within normal limits. Periorbital areas with no swelling, redness, or edema. ENT: Nares patent. No nasal discharge, no septal abnormalities noted. Tympanic membranes are normal and external auditory canals are clear. Oropharynx with no redness, swelling, or masses, exudates, or evidence of obstruction, uvula midline. Mucous membranes moist. Neck: Trachea midline, no thyromegaly or masses palpated, and no cervical lymphadenopathy. Supple, full range of motion without nuchal rigidity, or vertebral point tenderness. No Meningismus. Chest/axilla: Normal chest wall appearance and motion. Nontender with no deformity. No lesions are appreciated. Cardiovascular: Regular rate and rhythm with a normal S1 and S2. No gallops, murmurs, or rubs. Normal PMI, no JVD. No pulse deficits. Back: No spinal tenderness. No costovertebral tenderness. Full range of motion. Male : Normal genitalia with no discharge or lesions. Skin: Warm, dry with normal turgor. Normal color with no rashes, no lesions, and no evidence of cellulitis. MS/ Extremity: Pulses equal, no cyanosis. Neurovascular intact. Full, normal range of motion. Neuro: Awake and alert, GCS 15, oriented to person, place, time, and situation. Cranial nerves II-XII grossly intact. Motor strength 5/5 in all extremities. Sensory grossly intact. Cerebellar exam normal. Normal gait. Psych: Awake, alert, with orientation to person, place and time. Behavior, mood, and affect are within normal limits. 15:55 ECG was reviewed by the Attending Physician. 15:55 Respiratory: the patient does not display signs of respiratory distress, Respirations: normal, Breath sounds: decreased breath sounds, that are mild, are scattered, rhonchi, that are mild, are scattered, stridor, is not appreciated, wheezing: is not appreciated. Vital Signs: 10:41 BP 110 / 83; Pulse 98; Resp 34 S; Temp 98(TE); Pulse Ox 99% on R/A; Weight 89.81 kg aa5 (R); Height 5 ft. 10 in. (R); 12:00 BP 99 / 87; Pulse 85; Resp 18; Pulse Ox 95% ; bp 14:02 BP 102 / 90; Pulse 82; Resp 15; Pulse Ox 95% ; bp 16:00 BP 116 / 78; Pulse 81; Resp 24; Pulse Ox 98% ; bp 18:00 BP 117 / 74; Pulse 84; Resp 24; Pulse Ox 98% ; bp 19:25 BP 114 / 80; Pulse 87; Resp 17; Pulse Ox 97% ; jj7 20:00 BP 107 / 87; Pulse 93; Resp 17; Pulse Ox 98% ; jj7 21:00 BP 100 / 88; Pulse 79; Resp 20; Pulse Ox 95% ; jj7 22:20 BP 93 / 80; Pulse 70; Resp 17; Pulse Ox 95% ; jj7 23:20 BP 101 / 82; Pulse 75; Resp 17; Pulse Ox 93% ; jj7 10:41 Body Mass Index 28.41 (89.81 kg, 177.8 cm) aa5 MDM: 10:42 Patient medically screened. melody 18:55 Differential diagnosis: Anxiety Reaction Bronchitis pulmonary edema, Pulmonary Embolism melody Unstable Angina AAA, coronary artery disease, Hepatitis. Antibiotic administration: Not indicated. Immunization status: Pneumococcal vaccine: Data reviewed: vital signs, nurses notes, lab test result(s), EKG, radiologic studies, CT scan, plain films. Consideration of Admission/Observation Patient was admitted/placed on observation. Escalation of care including admission/observation considered. I considered the following discharge prescriptions or medication management in the emergency department Medications were administered in the Emergency Department. See MAR. Test considered but Not performed: MRI: NO CHEST MRI. 12/19 11:49 Order name: Basic Metabolic Panel; Complete Time: 14:28 [facility] 12/19 11:49 Order name: CBC with Diff; Complete Time: 14:28 [facility] 12/19 11:49 Order name: LFT's; Complete Time: 14:28 [facility] 12/19 11:49 Order name: Magnesium; Complete Time: 14:28 [facility] 12/19 11:49 Order name: NT PRO-BNP; Complete Time: 14:28 [facility] 12/19 11:49 Order name: PT-INR; Complete Time: 14:28 [facility] 12/19 11:49 Order name: Troponin HS; Complete Time: 14:28 [facility] 12/19 11:49 Order name: Lipase; Complete Time: 14:28 [facility] 12/19 11:49 Order name: Urinalysis w/ reflexes; Complete Time: 18:02 [facility] 12/19 11:49 Order name: Blood Culture Adult (2) [facility] 12/19 11:49 Order name: Lactate w/ 2H reflex if indic.; Complete Time: 14:28 [facility] 12/19 11:49 Order name: CT Chest, Abdomen, Pelvis - W/Contrast; Complete Time: 14:38 [facility] 12/19 11:49 Order name: EKG; Complete Time: 11:50 [facility] 12/19 11:49 Order name: Cardiac monitoring; Complete Time: 12:03 [facility] 12/19 11:49 Order name: EKG - Nurse/Tech; Complete Time: 13:42 [facility] 12/19 11:49 Order name: IV Saline Lock; Complete Time: 13:42 [facility] 12/19 11:49 Order name: Labs collected and sent; Complete Time: 13:42 [facility] 12/19 11:49 Order name: O2 Per Protocol; Complete Time: 12:02 [facility] 12/19 11:49 Order name: O2 Sat Monitoring; Complete Time: 12:02 [facility] EC:55 Rate is 85 beats/min. Rhythm is regular. QRS [place] is Normal. IN interval is normal. QRS melody interval is normal. QT interval is normal. No Q waves. T waves are Normal. No ST changes noted. Clinical impression: Abnormal EKG without significant change and No evidence of ischemia. Interpreted by me. Reviewed by me. Administered Medications: 18:08 Discontinued: NS 0.9% IV 1000 ml IV at 75 ml/hr continuous melody 12:55 Drug: NS 0.9% IV 1000 ml Route: IV; Rate: 75 ml/hr; Site: right forearm; bp 18:12 Follow up: IV Status: Order to discontinue infusion bp 13:41 Not Given (Patient Refused): MethylPrednisoLONE IVP 125 mg IVP once bp 13:41 Not Given (Patient Refused): Levalbuterol Inhalation 2.5 mg Inhalation once bp 13:41 Not Given (Patient Refused): Ipratropium Inhalation Aerosol 0.5 mg Inhalation once bp 13:42 Not Given (Patient Refused): Famotidine IVP 20 mg IVP once; dilute with 10 mL 0.9% bp NaCl; give over 2 minutes 18:11 Drug: Furosemide IVP 40 mg Route: IVP; Site: right forearm; bp 23:19 Follow up: Response: No adverse reaction jj7 19:37 Drug: Metoprolol PO 50 mg Route: PO; jj7 23:20 Follow up: Response: No adverse reaction jj7 23:19 Not Given (Hemodynamic Parameters): Metoprolol IVP 2.5 mg IVP once; Hold for SBP <100 jj7 or HR <60. 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
[2022-12-19 17:23] LABS: Specific Gravity > 1.030 (1.005-1.030); Urine Bacteria None Seen /HPF (<20); Urine Bilirubin NEGATIVE (Negative); Urine Blood Negative (Negative); Urine Clarity Clear (Clear); Urine Color Light-Yellow (Yellow); Urine Glucose NEGATIVE (Negative); Urine Protein TRACE (Negative); Urine RBC <5 /HPF (None Seen); Urine Urobilinogen Normal (Normal); Urine pH 6.5 (5.0-7.0)
[2022-12-19] MEDS ORDERED: FUROSEMIDE 40 MG/4 ML VIAL ONE (18:17)
[2022-12-19] MEDS ORDERED: METOPROLOL TAR 50 MG TAB ONE (19:26)
[2022-12-20 01:03] VITALS: TEMP 98
[2022-12-20 01:24] VITALS: BP 101/82; O2SAT 93
--- NOTE | 2022-12-20 07:17 | EKG ---
Test Date: 2022-12-19 Test Time: 12:50:24 Addressograph Operator: BP MEASUREMENT RESULTS: Intervals: Rate: 85 NH: QRSD: 178 QT: 522 QTc: 621 [place]: P: 114 NH: QRS: 268 T: 131 INTERPRETIVE STATEMENTS: Ventricular-paced rhythm with occasional premature ventricular complexes Biventricular pacemaker detected Abnormal ECG Compared to ECG 09/25/2022 15:44:49 Ventricular premature complex(es) now present Sinus rhythm no longer present Atrial premature complex(es) no longer present Aberrant conduction of supraventricular beat(s) no longer present Left-axis deviation no longer present Right bundle-branch block no longer present T-wave abnormality no longer present Possible ischemia no longer present Electronically Signed On 12-20-22 07:14:09 CDT by Robert Madden
== END 2022-12-19 23:23 | disposition short-term general hospital (02) ==
LOC: ER 10:38
DX: I71.011 Dissection of aortic arch (principal); Q25.43 Congenital aneurysm of aorta; I50.40 Unspecified combined systolic (congestive) and diastolic (congestive) heart failure; K30 Functional dyspepsia; I51.7 Cardiomegaly; Z79.01 Long term (current) use of anticoagulants; I10 Essential (primary) hypertension; J44.9 Chronic obstructive pulmonary disease, unspecified; I48.91 Unspecified atrial fibrillation; Z95.810 Presence of automatic (implantable) cardiac defibrillator; Z95.818 Presence of other cardiac implants and grafts; Z95.2 Presence of prosthetic heart valve
CPT/HCPCS: 96361; 93005; 87040 ×2; 85025; 81001; 80048; 36415; 83735; 85610; 80076; 83605; 84484; 83690; 83880; 71260; 74177; 96374; 99285; Q9967; J1940; J7030